=== PATIENT | female | born 1940 | race Caucasian/White ===

== ENCOUNTER 2023-01-01 20:15 | Inpatient (IN) | payer MEDICARE, SELFPAY ==
--- NOTE | ~2023-01-01 | XR_ITS ---
EXAMINATION: XR KNEE, LEFT CLINICAL INFORMATION: Left knee swelling. COMPARISON: None available. TECHNIQUE: Two views of the left knee. FINDINGS: Moderate tricompartmental degenerative joint changes are seen with joint space narrowing, periarticular sclerosis and marginal osteophyte formation. There is no acute fracture. Mild calcification is seen in the suprapatellar region. Small to moderate joint effusion. Mild surrounding soft tissue swelling. XR/XR knee LT 3V IMPRESSION: 1. Moderate tricompartmental degenerative joint changes most consistent with osteoarthritis. 2. Small to moderate joint effusion and mild surrounding soft tissue swelling without acute underlying osseous abnormality.
--- NOTE | ~2023-01-01 | XR_ITS ---
EXAMINATION: XR CHEST CLINICAL INFORMATION: Pneumonia. COMPARISON: None available. TECHNIQUE: 2 views of the chest were obtained. FINDINGS: No significant abnormality is noted involving the heart, lungs, mediastinum, bony thorax or soft tissues. XR/XR chest 2V IMPRESSION: No acute cardiopulmonary process.
--- NOTE | ~2023-01-01 | CT_ITS ---
EXAMINATION: NONCONTRAST HEAD CT NONCONTRAST CERVICAL SPINE CT INDICATION INFORMATION: Unwitnessed fall COMPARISON: None TECHNIQUE: Separate noncontrast CT examinations of the head and cervical spine were performed. Coronal head CT images and coronal and sagittal cervical spine images were created at the technologist workstation. DLP: 846 mGy-cm DOSE LOWERING TECHNIQUES: This CT examination was performed using dose optimization techniques as appropriate, variously including the following: - Automated exposure control - Adjustment of mA and/or kV according to patient size (this includes techniques or standardized protocols for targeted exams were dose is matched to indication/reason for exam; i.e. extremities or head) - Use of iterative reconstruction technique FINDINGS: Head: There is no evidence of acute intracranial hemorrhage or territorial infarction. No abnormal mass-effect or midline shift is seen. Kauffman to white matter differentiation is well preserved. No extra-axial fluid collections are identified. The ventricles are normal in size. There is mild periventricular white matter hypoattenuation consistent with chronic small vessel ischemic disease. Mild volume loss is noted. The osseous structures and soft tissues are normal. The mastoid air cells and visualized portions of the paranasal sinuses are well-aerated. Cervical spine: There is degenerative change at the atlantodens articulation. There is grade 1 anterolisthesis of C2 on C3, C3 on C4, and C7 on T1 which is likely chronic/degenerative in nature. There is disc space narrowing and endplate osteophyte formation most prominently in the lower cervical spine. Vertebral body heights are maintained. There is severe multilevel facet arthropathy. No evidence of acute fracture. No prevertebral soft tissue swelling. Visualized portions of the lung apices demonstrate scarring. The thyroid gland is unremarkable. CT/CT cervical spine wo IV con IMPRESSION: HEAD: No acute intracranial findings. CERVICAL SPINE: No acute findings identified. Moderate to severe degenerative changes.
[2023-01-01 20:25] VITALS: BP 126/69; BP 144/78; PULSE 104; PULSE 82; RESP 15; TEMP 36.8; O2SAT 97; BMI 16.0
--- NOTE | 2023-01-01 21:24 | ED_ITS ---
HPI - General Adult General Chief complaint: Psychiatric Symptoms Stated complaint: DEMENTIA Time Seen by Provider: 01/01/23 21:23 Source: patient, family and RN notes reviewed Mode of arrival: EMS Limitations: altered mental status History of Present Illness HPI narrative: patients have significant dementia with history of wandering out of the house multiple times today had argument with family after the patient left the house went to the neighbor's house patient states the door was open that is why she went inside. Per patient daughter patient has same problem multiple times and dementia is getting worse unable to manage her at this time looking for placement. No fever no nausea no vomiting appetite is normal no cough Related Data Allergies Allergy/AdvReac Type Severity Reaction Status Date / Time No Known Allergies Allergy Verified 01/01/23 21:32 Review of Systems Review of Systems: Yes Unobtainable due to mental status ( dementia) [facility] Social History Social History Smoked in Last 30 Days: No Use of substances other than those prescribed or required for medical reasons: No Advance Directives: No Advance Directives Information Provided: No Physical Exam ED Vital Signs: Vital Signs - 24 hr 01/01/23 20:25 01/02/23 01:43 01/02/23 05:47 Temperature 98.3 F 98.5 F Pulse Rate 104 H 80 83 Respiratory Rate 15 12 17 Blood Pressure 126/69 131/75 125/71 Pulse Oximetry 97 99 95 Oxygen Delivery Method Room Air Room Air Room Air 01/02/23 07:14 Temperature 97.9 F Pulse Rate 81 Respiratory Rate 18 Blood Pressure 128/67 Pulse Oximetry 98 Oxygen Delivery Method Room Air BMI result Body Mass Index 16.0 Appearance: Alert. Oriented X2. No acute distress. Eyes: PERRLA, No Nystagmus ENT: Pharynx normal. Oral Mucosa moist Neck: Normal inspection. Neck supple. CVS: Normal heart rate and rhythm. Pulses normal. Respiratory: No respiratory distress. Equal air entry bilateral, no wheezing/rales/rhonchi Abdomen: Soft and nontender. Bowel sounds are present, no mass palpable, no CVA tenderness Skin: Skin warm and dry. Normal skin color. Normal skin turgor. Extremities: No lower extremity edema. No calf tenderness Neuro: Oriented X 2. No motor deficit. No sensory deficit.No cerebellar signs , cranial nerves II-XII intact Medical Decision Making Medical Decision Making [facility] Narrative: patient with dementia unable to manage at home by patient's family medical stable consulted case management for placement patient ambulatory without any distress seen by case management for placement Lab Data [facility] Lab Attestation statement: I reviewed the patient's lab results. 01/01/23 22:49 01/01/23 22:49 Labs: Lab Results 01/01/23 01/01/23 01/02/23 Range/Units 22:49 22:49 00:47 WBC 7.3 (4.8-10.8) X10*3/uL RBC 4.02 L (4.20-5.50) X10*6/uL Hgb 11.8 L (12.0-16.0) g/dl Hct 36.4 L (37.0-47.0) % MCV 90.5 (80.0-98.0) fL MCH 29.4 (27.0-33.0) pg MCHC 32.4 (31.0-35.0) g/dl RDW 14.4 (11.0-16.0) % Plt Count 298 (160-400) X10*3/uL MPV 9.4 (9.4-12.3) fL Immature Gran % (Auto) 0.3 (0.0-0.4) % Neut % (Auto) 67.6 (45-73) % Lymph % (Auto) 18.2 L (20-40) % [place] % (Auto) 10.9 (2-11) % Eos % (Auto) 2.3 (0-4) % Baso % (Auto) 0.7 (0-2) % Lymph # (Auto) 1.3 (1.2-4.9) X10*3/uL [place] # (Auto) 0.8 (0.1-1.2) X10*3/uL Eos # (Auto) 0.2 (0.0-0.4) X10*3/uL Baso # (Auto) 0.1 (0.0-0.2) X10*3/uL Abs Immat Gran (auto) 0.02 (0.00-0.03) X10*3/uL Absolute Neuts (auto) 4.9 (2.0-8.3) x10*3/uL Absolute Nucleated RBC 0.000 (0.0-0.012) X10*3/uL Nucleated RBC % (auto) 0.0 (0.0-0.2) /100WBC Sodium 143 (135-145) mmol/L Potassium 4.3 (3.3-5.1) mmol/L Chloride 111 H (96-108) mmol/L Carbon Dioxide 24 (22-29) mmol/L Anion Gap 12 (12-20) BUN 29 H (9-16) mg/dL Creatinine 0.90 (0.5-1.4) mg/dL Estim Creat Clear Calc 35.3 Estimated GFR 60 Random Glucose 104 (60-115) mg/dL Calcium 9.2 (8.4-10.2) mg/dL Total Bilirubin 0.2 (0.0-1.0) mg/dL AST 11 (5-31) U/L ALT 10 (0-31) U/L Alkaline Phosphatase 73 (39-117) U/L Total Protein 6.6 (6.5-8.0) g/dL Albumin 3.8 (3.5-5.0) g/dL Urine Color Yellow Urine Appearance Cloudy Urine pH 8.5 (5.0-9.0) Ur Specific [place] 1.020 (1.005-1.025) Urine Protein Trace (Neg-Trace) mg/dL Urine Glucose (UA) Negative (Negative) mg/dL Urine Ketones Negative (Negative) mg/dL Urine Blood Negative (Negative) Urine Nitrite Negative (Negative) Ur Leukocyte Esterase Negative (Negative) Discharge Plan Discharge Clinical Impression: Dementia Patient Disposition: Still a Patient Interventions: [place]-Suicide Risk Severity Scale Last Done: 01/02/23 01:43
[2023-01-01 22:54] LABS: MANUAL DIFF FLAG NO
--- NOTE | 2023-01-01 22:54 | MHC.CM.ED ---
CM met with patient at the request of Dr. Hernandez. Pt BIBA tonjono for increasing confusion and wandering into the neighbors home. Pt has a guardian. Deemed not capable by courts. Guardian/daughter Hannah Jenkins ([phone]). Pt lives with daughter, Nelly Licea ([phone]). Nelly is very concerned because patient has wandered several times, especially at night. Has been more confused. Requesting work up and urine test. Pt does not always know who family is, does not know where she lives, knows her mind is not working correctly. New PCP Dr. Thompson at [facility]. Daughter tells CM that her mother has Medicare and [employer] [place] insurance. Her mother worked for [employer] and the [place] insurance is from her job. sonia Young has an appointment to begin MH application on . Daughters are working on obtaining documents for application. Daughters are concerned about safety and wandering. Pt ambulates with a steady gait. CM spoke to both daughters about time involved in MH application and that their mother would not be admitted to the hospital, but would remain in the ED or Overflow and that this process could take months, before a placement could be obtained. Explained that hiring some help at home, alarming the doors, placing cameras in home could be options for their mother to stay at home, safely, while waiting for MH and placement. Reviewed [facility] and memory care also. Nelly, who cares for her mother states she needs to think about all these options, but is really worried after tonights issue. She again stated she was worried about safety. Dr. Hernandez aware of above. CM following for discharge needs. Medical work up ongoing.
[2023-01-01 22:55] LABS: Basophils Absolute Auto 0.1 X10*3/uL (0.0-0.2); Basophils Percent Auto 0.7 % (0-2); Eosinophils Absolute Auto 0.2 X10*3/uL (0.0-0.4); Eosinophils Percent Auto 2.3 % (0-4); Hematocrit 36.4 % (37.0-47.0); Hemoglobin 11.8 g/dl (12.0-16.0); Imm Gran Abs Auto 0.02 X10*3/uL (0.00-0.03); Imm Gran Pct Auto 0.3 % (0.0-0.4); Lymphocytes Absolute Auto 1.3 X10*3/uL (1.2-4.9); Lymphocytes Percent Auto 18.2 % (20-40); Mean Corpuscular HGB Conc 32.4 g/dl (31.0-35.0); Mean Corpuscular Hemoglobin 29.4 pg (27.0-33.0); Mean Corpuscular Volume 90.5 fL (80.0-98.0); Mean Platelet Volume 9.4 fL (9.4-12.3); Monocytes Absolute Auto 0.8 X10*3/uL (0.1-1.2); Monocytes Percent Auto 10.9 % (2-11); Neutrophils Absolute Auto 4.9 x10*3/uL (2.0-8.3); Neutrophils Percent Auto 67.6 % (45-73); Platelet Count 298 X10*3/uL (160-400); Red Blood Count 4.02 X10*6/uL (4.20-5.50); Red Cell Distribution Width 14.4 % (11.0-16.0); White Blood Count 7.3 X10*3/uL (4.8-10.8)
[2023-01-01 23:09] LABS: Alanine Aminotransferase 10 U/L (0-31); Albumin Level 3.8 g/dL (3.5-5.0); Alkaline Phosphatase 73 U/L (39-117); Anion Gap 12 (12-20); Aspartate Amino Transferase 11 U/L (5-31); Bilirubin Total 0.2 mg/dL (0.0-1.0); Blood Urea Nitrogen 29 mg/dL (9-16); Calcium 9.2 mg/dL (8.4-10.2); Carbon Dioxide 24 mmol/L (22-29); Chloride 111 mmol/L (96-108); Creatinine Clr Calc Pharmacy 35.3; Estimated Glomerular Filt Rate 60; Glucose Random 104 mg/dL (60-115); Potassium 4.3 mmol/L (3.3-5.1); Sodium 143 mmol/L (135-145); Total Protein 6.6 g/dL (6.5-8.0)
[2023-01-02 00:58] LABS: Appearance Urine Cloudy; Color Urine Yellow; Glucose Urine UA Negative (Negative); Leukocyte Esterase Urine Negative (Negative); Nitrite Urine Negative (Negative); PH 8.5 (5.0-9.0); Urine Blood Negative (Negative); Urine Ketones Negative (Negative); Urine Protein Trace mg/dL (Neg-Trace)
[2023-01-02 01:43] VITALS: BP 131/75; PULSE 80; RESP 12; O2SAT 99
--- NOTE | 2023-01-02 01:46 | PC.NURSE ---
Pt alert and oriented to self, resting at the bedside in no apparent distress. VSS. Case management met with pt and family and they are aware of plan of care. Pt able to ambulate with one assist to the bathroom. Reports no assist device use at home. Makes needs known. Food and liquid provided as requested. Pt able to eat and drink with no difficulty.
--- NOTE | 2023-01-02 04:32 | PC.NURSE ---
Pt resting/sleeping at the bedside in no apparent distress. Reports no pain or discomfort at this time. Will continue to monitor.
[2023-01-02 05:47] VITALS: BP 125/71; PULSE 83; RESP 17; TEMP 36.9; O2SAT 95
[2023-01-02 07:14] VITALS: BP 128/67; PULSE 81; RESP 18; TEMP 36.6; O2SAT 98
--- NOTE | 2023-01-02 07:16 | PC.NURSE ---
patient laying in stretcher, calm and cooperative. patient resp equal and unlabored. no signs of distress. patient sitting up eating breakfast
--- NOTE | 2023-01-02 08:24 | PC.NURSE ---
Assumed care of patient at this time.
--- NOTE | 2023-01-02 09:58 | PC.NURSE ---
Per daughter who contacted ED overflow at this time, patient is not on any current medications. Hasn't filled anything since and stopped taking them all at that time because, she hasn't gotten in to see a primary care provider .
--- NOTE | 2023-01-02 09:59 | PHA.MEDREC ---
Pharmacy Consult ? Medication Reconciliation Pharmacy has completed the medication reconciliation. Nurse Majo messaged me to let me know that patient's daughter called her in ED Over to let her know that she stopped taking medications in June and is currently not taking any medication
[2023-01-02 14:00] VITALS: BP 116/64; PULSE 74; RESP 18; TEMP 36.8; O2SAT 98
--- NOTE | 2023-01-02 14:46 | MHC.CM.PN ---
THIS CM SPOKE WITH DAUGHTER/GUARDIAN GAUTAM. SHE STATES SHE AND HER SISTER ARE JUST UNABLE TO SAFELY KEEP THEIR MOTHER AT HOME SAFELY DUE TO HER WANDERING AND . GAUTAM WILL BE STARTING THE MH PROCESS WEDNESDAY WITH [facility]. SUPPORT OFFERED AND THIS CM DID EXPLAIN THE IT WAS OF THE UTMOST IMPORTANCE TO START RIGHT IN ON THE MH APPLICATION SO LTC PLACEMENT CAN BE SOUGHT. PT MAY NEED A SECURED DEMENTIA UNIT DUE TO HER WANDERING. CM WILL CONTINUE TO FOLLOW FOR DC NEEDS/PLAN
--- NOTE | 2023-01-02 20:34 | MHC.EDTECH ---
ambulated patient to the bathroom X 2. Patient in bed resting quietly
--- NOTE | 2023-01-02 20:46 | PC.NURSE ---
Pt alert to her self, confused and wandering at times. Easily redirectable. She amb to the BR w/ assist. Camera in place and safety prec maintained.
--- NOTE | 2023-01-02 20:46 | MHC.EDTECH ---
Pt. attempting to go home to get soething to eat. [place] and imger veronica provided. Pt. back in bed resting quietly
[2023-01-02 21:30] VITALS: BP 125/54; PULSE 84; RESP 16; TEMP 36.8; O2SAT 96
[2023-01-02] MEDS: OLANZapine 5 MG TABLET PO (22:02)
--- NOTE | 2023-01-02 22:30 | PC.NURSE ---
Pt very restless, wandering around unit and very anxious.Pt needing constant redirection. MD Tatiana gordillo notified and ordered 5mg po zyprexa. Med given.
[2023-01-03 14:00] VITALS: BP 86/58; PULSE 88; RESP 16; TEMP 36.6; O2SAT 98
[2023-01-03 16:15] VITALS: BP 86/60
[2023-01-03 18:56] VITALS: BP 106/60
--- NOTE | 2023-01-03 18:57 | PC.NURSE ---
Patient slept most of the day, in the afternoon patient became more active, confused expressing desire to leave, stating she lives next door and will be leaving. Easily redirected.
[2023-01-03] MEDS: OLANZapine 5 MG TABLET PO (20:07)
[2023-01-03] MEDS: diphenhydrAMINE HCL 25 MG CAPSULE PO (21:18)
[2023-01-03 22:00] VITALS: BP 127/70; PULSE 98; RESP 16; TEMP 36.7; O2SAT 98
--- NOTE | 2023-01-04 00:34 | PC.NURSE ---
Assumed care at 19:30. Patient oriented to name only. Up wandering, sundowning, wandering, agitated, yelling at and swearing at people to turn everything off and get everyone out of here. Discussed with provider, PO zyprexa with effect, less agitation administered per emar about 20:00. Patient then wandering, very active, rambling incoherent sentences with intelligible words but flight of ideas. More redirectable. Aide was spending most time nearly as 1:1, discussed with Nursing Lead Housekeeper that patient needs 1:1 sitter, as the telesitter at bedside is not able to be effective enough. Discussed with provider, as patient was very active and wandering, poor adherence to falls risk and use of walker. New order for benedryl PO administered about 21:18 as per emar. Patient resting calmly in bed at shift change.
[2023-01-04] MEDS: OLANZapine 10 MG VIAL IM (04:11)
--- NOTE | 2023-01-04 04:43 | PC.NURSE ---
Assumed care for patient at 2330. During report patient had a possible unwitnessed fall. Patient found looking under bed for an item, redirected /assisted back in bed. Workers Compensation Claims Examiner, and provider notified. Ct scan ordered , results negative for any new findngs. Patient continually restless, and difficult to redirect. 1:1 sitter requested although not able to provide. Zyprexa IM x1 ordered/administered. Will continue to monitor.
[2023-01-04 06:00] VITALS: BP 115/62; PULSE 107; RESP 16; O2SAT 98
--- NOTE | 2023-01-04 12:02 | PC.NURSE ---
Addendum entered by Nara Santos 01/04/23 13:41: patient able to state year and knows identity but disoriented to situation/month/place. 1:1 at bedside still. watching tv, coloring book at bedside ector hanks. no distress noted. Original Note: eating lunch and watching tv. no respiratory distress. 1:1 at bedside. MCDANIEL equally. +CSM. no pain. answers most orientation questions appropriately; alert, conversing well. MCDANIEL equally.
--- NOTE | 2023-01-04 13:18 | MHC.CM.ED ---
Addendum entered by Yen Hodges 01/04/23 13:48: Hannah arrived in ER. Copy of guardianship obtained. Hannah is in the process of trying to obtain all the necessary paperwork to complete LTC loretta. Hannah has been looking at Assisted living facilities. [facility] info provided. Original Note: Patient remains in ER overflow. Received telephone call from patient's daughter, Hannah. Hannah is in the process of obtaining information to complete [employer] application. She will bring a copy of patient's guardianship to Continue to monitor for d/c needs.
[2023-01-04 14:00] VITALS: BP 118/56; PULSE 110; RESP 20; TEMP 36.4; O2SAT 95
--- NOTE | 2023-01-04 15:41 | PC.NURSE ---
denies pain. has snack/po fluids. watching tv. no distress. conversing well- remains pleasantly confused. coloring w arlene. 1:1 at bedside
[2023-01-04 15:50] VITALS: BP 105/50; PULSE 86; RESP 15; TEMP 36.5; O2SAT 94
--- NOTE | 2023-01-04 20:58 | PC.NURSE ---
patient in bed with eyes open patient showing no distress at this time patient is with a 1:1 patient have to be redirected several times due to patient is confused patient will continue to be monitored for safety.
[2023-01-04 23:54] VITALS: BP 118/60; PULSE 86; RESP 14; TEMP 36.5; O2SAT 96
[2023-01-05 06:00] VITALS: BP 91/54; PULSE 96; RESP 16; TEMP 37; O2SAT 96
--- NOTE | 2023-01-05 09:49 | PC.NURSE ---
assumed care of pt at 0700. pt resting quietly in bed in no apparent distress. consumed breakfast, tolerated well. 1:1 sitter at bedside. wctm
[2023-01-05 13:40] LABS: Glucose, Whole Blood 116 mg/dL (60-115)
[2023-01-05 13:48] VITALS: BP 103/54; PULSE 101; RESP 16; TEMP 36.6; O2SAT 96
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
--- NOTE | 2023-01-05 14:03 | PC.NURSE ---
pt woke up and tried to get out of bed. yelled and started to become combative towards sitter. provider aware and ordering medication for pt. gagan
[2023-01-05] MEDS: OLANZapine 10 MG VIAL 5 MG IM (14:16)
--- NOTE | 2023-01-05 14:35 | PC.NURSE ---
pt medicated per aug. medication restraint paperwork filled out. pt currently resting quietly with 1:1 sitter at bedside for pt safety. rr even/unlabored. vitals monitored every 15 min for next hour. tm
[2023-01-05 16:00] VITALS: BP 120/83; PULSE 109; RESP 16; TEMP 37.1; O2SAT 98
--- NOTE | 2023-01-05 16:10 | MHC.EDTECH ---
THIS PCT ASSUMED CARE OF PATIENT AT 1515 ,VITALS SIGN TAKEN ,PATIENT WAS REPOASITION AND BOOSTED UP IN BED ,PT WATCHING TELEVISION IN BED .
--- NOTE | 2023-01-05 17:55 | PC.NURSE ---
pt consumed dinner, 1:1 feed with MELISSA [employer] Tech. pt currently resting quietly in bed, in no apparent distress. 1:1 sitter at bedside. rr even/unlabored. vss. wctm
--- NOTE | 2023-01-05 18:11 | MHC.EDTECH ---
PATIENT WAS FED SUPPER BY THIS PCT ,PATIENT ATE 100 % OF MEAL ,DRANK 120 ML JEROME IGOR .
--- NOTE | 2023-01-05 19:38 | MHC.CM.ED ---
Guardian working on obtaining paper work for MH application. Met with [facility] financial services. Unable to have any meaningful conversation with patient d/t advanced dementia. Will need locked dementia unit d/t wandering. CM following for discharge planning.
[2023-01-05 20:38] LABS: Glucose, Whole Blood 147 mg/dL (60-115)
[2023-01-05 22:52] VITALS: BP 152/68; PULSE 60; RESP 20; TEMP 37; O2SAT 93
[2023-01-06] VITALS (8 sets, daily range): BP systolic 106–134; BP diastolic 55–67; PULSE 97–107; RESP 16–20; TEMP 36.5–38; O2SAT 93–97; BMI 15.9
--- NOTE | 2023-01-06 06:32 | PC.NURSE ---
pt slept during the shift, camera present
--- NOTE | 2023-01-06 07:30 | PC.NURSE ---
Resumed care of patient at this time, provider touched base with this proposal manager writer in regards to pt HR overnight, at this time HR 103, pt is resting quietly in bed, is not agitated or upset, provider updated, will continue to monitor HR throughout the day. All safety measures in place at this time, camera in place, will continue to asses behavior needs throughout the day.
[2023-01-06 09:13] LABS: MANUAL DIFF FLAG NO
[2023-01-06 09:14] LABS: Basophils Absolute Auto 0.1 X10*3/uL (0.0-0.2); Basophils Percent Auto 0.4 % (0-2); Hematocrit 41.8 % (37.0-47.0); Hemoglobin 13.6 g/dl (12.0-16.0); Imm Gran Abs Auto 0.07 X10*3/uL (0.00-0.03); Imm Gran Pct Auto 0.5 % (0.0-0.4); Lymphocytes Absolute Auto 1.1 X10*3/uL (1.2-4.9); Mean Corpuscular HGB Conc 32.5 g/dl (31.0-35.0); Mean Corpuscular Hemoglobin 29.5 pg (27.0-33.0); Mean Corpuscular Volume 90.7 fL (80.0-98.0); Mean Platelet Volume 9.5 fL (9.4-12.3); Monocytes Absolute Auto 1.3 X10*3/uL (0.1-1.2); Monocytes Percent Auto 9.5 % (2-11); Neutrophils Absolute Auto 11.6 x10*3/uL (2.0-8.3); Neutrophils Percent Auto 81.6 % (45-73); Platelet Count 347 X10*3/uL (160-400); Red Blood Count 4.61 X10*6/uL (4.20-5.50); Red Cell Distribution Width 14.3 % (11.0-16.0); White Blood Count 14.2 X10*3/uL (4.8-10.8)
[2023-01-06 09:25] LABS: Anion Gap 16 (12-20); Blood Urea Nitrogen 31 mg/dL (9-16); Calcium 9.4 mg/dL (8.4-10.2); Carbon Dioxide 19 mmol/L (22-29); Chloride 109 mmol/L (96-108); Creatinine Clr Calc Pharmacy 28.3; Estimated Glomerular Filt Rate 47; Glucose Random 173 mg/dL (60-115); Potassium 3.7 mmol/L (3.3-5.1); Sodium 140 mmol/L (135-145)
--- NOTE | 2023-01-06 11:25 | PC.NURSE ---
This writed attempted straight cath with no success d/t anatomy, provider at bedside, who also had no success, rectal temp 100.4, new order for APAP placed, pt brought for Chest xray and L knee Xray at this time
[2023-01-06] MEDS: 0.9 % Sodium Chloride 250 ML 999 ML IV (12:21)
--- NOTE | 2023-01-06 12:25 | PC.NURSE ---
Provided alerted of pt being lethargic, not wanting to wake up to take pills/eat lunch. IV placed for fluid bolus ordered, provider alerted sepsis alert, Lactic and BC ordered, IV antx ordered.
--- NOTE | 2023-01-06 12:53 | PM.IMHP ---
History of Present Illness Date of Service: 01/06/23 Attending physician on admission: Sorin Vinson Chief Complaint: Leukocytosis, sepsis Pt is a 82-year-old female with a PMH significant for?osteoporosis and profound dementia not on home meds who presented to the ED 5 days prior on 01/01/2023 with worsening dementia. Patient was brought in by family after wandering out of her house multiple times and eventually ending up in her neighbor's home. According to guardian, patient's wandering has worsened recently to the point where the family no longer feels like they can manage her at home. Patient apparently had been living with her in [place] up until September of this year when her began having health issues of his own and could no longer take care of the patient. Guardian notes that for the past few weeks patient has been less ambulatory than prior, has been complaining of left knee pain after morning walks around the block. All workup, including CBC, CMP, and UA were negative. Pt has been in the observation unit since then awaiting placement at a long-term care facility. This morning patient was noted be lethargic, tachycardic up to 109, and labs were significant for a leukocytosis of 14.2. Chest x-ray negative for acute cardiopulmonary process. UA still pending since urine has not yet been able to be obtained via straight catheterization despite 3 attempts by 3 different clinicians. Pt was treated with ceftriaxone and IVF. Pt will be admitted to the hospital for sepsis possibly secondary to UTI. Review of Systems Review of Systems: Unable to obtain due to patient's mentation [facility] Social History Smoked in Last 30 Days: No Use of substances other than those prescribed or required for medical reasons: No Advance Directives: No Advance Directives Information Provided: No Meds Allergies Allergy/AdvReac Type Severity Reaction Status Date / Time No Known Allergies Allergy Verified 01/01/23 21:32 Active Medications: Current Medications Pharmacy Consult (Consult Rx Perform Med Rec) 1 each MISCELLANE ONCE PRN PRN Reason: Consult order Home Medications Medication Instructions Recorded Confirmed Last Taken Type No Known Home Meds 01/02/23 01/02/23 Unknown History Physical Exam Vital Signs and Narrative: Vital Signs: Last Vital Signs Temp 98.8 F 07/26/23 12:31 Pulse 107 H 01/06/23 12:31 Resp 16 01/06/23 12:31 BP 134/62 01/06/23 12:31 Pulse Ox 97 01/06/23 12:31 O2 Del Method Room Air 01/06/23 12:31 BMI result Body Mass Index 16.0 Constitutional: Somnolent but arousable to verbal stimuli. Frail looking. Mental Status: Oriented to person only. Eyes: Pupils are equal, round, and reactive to light. Ear, Nose, and Throat: Oropharynx clear, mucous membranes moist. Ears and nose without deformities. Trachea midline. Respiratory: Clear to auscultation bilaterally. No wheezing, rales, or rhonchi. Cardiovascular: S1, S2 regular. No murmurs, rubs, or gallops. Gastrointestinal: Abdomen soft, non-tender, non-distended. Normal bowel sounds. Neurologic: Cranial nerves II-XII are grossly intact bilaterally. Moves all extremities spontaneously. Skin: No rashes or lesions noted. Musculoskeletal: Left knee swelling and tenderness, especially on medial and superior/lateral aspect. No erythema or warmth noted of left knee. Extremities: No lower leg edema. Results Labs 01/06/23 09:07 01/06/23 09:07 Labs: Laboratory Results - last 24 hr 01/05/23 01/05/23 01/06/23 13:37 20:22 09:07 MCV 90.7 MCH 29.5 MCHC 32.5 RDW 14.3 Plt Count 347 MPV 9.5 Immature Gran % (Auto) 0.5 H Neut % (Auto) 81.6 H Lymph % (Auto) 8.0 L Wolfe % (Auto) 9.5 Eos % (Auto) 0.0 Baso % (Auto) 0.4 Lymph # (Auto) 1.1 L Wolfe # (Auto) 1.3 H Eos # (Auto) 0.0 Baso # (Auto) 0.1 Abs Immat Gran (auto) 0.07 H Absolute Neuts (auto) 11.6 H Absolute Nucleated RBC 0.000 Nucleated RBC % (auto) 0.0 Anion Gap Estim Creat Clear Calc Estimated GFR POC Glucose 116 H 147 H Random Glucose Calcium 01/06/23 09:07 MCV MCH MCHC RDW Plt Count MPV Immature Gran % (Auto) Neut % (Auto) Lymph % (Auto) Wolfe % (Auto) Eos % (Auto) Baso % (Auto) Lymph # (Auto) Wolfe # (Auto) Eos # (Auto) Baso # (Auto) Abs Immat Gran (auto) Absolute Neuts (auto) Absolute Nucleated RBC Nucleated RBC % (auto) Anion Gap 16 Estim Creat Clear Calc 28.3 Estimated GFR 47 POC Glucose Random Glucose 173 H Calcium 9.4 Imaging Radiologist's Impressions: Impressions Chest X-Ray 01/06/23 11:14 IMPRESSION: No acute cardiopulmonary process. Knee X-Ray 01/06/23 11:14 IMPRESSION: 1. Moderate tricompartmental degenerative joint changes most consistent with osteoarthritis. 2. Small to moderate joint effusion and mild surrounding soft tissue swelling without acute underlying osseous abnormality. Assessment and Plan (1) Sepsis: Status: Acute Plan Pt is a 82-year-old female with a PMH significant for?osteoporosis and profound dementia not on home meds who presented to the ED 5 days prior on 01/01/2023 with worsening dementia. Pt has been in the observation unit since then awaiting placement at a long-term care facility. This morning patient was noted be lethargic, tachycardic up to 109, and labs were significant for a leukocytosis of 14.2. Pt will be admitted to the hospital for sepsis possibly secondary to UTI. Sepsis Unknown infection source: Likely UTI Urine not yet obtained despite 3 catheterization attempts Pt with WBC, tachycardia, lethargy Lactic acid WNL at 1.5 Patient treated with IVF and ceftriaxone in ED Continue ceftriaxone, started 01/06/2023 Acetaminophen for fever Follow UA, cultures Collow CBC Swollen left knee Pt was ambulatory yesterday, per nursing staff Knee x-ray with moderate tricompartmental degenerative joint changes consistent with osteoarthritis, with small to moderate joint effusion No erythema or warmth of knee Acetaminophen for pain Ortho consult DNR/DNI Attending:?Dr. Vinson DVT Prophylaxis: Lovenox Pt will require a hospitalization of at least two nights for treatment with IV antibiotics of?sepsis likely secondary to UTI. Time Spent With Patient Time: Total time managing care of this patient today ____ minutes. Quality Stroke Does the patient have a stroke diagnosis?: No VTE Prior VTE?: No VTE Risk Level:: Medical - moderate - high VTE Device Contraindication: Treatment Not Indicated VTE Drug Contraindication: N/A - Med Ordered
[2023-01-06] MEDS: Acetaminophen Supp 650 MG SUPP.RECT PR (13:03)
[2023-01-06] MEDS: cefTRIAXone sodium 1 GM in 0.9 % Sodium Chloride 50 ML IV (13:03)
--- NOTE | 2023-01-06 13:04 | PC.NURSE ---
2 sets of blood cultures drawn by [facility] at 1245, jaron hung at 1302. straight cath attempted twice, unable to obtain specimen.
--- NOTE | 2023-01-06 13:15 | MHC.EDTECH ---
Went to overflow to collect blood cultures and lactic on Pt. These orders were not visible in [facility] Link even though orders were in patient's chart. I showed RN this and called down to lab/chemistry, spoke with Samuel and made him aware of the situation. He said he would print labels when specimens were received. Both sets of cultures (labeled as 1st and 2nd) and lactic collected and sent to lab.
--- NOTE | 2023-01-06 14:10 | PC.NURSE ---
Provider ordered Lactic acid, bcx2 collected by tech at 1230, order was not crossing over into system, tech called lab directly explaining that the orders are in, however we could not print the label, we were instructed to print demographics and label correctly with pnumonics, staff followed what was discussed. Order still not pending or resulted at 1405, lab called by this marketing writer, was instructed tube was sitting in lab for over 2 hours and could not be run because they did not know what the order was, staff was not alerted of this prior. Per lab, a new lactic would need to be collected. Provider called and made aware of situation. New order placed at this time. Pt has already received IVF/IV antx d/t sepsis concern at this time.
--- NOTE | 2023-01-06 14:30 | MHC.EDTECH ---
Called down to lab after recollecting lactic on Pt and spoke with Yanet. t/w informed her that the labels for the blood cultures x2 were finally showing up in [facility] for us, and t/w was going to print and scan them and send them down with the lactic. She is aware. YOLI Wilks also aware of this and aware that t/w spoke with the lab again. Lactic collected on ice and sent down to labs with labels.
[2023-01-06 14:47] LABS: Lactic Acid 1.1 mmol/L (0.5-2.0)
[2023-01-06 14:55] LABS: Lactic Acid 1.5 mmol/L (0.5-2.0)
[2023-01-06 17:06] LABS: C Reactive Protein 6.74 mg/dL (< or = 0.50)
[2023-01-06] MEDS: Enoxaparin Sodium 30 MG/0.3 ML SYRINGE SUBCUT (17:34)
--- NOTE | 2023-01-06 17:42 | PC.NURSE ---
Provider notified of lab not being able to do his add on order, requested pt get it added on to morning lab work as pt has already had multiple lab draws today. Provider in agreement to hold off until morning at this time
--- NOTE | 2023-01-06 18:23 | PC.NURSE ---
Report given to RN on M3 at this time, pt to be brought up by transport
--- NOTE | 2023-01-06 18:56 | PC.ADMIT ---
pt admitted to 368 @ 1857. vs taken, skin check performed. Pt bottom is extremely red, due to incontinence and pressure. Pt is mostly lethargic, camera is in use. pt changed, naman cruz. pain present when moved.
[2023-01-06] MEDS: 0.9 % Sodium Chloride Flush 3 ML SYRINGE IVFLUSH (23:35)
[2023-01-07 03:09] VITALS: BP 108/55; PULSE 99; RESP 18; TEMP 36.6; O2SAT 95
[2023-01-07 05:16] LABS: Hematocrit 39.1 % (37.0-47.0); Hemoglobin 12.8 g/dl (12.0-16.0); Mean Corpuscular HGB Conc 32.7 g/dl (31.0-35.0); Mean Corpuscular Hemoglobin 29.5 pg (27.0-33.0); Mean Corpuscular Volume 90.1 fL (80.0-98.0); Platelet Count 300 X10*3/uL (160-400); Red Blood Count 4.34 X10*6/uL (4.20-5.50); Red Cell Distribution Width 14.4 % (11.0-16.0); White Blood Count 9.5 X10*3/uL (4.8-10.8)
[2023-01-07 05:31] LABS: Anion Gap 17 (12-20); Blood Urea Nitrogen 29 mg/dL (9-16); Calcium 9.1 mg/dL (8.4-10.2); Carbon Dioxide 18 mmol/L (22-29); Chloride 112 mmol/L (96-108); Estimated Glomerular Filt Rate > 60; Glucose Random 118 mg/dL (60-115); Potassium 3.9 mmol/L (3.3-5.1); Sodium 143 mmol/L (135-145)
[2023-01-07] MEDS: 0.9 % Sodium Chloride Flush 3 ML SYRINGE IVFLUSH (07:38)
[2023-01-07] MEDS: Acetaminophen 325 MG TABLET 650 MG PO ×2 (07:50→23:18)
[2023-01-07 08:00] VITALS: BP 89/59; PULSE 119; RESP 17; TEMP 36.8; O2SAT 93
[2023-01-07 11:49] VITALS: BMI 15.9
[2023-01-07] MEDS: Lactated Ringers 1,000 ML 100 ML IVCONT ×2 (11:49→23:22)
--- NOTE | 2023-01-07 11:54 | MHC.CLN ---
PT IS MODERATELY MALNOURISHED PT WITH MILDLY DEPLETED SUBCUTANEOUS FAT AND MUSCLE WITH BMI 16 PT IS CONFUSED AND UNABLE TO OBTAIN WT HISTORY DIET RX: REGULAR-APPROPRIATE RECOMMEND ADDING ENSURE BID TO INCREASE KCALS SUPP TO PROVIDE 700KCALS, 40G PROTEIN MONITOR PO INTAKE CLOSELY SEE ALSO FULL CLINICAL NUTRITION ASSESSMENT
--- NOTE | 2023-01-07 12:39 | PM.CNOR ---
History of Present Illness HPI Consult date: 01/08/23 Chief complaint: sepsis likely secondary to UTI Narrative: Pt is a 82-year-old female with a PMH significant for?osteoporosis and profound dementia not on home meds who presented to the ED 5 days prior on 01/01/2023 with worsening dementia.? ?She has been in the observation unit awaiting placement for a residential care facility when she was noted to be lethargic, tachycardic up to 109, and labs were significant for a leukocytosis of 14.2.?Patient was admitted to the hospital for sepsis possibly secondary to UTI. She was also c/o left knee pain and swelling, xr show tricompartmental OA . Orthopedics was consulted for recommendations. Review of Systems Review of Systems: per hpi. [facility] Social History Social History Household Members: Children Housing: House Do you presently have visiting nurse or other home services: No Unable to assess alcohol history related to: Unknown Patient Tobacco Use Status: Never used Tobacco Smoked in Last 30 Days: No Use of substances other than those prescribed or required for medical reasons: No Currently Displaying Signs/Symptoms of Drug Intoxication Withdrawal: No Any prior treatment program specific to substance use: No Advance Directives: No Advance Directives Information Provided: No Recently lost weight without trying: Unsure How much weight loss: Unsure Nutrition Risks: Emaciation/Cachexia Patient : No service: No Meds Allergies Allergy/AdvReac Type Severity Reaction Status Date / Time No Known Allergies Allergy Verified 01/01/23 21:32 Active Medications: Current Medications Acetaminophen (Acetaminophen 325 Mg Tablet) 650 mg PO Q6H PRN PRN Reason: Pain, Mild (Pain Scale 1-3) Last Admin: 01/07/23 07:50 Dose: 650 mg Docusate Sodium (Docusate Sodium 100 Mg Capsule) 100 mg PO DAILY PRN PRN Reason: Constipation Enoxaparin Sodium (Enoxaparin Sodium 30 Mg/0.3 Ml Syringe) 30 mg SUBCUT Q24H JOHN Last Admin: 01/06/23 17:34 Dose: 30 mg Ceftriaxone Sodium 1 gm/ (Sodium Chloride) 50 mls @ 100 mls/hr IV Q24H JOHN Lactated Ringer's (Lr) 1,000 mls @ 100 mls/hr IVCONT .Q10H JOHN Stop: 01/08/23 06:29 Last Admin: 01/07/23 11:49 Dose: 100 mls/hr Ondansetron HCl (Ondansetron Hcl 4 Mg/2 Ml Vial) 4 mg IVPUSH Q8H PRN PRN Reason: Nausea and Vomiting Pharmacy Consult (Consult Rx Perform Med Rec) 1 each MISCELLANE ONCE PRN PRN Reason: Consult order Sodium Chloride (0.9 % Sodium Chloride Flush 3 Ml Syringe) 3 ml IVFLUSH QSHIFT [facility] Last Admin: 01/07/23 07:38 Dose: 3 ml Home Medications Medication Instructions Recorded Confirmed Last Taken Type No Known Home Meds 01/02/23 01/02/23 Unknown History Physical Exam Vital Signs: Vital Signs: Last Vital Signs Temp 98.3 F 01/07/23 08:00 Pulse 119 H 01/07/23 08:00 Resp 17 01/07/23 08:00 BP 89/59 L 01/07/23 08:00 Pulse Ox 93 01/07/23 08:00 O2 Del Method Room Air 01/07/23 08:00 BMI result Body Mass Index 15.9 Const: General: cooperative, healthy appearing and comfortable Extrem: Other: Left knee moderate joint effusion without redness. She does have tenderness to palpation. Full extension, flexion limited to 90. Calf supple non tender. NVI. Results Labs 01/07/23 04:52 01/07/23 04:52 Labs: Abnormal lab results 01/06/23 01/07/23 Range/Units 09:07 04:52 Chloride 112 H (96-108) mmol/L Carbon Dioxide 18 L (22-29) mmol/L BUN 29 H (9-16) mg/dL Random Glucose 118 H (60-115) mg/dL C-Reactive Protein 6.74 H (< or = 0.50) mg/dL H & H 01/01/23 01/06/23 01/07/23 Range/Units 22:49 09:07 04:52 Hgb 11.8 L 13.6 12.8 (12.0-16.0) g/dl Hct 36.4 L 41.8 39.1 (37.0-47.0) % All other labs normal. Assessment and Plan (1) Osteoarthritis of left knee: Status: Acute Plan Left knee oa with effusion -asp 60 cc clear yellow joint fluid with cartiladge fragments noted, knee reinjected with corticosteroid -recommend nsaids / tylenol use for pain -rom to tolarance -follow up out patient prn Time Spent With Patient Time: Total time managing care of this patient today ____ minutes. Procedures Date of Service Date of Service: 01/08/23 Joint Aspiration/Injection Joint Asp./Inject. 1: Time out performed: Yes Side of body: left Joint Aspirated/Injected: knee Ultrasound guidance: No Skin prep: Povidone-Iodine1% Needle size used: 18G Fluid obtained: clear Total fluid obtained (ml): 60 Medication injected, if any: other (80mg depo with 4cc 1% lido) Patient tolerated procedure: well Complications: none
[2023-01-07] MEDS: cefTRIAXone sodium 1 GM in 0.9 % Sodium Chloride 50 ML IV (12:56)
[2023-01-07 14:51] VITALS: BP 113/55; PULSE 100; RESP 17; TEMP 36.8; O2SAT 97
[2023-01-07 15:37] VITALS: BP 106/56; PULSE 96; RESP 20; TEMP 36.5; O2SAT 98
[2023-01-07] MEDS: Lidocaine HCl 1 % 20 ML VIAL SUBCUT (15:56)
[2023-01-07] MEDS: methylPREDNISolone acetate 80 MG VIAL INTRAARTIC (15:57)
--- NOTE | 2023-01-07 16:29 | P.PNIM_ITS ---
Subjective Subjective Date of Service: 01/07/23 Interval History: seen and examined this morning follow up for presumed UTI, left knee pain patient pleasantly confused, reports left knee pain no other complaints Review of Systems Review of Systems: Yes all other systems are reviewed and are negative Constitutional Constitutional: Denies chills and Denies fever(s) ENT Ears, Nose, Mouth, and Throat: Denies dizziness Cardiovascular Cardiovascular: Denies chest pain Neurologic Neurologic: Denies dizziness Physical Exam Vital Signs: Vital Signs: Last Vital Signs Temp 97.7 F 01/07/23 15:37 Pulse 96 01/07/23 15:37 Resp 20 01/07/23 15:37 BP 106/56 L 01/07/23 15:37 Pulse Ox 98 01/07/23 15:37 O2 Del Method Room Air 01/07/23 15:37 BMI result Body Mass Index 15.9 Const: Other: plesantly confused General: cooperative, comfortable, no acute distress, alert and awake Resp: Effort & Inspection: normal respiratory effort, able to speak in complete sentences, no respiratory distress and no use of accessory muscles Cardio: Rate: regular rate Heart sounds: S1 normal heart sound present and S2 normal heart sound present GI: Inspection: No distended Palpation (GI): Soft to palpation and nontender Neuro: General: moves all extremities and CN's II-XI intact bilaterally Extrem: Other: left knee swelling, no erythema Objective Data Active Medications Acetaminophen (Acetaminophen 325 Mg Tablet) 650 mg PO Q6H PRN PRN Reason: Pain, Mild (Pain Scale 1-3) Last Admin: 01/07/23 07:50 Dose: 650 mg Documented By: MARIAN Docusate Sodium (Docusate Sodium 100 Mg Capsule) 100 mg PO DAILY PRN PRN Reason: Constipation Enoxaparin Sodium (Enoxaparin Sodium 30 Mg/0.3 Ml Syringe) 30 mg SUBCUT Q24H [facility] Last Admin: 01/06/23 17:34 Dose: 30 mg Documented By: ESTRELLA Ceftriaxone Sodium 1 gm/ (Sodium Chloride) 50 mls @ 100 mls/hr IV Q24H [facility] Last Infusion: 01/07/23 15:58 Dose: 100 mls/hr Documented By: MARIAN Lactated Ringer's (Lr) 1,000 mls @ 100 mls/hr IVCONT .Q10H [facility] Stop: 01/08/23 06:29 Last Admin: 01/07/23 11:49 Dose: 100 mls/hr Documented By: MARIAN Ondansetron HCl (Ondansetron Hcl 4 Mg/2 Ml Vial) 4 mg IVPUSH Q8H PRN PRN Reason: Nausea and Vomiting Pharmacy Consult (Consult Rx Perform Med Rec) 1 each MISCELLANE ONCE PRN PRN Reason: Consult order Sodium Chloride (0.9 % Sodium Chloride Flush 3 Ml Syringe) 3 ml IVFLUSH QSHIFT [facility] Last Admin: 01/07/23 07:38 Dose: 3 ml Documented By: MARIAN Labs 01/07/23 04:52 01/07/23 04:52 Labs: Laboratory Results - last 24 hr 01/06/23 01/07/23 01/07/23 09:07 04:52 04:52 MCV 90.1 MCH 29.5 MCHC 32.7 RDW 14.4 Plt Count 300 MPV 10.0 Absolute Nucleated RBC 0.000 Nucleated RBC % (auto) 0.0 Anion Gap 17 Estim Creat Clear Calc 37.0 Estimated GFR > 60 Random Glucose 118 H Calcium 9.1 C-Reactive Protein 6.74 H Assessment and Plan (1) Osteoarthritis of left knee: Status: Acute (2) Dementia: Status: Acute Plan Pt is a 82-year-old female with a PMH significant for?osteoporosis and profound dementia not on home meds who presented to the ED 5 days prior on 01/01/2023 with worsening dementia. Pt has been in the observation unit since then awaiting placement at a long-term care facility. This morning patient was noted be lethargic, tachycardic up to 109, and labs were significant for a leukocytosis of 14.2. Pt will be admitted to the hospital for sepsis possibly secondary to UTI. Sepsis likely secondary to UTI Urine not yet obtained despite 3 catheterization attempts Pt with WBC, tachycardia, lethargy - resolved. LA wnl Continue ceftriaxone, started 01/06/2023 Blood cultures pending left knee effusion Knee x-ray with moderate tricompartmental degenerative joint changes consistent with osteoarthritis, with small to moderate joint effusion seen by ortho and effusion aspiration and given steroid infection dementia without behavior disturbance not on meds at baseline moderate protein-calorie malnourishment BMI 15.9 supplements added DNR/DNI Attending:?Dr. Vinson DVT Prophylaxis: Lovenox Guardian - daughter Hannah [phone] dispo: likely needs LTC placement Requires ongoing inpatient stay for IV abx and safe disposition Time Spent With Patient Time: Total time managing care of this patient today ____ minutes. Quality Stroke Does the patient have a stroke diagnosis?: No VTE Prior VTE?: No VTE Risk Level:: Medical - moderate - high VTE Device Contraindication: Treatment Not Indicated VTE Drug Contraindication: N/A - Med Ordered
[2023-01-07] MEDS: Enoxaparin Sodium 30 MG/0.3 ML SYRINGE SUBCUT (17:38)
[2023-01-07 19:50] VITALS: BP 111/53; PULSE 99; RESP 20; TEMP 36.8; O2SAT 95
[2023-01-07 23:11] VITALS: BP 113/59; PULSE 100; RESP 17; TEMP 36.4; O2SAT 93
[2023-01-08 07:08] VITALS: BP 115/59; PULSE 79; RESP 16; TEMP 36.4; O2SAT 95
--- NOTE | 2023-01-08 08:12 | MHC.CM.PN ---
IMM 01/07/23 DX SEPSIS with HX DEMENTIA Patient lives with her dtr since returning from [place](20yrs). Her dtr Kelly stays with her during the day. The patient has been very difficult at night. She wandered into her neighbors home during the night. The family is not able to keep her safe. They are working with a [employer] to complete the [employer] application. They are trying to secure a payor source for LTC. Patient's baseline is ambulatory with cues for ADLs. Patient is more confused and has weakness + deconditioning r/t UTI. Pts dtr does not feel that patient will improve enough to return home. PT will eval when medically cleared. DP STR via BLS transitioning to LTC.
[2023-01-08 09:17] LABS: Anion Gap 17 (12-20); Blood Urea Nitrogen 31 mg/dL (9-16); Calcium 9.2 mg/dL (8.4-10.2); Carbon Dioxide 19 mmol/L (22-29); Chloride 110 mmol/L (96-108); Creatinine Clr Calc Pharmacy 40.9; Estimated Glomerular Filt Rate > 60; Glucose Random 177 mg/dL (60-115); Potassium 3.7 mmol/L (3.3-5.1); Sodium 142 mmol/L (135-145)
--- NOTE | 2023-01-08 09:28 | MHC.CLN ---
F/U DIET=REGULAR. SUPPLEMENT ENSURE BID. PROVIDES 700 KCALS, 40 G PROTEIN. INTAKE VARIABLE, WITH MOST MEALS 50-75%. DIET AND SUPPLEMENT APPROPRIATE. MONITOR PO INTAKE CLOSELY.
[2023-01-08 11:04] VITALS: O2SAT 95
[2023-01-08] MEDS: cefTRIAXone sodium 1 GM in 0.9 % Sodium Chloride 50 ML IV (13:08)
[2023-01-08 15:08] VITALS: BP 104/52; PULSE 107; RESP 18; TEMP 36.9; O2SAT 97
--- NOTE | 2023-01-08 16:27 | HO.PM.IMPN ---
Subjective Subjective Date of Service: 01/08/23 Interval History: Seen and examined this morning Follow-up for UTI, knee effusion No overnight events Reports improvement in knee pain Review of Systems Review of Systems: Yes all other systems are reviewed and are negative Constitutional Constitutional: Denies chills and Denies fever(s) Cardiovascular Cardiovascular: Denies chest pain Physical Exam Vital Signs: Vital Signs: Last Vital Signs Temp 98.4 F 01/08/23 15:08 Pulse 107 H 01/08/23 15:08 Resp 18 01/08/23 15:08 BP 104/52 L 01/08/23 15:08 Pulse Ox 97 01/08/23 15:08 O2 Del Method Room Air 01/08/23 15:08 BMI result Body Mass Index 15.9 Const: Other: plesantly confused General: cooperative, comfortable, no acute distress, alert and awake Resp: Effort & Inspection: normal respiratory effort, able to speak in complete sentences, no respiratory distress and no use of accessory muscles Cardio: Rate: regular rate Heart sounds: S1 normal heart sound present and S2 normal heart sound present GI: Inspection: No distended Palpation (GI): Soft to palpation and nontender Neuro: General: moves all extremities and CN's II-XI intact bilaterally Extrem: Other: left knee swelling, no erythema Objective Data Active Medications Acetaminophen (Acetaminophen 325 Mg Tablet) 650 mg PO Q6H PRN PRN Reason: Pain, Mild (Pain Scale 1-3) Last Admin: 01/07/23 23:18 Dose: 650 mg Documented By: ASAD Docusate Sodium (Docusate Sodium 100 Mg Capsule) 100 mg PO DAILY PRN PRN Reason: Constipation Enoxaparin Sodium (Enoxaparin Sodium 30 Mg/0.3 Ml Syringe) 30 mg SUBCUT Q24H [facility] Last Admin: 01/07/23 17:38 Dose: 30 mg Documented By: MARIAN Ceftriaxone Sodium 1 gm/ (Sodium Chloride) 50 mls @ 100 mls/hr IV Q24H [facility] Last Infusion: 01/08/23 13:45 Dose: 100 mls/hr Documented By: BALDEV Ondansetron HCl (Ondansetron Hcl 4 Mg/2 Ml Vial) 4 mg IVPUSH Q8H PRN PRN Reason: Nausea and Vomiting Pharmacy Consult (Consult Rx Perform Med Rec) 1 each MISCELLANE ONCE PRN PRN Reason: Consult order Sodium Chloride (0.9 % Sodium Chloride Flush 3 Ml Syringe) 3 ml IVFLUSH QSHIFT [facility] Last Admin: 01/08/23 07:56 Dose: Not Given Documented By: BALDEV Non-Admin Reason: IV Running Labs 01/07/23 04:52 01/08/23 08:42 Labs: Laboratory Results - last 24 hr 01/08/23 08:42 Anion Gap 17 Estim Creat Clear Calc 40.9 Estimated GFR > 60 Random Glucose 177 H Calcium 9.2 Microbiology Microbiology Results: Microbiology 01/06/23 14:26 Blood Culture - Preliminary Blood - Venous No growth after 24 hours. 01/06/23 14:26 Blood Culture - Preliminary Blood - Venous No growth after 24 hours. Assessment and Plan (1) Osteoarthritis of left knee: Status: Acute (2) Dementia: Status: Acute Plan Pt is a 82-year-old female with a PMH significant for?osteoporosis and profound dementia not on home meds who presented to the ED 5 days prior on 01/01/2023 with worsening dementia. Pt has been in the observation unit since then awaiting placement at a long-term care facility. This morning patient was noted be lethargic, tachycardic up to 109, and labs were significant for a leukocytosis of 14.2. Pt will be admitted to the hospital for sepsis possibly secondary to UTI. Sepsis likely secondary to presumed UTI Met criteria with tachycardia, leukocytosis. No severe features Urine not yet obtained despite 3 catheterization attempts Pt with WBC, tachycardia, lethargy - resolved. LA wnl Continue ceftriaxone, started 01/06/2023 Blood cultures negative to date left knee effusion Knee x-ray with moderate tricompartmental degenerative joint changes consistent with osteoarthritis, with small to moderate joint effusion seen by ortho and effusion aspiration and given steroid injection dementia without behavior disturbance not on meds at baseline moderate protein-calorie malnourishment BMI 15.9 supplements added DNR/DNI Attending:?Dr. Vinson DVT Prophylaxis: Lovenox Guardian - daughter Hannah [phone] dispo: likely needs LTC placement. unsafe to return home due to wandering. PT evaluation pending Requires ongoing inpatient stay for IV abx and safe disposition Time Spent With Patient Time: Total time managing care of this patient today ____ minutes. Quality Stroke Does the patient have a stroke diagnosis?: No VTE Prior VTE?: No VTE Risk Level:: Medical - moderate - high VTE Device Contraindication: Treatment Not Indicated VTE Drug Contraindication: N/A - Med Ordered
[2023-01-08] MEDS: Enoxaparin Sodium 30 MG/0.3 ML SYRINGE SUBCUT (17:20)
[2023-01-08] MEDS: 0.9 % Sodium Chloride Flush 3 ML SYRINGE IVFLUSH (17:21)
[2023-01-08 20:00] VITALS: BP 112/56; PULSE 109; RESP 16; TEMP 36.7; O2SAT 94
[2023-01-09 04:00] VITALS: BP 123/72; PULSE 88; RESP 18; TEMP 36.2; O2SAT 96
[2023-01-09 07:03] VITALS: BP 108/55; PULSE 77; RESP 16; TEMP 36.5; O2SAT 95
[2023-01-09] MEDS: 0.9 % Sodium Chloride Flush 3 ML SYRINGE IVFLUSH ×2 (07:27→23:20)
[2023-01-09 09:34] VITALS: BP 108/55; PULSE 77; O2SAT 95
[2023-01-09] MEDS: cefTRIAXone sodium 1 GM in 0.9 % Sodium Chloride 50 ML IV (12:25)
--- NOTE | 2023-01-09 12:49 | P.PNIM_ITS ---
Subjective Subjective Date of Service: 01/09/23 Interval History: seen and examined this morning Follow-up for left knee pain, UTI, dementia No overnight events Patient knee feeling better this morning, more ambulatory, wanting to walk around the unit. Remains pleasantly confused Constitutional Constitutional: Denies chills and Denies fever(s) ENT Ears, Nose, Mouth, and Throat: Denies dizziness Cardiovascular Cardiovascular: Denies chest pain Gastrointestinal Gastrointestinal: Denies abdominal pain Neurologic Neurologic: Denies dizziness Physical Exam Vital Signs: Vital Signs: Last Vital Signs Temp 97.7 F 01/09/23 07:03 Pulse 77 01/09/23 09:34 Resp 16 01/09/23 07:03 BP 108/55 L 01/09/23 09:34 Pulse Ox 95 01/09/23 09:34 O2 Del Method Room Air 01/09/23 07:03 BMI result Body Mass Index 15.9 Const: Other: plesantly confused General: cooperative, comfortable, no acute distress, alert and awake Resp: Effort & Inspection: normal respiratory effort, able to speak in complete sentences, no respiratory distress and no use of accessory muscles Cardio: Rate: regular rate Heart sounds: S1 normal heart sound present and S2 normal heart sound present GI: Inspection: No distended Palpation (GI): Soft to palpation and nontender Neuro: General: moves all extremities and CN's II-XI intact bilaterally Extrem: Other: left knee swelling improved, no erythema, non-tender Objective Data Active Medications Acetaminophen (Acetaminophen 325 Mg Tablet) 650 mg PO Q6H PRN PRN Reason: Pain, Mild (Pain Scale 1-3) Last Admin: 01/07/23 23:18 Dose: 650 mg Documented By: ASAD Docusate Sodium (Docusate Sodium 100 Mg Capsule) 100 mg PO DAILY PRN PRN Reason: Constipation Enoxaparin Sodium (Enoxaparin Sodium 30 Mg/0.3 Ml Syringe) 30 mg SUBCUT Q24H [facility] Last Admin: 01/08/23 17:20 Dose: 30 mg Documented By: ENOC Ceftriaxone Sodium 1 gm/ (Sodium Chloride) 50 mls @ 100 mls/hr IV Q24H [facility] Stop: 01/12/23 12:59 Last Admin: 01/09/23 12:25 Dose: 100 mls/hr Documented By: BALDEV Ondansetron HCl (Ondansetron Hcl 4 Mg/2 Ml Vial) 4 mg IVPUSH Q8H PRN PRN Reason: Nausea and Vomiting Pharmacy Consult (Consult Rx Perform Med Rec) 1 each MISCELLANE ONCE PRN PRN Reason: Consult order Sodium Chloride (0.9 % Sodium Chloride Flush 3 Ml Syringe) 3 ml IVFLUSH QSHIFT [facility] Last Admin: 01/09/23 07:27 Dose: 3 ml Documented By: BALDEV Labs 01/07/23 04:52 01/08/23 08:42 Microbiology Microbiology Results: Microbiology 01/06/23 14:26 Blood Culture - Preliminary Blood - Venous No growth after 48 hours. 01/06/23 14:26 Blood Culture - Preliminary Blood - Venous No growth after 48 hours. Assessment and Plan (1) Dementia: Status: Acute (2) Osteoarthritis of left knee: Status: Acute Plan Pt is a 82-year-old female with a PMH significant for?osteoporosis and profound dementia not on home meds who presented to the ED 5 days prior on 01/01/2023 with worsening dementia. Pt has been in the observation unit since then awaiting placement at a long-term care facility. This morning patient was noted be lethargic, tachycardic up to 109, and labs were significant for a leukocytosis of 14.2. Pt will be admitted to the hospital for sepsis possibly secondary to UTI. Sepsis likely secondary to presumed UTI Met criteria with tachycardia, leukocytosis. No severe features Urine not yet obtained despite 3 catheterization attempts Pt with WBC, tachycardia, lethargy - resolved. LA wnl Continue ceftriaxone, started 01/06/2023 Blood cultures negative to date left knee effusion Knee x-ray with moderate tricompartmental degenerative joint changes consistent with osteoarthritis, with small to moderate joint effusion seen by ortho and effusion aspiration and given steroid injection dementia without behavior disturbance not on meds at baseline moderate protein-calorie malnourishment BMI 15.9 supplements added DNR/DNI Attending:?Dr. Campuzano DVT Prophylaxis: Lovenox Guardian - daughter Hannah [phone] dispo: seen by PT - rec STR to optimize function with possible transition to LTC Requires ongoing inpatient stay for IV abx and safe disposition Time Spent With Patient Time: Total time managing care of this patient today ____ minutes. Quality Stroke Does the patient have a stroke diagnosis?: No VTE Prior VTE?: No VTE Risk Level:: Medical - moderate - high VTE Device Contraindication: Treatment Not Indicated VTE Drug Contraindication: N/A - Med Ordered
[2023-01-09] MEDS: QUEtiapine Fumarate 25 MG TABLET PO (14:18)
[2023-01-09 14:54] VITALS: BP 130/65; PULSE 108; RESP 18; TEMP 36.5; O2SAT 97
[2023-01-09 20:38] VITALS: BP 113/57; PULSE 88; RESP 17; TEMP 36.8; O2SAT 97
[2023-01-10 03:44] VITALS: BP 109/54; PULSE 80; RESP 16; TEMP 36.7; O2SAT 95
[2023-01-10 06:53] VITALS: BP 108/58; PULSE 78; RESP 16; TEMP 36.7; O2SAT 95
[2023-01-10] MEDS: 0.9 % Sodium Chloride Flush 3 ML SYRINGE IVFLUSH (07:13)
--- NOTE | 2023-01-10 08:25 | HO.PM.IMPN ---
Subjective Subjective Date of Service: 01/10/23 Interval History: seen and examined this morning Follow-up for UTI, dementia No significant nursing events overnight Remains pleasantly confused Review of Systems per hpi. Constitutional Constitutional: Denies chills and Denies fever(s) ENT Ears, Nose, Mouth, and Throat: Denies dizziness Cardiovascular Cardiovascular: Denies chest pain Gastrointestinal Gastrointestinal: Denies abdominal pain Neurologic Neurologic: Denies dizziness Physical Exam Vital Signs: Vital Signs: Last Vital Signs Temp 98.1 F 01/10/23 06:53 Pulse 78 01/10/23 06:53 Resp 16 01/10/23 06:53 BP 108/58 L 01/10/23 06:53 Pulse Ox 95 01/10/23 06:53 O2 Del Method Room Air 01/10/23 06:53 BMI result Body Mass Index 15.9 Const: Other: plesantly confused General: cooperative, healthy appearing, comfortable, no acute distress, alert and awake Resp: Effort & Inspection: normal respiratory effort, able to speak in complete sentences, no respiratory distress and no use of accessory muscles Cardio: Rate: regular rate Heart sounds: S1 normal heart sound present and S2 normal heart sound present GI: Inspection: No distended Palpation (GI): Soft to palpation and nontender Neuro: General: moves all extremities and CN's II-XI intact bilaterally Extrem: Other: left knee swelling improved, no erythema, non-tender Objective Data Active Medications Acetaminophen (Acetaminophen 325 Mg Tablet) 650 mg PO Q6H PRN PRN Reason: Pain, Mild (Pain Scale 1-3) Last Admin: 01/07/23 23:18 Dose: 650 mg Documented By: ASAD Docusate Sodium (Docusate Sodium 100 Mg Capsule) 100 mg PO DAILY PRN PRN Reason: Constipation Enoxaparin Sodium (Enoxaparin Sodium 30 Mg/0.3 Ml Syringe) 30 mg SUBCUT Q24H [facility] Last Admin: 01/09/23 16:57 Dose: Not Given Documented By: DIANNE Non-Admin Reason: Patient Refused Ceftriaxone Sodium 1 gm/ (Sodium Chloride) 50 mls @ 100 mls/hr IV Q24H [facility] Stop: 01/12/23 12:59 Last Infusion: 01/09/23 12:59 Dose: 100 mls/hr Documented By: BALDEV Ondansetron HCl (Ondansetron Hcl 4 Mg/2 Ml Vial) 4 mg IVPUSH Q8H PRN PRN Reason: Nausea and Vomiting Pharmacy Consult (Consult Rx Perform Med Rec) 1 each MISCELLANE ONCE PRN PRN Reason: Consult order Sodium Chloride (0.9 % Sodium Chloride Flush 3 Ml Syringe) 3 ml IVFLUSH QSHIFT [facility] Last Admin: 01/10/23 07:13 Dose: 3 ml Documented By: BALDEV Labs 01/07/23 04:52 01/08/23 08:42 Assessment and Plan (1) Dementia: Status: Acute Plan Pt is a 82-year-old female with a PMH significant for?osteoporosis and profound dementia not on home meds who presented to the ED 5 days prior on 01/01/2023 with worsening dementia. Pt has been in the observation unit since then awaiting placement at a long-term care facility. This morning patient was noted be lethargic, tachycardic up to 109, and labs were significant for a leukocytosis of 14.2. Pt will be admitted to the hospital for sepsis possibly secondary to UTI. Sepsis likely secondary to presumed UTI Met criteria with tachycardia, leukocytosis. No severe features Urine not yet obtained despite 3 catheterization attempts Pt with WBC, tachycardia, lethargy - resolved. LA wnl Completed ceftriaxone abx course Left knee effusion Knee x-ray with moderate tricompartmental degenerative joint changes consistent with osteoarthritis, with small to moderate joint effusion seen by ortho and effusion aspiration and given steroid injection Dementia with behavior disturbance not on meds at baseline Added seroquel Moderate protein-calorie malnourishment BMI 15.9 supplements added DNR/DNI DVT Prophylaxis: Lovenox Guardian - daughter Hannah [phone] dispo: seen by PT - rec STR to optimize function with possible transition to LTC Requires ongoing inpatient stay for safe disposition Time Spent With Patient Time: Total time managing care of this patient today ____ minutes. Quality Stroke Does the patient have a stroke diagnosis?: No VTE Prior VTE?: No VTE Risk Level:: Medical - moderate - high VTE Device Contraindication: Treatment Not Indicated VTE Drug Contraindication: N/A - Med Ordered
[2023-01-10 15:12] VITALS: BP 108/57; PULSE 93; RESP 18; TEMP 36.7; O2SAT 97
[2023-01-10 19:25] VITALS: BP 108/59; PULSE 79; RESP 16; TEMP 36.7; O2SAT 98
[2023-01-11 03:17] VITALS: BP 124/60; PULSE 75; RESP 16; TEMP 36.4; O2SAT 98
[2023-01-11 07:18] VITALS: BP 112/58; PULSE 88; RESP 18; TEMP 36.6; O2SAT 97
--- NOTE | 2023-01-11 14:43 | HO.PM.IMPN ---
Subjective Subjective Date of Service: 01/11/23 Interval History: Follow-up for AMS in the setting of UTI, dementia. Patient seen and evaluated this morning, sitting comfortably eating her breakfast. No acute events overnight. Patient confused, occasionally getting agitated about people trying to ?terri me blind? Has no acute medical complaints at this time Review of Systems No acute medical complaints at this time Physical Exam Vital Signs: Vital Signs: Last Vital Signs Temp 97.8 F 01/11/23 07:18 Pulse 88 01/11/23 07:18 Resp 18 01/11/23 07:18 BP 112/58 L 01/11/23 07:18 Pulse Ox 97 01/11/23 07:18 O2 Del Method Room Air 01/11/23 07:18 BMI result Body Mass Index 15.9 General: Confused, slightly agitated at times, redirectable, no acute distress Resp: CTA bilaterally CVS: S1, S2, RRR GI: +BS, NT, no distention Skin: No rash Neuro: Cranial nerves II-XII grossly intact bilaterally. Motor grossly intact bilaterally Extremities: No edema Objective Data Active Medications Acetaminophen (Acetaminophen 325 Mg Tablet) 650 mg PO Q6H PRN PRN Reason: Pain, Mild (Pain Scale 1-3) Last Admin: 01/07/23 23:18 Dose: 650 mg Documented By: ASAD Docusate Sodium (Docusate Sodium 100 Mg Capsule) 100 mg PO DAILY PRN PRN Reason: Constipation Enoxaparin Sodium (Enoxaparin Sodium 40 Mg/0.4 Ml Syringe) 40 mg SUBCUT Q24H [facility] Ondansetron HCl (Ondansetron Hcl 4 Mg/2 Ml Vial) 4 mg IVPUSH Q8H PRN PRN Reason: Nausea and Vomiting Pharmacy Consult (Consult Rx Perform Med Rec) 1 each MISCELLANE ONCE PRN PRN Reason: Consult order Quetiapine Fumarate (Quetiapine Fumarate 25 Mg Tablet) 25 mg PO ONCE ONE Stop: 01/11/23 14:42 Sodium Chloride (0.9 % Sodium Chloride Flush 3 Ml Syringe) 3 ml IVFLUSH QSHIFT [facility] Last Admin: 01/11/23 08:24 Dose: Not Given Documented By: MOHINDER Non-Admin Reason: No Access Labs 01/07/23 04:52 01/08/23 08:42 Assessment and Plan (1) Dementia: Status: Acute Plan Pt is an 82-year-old female with a PMH significant for?osteoporosis and profound dementia not on home meds who presented to the ED 5 days prior on 01/01/2023 with worsening dementia.? Pt has been in the observation unit since then awaiting placement at a long-term care facility.? This morning patient was noted be lethargic, tachycardic up to 109, and labs were significant for a leukocytosis of 14.2. Pt will be admitted to the hospital for sepsis possibly secondary to UTI. Sepsis likely secondary to presumed UTI Met criteria with tachycardia, leukocytosis.? No severe features Urine not yet obtained despite 3 catheterization attempts Pt with WBC, tachycardia, lethargy - resolved. LA wnl Completed ceftriaxone abx course Left knee effusion Knee x-ray with moderate tricompartmental degenerative joint changes consistent with osteoarthritis, with small to moderate joint effusion seen by ortho and effusion aspiration and given steroid injection No longer complaining of left knee pain Dementia with behavior disturbance Not on meds at baseline Added seroquel 25mg bedtime Moderate protein-calorie malnourishment BMI 15.9 Supplements added DNR/DNI DVT Prophylaxis: Lovenox Guardian - daughter Hannah [phone] Dispo: seen by PT - rec STR to optimize function with possible transition to LTC Time Spent With Patient Time: Total time managing care of this patient today ____ minutes. Quality Stroke Does the patient have a stroke diagnosis?: No VTE Prior VTE?: No VTE Risk Level:: Medical - moderate - high VTE Device Contraindication: Treatment Not Indicated VTE Drug Contraindication: N/A - Med Ordered
[2023-01-11] MEDS: QUEtiapine Fumarate 25 MG TABLET PO (14:47)
[2023-01-11 15:00] VITALS: BP 90/55; PULSE 109; RESP 18; TEMP 37.1; O2SAT 98
--- NOTE | 2023-01-11 15:22 | MHC.CM.PN ---
PT pa recommends STR. Referrals have been sent to facilities with locked units. [facility] will have a bed available 01/15/23. The bed offer was communicated to the pts HCP. She has accepted the bed for Wednesday.
--- NOTE | 2023-01-11 16:02 | MHC.CLN ---
F/U DIET=REGULAR. SUPPLEMENT ENSURE BID. PROVIDES 700 KCALS, 40 G PROTEIN. INTAKE X 2 DAYS 75-100%. DIET AND SUPPLEMENT APPROPRIATE. MONITOR PO INTAKE CLOSELY.
[2023-01-11 19:37] VITALS: BP 103/58; PULSE 106; RESP 18; TEMP 36.7; O2SAT 98
[2023-01-12 00:37] VITALS: BP 104/55; PULSE 94; RESP 16; TEMP 37.1; O2SAT 97
[2023-01-12 07:28] VITALS: BP 106/56; PULSE 84; RESP 16; TEMP 36.4; O2SAT 96
[2023-01-12 09:33] LABS: Anion Gap 17 (12-20); Blood Urea Nitrogen 37 mg/dL (9-16); Calcium 9.6 mg/dL (8.4-10.2); Carbon Dioxide 19 mmol/L (22-29); Chloride 111 mmol/L (96-108); Creatinine Clr Calc Pharmacy 37.9; Estimated Glomerular Filt Rate > 60; Glucose Random 113 mg/dL (60-115); Potassium 4.2 mmol/L (3.3-5.1); Sodium 143 mmol/L (135-145)
--- NOTE | 2023-01-12 14:33 | P.PNIM_ITS ---
Subjective Subjective Date of Service: 01/12/23 Interval History: no complaints unreliable historian due to dementia Review of Systems Review of Systems: Yes Unobtainable due to mental status Physical Exam Vital Signs: Vital Signs: Last Vital Signs Temp 97.6 F 01/12/23 07:28 Pulse 84 01/12/23 07:28 Resp 16 01/12/23 07:28 BP 106/56 L 01/12/23 07:28 Pulse Ox 96 01/12/23 07:28 O2 Del Method Room Air 01/12/23 07:28 BMI result Body Mass Index 15.9 Gen: in no acute distress HEENT: sclera anicteric, moist mucus membranes Neck: supple Lungs: clear to auscultation bilaterally Heart: regular rate and rhythm, no murmurs Abd: soft, non-tender, non-distended Ext: no edema Skin: warm/well-perfused Neuro: alert and oriented to self, no motor deficit Psych: impaired insight Objective Data Active Medications Acetaminophen (Acetaminophen 325 Mg Tablet) 650 mg PO Q6H PRN PRN Reason: Pain, Mild (Pain Scale 1-3) Last Admin: 01/07/23 23:18 Dose: 650 mg Documented By: ASAD Docusate Sodium (Docusate Sodium 100 Mg Capsule) 100 mg PO DAILY PRN PRN Reason: Constipation Enoxaparin Sodium (Enoxaparin Sodium 40 Mg/0.4 Ml Syringe) 40 mg SUBCUT Q24H [facility] Last Admin: 01/11/23 15:13 Dose: Not Given Documented By: DAHLIA Non-Admin Reason: Patient Refused Ondansetron HCl (Ondansetron Hcl 4 Mg/2 Ml Vial) 4 mg IVPUSH Q8H PRN PRN Reason: Nausea and Vomiting Pharmacy Consult (Consult Rx Perform Med Rec) 1 each MISCELLANE ONCE PRN PRN Reason: Consult order Quetiapine Fumarate (Quetiapine Fumarate 25 Mg Tablet) 25 mg PO BEDTIME [facility] Sodium Chloride (0.9 % Sodium Chloride Flush 3 Ml Syringe) 3 ml IVFLUSH QSHIFT [facility] Last Admin: 01/12/23 13:23 Dose: Not Given Documented By: RHONDA Non-Admin Reason: No Access Labs 01/07/23 04:52 01/12/23 08:53 Labs: Laboratory Results - last 24 hr 01/12/23 08:53 Anion Gap 17 Estim Creat Clear Calc 37.9 Estimated GFR > 60 Random Glucose 113 Calcium 9.6 Microbiology Microbiology Results: Microbiology 01/06/23 14:26 Blood Culture - Final Blood - Venous No growth after 5 days. 01/06/23 14:26 Blood Culture - Final Blood - Venous No growth after 5 days. Assessment and Plan (1) Dementia: Status: Acute Plan d7 82yo F with osteoporosis + dementia in observation unit 01/01-01/06/23 awaiting LTC placement but then developed sepsis due to presumed UTI sepsis due to presumed UTI, resolved - tachycardic with leukocytosis; urine not obtained; signs resolved with completed ceftriaxone course L knee effusion - DJD/OA, aspirated by Ortho and given steroid injection with resolution of pain dementia + behav disturba - quetiapine at hs mod pr-saba malnut - PO supplements VTE ppx - LMWH dispo - accepted by [facility] for [facility] 01/15/23, eventual possible transition to LTC - DNR/DNI Time Spent With Patient Time: Total time managing care of this patient today _35___ minutes. Quality Stroke Does the patient have a stroke diagnosis?: No VTE Prior VTE?: No VTE Risk Level:: Medical - moderate - high VTE Device Contraindication: Treatment Not Indicated VTE Drug Contraindication: N/A - Med Ordered
[2023-01-12 15:09] VITALS: BP 105/60; PULSE 95; RESP 18; TEMP 36.7; O2SAT 97
[2023-01-12 18:59] VITALS: BP 119/58; PULSE 88; RESP 18; TEMP 36.2; O2SAT 97
[2023-01-12] MEDS: QUEtiapine Fumarate 25 MG TABLET PO (20:14)
[2023-01-12] MEDS: OLANZapine 10 MG VIAL 5 MG IM (23:03)
--- NOTE | 2023-01-12 23:07 | PC.NURSE ---
pt agitated and not staying in the bed.security had to be called. notified zyprexa 5mg IM ordered.user support analyst supervisor notified and sitter placed in room.
[2023-01-13 02:58] VITALS: BP 95/52; PULSE 99; RESP 16; TEMP 36.6; O2SAT 96
[2023-01-13 07:28] VITALS: BP 111/60; PULSE 94; RESP 16; TEMP 36.2; O2SAT 93
--- NOTE | 2023-01-13 09:53 | MHC.CLN ---
F/U DIET=REGULAR. SUPPLEMENT ENSURE BID. PROVIDES 700 KCALS, 40 G PROTEIN. INTAKE VARIABLE, BUT USUALLY GOOD. MOST MEALS 50-100%. DIET AND SUPPLEMENT APPROPRIATE. MONITOR PO INTAKE CLOSELY.
[2023-01-13 09:55] VITALS: BP 111/60; PULSE 94; O2SAT 93
[2023-01-13] MEDS: Lidocaine 4 % Patch ADH..PATCH 1 PATCH TRANSDERMA (10:26)
--- NOTE | 2023-01-13 11:33 | P.PNIM_ITS ---
Subjective Subjective Date of Service: 01/13/23 Interval History: agitated overnight, got 5mg IM olanzapine once now calm denies any complaints Review of Systems Review of Systems: Yes all other systems are reviewed and are negative Physical Exam Vital Signs: Vital Signs: Last Vital Signs Temp 97.1 F 01/13/23 07:28 Pulse 94 01/13/23 09:55 Resp 16 01/13/23 07:28 BP 111/60 01/13/23 09:55 Pulse Ox 93 01/13/23 09:55 O2 Del Method Room Air 01/13/23 07:28 BMI result Body Mass Index 15.9 Gen: in no acute distress HEENT: sclera anicteric, moist mucus membranes Neck: supple Lungs: clear to auscultation bilaterally Heart: regular rate and rhythm, no murmurs Abd: soft, non-tender, non-distended Ext: no edema Skin: warm/well-perfused Neuro: alert and oriented to self, no motor deficit Psych: impaired insight Objective Data Active Medications Acetaminophen (Acetaminophen 325 Mg Tablet) 650 mg PO Q6H PRN PRN Reason: Pain, Mild (Pain Scale 1-3) Last Admin: 01/07/23 23:18 Dose: 650 mg Documented By: ASAD Docusate Sodium (Docusate Sodium 100 Mg Capsule) 100 mg PO DAILY PRN PRN Reason: Constipation Enoxaparin Sodium (Enoxaparin Sodium 40 Mg/0.4 Ml Syringe) 40 mg SUBCUT Q24H [facility] Last Admin: 01/12/23 16:30 Dose: Not Given Documented By: RHONDA Non-Admin Reason: Patient Refused Lidocaine (Lidocaine 4 % Patch Adh..Patch) 1 patch TRANSDERMA DAILY [facility]; Protocol Last Admin: 01/13/23 10:26 Dose: 1 patch Documented By: RHONDA Ondansetron HCl (Ondansetron Hcl 4 Mg/2 Ml Vial) 4 mg IVPUSH Q8H PRN PRN Reason: Nausea and Vomiting Pharmacy Consult (Consult Rx Perform Med Rec) 1 each MISCELLANE ONCE PRN PRN Reason: Consult order Quetiapine Fumarate (Quetiapine Fumarate 25 Mg Tablet) 25 mg PO BEDTIME [facility] Last Admin: 01/12/23 20:14 Dose: 25 mg Documented By: ODRISDixie Sodium Chloride (0.9 % Sodium Chloride Flush 3 Ml Syringe) 3 ml IVFLUSH QSHIFT [facility] Last Admin: 01/13/23 06:49 Dose: Not Given Documented By: RHONDA Non-Admin Reason: No Access Labs 01/07/23 04:52 01/12/23 08:53 Assessment and Plan (1) Dementia: Status: Acute Plan d8 82yo F with osteoporosis + dementia in observation unit 01/01-01/06/23 awaiting LTC placement but then developed sepsis due to presumed UTI sepsis due to presumed UTI, resolved - tachycardic with leukocytosis; urine not obtained; signs resolved with completed ceftriaxone course L knee effusion - DJD/OA, aspirated by Ortho and given steroid injection with resolution of pain dementia + behav disturba - quetiapine at hs mod pr-saba malnut - PO supplements VTE ppx - LMWH dispo - accepted by [facility] for [facility] 01/15/23, eventual possible transition to LTC - DNR/DNI In my clinical judgment, the patient requires continued inpatient hospitalization for the following reasons: safe placement Time Spent With Patient Time: Total time managing care of this patient today _25___ minutes. Quality Stroke Does the patient have a stroke diagnosis?: No VTE Prior VTE?: No VTE Risk Level:: Medical - moderate - high VTE Device Contraindication: Treatment Not Indicated VTE Drug Contraindication: N/A - Med Ordered
--- NOTE | 2023-01-13 15:14 | MHC.CM.PN ---
[facility] to [place] Sunday, January 15, 2023. A clinical update has been sent to the facility. Patient will transport via BLS.
[2023-01-13 15:29] VITALS: BP 101/50; PULSE 97; RESP 17; TEMP 36.9; O2SAT 96
[2023-01-13] MEDS: QUEtiapine Fumarate 25 MG TABLET PO (19:45)
[2023-01-13 19:46] VITALS: BP 103/50; PULSE 120; RESP 17; TEMP 36.9; O2SAT 96
[2023-01-14 03:13] VITALS: BP 99/55; PULSE 95; RESP 16; TEMP 36.2; O2SAT 97
[2023-01-14 07:21] VITALS: BP 107/54; PULSE 88; RESP 18; TEMP 36.7; O2SAT 95
[2023-01-14] MEDS: Lidocaine 4 % Patch ADH..PATCH 1 PATCH TRANSDERMA (09:03)
--- NOTE | 2023-01-14 10:27 | HO.PM.IMPN ---
Subjective Subjective Date of Service: 01/14/23 Interval History: no c/o pain Review of Systems Review of Systems: Yes all other systems are reviewed and are negative Physical Exam Vital Signs: Vital Signs: Last Vital Signs Temp 98.1 F 01/14/23 07:21 Pulse 88 01/14/23 07:21 Resp 18 01/14/23 07:21 BP 107/54 L 01/14/23 07:21 Pulse Ox 95 01/14/23 07:21 O2 Del Method Room Air 01/14/23 07:21 BMI result Body Mass Index 15.9 Gen: in no acute distress HEENT: sclera anicteric, moist mucus membranes Neck: supple Lungs: clear to auscultation bilaterally Heart: regular rate and rhythm, no murmurs Abd: soft, non-tender, non-distended Ext: no edema Skin: warm/well-perfused Neuro: alert and oriented to self, no motor deficit Psych: impaired insight Objective Data Active Medications Acetaminophen (Acetaminophen 325 Mg Tablet) 650 mg PO Q6H PRN PRN Reason: Pain, Mild (Pain Scale 1-3) Last Admin: 01/07/23 23:18 Dose: 650 mg Documented By: ASAD Docusate Sodium (Docusate Sodium 100 Mg Capsule) 100 mg PO DAILY PRN PRN Reason: Constipation Enoxaparin Sodium (Enoxaparin Sodium 40 Mg/0.4 Ml Syringe) 40 mg SUBCUT Q24H [facility] Last Admin: 01/13/23 16:57 Dose: Not Given Documented By: RHONDA Non-Admin Reason: Patient Refused Lidocaine (Lidocaine 4 % Patch Adh..Patch) 1 patch TRANSDERMA DAILY [facility]; Protocol Last Admin: 01/14/23 09:03 Dose: 1 patch Documented By: RHONDA Ondansetron HCl (Ondansetron Hcl 4 Mg/2 Ml Vial) 4 mg IVPUSH Q8H PRN PRN Reason: Nausea and Vomiting Pharmacy Consult (Consult Rx Perform Med Rec) 1 each MISCELLANE ONCE PRN PRN Reason: Consult order Quetiapine Fumarate (Quetiapine Fumarate 25 Mg Tablet) 25 mg PO BEDTIME [facility] Last Admin: 01/13/23 19:45 Dose: 25 mg Documented By: LYSZ Sodium Chloride (0.9 % Sodium Chloride Flush 3 Ml Syringe) 3 ml IVFLUSH QSHIFT [facility] Last Admin: 01/14/23 07:24 Dose: Not Given Documented By: RHONDA Non-Admin Reason: No Access Labs 01/07/23 04:52 01/12/23 08:53 Assessment and Plan (1) Dementia: Status: Acute Plan d9 82yo F with osteoporosis + dementia in observation unit 01/01-01/06/23 awaiting LTC placement but then developed sepsis due to presumed UTI sepsis due to presumed UTI, resolved - tachycardic with leukocytosis; urine not obtained; signs resolved and completed ceftriaxone course L knee effusion - DJD/OA, aspirated by Ortho and given steroid injection with resolution of pain dementia + behav disturba - quetiapine at hs mod pr-saba malnut - PO supplements VTE ppx - LMWH dispo - [facility] by [facility] for [facility] 01/15/23, eventual possible transition to LTC - DNR/DNI In my clinical judgment, the patient requires continued inpatient hospitalization for the following reasons: safe placement Time Spent With Patient Time: Total time managing care of this patient today _25___ minutes. Quality Stroke Does the patient have a stroke diagnosis?: No VTE Prior VTE?: No VTE Risk Level:: Medical - moderate - high VTE Device Contraindication: Treatment Not Indicated VTE Drug Contraindication: N/A - Med Ordered
[2023-01-14 15:22] VITALS: BP 107/55; PULSE 99; RESP 20; TEMP 36.3; O2SAT 95
[2023-01-14] MEDS: Enoxaparin Sodium 40 MG/0.4 ML SYRINGE SUBCUT (15:22)
[2023-01-14] MEDS: QUEtiapine Fumarate 25 MG TABLET PO (19:21)
[2023-01-14 19:30] VITALS: BP 107/54; PULSE 99; RESP 18; TEMP 36.4; O2SAT 96
[2023-01-15 03:28] VITALS: RESP 16
[2023-01-15 07:13] VITALS: BP 113/60; PULSE 87; RESP 16; TEMP 36; O2SAT 97
--- NOTE | 2023-01-15 10:26 | MHC.CLN ---
F/U DIET=REGULAR. SUPPLEMENT ENSURE BID. PROVIDES 700 KCALS, 40 G PROTEIN. INTAKE USUALLY 50-100%. DIET AND SUPPLEMENT APPROPRIATE. SKIN WITH REDNESS TO BUTTOCKS. NO OPEN AREAS NOTED. MONITOR PO INTAKE CLOSELY.
--- NOTE | 2023-01-15 10:53 | P.DS_ITS ---
DS: Providers Provider Date of Service: 01/15/23 Date of admission: 01/06/23 17:07 Date of discharge: 01/15/23 Primary care physician: Dori Schmitt MD Consults: 01/06/23 16:03 Consult to Orthopedics Routine Consulting Provider: [facility] Reason for consultation: Swollen left knee w/joint effusion DS: Diagnosis Discharge Diagnosis (1) Dementia with behavioral disturbance: Status: Acute (2) Osteoarthritis of left knee: Status: Acute (3) Sepsis: Status: Acute (4) UTI (urinary tract infection): Status: Acute DS: Summary Hospital Course Hospital Course: from admission H+P by hospitalist VERONICA Alonso, 01/06/23: Pt is a 82-year-old female with a PMH significant for?osteoporosis and profound dementia not on home meds who presented to the ED 5 days prior on 01/01/2023 with worsening dementia.? Patient was brought in by family after wandering out of her house multiple times and eventually ending up in her neighbor's home.? According to guardian, patient's wandering has worsened recently to the point where the family no longer feels like they can manage her at home.? Patient apparently had been living with her in [place] up until September of this year when her began having health issues of his own and could no longer take care of the patient.? Guardian notes that for the past few weeks patient has been less ambulatory than prior, has been complaining of left knee pain after morning walks around the block.? All workup, including CBC, CMP, and UA were negative. Pt has been in the observation unit since then awaiting placement at a long-term care facility.? This morning patient was noted be lethargic, tachycardic up to 109, and labs were significant for a leukocytosis of 14.2.? Chest x-ray negative for acute cardiopulmonary process.? UA still pending since urine has not yet been able to be obtained via straight catheterization despite 3 attempts by 3 different clinicians. Pt was treated with ceftriaxone and IVF. Pt will be admitted to the hospital for sepsis possibly secondary to UTI. 82yo F with osteoporosis + dementia who was in observation unit 01/01-01/06/23 awaiting LTC placement, but then developed sepsis due to presumed UTI and thus was admitted to the medical-surgical floor. Hospital course by problem: sepsis due to presumed UTI, resolved - tachycardic with leukocytosis; urine not obtained; completed ceftriaxone course and sepsis resolved L knee effusion - due DJD/OA; aspirated by Ortho and given steroid injection with resolution of pain; may use APAP prn pain dementia + behavioral disturbance - started on low-dose quetiapine at hs moderate protein-calorie malnutrition - started on supplements She was discharged to [facility] for STR with possible transition to LTC. Time Spent with Patient Time attestation: Total time managing care of this patient today ____ minutes. 35 Discharge coordination time: Greater than 30 minutes Quality: Safe Use of Opioids Does Pt have an Active Cancer Diagnosis on the Problem List?: No Quality: Stroke Does the patient have a stroke diagnosis?: No Physical Exam Vital Signs: Vital Signs: Last Vital Signs Temp 96.8 F 01/15/23 07:13 Pulse 87 01/15/23 07:13 Resp 16 01/15/23 07:13 BP 113/60 01/15/23 07:13 Pulse Ox 97 01/15/23 07:13 O2 Del Method Room Air 01/15/23 07:13 BMI result Body Mass Index 15.9 Gen: in no acute distress HEENT: sclera anicteric, moist mucus membranes Neck: supple Lungs: clear to auscultation bilaterally Heart: regular rate and rhythm, no murmurs Abd: soft, non-tender, non-distended Ext: no edema Skin: warm/well-perfused Neuro: alert and oriented to self, no motor deficit Psych: impaired insight DS: Data Data Completed and Pending Completed studies during hospitalization [Text1]: Laboratory Results WBC 9.5 X10*3/uL (4.8-10.8) 01/07/23 04:52 RBC 4.34 X10*6/uL (4.20-5.50) 01/07/23 04:52 Hgb 12.8 g/dl (12.0-16.0) 01/07/23 04:52 Hct 39.1 % (37.0-47.0) 01/07/23 04:52 MCV 90.1 fL (80.0-98.0) 01/07/23 04:52 MCH 29.5 pg (27.0-33.0) 01/07/23 04:52 MCHC 32.7 g/dl (31.0-35.0) 01/07/23 04:52 RDW 14.4 % (11.0-16.0) 01/07/23 04:52 Plt Count 300 X10*3/uL (160-400) 01/07/23 04:52 MPV 10.0 fL (9.4-12.3) 01/07/23 04:52 Immature Gran % (Auto) 0.5 % (0.0-0.4) H 01/06/23 09:07 Neut % (Auto) 81.6 % (45-73) H 01/06/23 09:07 Lymph % (Auto) 8.0 % (20-40) L 01/06/23 09:07 [place] % (Auto) 9.5 % (2-11) 01/06/23 09:07 Eos % (Auto) 0.0 % (0-4) 01/06/23 09:07 Baso % (Auto) 0.4 % (0-2) 01/06/23 09:07 Lymph # (Auto) 1.1 X10*3/uL (1.2-4.9) L 01/06/23 09:07 [place] # (Auto) 1.3 X10*3/uL (0.1-1.2) H 01/06/23 09:07 Eos # (Auto) 0.0 X10*3/uL (0.0-0.4) 01/06/23 09:07 Baso # (Auto) 0.1 X10*3/uL (0.0-0.2) 01/06/23 09:07 Abs Immat Gran (auto) 0.07 X10*3/uL (0.00-0.03) H 01/06/23 09:07 Absolute Neuts (auto) 11.6 x10*3/uL (2.0-8.3) H 01/06/23 09:07 Absolute Nucleated RBC 0.000 X10*3/uL (0.0-0.012) 01/07/23 04:52 Nucleated RBC % (auto) 0.0 /100WBC (0.0-0.2) 01/07/23 04:52 Sodium 143 mmol/L (135-145) 01/12/23 08:53 Potassium 4.2 mmol/L (3.3-5.1) 01/12/23 08:53 Chloride 111 mmol/L (96-108) H 01/12/23 08:53 Carbon Dioxide 19 mmol/L (22-29) L 01/12/23 08:53 Anion Gap 17 (12-20) 01/12/23 08:53 BUN 37 mg/dL (9-16) H 01/12/23 08:53 Creatinine 0.83 mg/dL (0.5-1.4) 01/12/23 08:53 Estim Creat Clear Calc 37.9 01/12/23 08:53 Estimated GFR > 60 01/12/23 08:53 POC Glucose 147 mg/dL (60-115) H 01/05/23 20:22 Random Glucose 113 mg/dL (60-115) 01/12/23 08:53 Lactic Acid 1.1 mmol/L (0.5-2.0) 01/06/23 14:26 Calcium 9.6 mg/dL (8.4-10.2) 01/12/23 08:53 Total Bilirubin 0.2 mg/dL (0.0-1.0) 01/01/23 22:49 AST 11 U/L (5-31) 01/01/23 22:49 ALT 10 U/L (0-31) 01/01/23 22:49 Alkaline Phosphatase 73 U/L (39-117) 01/01/23 22:49 C-Reactive Protein 6.74 mg/dL (< or = 0.50) H 01/06/23 09:07 Total Protein 6.6 g/dL (6.5-8.0) 01/01/23 22:49 Albumin 3.8 g/dL (3.5-5.0) 01/01/23 22:49 Urine Color Yellow 01/02/23 00:47 Urine Appearance Cloudy 01/02/23 00:47 Urine pH 8.5 (5.0-9.0) 01/02/23 00:47 Ur Specific [place] 1.020 (1.005-1.025) 01/02/23 00:47 Urine Protein Trace mg/dL (Neg-Trace) 01/02/23 00:47 Urine Glucose (UA) Negative mg/dL (Negative) 01/02/23 00:47 Urine Ketones Negative mg/dL (Negative) 01/02/23 00:47 Urine Blood Negative (Negative) 01/02/23 00:47 Urine Nitrite Negative (Negative) 01/02/23 00:47 Ur Leukocyte Esterase Negative (Negative) 01/02/23 00:[address] 01/04/23 00:30 IMPRESSION: HEAD: No acute intracranial findings. CERVICAL SPINE: No acute findings identified. Moderate to severe degenerative changes. Head CT 01/04/23 00:30 IMPRESSION: HEAD: No acute intracranial findings. CERVICAL SPINE: No acute findings identified. Moderate to severe degenerative changes. Chest X-Ray 01/06/23 11:14 IMPRESSION: No acute cardiopulmonary process. Knee X-Ray 01/06/23 11:14 IMPRESSION: 1. Moderate tricompartmental degenerative joint changes most consistent with osteoarthritis. 2. Small to moderate joint effusion and mild surrounding soft tissue swelling without acute underlying osseous abnormality. Discharge Plan Discharge Anticipated Discharge Date/Time: 01/15/23 10:48 Patient Disposition: Xfer SNF Discharge Diagnosis: sepsis due to presumed UTI, resolved L knee effusion due to osteoarthritis dementia + behavioral disturbance moderate protein/calorie malnutrition Referrals: Dori Schmitt MD [Primary Care Provider] - 1 Week Physician,Unknown J [Physician] - 1 Week Discharge Medications: New quetiapine 25 mg Tablet 25 mg PO BEDTIME Qty: 1 0RF lidocaine [Lidocaine Pain Relief] 4 % Adhesive Patch,Medicated 1 patch transdermal DAILY Qty: 1 0RF Protocol: Apply to: Apply to: lower back acetaminophen 325 mg Tablet 650 mg PO Q6H PRN (Reason: Pain, Mild (Pain Scale 1-3)) Qty: 1 0RF docusate sodium 100 mg Capsule 100 mg PO DAILY PRN (Reason: Constipation) Qty: 1 0RF Diet: Advance to usual diet Activity on Discharge: As tolerated Stand Alone Forms: Patient Portal Discharge page Care Plan Goals: management of cognitive impairment Health Concerns: sepsis due to presumed UTI - resolved L knee effusion due to osteoarthritis - resolved; use acetaminophen as needed dementia + behavioral disturbance - quetiapine; frequent reorientation; maintenance of normal sleep-wake cycles moderate protein/calorie malnutrition - Ensure 1 can bid discharge to [facility] for STR -> LTC? Please follow up with your primary care doctor within 1 week. Return to the hospital if you experience recurrent or worsening symptoms. Plan of Treatment: as above Assessment: See Discharge Summary.
--- NOTE | 2023-01-15 11:05 | MHC.CM.PN ---
Addendum entered by Romana Catalan RN 01/15/23 13:57: DC CANCELLED. PATIENT HAS SEROQUEL ORDERED AND THIS IS A NEW MED WILL NEED [facility] ORDER. DAUGHTER IS ON HER WAY TO THE COURT NOW CM DIRECTOR AND HOSPITALIST MADE AWARE. [facility] CANCELLED [facility] IS WILLING TO FOLLOW UNTIL ARRANGED Original Note: PATIENT TO TRANSFER TO [facility] FOR 1630 [facility]IA [facility]. DAUGHTER/GUARDIAN, GAUTAM [phone] AWARE OF PLANS. PATIENT, UNIT, AND RN ALSO AWARE DAUGHTER HAS BEEN MADE AWARE THAT SHE MAY NEED TO SIGN PATIENT INTO FACILITY AND TO CALL TO MAKE ARRANGEMENTS IMM 01/14 IN CHART
--- NOTE | 2023-01-15 13:45 | P.PNIM_ITS ---
Subjective Subjective Date of Service: 01/15/23 Interval History: Guardian applying for [place] order for quetiapine Otherwise no new events Pt denies pain Review of Systems Review of Systems: Yes all other systems are reviewed and are negative Physical Exam Vital Signs: Vital Signs: Last Vital Signs Temp 96.8 F 01/15/23 07:13 Pulse 87 01/15/23 07:13 Resp 16 01/15/23 07:13 BP 113/60 01/15/23 07:13 Pulse Ox 97 01/15/23 07:13 O2 Del Method Room Air 01/15/23 07:13 BMI result Body Mass Index 15.9 Gen: in no acute distress HEENT: sclera anicteric, moist mucus membranes Neck: supple Lungs: clear to auscultation bilaterally Heart: regular rate and rhythm, no murmurs Abd: soft, non-tender, non-distended Ext: no edema Skin: warm/well-perfused Neuro: alert and oriented to self, no motor deficit Psych: impaired insight Objective Data Active Medications Acetaminophen (Acetaminophen 325 Mg Tablet) 650 mg PO Q6H PRN PRN Reason: Pain, Mild (Pain Scale 1-3) Last Admin: 01/07/23 23:18 Dose: 650 mg Documented By: ASAD Docusate Sodium (Docusate Sodium 100 Mg Capsule) 100 mg PO DAILY PRN PRN Reason: Constipation Enoxaparin Sodium (Enoxaparin Sodium 40 Mg/0.4 Ml Syringe) 40 mg SUBCUT Q24H [facility] Last Admin: 01/14/23 15:22 Dose: 40 mg Documented By: RHONDA Lidocaine (Lidocaine 4 % Patch Adh..Patch) 1 patch TRANSDERMA DAILY [facility]; Protocol Last Admin: 01/15/23 09:11 Dose: Not Given Documented By: NINFA Non-Admin Reason: Patient Refused Ondansetron HCl (Ondansetron Hcl 4 Mg/2 Ml Vial) 4 mg IVPUSH Q8H PRN PRN Reason: Nausea and Vomiting Pharmacy Consult (Consult Rx Perform Med Rec) 1 each MISCELLANE ONCE PRN PRN Reason: Consult order Quetiapine Fumarate (Quetiapine Fumarate 25 Mg Tablet) 25 mg PO BEDTIME [facility] Last Admin: 01/14/23 19:21 Dose: 25 mg Documented By: CHIKIS Sodium Chloride (0.9 % Sodium Chloride Flush 3 Ml Syringe) 3 ml IVFLUSH QSHIFT JOHN Last Admin: 01/15/23 07:21 Dose: Not Given Documented By: NINFA Non-Admin Reason: No Access Labs 01/07/23 04:52 01/12/23 08:53 Assessment and Plan (1) Dementia: Status: Acute Plan d10 82yo F with osteoporosis + dementia in observation unit 01/01-01/06/23 awaiting LTC placement but then developed sepsis due to presumed UTI sepsis due to presumed UTI, resolved - tachycardic with leukocytosis; urine not obtained; signs resolved and completed ceftriaxone course L knee effusion - DJD/OA, aspirated by Ortho and given steroid injection with resolution of pain dementia + behav disturba - quetiapine at hs mod pr-sbaa malnut - PO supplements VTE ppx - LMWH dispo - accepted by [facility] for STR eventual possible transition to LTC; needs [facility] order for quetiapine - DNR/DNI In my clinical judgment, the patient requires continued inpatient hospitalization for the following reasons: safe placement Time Spent With Patient Time: Total time managing care of this patient today ____ minutes. Quality Stroke Does the patient have a stroke diagnosis?: No VTE Prior VTE?: No VTE Risk Level:: Medical - moderate - high VTE Device Contraindication: Treatment Not Indicated VTE Drug Contraindication: N/A - Med Ordered
--- NOTE | 2023-01-15 15:53 | MHC.CM.PN ---
T/W SERVED PATIENT THE AMENDED PETITION FOR APPOINTMENT OF GUARDIANSHIP FAMILY HAS A COURT DATE OF 01/22/23. IF CLINICIAN'S AFFIDAVIT CAN BE COMPLETED PRIOR TO THIS DATE, FAMILY WILL TAKE IT TO THE COURT AND CASE CAN BE HEARD THEN (ACCORDING TO DAUGHTER, GAUTAM) COPIES ON CHART CM DIRECTOR MADE AWARE
[2023-01-15 16:00] VITALS: BP 107/54; PULSE 92; RESP 20; TEMP 37; O2SAT 98
[2023-01-15 19:29] VITALS: BP 114/56; PULSE 96; RESP 17; TEMP 36.1; O2SAT 97
[2023-01-15] MEDS: QUEtiapine Fumarate 25 MG TABLET PO (20:17)
[2023-01-16 03:57] VITALS: BP 115/65; PULSE 70; RESP 17; TEMP 36.5; O2SAT 98
--- NOTE | 2023-01-16 07:54 | PC.NURSE ---
d/c flushes no IV Access.
--- NOTE | 2023-01-16 09:57 | P.PNIM_ITS ---
Subjective Subjective Date of Service: 01/16/23 Interval History: no complaints Review of Systems Review of Systems: Yes all other systems are reviewed and are negative Physical Exam Vital Signs: Vital Signs: Last Vital Signs Temp 97.7 F 01/16/23 03:57 Pulse 70 01/16/23 03:57 Resp 17 01/16/23 03:57 BP 115/65 01/16/23 03:57 Pulse Ox 98 01/16/23 03:57 O2 Del Method Room Air 01/16/23 03:57 BMI result Body Mass Index 15.9 Gen: in no acute distress HEENT: sclera anicteric, moist mucus membranes Neck: supple Lungs: clear to auscultation bilaterally Heart: regular rate and rhythm, no murmurs Abd: soft, non-tender, non-distended Ext: no edema Skin: warm/well-perfused Neuro: alert and oriented to self, no motor deficit Psych: impaired insight Objective Data Active Medications Acetaminophen (Acetaminophen 325 Mg Tablet) 650 mg PO Q6H PRN PRN Reason: Pain, Mild (Pain Scale 1-3) Last Admin: 01/07/23 23:18 Dose: 650 mg Documented By: ASAD Docusate Sodium (Docusate Sodium 100 Mg Capsule) 100 mg PO DAILY PRN PRN Reason: Constipation Enoxaparin Sodium (Enoxaparin Sodium 40 Mg/0.4 Ml Syringe) 40 mg SUBCUT Q24H [facility] Last Admin: 01/15/23 18:16 Dose: Not Given Documented By: NINFA Non-Admin Reason: Patient Refused Lidocaine (Lidocaine 4 % Patch Adh..Patch) 1 patch TRANSDERMA DAILY [facility]; Protocol Last Admin: 01/16/23 08:12 Dose: Not Given Documented By: DENNYS Non-Admin Reason: Patient Refused Ondansetron HCl (Ondansetron Hcl 4 Mg/2 Ml Vial) 4 mg IVPUSH Q8H PRN PRN Reason: Nausea and Vomiting Pharmacy Consult (Consult Rx Perform Med Rec) 1 each MISCELLANE ONCE PRN PRN Reason: Consult order Quetiapine Fumarate (Quetiapine Fumarate 25 Mg Tablet) 25 mg PO BEDTIME [facility] Last Admin: 01/15/23 20:17 Dose: 25 mg Documented By: ROSELYN Labs 01/07/23 04:52 01/12/23 08:53 Assessment and Plan (1) Dementia: Status: Acute Plan d11 82yo F with osteoporosis + dementia in observation unit 01/01-01/06/23 awaiting LTC placement but then developed sepsis due to presumed UTI sepsis due to presumed UTI, resolved - tachycardic with leukocytosis; urine not obtained; signs resolved and completed ceftriaxone course L knee effusion - DJD/OA, aspirated by Ortho and given steroid injection with resolution of pain dementia + behavioural disturbance - quetiapine at hs mod pr-saba malnut - PO supplements VTE ppx - LMWH dispo - accepted by [facility] for STR eventual possible transition to LTC; needs [facility] order for quetiapine and psychiatry consult ordered 01/15/23 - DNR/DNI In my clinical judgment, the patient requires continued inpatient hospitalization for the following reasons: safe placement Time Spent With Patient Time: Total time managing care of this patient today ____ minutes. Quality Stroke Does the patient have a stroke diagnosis?: No VTE Prior VTE?: No VTE Risk Level:: Medical - moderate - high VTE Device Contraindication: Treatment Not Indicated VTE Drug Contraindication: N/A - Med Ordered
--- NOTE | 2023-01-16 15:10 | PC.NURSE ---
Pt agitated and wanted to go outside, difficult to redirect with two staff, patient trying to throw herself on the ground. Staff intervene with chair. Patient brought to room with chair, two assit to bed, patient crying stating I just want to go home. Bed alarm on for safety.
[2023-01-16 15:30] VITALS: BP 97/53; PULSE 105; RESP 16; TEMP 36.4
--- NOTE | 2023-01-16 17:35 | PM.PSYCN ---
History of Present Illness Date of Service: 01/16/2023 Chief Complaint: Eugene's Guardianship Requesting physician: Licha Hill / [facility] Sources of Information: patient interviewed and chart reviewed Additional Sources of Information: Care Managment Team HPI Narrative: Consult received today with request to prepare Eugene's Guardianship paperwork for this 82 yo female with a history of behavioral disturbance within dementia. Pt admitted with increasing symptoms after she was found wandering out of the home on several occasions, leading to her going to the neighbors home. Pt's guardian reported the symptoms have become severe and the family no longer believes they can provide a safe environment for pt without constant supervision. Pt's is unable to care for her due to having health issues of his own. In hospital, pt has been treated for UTI with sepsis which is resolved. She was also treated for L knee effusion as there is OA/Degenerative Disease. She was given a steroid injection. Quetiapine was initiated to assist with behavioral disturbance within dementia. Placement has been secured. Pt needs to remain in hospital until Eugene's guardianship is secured, so the receiving facility may continue Quetiapine dosage. Met with pt, care discussed with care mgt team. Medical Evaluation Reviewed: Yes PMFSH Narrative: Dementia, Behavioral Disturbance OA L knee UTI, Sepsis, currently resolved Diagnostics Vital Signs (24Hr): Vital Signs - 24 hr 01/15/23 19:29 01/16/23 03:57 01/16/23 15:30 Temperature 97 F 97.7 F 97.5 F Pulse Rate 96 70 105 H Respiratory Rate 17 17 16 Blood Pressure 114/56 L 115/65 97/53 L Pulse Oximetry 97 98 Oxygen Delivery Method Room Air Room Air Room Air BMI result Body Mass Index 15.9 Labs 01/07/23 04:52 01/12/23 08:53 Imaging Radiology Impressions: ITS Impressions Cervical Spine CT 01/04/23 00:30 IMPRESSION: HEAD: No acute intracranial findings. CERVICAL SPINE: No acute findings identified. Moderate to severe degenerative changes. Head CT 01/04/23 00:30 IMPRESSION: HEAD: No acute intracranial findings. CERVICAL SPINE: No acute findings identified. Moderate to severe degenerative changes. Chest X-Ray 01/06/23 11:14 IMPRESSION: No acute cardiopulmonary process. Knee X-Ray 01/06/23 11:14 IMPRESSION: 1. Moderate tricompartmental degenerative joint changes most consistent with osteoarthritis. 2. Small to moderate joint effusion and mild surrounding soft tissue swelling without acute underlying osseous abnormality. Mental Status Exam Mental Status Exam Narrative: Pt is in her room folding towels. She is alert, oriented to person, engaging, calm and talkative. She presents with no acute distress and is focused on her current task. She is a poor historian with confusion present. Patient Appearance: Appropriate Patient Orientation: Person Level of Consciousness: Awake, Disoriented and Alert (folding towels) Patient Behavior: Appropriate, Dependent, Talkative, Cooperative, Distractible, Confused and Good Eye Contact Mood Description: Calm, Happy and Relaxed Affect Description: Calm Patient Cognition Impaired: Yes Ability to Follow Directions: Fair Speech Pattern: Spontaneous Speech, Rambling, Soft-Spoken and Cofabulation Memory Description: Remote Impaired, Immediate Impaired, Episodic Impaired, Recent Impaired, Working Impaired and Semantic Impaired Thought Process: Illogical, Distracted, Slowed Thinking and Confusion Thought Content: positive for Flight of Ideas, positive for Circumstantial, positive for Loose Associations, positive for Tangential and positive for Disorganized Depressive Symptoms: Increased Irritability and Difficulty Concentrating Abnormal Motor Activity Signs and Symptoms: Restlessness Judgement: Poor Medications Medications Current Medications Acetaminophen (Acetaminophen 325 Mg Tablet) 650 mg PO Q6H PRN PRN Reason: Pain, Mild (Pain Scale 1-3) Last Admin: 01/07/23 23:18 Dose: 650 mg Docusate Sodium (Docusate Sodium 100 Mg Capsule) 100 mg PO DAILY PRN PRN Reason: Constipation Enoxaparin Sodium (Enoxaparin Sodium 40 Mg/0.4 Ml Syringe) 40 mg SUBCUT Q24H [facility] Last Admin: 01/16/23 15:57 Dose: Not Given Lidocaine (Lidocaine 4 % Patch Adh..Patch) 1 patch TRANSDERMA DAILY [facility]; Protocol Last Admin: 01/16/23 08:12 Dose: Not Given Ondansetron HCl (Ondansetron Hcl 4 Mg/2 Ml Vial) 4 mg IVPUSH Q8H PRN PRN Reason: Nausea and Vomiting Pharmacy Consult (Consult Rx Perform Med Rec) 1 each MISCELLANE ONCE PRN PRN Reason: Consult order Quetiapine Fumarate (Quetiapine Fumarate 25 Mg Tablet) 25 mg PO BEDTIME [facility] Last Admin: 01/15/23 20:17 Dose: 25 mg Allergies Allergies Allergy/AdvReac Type Severity Reaction Status Date / Time No Known Allergies Allergy Verified 01/01/23 21:32 Assessment & Plan Assessment & Plan (1) Dementia with behavioral disturbance: Status: Acute Code(s): F03.918 - Unspecified dementia, unspecified severity, with other behavioral disturbance Plan 82 yo female, history of dementia with behavioral disturbance, currently pending placement with a [facility] weapons [facility] officer care facility. During current hospitalization, pt was started on low dose Quetiapine to assist in management of symptoms precipitating safety issues at home and in hospital. Pt has a current guardian and will need a Eugene's order to continue Quetiapine when she transfers to a new facility. Discussed with care mgt. Plan: Will begin process of paperwork for [facility] Guardianship. Will consult with Abbie Zhao [facility] who is our main contact with [facility] civil attorney group, [employer], on 01/18 to obtain their input on how to move forward and expedite this need for patient and family. Total time managing care of this patient today ____ minutes. Informed Consent: does not understand
[2023-01-16 19:30] VITALS: BP 96/54; PULSE 98; RESP 17; TEMP 36.4; O2SAT 97
[2023-01-16] MEDS: QUEtiapine Fumarate 25 MG TABLET PO (19:44)
[2023-01-17 08:28] VITALS: BP 121/58; PULSE 95; RESP 18; TEMP 36.9; O2SAT 96
--- NOTE | 2023-01-17 11:36 | HO.PM.IMPN ---
Subjective Subjective Date of Service: 01/17/23 Interval History: no complaints of pain, N/V, or dyspnea Review of Systems Review of Systems: Yes all other systems are reviewed and are negative Physical Exam Vital Signs: Vital Signs: Last Vital Signs Temp 98.5 F 01/17/23 08:28 Pulse 95 01/17/23 08:28 Resp 18 01/17/23 08:28 BP 121/58 L 01/17/23 08:28 Pulse Ox 96 01/17/23 08:28 O2 Del Method Room Air 01/17/23 08:28 BMI result Body Mass Index 15.9 Gen: in no acute distress HEENT: sclera anicteric, moist mucus membranes Neck: supple Lungs: clear to auscultation bilaterally Heart: regular rate and rhythm, no murmurs Abd: soft, non-tender, non-distended Ext: no edema Skin: warm/well-perfused Neuro: alert and oriented to self, no motor deficit Psych: impaired insight Objective Data Active Medications Acetaminophen (Acetaminophen 325 Mg Tablet) 650 mg PO Q6H PRN PRN Reason: Pain, Mild (Pain Scale 1-3) Last Admin: 01/07/23 23:18 Dose: 650 mg Documented By: ASAD Docusate Sodium (Docusate Sodium 100 Mg Capsule) 100 mg PO DAILY PRN PRN Reason: Constipation Enoxaparin Sodium (Enoxaparin Sodium 40 Mg/0.4 Ml Syringe) 40 mg SUBCUT Q24H [facility] Last Admin: 01/16/23 15:57 Dose: Not Given Documented By: DENNYS Non-Admin Reason: Patient Refused Lidocaine (Lidocaine 4 % Patch Adh..Patch) 1 patch TRANSDERMA DAILY [facility]; Protocol Last Admin: 01/17/23 07:51 Dose: Not Given Documented By: DENNYS Non-Admin Reason: Patient Refused Ondansetron HCl (Ondansetron Hcl 4 Mg/2 Ml Vial) 4 mg IVPUSH Q8H PRN PRN Reason: Nausea and Vomiting Pharmacy Consult (Consult Rx Perform Med Rec) 1 each MISCELLANE ONCE PRN PRN Reason: Consult order Quetiapine Fumarate (Quetiapine Fumarate 25 Mg Tablet) 25 mg PO BEDTIME [facility] Last Admin: 01/16/23 19:44 Dose: 25 mg Documented By: LYNETTE Monroe 01/07/23 04:52 01/12/23 08:53 Assessment and Plan (1) Dementia: Status: Acute Plan d12 82yo F with osteoporosis + dementia in observation unit 01/01-01/06/23 awaiting LTC placement but then developed sepsis due to presumed UTI dementia + behavioral disturbance - quetiapine at hs sepsis due to presumed UTI, resolved - was tachycardic with leukocytosis; urine not obtained; signs resolved and completed ceftriaxone course L knee effusion - DJD/OA, aspirated by Ortho and given steroid injection with resolution of pain mod pr-saba malnut - PO supplements VTE ppx - LMWH dispo - accepted by [facility]tn for STR eventual possible transition to LTC; needs Justino order for quetiapine; Psychiatry following and guardian filing - DNR/DNI In my clinical judgment, the patient requires continued inpatient hospitalization for the following reasons: safe placement Time Spent With Patient Time: Total time managing care of this patient today __25__ minutes. Quality Stroke Does the patient have a stroke diagnosis?: No VTE Prior VTE?: No VTE Risk Level:: Medical - moderate - high VTE Device Contraindication: Treatment Not Indicated VTE Drug Contraindication: N/A - Med Ordered
[2023-01-17 15:34] VITALS: BP 109/71; PULSE 60; RESP 18; TEMP 36.3; O2SAT 99
[2023-01-17] MEDS: QUEtiapine Fumarate 25 MG TABLET PO (19:22)
[2023-01-17 20:00] VITALS: BP 101/55; PULSE 100; RESP 15; TEMP 36.6; O2SAT 98
[2023-01-18 04:00] VITALS: RESP 16
[2023-01-18 07:34] VITALS: BP 108/54; PULSE 81; RESP 16; TEMP 36.3; O2SAT 95
--- NOTE | 2023-01-18 12:41 | HO.PM.IMPN ---
Subjective Subjective Date of Service: 01/18/23 Interval History: offers no acute complaints, tolerating diet no nausea, no vomiting, no abdominal pain, no issues overnight. Review of Systems all other system reviewed and negative Physical Exam Vital Signs: Vital Signs: Last Vital Signs Temp 97.3 F 01/18/23 07:34 Pulse 81 01/18/23 07:34 Resp 16 01/18/23 07:34 BP 108/54 L 01/18/23 07:34 Pulse Ox 95 01/18/23 07:34 O2 Del Method Room Air 01/18/23 07:34 BMI result Body Mass Index 15.9 Const: Other: Gen: in no acute distress HEENT: sclera anicteric, moist mucus membranes Neck: supple Lungs: clear to auscultation bilaterally Heart: regular rate and rhythm, no murmurs Abd: soft, non-tender, bowel sounds audible, non-distended Ext: no edema Skin: warm/well-perfused Neuro: alert and oriented to self, no motor deficit Psych: impaired insight Objective Data Active Medications Acetaminophen (Acetaminophen 325 Mg Tablet) 650 mg PO Q6H PRN PRN Reason: Pain, Mild (Pain Scale 1-3) Last Admin: 01/07/23 23:18 Dose: 650 mg Documented By: ASAD Docusate Sodium (Docusate Sodium 100 Mg Capsule) 100 mg PO DAILY PRN PRN Reason: Constipation Enoxaparin Sodium (Enoxaparin Sodium 40 Mg/0.4 Ml Syringe) 40 mg SUBCUT Q24H [facility] Last Admin: 01/17/23 15:42 Dose: Not Given Documented By: DENNYS Non-Admin Reason: Patient Refused Lidocaine (Lidocaine 4 % Patch Adh..Patch) 1 patch TRANSDERMA DAILY [facility]; Protocol Last Admin: 01/18/23 08:22 Dose: Not Given Documented By: NINFA Non-Admin Reason: Patient Refused Ondansetron HCl (Ondansetron Hcl 4 Mg/2 Ml Vial) 4 mg IVPUSH Q8H PRN PRN Reason: Nausea and Vomiting Pharmacy Consult (Consult Rx Perform Med Rec) 1 each MISCELLANE ONCE PRN PRN Reason: Consult order Quetiapine Fumarate (Quetiapine Fumarate 25 Mg Tablet) 25 mg PO BEDTIME [facility] Last Admin: 01/17/23 19:22 Dose: 25 mg Documented By: ROSELYN Labs 01/07/23 04:52 01/12/23 08:53 Assessment and Plan (1) Dementia: Status: Acute Plan 82yo F with osteoporosis + dementia in observation unit 01/01-01/06/23 awaiting LTC placement but then developed sepsis due to presumed UTI dementia + behavioral disturbance -cont. quetiapine at hs sepsis due to presumed UTI, resolved - was tachycardic with leukocytosis; urine not obtained; signs resolved and completed ceftriaxone course L knee effusion - DJD/OA, aspirated by Ortho and given steroid injection with resolution of pain mod pr-saba malnut - PO supplements VTE ppx - LMWH dispo - accepted by [facility] for STR eventual possible transition to LTC; needs Justino order for quetiapine; Psychiatry following and guardian filing - DNR/DNI In my clinical judgment, the patient requires continued inpatient hospitalization for the following reasons: safe placement Time Spent With Patient Time: Total time managing care of this patient today ____ minutes. Quality Stroke Does the patient have a stroke diagnosis?: No VTE Prior VTE?: No VTE Risk Level:: Medical - moderate - high VTE Device Contraindication: Treatment Not Indicated VTE Drug Contraindication: N/A - Med Ordered
--- NOTE | 2023-01-18 15:41 | MHC.CM.PN ---
PT AWAITING [facility] ORDER FOR LTC PLACEMENT [facility] HAS ACCEPTED PT ONCE NECESSARY ORDERS ARE OBTAINED
[2023-01-18] MEDS: QUEtiapine Fumarate 25 MG TABLET PO ×2 (15:43→19:47)
[2023-01-18 15:56] VITALS: BP 114/56; PULSE 106; RESP 18; TEMP 37; O2SAT 98
--- NOTE | 2023-01-18 16:21 | PC.NURSE ---
1515 Pt tearing clothing off, wandering into hallway stating let me at that tai who is demanding I stay here Attempted to ambulate pt with walker but pt pushed through this nurse and ambulated in hallway without walker. This RN and WIRE SAW OPERATOR assisted pt back to room but pt throwing tissue box and towels at staff. Increasing agitation. Dr Dean notified, seroquel po ordered and given. Will continue to monitor. Pt sitting in recliner at this time
[2023-01-18 19:39] VITALS: BP 115/66; PULSE 88; RESP 18; TEMP 36.7; O2SAT 98
[2023-01-19 03:31] VITALS: BP 126/61; PULSE 93; RESP 16; TEMP 36.6; O2SAT 97
[2023-01-19 07:19] VITALS: BP 109/62; PULSE 94; RESP 16; TEMP 36; O2SAT 97
[2023-01-19] MEDS: Lidocaine 4 % Patch ADH..PATCH 1 PATCH TRANSDERMA (08:59)
[2023-01-19 09:02] VITALS: BP 109/62; PULSE 94; O2SAT 97
--- NOTE | 2023-01-19 12:12 | MHC.CM.PN ---
Patients dtr Hannah called to check on status Of Assessment ; which was given to CM yesterday. The assessment is needed for the [address] T/W found the form on the chart. Notified Director of CM.
--- NOTE | 2023-01-19 12:14 | MHC.CLN ---
F/U PO INTAKE 75-100% DIET RX: REGULAR-APPROPRIATE PT RECEIVES ENSURE BID PROVIDES 700KCLAS, 40G PROTEIN CONTINUE TO MONITOR PO INTAKE AND WEIGHTS
--- NOTE | 2023-01-19 13:43 | HO.PM.IMPN ---
Subjective Subjective Date of Service: 01/19/23 Interval History: patient sitting comfortably eating breakfast appears calm, yesterday evening noted to be agitated therefore required an extra dose of Seroquel last evening, slept well last night, is ambulating in hallway with licensed nursing assistant, offers no acute complaints of nausea vomiting no abdominal pain, no fevers, no chills. Review of Systems All other system reviewed and negative. Physical Exam Vital Signs: Vital Signs: Last Vital Signs Temp 96.8 F 01/19/23 07:19 Pulse 94 01/19/23 09:02 Resp 16 01/19/23 07:19 BP 109/62 01/19/23 09:02 Pulse Ox 97 01/19/23 09:02 O2 Del Method Room Air 01/19/23 07:19 BMI result Body Mass Index 15.9 Const: Other: Gen: in no acute distress HEENT: sclera anicteric, moist mucus membranes Neck: supple Lungs: clear to auscultation bilaterally Heart: regular rate and rhythm, no murmurs Abd: soft, non-tender,? bowel sounds audible, non-distended Ext: no edema Skin: warm/well-perfused Neuro: alert and oriented to self, no motor deficit Psych: impaired insight Objective Data Active Medications Acetaminophen (Acetaminophen 325 Mg Tablet) 650 mg PO Q6H PRN PRN Reason: Pain, Mild (Pain Scale 1-3) Last Admin: 01/07/23 23:18 Dose: 650 mg Documented By: ASAD Docusate Sodium (Docusate Sodium 100 Mg Capsule) 100 mg PO DAILY PRN PRN Reason: Constipation Enoxaparin Sodium (Enoxaparin Sodium 40 Mg/0.4 Ml Syringe) 40 mg SUBCUT Q24H [facility] Last Admin: 01/18/23 15:46 Dose: Not Given Documented By: NINFA Non-Admin Reason: Patient Refused Lidocaine (Lidocaine 4 % Patch Adh..Patch) 1 patch TRANSDERMA DAILY [facility]; Protocol Last Admin: 01/19/23 08:59 Dose: 1 patch Documented By: MOHINDER Ondansetron HCl (Ondansetron Hcl 4 Mg/2 Ml Vial) 4 mg IVPUSH Q8H PRN PRN Reason: Nausea and Vomiting Pharmacy Consult (Consult Rx Perform Med Rec) 1 each MISCELLANE ONCE PRN PRN Reason: Consult order Quetiapine Fumarate (Quetiapine Fumarate 25 Mg Tablet) 25 mg PO BEDTIME [facility] Last Admin: 01/18/23 19:47 Dose: 25 mg Documented By: CHIKIS Monroe 01/07/23 04:52 01/12/23 08:53 Assessment and Plan (1) Dementia: Status: Acute Plan 82yo F with osteoporosis + dementia in observation unit 01/01-01/06/23 awaiting LTC placement but then developed sepsis due to presumed UTI dementia + behavioral disturbance -cont. quetiapine 25mg at hs, required extra dose of Seroquel for agitation last evening will consult Psychiatry for additional antipsychotic. sepsis due to presumed UTI, resolved - Finished course of ceftriaxone. L knee effusion - DJD/OA, aspirated by Ortho and given steroid injection with resolution of pain mod pr-saba malnut - PO supplements VTE ppx - LMWH dispo - accepted by [facility] for STR eventual possible transition to LTC; needs Justino order for quetiapine; Psychiatry following and guardian filing - DNR/DNI In my clinical judgment, the patient requires continued inpatient hospitalization for the following reasons: safe placement Time Spent With Patient Time: Total time managing care of this patient today ____ minutes. Quality Stroke Does the patient have a stroke diagnosis?: No VTE Prior VTE?: No VTE Risk Level:: Medical - moderate - high VTE Device Contraindication: Treatment Not Indicated VTE Drug Contraindication: N/A - Med Ordered
[2023-01-19] MEDS: QUEtiapine Fumarate 25 MG TABLET PO ×2 (14:00→20:07)
--- NOTE | 2023-01-19 14:37 | PC.NURSE ---
1350 Pt becoming increasingly agitated. Throwing her walker out of the way and pushing through staff. difficult to redirect pt back to room. Refusing back to room. Dr Dean notified, seroeleni murillo ordered and given. Message sent to Anika Baez regarding pt status
[2023-01-19 15:30] VITALS: BP 118/70; PULSE 81; RESP 20; TEMP 36; O2SAT 95
--- NOTE | 2023-01-19 17:36 | P.CNPS_ITS ---
History of Present Illness Date of Service: 01/19/2023 Chief Complaint: Eugene's Guardianship Reason for Consult: agitation Requesting physician: Chikis Dean Discussed with referring provider: Yes Sources of Information: patient interviewed, chart reviewed and crisis/core team assessment reviewed HPI Narrative: Mrs. Lopez is a 82 year-old woman with hx of advanced dementia. She is awaiting placement. Pt started on seroquel at bedtime, unclear if initially was started for sleep. Pt had brief episode of combative behavior, although redirectable and was given one time dose of seroquel 25mg po at around 1500 with good effect. Pt was seen today. Pt was sitting having dinner, she has one to one due to wondering and for safety on the medical floor. Pt is pleasant. She believes she knows this manual writer for a long time. Pt not oriented to place or situation. She is not able to identify that she is in a hospital. Per nursing, pt may be more agitated or mostly trying to leave her room and tries to leave the hospital afternoon.No significant combative or aggressive behaviors noted. Diagnostics Vital Signs (24Hr): Vital Signs - 24 hr 01/18/23 19:39 01/19/23 03:31 01/19/23 07:19 Temperature 98.0 F 97.9 F 96.8 F Pulse Rate 88 93 94 Respiratory Rate 18 16 16 Blood Pressure 115/66 126/61 109/62 Pulse Oximetry 98 97 97 Oxygen Delivery Method Room Air Room Air Room Air 01/19/23 09:02 01/19/23 15:30 Temperature 96.8 F Pulse Rate 94 81 Respiratory Rate 20 Blood Pressure 109/62 118/70 Pulse Oximetry 97 95 Oxygen Delivery Method Room Air BMI result Body Mass Index 15.9 Labs 01/07/23 04:52 01/12/23 08:53 Imaging Radiology Impressions: ITS Impressions Cervical Spine CT 01/04/23 00:30 IMPRESSION: HEAD: No acute intracranial findings. CERVICAL SPINE: No acute findings identified. Moderate to severe degenerative changes. Head CT 01/04/23 00:30 IMPRESSION: HEAD: No acute intracranial findings. CERVICAL SPINE: No acute findings identified. Moderate to severe degenerative changes. Chest X-Ray 01/06/23 11:14 IMPRESSION: No acute cardiopulmonary process. Knee X-Ray 01/06/23 11:14 IMPRESSION: 1. Moderate tricompartmental degenerative joint changes most consistent with osteoarthritis. 2. Small to moderate joint effusion and mild surrounding soft tissue swelling without acute underlying osseous abnormality. Mental Status Exam Mental Status Exam Narrative: Appearance: wearing hospital gown, fair hygiene, in NAD Behavior: pleasant and friendly Psychomotor: no agitation or retardation noted at time of this interview Speech: clear, regular rate/rhythm/volume, spontaneous TP: mostly linear TC: enjoying her dinner, I'm staying here mood: good Affect: congruent SI: denies HI: denies VH/AH: none Delusions: none noted or reported. some confabulation Insight/judgment: impaired x 2. Memory/cog: alert, not oriented to place, situation, year or month. Medications Medications Current Medications Acetaminophen (Acetaminophen 325 Mg Tablet) 650 mg PO Q6H PRN PRN Reason: Pain, Mild (Pain Scale 1-3) Last Admin: 01/07/23 23:18 Dose: 650 mg Docusate Sodium (Docusate Sodium 100 Mg Capsule) 100 mg PO DAILY PRN PRN Reason: Constipation Enoxaparin Sodium (Enoxaparin Sodium 40 Mg/0.4 Ml Syringe) 40 mg SUBCUT Q24H [facility] Last Admin: 01/19/23 16:19 Dose: Not Given Lidocaine (Lidocaine 4 % Patch Adh..Patch) 1 patch TRANSDERMA DAILY [facility]; Protocol Last Admin: 01/19/23 08:59 Dose: 1 patch Ondansetron HCl (Ondansetron Hcl 4 Mg/2 Ml Vial) 4 mg IVPUSH Q8H PRN PRN Reason: Nausea and Vomiting Pharmacy Consult (Consult Rx Perform Med Rec) 1 each MISCELLANE ONCE PRN PRN Reason: Consult order Quetiapine Fumarate (Quetiapine Fumarate 25 Mg Tablet) 25 mg PO BEDTIME [facility] Last Admin: 01/18/23 19:47 Dose: 25 mg Allergies Allergies Allergy/AdvReac Type Severity Reaction Status Date / Time No Known Allergies Allergy Verified 01/01/23 21:32 Assessment & Plan Assessment & Plan (1) Major neurocognitive disorder due to Alzheimer's disease, with behavioral disturbance: Status: Acute Code(s): G30.9 - Alzheimer's disease, unspecified; F02.818 - Dementia in other diseases classified elsewhere, unspecified severity, with other behavioral disturbance Plan Ms. Lopez is a 82 year-old woman with hx of advanced dementia. She is awaiting placement. She was started seroquel initially at bedtime. She has received additional dose at around 3pm when she tries to wonder on the unit and more resistant to redirection. No overt combative behaviors have been noted. Nor her safety nor others around her have been compromised due to combative behaviors. PLAN 1. Can try low dose trazodone 25mg po BID instead of seroquel. monitor sedation, anticholinergic side effects, affecting her gait. 2. Can start namenda 5mg po daily. 3. will discuss with guardian if he agrees with these medication changes. Total time managing care of this patient today ____ minutes.
[2023-01-19 19:15] VITALS: BP 108/72; PULSE 106; RESP 16; TEMP 36.1; O2SAT 97
[2023-01-20 03:22] VITALS: BP 97/56; PULSE 86; RESP 16; TEMP 36.8; O2SAT 94
[2023-01-20 06:58] VITALS: BP 119/70; PULSE 86; RESP 16; TEMP 36.7; O2SAT 97
--- NOTE | 2023-01-20 13:57 | MHC.CLN ---
F/U PO INTAKE 75-100% DIET RX: REGULAR-APPROPRIATE PT RECEIVES ENSURE BID PROVIDES 700 KCALS, 40 G PROTEIN. NO SKIN ISSUES NOTED. CONTINUE TO MONITOR PO INTAKE AND WEIGHTS. RD TO FOLLOW WEEKLY.
--- NOTE | 2023-01-20 14:11 | P.PNIM_ITS ---
Subjective Subjective Date of Service: 01/20/23 Interval History: Sitting comfortably on chair, common greeted with good morning tolerated breakfast, slept well no other acute issues overnight. No nausea no vomiting no abdominal pain, no fevers, no chills. Has been ambulating in hallway with COUNSELOR MANAGER. Review of Systems All other system reviewed and negative Physical Exam Vital Signs: Vital Signs: Last Vital Signs Temp 98.1 F 01/20/23 06:58 Pulse 86 01/20/23 06:58 Resp 16 01/20/23 06:58 BP 119/70 01/20/23 06:58 Pulse Ox 97 01/20/23 06:58 O2 Del Method Room Air 01/20/23 06:58 BMI result Body Mass Index 15.9 Const: Other: Gen: in no acute distress HEENT: sclera anicteric, moist mucus membranes Neck: supple Lungs: clear to auscultation bilaterally Heart: regular rate and rhythm, no murmurs Abd: soft, non-tender,? bowel sounds audible, non-distended Ext: no edema Skin: warm/well-perfused Neuro: alert and oriented to self, no motor deficit Psych: impaired insight Objective Data Active Medications Acetaminophen (Acetaminophen 325 Mg Tablet) 650 mg PO Q6H PRN PRN Reason: Pain, Mild (Pain Scale 1-3) Last Admin: 01/07/23 23:18 Dose: 650 mg Documented By: ASAD Docusate Sodium (Docusate Sodium 100 Mg Capsule) 100 mg PO DAILY PRN PRN Reason: Constipation Enoxaparin Sodium (Enoxaparin Sodium 40 Mg/0.4 Ml Syringe) 40 mg SUBCUT Q24H [facility] Last Admin: 01/19/23 16:19 Dose: Not Given Documented By: SAKSHI Non-Admin Reason: Patient Refused Lidocaine (Lidocaine 4 % Patch Adh..Patch) 1 patch TRANSDERMA DAILY [facility]; Protocol Last Admin: 01/20/23 09:17 Dose: Not Given Documented By: TYLER Non-Admin Reason: Patient Refused Ondansetron HCl (Ondansetron Hcl 4 Mg/2 Ml Vial) 4 mg IVPUSH Q8H PRN PRN Reason: Nausea and Vomiting Pharmacy Consult (Consult Rx Perform Med Rec) 1 each MISCELLANE ONCE PRN PRN Reason: Consult order Quetiapine Fumarate (Quetiapine Fumarate 25 Mg Tablet) 25 mg PO BEDTIME [facility] Last Admin: 01/19/23 20:07 Dose: 25 mg Documented By: SAKSHI Labs 01/07/23 04:52 01/12/23 08:53 Assessment and Plan (1) Dementia: Status: Acute Plan 82yo F with osteoporosis + dementia in observation unit 01/01-01/06/23 awaiting LTC placement but then developed sepsis due to presumed UTI dementia + behavioral disturbance -patient evaluated by psychiatry and they recommend trazodone 25 mg b.i.d. and Namenda 5 mg at bedtime They recommend to discontinue quetiapine 25mg at hs, Monitor patient closely for any behavioral issues and for anticholinergic side effects. sepsis due to presumed UTI, resolved - Finished course of ceftriaxone. L knee effusion - DJD/OA, aspirated by Ortho and given steroid injection with resolution of pain mod pr-saba malnut -continue PO supplements VTE ppx - LMWH dispo - accepted by [facility]tn for STR eventual possible transition to LTC; if patient taken off of Seroquel she might not need [place] will continue to follow - DNR/DNI In my clinical judgment, the patient requires continued inpatient hospitalization for the following reasons: safe placement Time Spent With Patient Time: Total time managing care of this patient today ____ minutes. Quality Stroke Does the patient have a stroke diagnosis?: No VTE Prior VTE?: No VTE Risk Level:: Medical - moderate - high VTE Device Contraindication: Treatment Not Indicated VTE Drug Contraindication: N/A - Med Ordered
--- NOTE | 2023-01-20 14:38 | MHC.CM.PN ---
Addendum entered by Romana Catalan RN 01/20/23 14:40: CORRECTION: [facility] UPDATED Original Note: PER REVIEW OF CHART, PLAN IS NOW TO START TRAZADONE SEROQUEL HAS BEEN DC. CM FOLLOWING [facility] UPDATED
[2023-01-20] MEDS: QUEtiapine Fumarate 25 MG TABLET PO ×2 (15:17→20:08)
[2023-01-20 15:23] VITALS: BP 109/64; PULSE 87; RESP 20; TEMP 37; O2SAT 96
--- NOTE | 2023-01-20 15:48 | MHC.CM.PN ---
Medications changes have been made. Psych recommendation start Trazadone and Namenda stop Seroquil. DP [place] via BLS once medication adjustment complete.
[2023-01-20 19:46] VITALS: BP 119/79; PULSE 99; RESP 20; TEMP 36.6; O2SAT 94
[2023-01-21 03:27] VITALS: BP 110/59; PULSE 89; RESP 16; TEMP 36; O2SAT 95
[2023-01-21 08:00] VITALS: BP 103/59; PULSE 82; RESP 18; TEMP 36.2; O2SAT 97
[2023-01-21] MEDS: Memantine HCl 5 MG TABLET PO (09:51)
--- NOTE | 2023-01-21 12:21 | HO.PM.IMPN ---
Subjective Subjective Date of Service: 01/21/23 Interval History: Patient waiting for [facility] date for orders is tomorrow, psych will complete the affidavit, no issues overnight tolerating diet no nausea, no vomiting, no abdominal pain. Review of Systems All other system reviewed and negative. Physical Exam Vital Signs: Vital Signs: Last Vital Signs Temp 97.1 F 01/21/23 08:00 Pulse 82 01/21/23 08:00 Resp 18 01/21/23 08:00 BP 103/59 L 01/21/23 08:00 Pulse Ox 97 01/21/23 08:00 O2 Del Method Room Air 01/21/23 08:00 BMI result Body Mass Index 15.9 Const: Other: Gen: in no acute distress HEENT: sclera anicteric, moist mucus membranes Neck: supple Lungs: clear to auscultation bilaterally Heart: regular rate and rhythm, no murmurs Abd: soft, non-tender,? bowel sounds audible, non-distended Ext: no edema Skin: warm/well-perfused Neuro: alert and oriented to self, no motor deficit Psych: impaired insight Objective Data Active Medications Acetaminophen (Acetaminophen 325 Mg Tablet) 650 mg PO Q6H PRN PRN Reason: Pain, Mild (Pain Scale 1-3) Last Admin: 01/07/23 23:18 Dose: 650 mg Documented By: ASAD Docusate Sodium (Docusate Sodium 100 Mg Capsule) 100 mg PO DAILY PRN PRN Reason: Constipation Enoxaparin Sodium (Enoxaparin Sodium 40 Mg/0.4 Ml Syringe) 40 mg SUBCUT Q24H [facility] Last Admin: 01/20/23 15:10 Dose: Not Given Documented By: TYLER Non-Admin Reason: Patient Refused Lidocaine (Lidocaine 4 % Patch Adh..Patch) 1 patch TRANSDERMA DAILY [facility]; Protocol Last Admin: 01/21/23 09:52 Dose: Not Given Documented By: ROGER Non-Admin Reason: Patient Refused Memantine (Memantine Hcl 5 Mg Tablet) 5 mg PO DAILY [facility] Last Admin: 01/21/23 09:51 Dose: 5 mg Documented By: ROGER Ondansetron HCl (Ondansetron Hcl 4 Mg/2 Ml Vial) 4 mg IVPUSH Q8H PRN PRN Reason: Nausea and Vomiting Pharmacy Consult (Consult Rx Perform Med Rec) 1 each MISCELLANE ONCE PRN PRN Reason: Consult order Quetiapine Fumarate (Quetiapine Fumarate 25 Mg Tablet) 25 mg PO BID@1500,2100 [facility] Last Admin: 01/20/23 20:08 Dose: 25 mg Documented By: SAKSHI Labs 01/07/23 04:52 01/12/23 08:53 Assessment and Plan (1) Dementia: Status: Acute Plan 82yo F with osteoporosis + dementia in observation unit 01/01-01/06/23 awaiting LTC placement but then developed sepsis due to presumed UTI dementia + behavioral disturbance -patient continue to have behavioral issues and aggressiveness at late afternoon therefore case discussed with psych patient placed back on Seroquel 25 mg at HS and at 15:00 ,and Namenda 5 mg at bedtime added. Monitor clinical course.. sepsis due to presumed UTI, resolved - Finished course of ceftriaxone. L knee effusion - DJD/OA, aspirated by Ortho and given steroid injection with resolution of pain. mod pr-saba malnut -continue PO supplements VTE ppx - LMWH dispo - accepted by Claude Olson for STR eventual possible transition to LTC; waiting for [place], court date at am. - DNR/DNI In my clinical judgment, the patient requires continued inpatient hospitalization for the following reasons: safe placement Time Spent With Patient Time: Total time managing care of this patient today ____ minutes. Quality Stroke Does the patient have a stroke diagnosis?: No VTE Prior VTE?: No VTE Risk Level:: Medical - moderate - high VTE Device Contraindication: Treatment Not Indicated VTE Drug Contraindication: N/A - Med Ordered
[2023-01-21] MEDS: QUEtiapine Fumarate 25 MG TABLET PO ×2 (13:58→20:12)
[2023-01-21 15:22] VITALS: BP 113/54; PULSE 106; RESP 20; TEMP 36.4; O2SAT 95
[2023-01-21 19:49] VITALS: BP 105/55; PULSE 109; RESP 20; TEMP 36; O2SAT 98
[2023-01-22 02:47] VITALS: BP 101/55; PULSE 95; RESP 18; TEMP 36.4; O2SAT 94
[2023-01-22 07:05] VITALS: BP 123/58; PULSE 85; RESP 16; TEMP 36; O2SAT 98
[2023-01-22] MEDS: Memantine HCl 5 MG TABLET PO (09:45)
--- NOTE | 2023-01-22 12:58 | MHC.CM.PN ---
Patients dtr/HCP Kelly, received the Physicans Affidavit this morning. Court date is today for Justino.
[2023-01-22] MEDS: QUEtiapine Fumarate 25 MG TABLET PO ×2 (14:00→21:08)
--- NOTE | 2023-01-22 14:08 | P.PNIM_ITS ---
Subjective Subjective Date of Service: 01/22/23 Interval History: No acute issues overnight. Continues with late p.m. sundowning type behavior that is well controlled with Seroquel Review of Systems Unable to obtain Physical Exam Vital Signs: Vital Signs: Last Vital Signs Temp 96.8 F 01/22/23 07:05 Pulse 85 01/22/23 07:05 Resp 16 01/22/23 07:05 BP 123/58 L 01/22/23 07:05 Pulse Ox 98 01/22/23 07:05 O2 Del Method Room Air 01/22/23 07:05 BMI result Body Mass Index 15.9 Const: Other: Awake no acute distress Resp: Other: Clear to auscultation bilaterally no rales rhonchi or wheezes Cardio: Other: No S4; positive S1-S2; no S3 murmurs rubs or gallops GI: Other: Soft nontender nondistended normoactive bowel sounds Extrem: Other: No edema bilaterally Objective Data Active Medications Acetaminophen (Acetaminophen 325 Mg Tablet) 650 mg PO Q6H PRN PRN Reason: Pain, Mild (Pain Scale 1-3) Last Admin: 01/07/23 23:18 Dose: 650 mg Documented By: ASAD Docusate Sodium (Docusate Sodium 100 Mg Capsule) 100 mg PO DAILY PRN PRN Reason: Constipation Enoxaparin Sodium (Enoxaparin Sodium 40 Mg/0.4 Ml Syringe) 40 mg SUBCUT Q24H [facility] Last Admin: 01/21/23 16:09 Dose: Not Given Documented By: ROGER Non-Admin Reason: Patient Refused Lidocaine (Lidocaine 4 % Patch Adh..Patch) 1 patch TRANSDERMA DAILY [facility]; Protocol Last Admin: 01/22/23 09:46 Dose: Not Given Documented By: ROGER Non-Admin Reason: Patient Refused Memantine (Memantine Hcl 5 Mg Tablet) 5 mg PO DAILY [facility] Last Admin: 01/22/23 09:45 Dose: 5 mg Documented By: ROGER Ondansetron HCl (Ondansetron Hcl 4 Mg/2 Ml Vial) 4 mg IVPUSH Q8H PRN PRN Reason: Nausea and Vomiting Pharmacy Consult (Consult Rx Perform Med Rec) 1 each MISCELLANE ONCE PRN PRN Reason: Consult order Quetiapine Fumarate (Quetiapine Fumarate 25 Mg Tablet) 25 mg PO BID@1500,2100 [facility] Last Admin: 01/22/23 14:00 Dose: 25 mg Documented By: ROGER Labs 01/07/23 04:52 01/12/23 08:53 Assessment and Plan (1) Dementia with behavioral disturbance: Status: Acute (2) Sepsis: Status: Acute Plan 82yo F with osteoporosis + dementia in observation unit 01/01-01/06/23 awaiting LTC placement but then developed sepsis due to presumed UTI(resolved). Awaiting guardianship for placement 1.Dementia/behavioral disturbance -fairly well controlled with Seroquel as ordered -adjust as indicated 2.Sepsis due to presumed UTI,(resolved) - no acute issues 3.Mod pr-saba malnut -continue PO supplements - LMWH DNR/DNI dispo - accepted by Claude Olson for STR eventual possible transition to LTC; waiting for [place], court date at am. - DNR/DNI Patient requires continued inpatient hospitalization for the following reasons: safe placement Time Spent With Patient Time: Total time managing care of this patient today ____ minutes. Quality Stroke Does the patient have a stroke diagnosis?: No VTE Prior VTE?: No VTE Risk Level:: Medical - moderate - high VTE Device Contraindication: Treatment Not Indicated VTE Drug Contraindication: N/A - Med Ordered
[2023-01-22 15:38] VITALS: BP 100/55; PULSE 103; RESP 20; TEMP 36.3; O2SAT 97
[2023-01-22 19:36] VITALS: BP 102/54; PULSE 92; RESP 20; TEMP 36.1; O2SAT 96
[2023-01-23 04:00] VITALS: BP 95/53; PULSE 93; RESP 16; TEMP 36.8; O2SAT 95
[2023-01-23 07:24] VITALS: BP 107/53; PULSE 80; RESP 16; TEMP 36.5; O2SAT 97
[2023-01-23] MEDS: Memantine HCl 5 MG TABLET PO (09:30)
[2023-01-23] MEDS: QUEtiapine Fumarate 25 MG TABLET PO ×2 (13:54→19:20)
--- NOTE | 2023-01-23 14:32 | HO.PM.IMPN ---
Subjective Subjective Date of Service: 01/23/23 Interval History: No acute issues overnight Review of Systems Unable to obtain Physical Exam Vital Signs: Vital Signs: Last Vital Signs Temp 97.7 F 01/23/23 07:24 Pulse 80 01/23/23 07:24 Resp 16 01/23/23 07:24 BP 107/53 L 01/23/23 07:24 Pulse Ox 97 01/23/23 07:24 O2 Del Method Room Air 01/23/23 07:24 BMI result Body Mass Index 15.9 Const: Other: Awake no acute distress Resp: Other: Clear to auscultation bilaterally no rales rhonchi or wheezes Cardio: Other: No S4; positive S1-S2; no S3 murmurs rubs or gallops GI: Other: Soft nontender nondistended normoactive bowel sounds Extrem: Other: No edema bilaterally Objective Data Active Medications Acetaminophen (Acetaminophen 325 Mg Tablet) 650 mg PO Q6H PRN PRN Reason: Pain, Mild (Pain Scale 1-3) Last Admin: 01/07/23 23:18 Dose: 650 mg Documented By: ASAD Docusate Sodium (Docusate Sodium 100 Mg Capsule) 100 mg PO DAILY PRN PRN Reason: Constipation Enoxaparin Sodium (Enoxaparin Sodium 40 Mg/0.4 Ml Syringe) 40 mg SUBCUT Q24H [facility] Last Admin: 01/22/23 17:01 Dose: Not Given Documented By: ROGER Non-Admin Reason: Patient Refused Lidocaine (Lidocaine 4 % Patch Adh..Patch) 1 patch TRANSDERMA DAILY [facility]; Protocol Last Admin: 01/23/23 09:21 Dose: Not Given Documented By: COTEMA Non-Admin Reason: Patient Refused Memantine (Memantine Hcl 5 Mg Tablet) 5 mg PO DAILY [facility] Last Admin: 01/23/23 09:30 Dose: 5 mg Documented By: MISSY Ondansetron HCl (Ondansetron Hcl 4 Mg/2 Ml Vial) 4 mg IVPUSH Q8H PRN PRN Reason: Nausea and Vomiting Pharmacy Consult (Consult Rx Perform Med Rec) 1 each MISCELLANE ONCE PRN PRN Reason: Consult order Quetiapine Fumarate (Quetiapine Fumarate 25 Mg Tablet) 25 mg PO BID@1500,2100 [facility] Last Admin: 01/23/23 13:54 Dose: 25 mg Documented By: MARYAN Labs 01/07/23 04:52 01/12/23 08:53 Assessment and Plan (1) Dementia with behavioral disturbance: Status: Acute (2) Sepsis: Status: Acute Plan 82yo F with osteoporosis + dementia in observation unit 01/01-01/06/23 awaiting LTC placement but then developed sepsis due to presumed UTI(resolved). Awaiting guardianship for placement 1.Dementia/behavioral disturbance -fairly well controlled with Seroquel as ordered -adjust as indicated 2.Sepsis due to presumed UTI,(resolved) - no acute issues 3.Mod pr-saba malnut -continue PO supplements - LMWH DNR/DNI dispo - accepted by Claude Olson for STR eventual possible transition to LTC; waiting for [place] court date at am. - DNR/DNI Patient requires continued inpatient hospitalization for the following reasons: safe placement Time Spent With Patient Time: Total time managing care of this patient today ____ minutes. Quality Stroke Does the patient have a stroke diagnosis?: No VTE Prior VTE?: No VTE Risk Level:: Medical - moderate - high VTE Device Contraindication: Treatment Not Indicated VTE Drug Contraindication: N/A - Med Ordered
[2023-01-23 16:00] VITALS: BP 100/57; PULSE 100; RESP 18; TEMP 36; O2SAT 97
[2023-01-23 20:00] VITALS: BP 108/51; PULSE 102; RESP 17; TEMP 36.2; O2SAT 96
[2023-01-24 04:00] VITALS: BP 123/59; PULSE 97; RESP 18; TEMP 36.8; O2SAT 96
[2023-01-24] MEDS: Memantine HCl 5 MG TABLET PO (07:51)
[2023-01-24 08:00] VITALS: BP 110/62; PULSE 76; RESP 16; TEMP 36.6; O2SAT 96
--- NOTE | 2023-01-24 14:46 | HO.PM.IMPN ---
Subjective Subjective Date of Service: 01/24/23 Interval History: Mild confusion/?frustration? however easily redirected Review of Systems Unable to obtain Physical Exam Vital Signs: Vital Signs: Last Vital Signs Temp 97.8 F 01/24/23 08:00 Pulse 76 01/24/23 08:00 Resp 16 01/24/23 08:00 BP 110/62 01/24/23 08:00 Pulse Ox 96 01/24/23 08:00 O2 Del Method Room Air 01/24/23 08:00 BMI result Body Mass Index 15.9 Const: Other: Awake no acute distress Resp: Other: Clear to auscultation bilaterally no rales rhonchi or wheezes Cardio: Other: No S4; positive S1-S2; no S3 murmurs rubs or gallops GI: Other: Soft nontender nondistended normoactive bowel sounds Extrem: Other: No edema bilaterally Objective Data Active Medications Acetaminophen (Acetaminophen 325 Mg Tablet) 650 mg PO Q6H PRN PRN Reason: Pain, Mild (Pain Scale 1-3) Last Admin: 01/07/23 23:18 Dose: 650 mg Documented By: ASAD Docusate Sodium (Docusate Sodium 100 Mg Capsule) 100 mg PO DAILY PRN PRN Reason: Constipation Enoxaparin Sodium (Enoxaparin Sodium 40 Mg/0.4 Ml Syringe) 40 mg SUBCUT Q24H [facility] Last Admin: 01/23/23 15:22 Dose: Not Given Documented By: COTEMA Non-Admin Reason: Patient Refused Lidocaine (Lidocaine 4 % Patch Adh..Patch) 1 patch TRANSDERMA DAILY [facility]; Protocol Last Admin: 01/24/23 07:15 Dose: Not Given Documented By: DAVID Non-Admin Reason: Patient Refused Memantine (Memantine Hcl 5 Mg Tablet) 5 mg PO DAILY [facility] Last Admin: 01/24/23 07:51 Dose: 5 mg Documented By: DAVID Ondansetron HCl (Ondansetron Hcl 4 Mg/2 Ml Vial) 4 mg IVPUSH Q8H PRN PRN Reason: Nausea and Vomiting Pharmacy Consult (Consult Rx Perform Med Rec) 1 each MISCELLANE ONCE PRN PRN Reason: Consult order Quetiapine Fumarate (Quetiapine Fumarate 25 Mg Tablet) 25 mg PO BID@1500,2100 [facility] Last Admin: 01/23/23 19:20 Dose: 25 mg Documented By: ROSELYN Labs 01/07/23 04:52 01/12/23 08:53 Assessment and Plan (1) Major neurocognitive disorder due to Alzheimer's disease, with behavioral disturbance: Status: Acute Plan 82yo F with osteoporosis + dementia in observation unit 01/01-01/06/23 awaiting LTC placement but then developed sepsis due to presumed UTI(resolved). Awaiting guardianship for placement 1.Dementia/behavioral disturbance -fairly well controlled with Seroquel as ordered -adjust as indicated 2.Sepsis due to presumed UTI,(resolved) - no acute issues 3.Mod pr-saba malnut -continue PO supplements - LMWH DNR/DNI dispo - accepted by Claude Olson for STR eventual possible transition to LTC; waiting for [place], court date at am. - DNR/DNI Patient requires continued inpatient hospitalization for the following reasons: safe placement Time Spent With Patient Time: Total time managing care of this patient today ____ minutes. Quality Stroke Does the patient have a stroke diagnosis?: No VTE Prior VTE?: No VTE Risk Level:: Medical - moderate - high VTE Device Contraindication: Treatment Not Indicated VTE Drug Contraindication: N/A - Med Ordered
[2023-01-24] MEDS: QUEtiapine Fumarate 25 MG TABLET PO ×2 (14:48→21:50)
[2023-01-24 15:17] VITALS: BP 100/51; PULSE 93; RESP 18; TEMP 36.6; O2SAT 97
[2023-01-24 19:12] VITALS: BP 111/58; PULSE 100; RESP 17; TEMP 36.6; O2SAT 97
[2023-01-25 03:26] VITALS: BP 128/59; PULSE 88; RESP 17; TEMP 36.5; O2SAT 97
[2023-01-25 08:00] VITALS: BP 107/60; PULSE 74; RESP 16; TEMP 36.1; O2SAT 97
[2023-01-25] MEDS: Memantine HCl 5 MG TABLET PO (08:23)
--- NOTE | 2023-01-25 10:58 | MHC.CM.PN ---
Patients dtr/hcp Hannah brought the Physician Affidavit to the court 01/22/23. The next court date is pending. The Physitrack loretta is not complete per Hannah. Car loan info from [place] is outstanding. DP LTC via S.
--- NOTE | 2023-01-25 12:48 | P.PNIM_ITS ---
Subjective Subjective Date of Service: 01/25/23 Interval History: No acute issues overnight. Easily redirectable Review of Systems Unable to obtain Physical Exam Vital Signs: Vital Signs: Last Vital Signs Temp 97 F 01/25/23 08:00 Pulse 74 01/25/23 08:00 Resp 16 01/25/23 08:00 BP 107/60 01/25/23 08:00 Pulse Ox 97 01/25/23 08:00 O2 Del Method Room Air 01/25/23 08:00 BMI result Body Mass Index 15.9 Const: Other: Awake no acute distress Resp: Other: Clear to auscultation bilaterally no rales rhonchi or wheezes Cardio: Other: No S4; positive S1-S2; no S3 murmurs rubs or gallops GI: Other: Soft nontender nondistended normoactive bowel sounds Extrem: Other: No edema bilaterally Objective Data Active Medications Acetaminophen (Acetaminophen 325 Mg Tablet) 650 mg PO Q6H PRN PRN Reason: Pain, Mild (Pain Scale 1-3) Last Admin: 01/07/23 23:18 Dose: 650 mg Documented By: ASAD Docusate Sodium (Docusate Sodium 100 Mg Capsule) 100 mg PO DAILY PRN PRN Reason: Constipation Enoxaparin Sodium (Enoxaparin Sodium 40 Mg/0.4 Ml Syringe) 40 mg SUBCUT Q24H [facility] Last Admin: 01/24/23 16:05 Dose: Not Given Documented By: DAVID Non-Admin Reason: Patient Refused Lidocaine (Lidocaine 4 % Patch Adh..Patch) 1 patch TRANSDERMA DAILY [facility]; Protocol Last Admin: 01/25/23 08:24 Dose: Not Given Documented By: NIRU Non-Admin Reason: Patient Refused Memantine (Memantine Hcl 5 Mg Tablet) 5 mg PO DAILY [facility] Last Admin: 01/25/23 08:23 Dose: 5 mg Documented By: NIRU Ondansetron HCl (Ondansetron Hcl 4 Mg/2 Ml Vial) 4 mg IVPUSH Q8H PRN PRN Reason: Nausea and Vomiting Pharmacy Consult (Consult Rx Perform Med Rec) 1 each MISCELLANE ONCE PRN PRN Reason: Consult order Quetiapine Fumarate (Quetiapine Fumarate 25 Mg Tablet) 25 mg PO BID@1500,2100 [facility] Last Admin: 01/24/23 21:50 Dose: 25 mg Documented By: JAME Labs 01/07/23 04:52 01/12/23 08:53 Assessment and Plan (1) Dementia: Status: Acute Plan 82yo F with osteoporosis + dementia in observation unit 01/01-01/06/23 awaiting LTC placement but then developed sepsis due to presumed UTI(resolved). Awaiting guardianship for placement 1.Dementia/behavioral disturbance -fairly well controlled with Seroquel as ordered -adjust as indicated 2.Sepsis due to presumed UTI,(resolved) - no acute issues 3.Mod pr-saba malnut -continue PO supplements - LMWH DNR/DNI dispo - accepted by Claude Olson for STR eventual possible transition to LTC; waiting for [place], court date at am. - DNR/DNI Patient requires continued inpatient hospitalization for the following reasons: safe placement Time Spent With Patient Time: Total time managing care of this patient today ____ minutes. Quality Stroke Does the patient have a stroke diagnosis?: No VTE Prior VTE?: No VTE Risk Level:: Medical - moderate - high VTE Device Contraindication: Treatment Not Indicated VTE Drug Contraindication: N/A - Med Ordered
[2023-01-25] MEDS: QUEtiapine Fumarate 25 MG TABLET PO ×2 (14:50→23:03)
[2023-01-25 15:38] VITALS: BP 98/58; PULSE 62; RESP 18; TEMP 36.6; O2SAT 97
[2023-01-25 15:44] VITALS: BP 124/59; PULSE 92; RESP 20; TEMP 36.6; O2SAT 93
[2023-01-25 19:39] VITALS: BP 100/51; PULSE 97; RESP 20; TEMP 36.3; O2SAT 97
[2023-01-25] MEDS: Melatonin 3 MG TABLET 6 MG PO (23:02)
[2023-01-26 03:19] VITALS: BP 102/59; PULSE 85; RESP 18; TEMP 36.3; O2SAT 93
[2023-01-26 07:12] VITALS: BP 108/62; PULSE 84; RESP 16; TEMP 36.2; O2SAT 95
[2023-01-26] MEDS: Memantine HCl 5 MG TABLET PO (08:57)
--- NOTE | 2023-01-26 09:20 | HO.PM.IMPN ---
Subjective Subjective Date of Service: 01/26/23 Interval History: Seems calm, cooperative at present with no new issues Physical Exam Vital Signs: Vital Signs: Last Vital Signs Temp 97.1 F 01/26/23 07:12 Pulse 84 01/26/23 07:12 Resp 16 01/26/23 07:12 BP 108/62 01/26/23 07:12 Pulse Ox 95 01/26/23 07:12 O2 Del Method Room Air 01/26/23 07:12 BMI result Body Mass Index 15.9 Const: Other: General: oriented to self Resp: CTA bilateral CVS: S1,S2,RRR GI: +BS, NT, no distention Skin: No rash Neuro: motor grossly intact Psych: appropriate affect Objective Data Active Medications Acetaminophen (Acetaminophen 325 Mg Tablet) 650 mg PO Q6H PRN PRN Reason: Pain, Mild (Pain Scale 1-3) Last Admin: 01/07/23 23:18 Dose: 650 mg Documented By: ASAD Docusate Sodium (Docusate Sodium 100 Mg Capsule) 100 mg PO DAILY PRN PRN Reason: Constipation Enoxaparin Sodium (Enoxaparin Sodium 40 Mg/0.4 Ml Syringe) 40 mg SUBCUT Q24H [facility] Last Admin: 01/25/23 16:28 Dose: Not Given Documented By: NIRU Non-Admin Reason: Patient Refused Lidocaine (Lidocaine 4 % Patch Adh..Patch) 1 patch TRANSDERMA DAILY [facility]; Protocol Last Admin: 01/26/23 09:00 Dose: Not Given Documented By: DENNYS Non-Admin Reason: Patient Refused Melatonin (Melatonin 3 Mg Tablet) 6 mg PO BEDTIME PRN PRN Reason: Insomnia Last Admin: 01/25/23 23:02 Dose: 6 mg Documented By: JOCELYN Memantine (Memantine Hcl 5 Mg Tablet) 5 mg PO DAILY [facility] Last Admin: 01/26/23 08:57 Dose: 5 mg Documented By: DENNYS Ondansetron HCl (Ondansetron Hcl 4 Mg/2 Ml Vial) 4 mg IVPUSH Q8H PRN PRN Reason: Nausea and Vomiting Pharmacy Consult (Consult Rx Perform Med Rec) 1 each MISCELLANE ONCE PRN PRN Reason: Consult order Quetiapine Fumarate (Quetiapine Fumarate 25 Mg Tablet) 25 mg PO BID@1500,2100 [facility] Last Admin: 01/25/23 23:03 Dose: 25 mg Documented By: JOCELYN Labs 01/07/23 04:52 01/12/23 08:53 Assessment and Plan (1) Dementia: Status: Acute Plan 82yo F with osteoporosis + dementia in observation unit 01/01-01/06/23 awaiting LTC placement but then developed sepsis due to presumed UTI(resolved). Awaiting guardianship for placement 1.Dementia/behavioral disturbance -fairly well controlled with Seroquel as ordered, adjusted as need for maximum benefit 2.Sepsis due to presumed UTI,(resolved) - no acute issues 3.Mod pr-saba malnut -continue PO supplements - LMWH DNR/DNI dispo - accepted by Claude Olson for STR eventual possible transition to LTC; waiting for [place], court date at am. - DNR/DNI Patient requires continued inpatient hospitalization for the following reasons: safe placement Time Spent With Patient Time: Total time managing care of this patient today ____ minutes. Quality Stroke Does the patient have a stroke diagnosis?: No VTE Prior VTE?: No VTE Risk Level:: Medical - moderate - high VTE Device Contraindication: Treatment Not Indicated VTE Drug Contraindication: N/A - Med Ordered
[2023-01-26] MEDS: QUEtiapine Fumarate 25 MG TABLET PO ×2 (14:03→19:10)
[2023-01-26 15:38] VITALS: BP 106/56; PULSE 112; RESP 18; TEMP 36.6; O2SAT 95
[2023-01-26] MEDS: Melatonin 3 MG TABLET 6 MG PO (19:10)
[2023-01-26 20:00] VITALS: BP 116/56; PULSE 99; RESP 20; TEMP 36; O2SAT 97
[2023-01-27 03:46] VITALS: BP 107/58; PULSE 86; RESP 18; TEMP 36.1; O2SAT 96
[2023-01-27 07:23] VITALS: BP 115/57; PULSE 85; RESP 18; TEMP 36.6; O2SAT 97
[2023-01-27] MEDS: Memantine HCl 5 MG TABLET PO (07:56)
--- NOTE | 2023-01-27 08:57 | P.PNIM_ITS ---
Subjective Subjective Date of Service: 01/27/23 Interval History: Calm & cooperative, Physical Exam Vital Signs: Vital Signs: Last Vital Signs Temp 97.8 F 01/27/23 07:23 Pulse 85 01/27/23 07:23 Resp 18 01/27/23 07:23 BP 115/57 L 01/27/23 07:23 Pulse Ox 97 01/27/23 07:23 O2 Del Method Room Air 01/27/23 07:23 BMI result Body Mass Index 15.9 Const: Other: General: oriented to self Resp: CTA bilateral CVS: S1,S2,RRR GI: +BS, NT, no distention Skin: No rash Neuro: motor grossly intact Psych: appropriate affect Objective Data Active Medications Acetaminophen (Acetaminophen 325 Mg Tablet) 650 mg PO Q6H PRN PRN Reason: Pain, Mild (Pain Scale 1-3) Last Admin: 01/07/23 23:18 Dose: 650 mg Documented By: ASAD Docusate Sodium (Docusate Sodium 100 Mg Capsule) 100 mg PO DAILY PRN PRN Reason: Constipation Enoxaparin Sodium (Enoxaparin Sodium 40 Mg/0.4 Ml Syringe) 40 mg SUBCUT Q24H [facility] Last Admin: 01/26/23 16:19 Dose: Not Given Documented By: DENNYS Non-Admin Reason: Patient Refused Lidocaine (Lidocaine 4 % Patch Adh..Patch) 1 patch TRANSDERMA DAILY [facility]; Protocol Last Admin: 01/27/23 07:56 Dose: Not Given Documented By: DENNYS Non-Admin Reason: Patient Refused Melatonin (Melatonin 3 Mg Tablet) 6 mg PO BEDTIME PRN PRN Reason: Insomnia Last Admin: 01/26/23 19:10 Dose: 6 mg Documented By: CHIKIS Memantine (Memantine Hcl 5 Mg Tablet) 5 mg PO DAILY [facility] Last Admin: 01/27/23 07:56 Dose: 5 mg Documented By: DENNYS Ondansetron HCl (Ondansetron Hcl 4 Mg/2 Ml Vial) 4 mg IVPUSH Q8H PRN PRN Reason: Nausea and Vomiting Pharmacy Consult (Consult Rx Perform Med Rec) 1 each MISCELLANE ONCE PRN PRN Reason: Consult order Quetiapine Fumarate (Quetiapine Fumarate 25 Mg Tablet) 25 mg PO BID@1500,2100 [facility] Last Admin: 01/26/23 19:10 Dose: 25 mg Documented By: CHIKIS Labs 01/07/23 04:52 01/12/23 08:53 Assessment and Plan (1) Dementia: Status: Acute Plan 82yo F with osteoporosis + dementia in observation unit 01/01-01/06/23 awaiting LTC placement but then developed sepsis due to presumed UTI(resolved). Awaiting guardianship for placement 1.Dementia/behavioral disturbance -fairly well controlled with Seroquel as ordered, adjusted as need for maximum benefit 2.Sepsis due to presumed UTI,(resolved), completed abx 3.Mod pr-saba malnut -continue PO supplements - LMWH DNR/DNI dispo - accepted by Claude Olson for STR eventual possible transition to LTC; waiting for [place], court date at am. - DNR/DNI Patient requires continued inpatient hospitalization for the following reasons: safe placement Time Spent With Patient Time: Total time managing care of this patient today ____ minutes. Quality Stroke Does the patient have a stroke diagnosis?: No VTE Prior VTE?: No VTE Risk Level:: Medical - moderate - high VTE Device Contraindication: Treatment Not Indicated VTE Drug Contraindication: N/A - Med Ordered
--- NOTE | 2023-01-27 12:02 | MHC.CM.PN ---
Patient continues on medical floor, pending court date for Eugene's order.
--- NOTE | 2023-01-27 12:14 | MHC.CLN ---
F/U PO INTAKE 50-100%, WITH MOST MEALS 100%. DIET RX: REGULAR-APPROPRIATE PT RECEIVES ENSURE BID PROVIDES 700 KCALS, 40 G PROTEIN. SKIN WITH REDNESS TO BUTTOCKS. NO OPEN AREAS. CONTINUE TO MONITOR PO INTAKE AND WEIGHTS. RD TO FOLLOW WEEKLY.
[2023-01-27] MEDS: QUEtiapine Fumarate 25 MG TABLET PO ×2 (14:21→20:29)
[2023-01-27 15:28] VITALS: BP 123/60; PULSE 102; RESP 18; TEMP 36.7; O2SAT 98
[2023-01-27 19:21] VITALS: BP 102/59; PULSE 120; RESP 16; TEMP 36.6; O2SAT 96
[2023-01-28 02:55] VITALS: BP 104/59; PULSE 92; RESP 16; TEMP 36.1; O2SAT 93
[2023-01-28 08:00] VITALS: BP 104/50; PULSE 81; RESP 18; TEMP 36.3; O2SAT 96
[2023-01-28] MEDS: Memantine HCl 5 MG TABLET PO (08:14)
--- NOTE | 2023-01-28 09:21 | P.PNIM_ITS ---
Subjective Subjective Date of Service: 01/28/23 Interval History: f/u on placement, no new issues Physical Exam Vital Signs: Vital Signs: Last Vital Signs Temp 97.3 F 01/28/23 08:00 Pulse 81 01/28/23 08:00 Resp 18 01/28/23 08:00 BP 104/50 L 01/28/23 08:00 Pulse Ox 96 01/28/23 08:00 O2 Del Method Room Air 01/28/23 08:00 BMI result Body Mass Index 15.9 Const: Other: General: oriented to self Resp: CTA bilateral CVS: S1,S2,RRR GI: +BS, NT, no distention Skin: No rash Neuro: motor grossly intact Psych: appropriate affect Objective Data Active Medications Acetaminophen (Acetaminophen 325 Mg Tablet) 650 mg PO Q6H PRN PRN Reason: Pain, Mild (Pain Scale 1-3) Last Admin: 01/07/23 23:18 Dose: 650 mg Documented By: ASAD Docusate Sodium (Docusate Sodium 100 Mg Capsule) 100 mg PO DAILY PRN PRN Reason: Constipation Enoxaparin Sodium (Enoxaparin Sodium 40 Mg/0.4 Ml Syringe) 40 mg SUBCUT Q24H [facility] Last Admin: 01/27/23 16:10 Dose: Not Given Documented By: OWEN Non-Admin Reason: Patient Refused Lidocaine (Lidocaine 4 % Patch Adh..Patch) 1 patch TRANSDERMA DAILY [facility]; Protocol Last Admin: 01/28/23 07:12 Dose: Not Given Documented By: DAVID Non-Admin Reason: Patient Refused Melatonin (Melatonin 3 Mg Tablet) 6 mg PO BEDTIME PRN PRN Reason: Insomnia Last Admin: 01/26/23 19:10 Dose: 6 mg Documented By: CHIKIS Memantine (Memantine Hcl 5 Mg Tablet) 5 mg PO DAILY [facility] Last Admin: 01/28/23 08:14 Dose: 5 mg Documented By: DAVID Ondansetron HCl (Ondansetron Hcl 4 Mg/2 Ml Vial) 4 mg IVPUSH Q8H PRN PRN Reason: Nausea and Vomiting Pharmacy Consult (Consult Rx Perform Med Rec) 1 each MISCELLANE ONCE PRN PRN Reason: Consult order Quetiapine Fumarate (Quetiapine Fumarate 25 Mg Tablet) 25 mg PO BID@1500,2100 [facility] Last Admin: 01/27/23 20:29 Dose: 25 mg Documented By: OWEN Labs 01/07/23 04:52 01/12/23 08:53 Assessment and Plan (1) Dementia: Status: Acute Plan 82yo F with osteoporosis + dementia in observation unit 01/01-01/06/23 awaiting LTC placement but then developed sepsis due to presumed UTI(resolved). Awaiting guardianship for placement essentially no change 1.Dementia/behavioral disturbance -fairly well controlled with Seroquel as ordered, adjusted as need for maximum benefit 2.Sepsis due to presumed UTI,(resolved), completed abx 3.Mod pr-saba malnut -continue PO supplements - LMWH DNR/DNI dispo - accepted by Claude Olson for STR eventual possible transition to LTC; waiting for [place], court date at am. - DNR/DNI Patient requires continued inpatient hospitalization for the following reasons: safe placement Time Spent With Patient Time: Total time managing care of this patient today ____ minutes. Quality Stroke Does the patient have a stroke diagnosis?: No VTE Prior VTE?: No VTE Risk Level:: Medical - moderate - high VTE Device Contraindication: Treatment Not Indicated VTE Drug Contraindication: N/A - Med Ordered
[2023-01-28] MEDS: QUEtiapine Fumarate 25 MG TABLET PO ×2 (14:11→21:31)
[2023-01-28 15:07] VITALS: BP 106/56; PULSE 100; RESP 18; TEMP 36.6; O2SAT 93
[2023-01-28 20:00] VITALS: BP 109/56; PULSE 111; RESP 18; TEMP 36.4; O2SAT 95
[2023-01-29 03:33] VITALS: BP 109/57; PULSE 103; RESP 16; TEMP 36.4; O2SAT 96
[2023-01-29 07:29] VITALS: BP 112/52; PULSE 88; RESP 18; TEMP 36.6; O2SAT 93
[2023-01-29] MEDS: Memantine HCl 5 MG TABLET PO (07:56)
--- NOTE | 2023-01-29 08:15 | HO.PM.IMPN ---
Subjective Subjective Date of Service: 01/29/23 Interval History: f/u on placement, pleasantly confused, cooperative Physical Exam Vital Signs: Vital Signs: Last Vital Signs Temp 97.9 F 01/29/23 07:29 Pulse 88 01/29/23 07:29 Resp 18 01/29/23 07:29 BP 112/52 L 01/29/23 07:29 Pulse Ox 93 01/29/23 07:29 O2 Del Method Room Air 01/29/23 07:29 BMI result Body Mass Index 15.9 Objective Data Active Medications Acetaminophen (Acetaminophen 325 Mg Tablet) 650 mg PO Q6H PRN PRN Reason: Pain, Mild (Pain Scale 1-3) Last Admin: 01/07/23 23:18 Dose: 650 mg Documented By: ASAD Docusate Sodium (Docusate Sodium 100 Mg Capsule) 100 mg PO DAILY PRN PRN Reason: Constipation Enoxaparin Sodium (Enoxaparin Sodium 40 Mg/0.4 Ml Syringe) 40 mg SUBCUT Q24H [facility] Last Admin: 01/28/23 16:01 Dose: Not Given Documented By: DAVID Non-Admin Reason: Patient Refused Lidocaine (Lidocaine 4 % Patch Adh..Patch) 1 patch TRANSDERMA DAILY [facility]; Protocol Last Admin: 01/29/23 07:06 Dose: Not Given Documented By: DAVID Non-Admin Reason: Patient Refused Melatonin (Melatonin 3 Mg Tablet) 6 mg PO BEDTIME PRN PRN Reason: Insomnia Last Admin: 01/26/23 19:10 Dose: 6 mg Documented By: CHIKIS Memantine (Memantine Hcl 5 Mg Tablet) 5 mg PO DAILY [facility] Last Admin: 01/29/23 07:56 Dose: 5 mg Documented By: DAVID Ondansetron HCl (Ondansetron Hcl 4 Mg/2 Ml Vial) 4 mg IVPUSH Q8H PRN PRN Reason: Nausea and Vomiting Pharmacy Consult (Consult Rx Perform Med Rec) 1 each MISCELLANE ONCE PRN PRN Reason: Consult order Quetiapine Fumarate (Quetiapine Fumarate 25 Mg Tablet) 25 mg PO BID@1500,2100 [facility] Last Admin: 01/28/23 21:31 Dose: 25 mg Documented By: ALTHEAASY Labs 01/07/23 04:52 01/12/23 08:53 Assessment and Plan (1) Dementia: Status: Acute Plan 82yo F with osteoporosis + dementia in observation unit 01/01-01/06/23 awaiting LTC placement but then developed sepsis due to presumed UTI(resolved). Awaiting guardianship for placement essentially no change, continue monitoring 1.Dementia/behavioral disturbance -fairly well controlled with Seroquel as ordered, adjusted as need for maximum benefit 2.Sepsis due to presumed UTI,(resolved), completed abx 3.Mod pr-saba malnut -continue PO supplements - LMWH DNR/DNI dispo - accepted by Claude Olson for STR eventual possible transition to LTC; waiting for [place], court date at am. - DNR/DNI Patient requires continued inpatient hospitalization for the following reasons: safe placement Time Spent With Patient Time: Total time managing care of this patient today ____ minutes. Quality Stroke Does the patient have a stroke diagnosis?: No VTE Prior VTE?: No VTE Risk Level:: Medical - moderate - high VTE Device Contraindication: Treatment Not Indicated VTE Drug Contraindication: N/A - Med Ordered
--- NOTE | 2023-01-29 11:03 | MHC.CM.PN ---
DP LTC via BLS Barrier is [facility] order. Court date TBD.
[2023-01-29] MEDS: QUEtiapine Fumarate 25 MG TABLET PO ×2 (14:09→20:03)
[2023-01-29 15:20] VITALS: BP 110/56; PULSE 100; RESP 18; TEMP 36.6; O2SAT 96
[2023-01-29 20:00] VITALS: BP 121/56; PULSE 97; RESP 16; TEMP 36.2; O2SAT 96
[2023-01-29 23:54] VITALS: BP 112/61; PULSE 90; RESP 18; TEMP 36.1; O2SAT 95
[2023-01-30 07:42] VITALS: BP 120/65; PULSE 88; RESP 17; TEMP 36.2; O2SAT 95
--- NOTE | 2023-01-30 08:14 | HO.PM.IMPN ---
Subjective Subjective Date of Service: 01/30/23 Interval History: remains pleasantly confused, cooperative Physical Exam Vital Signs: Vital Signs: Last Vital Signs Temp 97.2 F 01/30/23 07:42 Pulse 88 01/30/23 07:42 Resp 17 01/30/23 07:42 BP 120/65 01/30/23 07:42 Pulse Ox 95 01/30/23 07:42 O2 Del Method Room Air 01/30/23 07:42 BMI result Body Mass Index 15.9 Const: Other: General: oriented to self Resp: CTA bilateral CVS: S1,S2,RRR GI: +BS, NT, no distention Skin: No rash Neuro: motor grossly intact Psych: appropriate affect Objective Data Active Medications Acetaminophen (Acetaminophen 325 Mg Tablet) 650 mg PO Q6H PRN PRN Reason: Pain, Mild (Pain Scale 1-3) Last Admin: 01/07/23 23:18 Dose: 650 mg Documented By: ASAD Docusate Sodium (Docusate Sodium 100 Mg Capsule) 100 mg PO DAILY PRN PRN Reason: Constipation Enoxaparin Sodium (Enoxaparin Sodium 40 Mg/0.4 Ml Syringe) 40 mg SUBCUT Q24H [facility] Last Admin: 01/29/23 16:34 Dose: Not Given Documented By: DAVID Non-Admin Reason: Patient Refused Lidocaine (Lidocaine 4 % Patch Adh..Patch) 1 patch TRANSDERMA DAILY [facility]; Protocol Last Admin: 01/29/23 07:06 Dose: Not Given Documented By: DAVID Non-Admin Reason: Patient Refused Melatonin (Melatonin 3 Mg Tablet) 6 mg PO BEDTIME PRN PRN Reason: Insomnia Last Admin: 01/26/23 19:10 Dose: 6 mg Documented By: CHIKIS Memantine (Memantine Hcl 5 Mg Tablet) 5 mg PO DAILY [facility] Last Admin: 01/29/23 07:56 Dose: 5 mg Documented By: DAVID Ondansetron HCl (Ondansetron Hcl 4 Mg/2 Ml Vial) 4 mg IVPUSH Q8H PRN PRN Reason: Nausea and Vomiting Pharmacy Consult (Consult Rx Perform Med Rec) 1 each MISCELLANE ONCE PRN PRN Reason: Consult order Quetiapine Fumarate (Quetiapine Fumarate 25 Mg Tablet) 25 mg PO BID@1500,2100 [facility] Last Admin: 01/29/23 20:03 Dose: 25 mg Documented By: JOCELYN Labs 01/07/23 04:52 01/12/23 08:53 Assessment and Plan (1) Dementia: Status: Acute Plan 82yo F with osteoporosis + dementia in observation unit 01/01-01/06/23 awaiting LTC placement but then developed sepsis due to presumed UTI(resolved). Awaiting guardianship for placement essentially no change, continue monitoring 1.Dementia/behavioral disturbance -fairly well controlled with Seroquel as ordered, adjusted as need for maximum benefit 2.Sepsis due to presumed UTI,(resolved), completed abx 3.Mod pr-saba malnut -continue PO supplements - LMWH DNR/DNI dispo - accepted by Claude Olson for STR eventual possible transition to LTC; waiting for Just[place], court date at am. - DNR/DNI Patient requires continued inpatient hospitalization for the following reasons: safe placement Time Spent With Patient Time: Total time managing care of this patient today ____ minutes. Quality Stroke Does the patient have a stroke diagnosis?: No VTE Prior VTE?: No VTE Risk Level:: Medical - moderate - high VTE Device Contraindication: Treatment Not Indicated VTE Drug Contraindication: N/A - Med Ordered
[2023-01-30] MEDS: Memantine HCl 5 MG TABLET PO (09:26)
[2023-01-30 16:00] VITALS: RESP 18
[2023-01-30 20:00] VITALS: BP 120/62; PULSE 100; RESP 16; TEMP 36; O2SAT 95
[2023-01-30] MEDS: QUEtiapine Fumarate 25 MG TABLET PO (20:03)
[2023-01-31 04:00] VITALS: BP 101/50; PULSE 88; RESP 16; TEMP 35.8; O2SAT 95
[2023-01-31 07:33] LABS: Hematocrit 36.8 % (37.0-47.0); Hemoglobin 11.8 g/dl (12.0-16.0); Mean Corpuscular HGB Conc 32.1 g/dl (31.0-35.0); Mean Corpuscular Hemoglobin 29.5 pg (27.0-33.0); Mean Platelet Volume 9.6 fL (9.4-12.3); Platelet Count 282 X10*3/uL (160-400); Red Cell Distribution Width 14.7 % (11.0-16.0); White Blood Count 5.9 X10*3/uL (4.8-10.8)
[2023-01-31 07:41] VITALS: BP 110/57; PULSE 91; RESP 16; TEMP 36.2; O2SAT 93
[2023-01-31 07:46] LABS: Anion Gap 12 (12-20); Blood Urea Nitrogen 34 mg/dL (9-16); Calcium 9.3 mg/dL (8.4-10.2); Carbon Dioxide 24 mmol/L (22-29); Chloride 108 mmol/L (96-108); Creatinine Clr Calc Pharmacy 37.9; Estimated Glomerular Filt Rate > 60; Glucose Random 104 mg/dL (60-115); Sodium 140 mmol/L (135-145)
[2023-01-31] MEDS: Memantine HCl 5 MG TABLET PO (08:38)
--- NOTE | 2023-01-31 09:11 | P.PNIM_ITS ---
Subjective Subjective Date of Service: 01/31/23 Interval History: No new issues, calm Physical Exam Vital Signs: Vital Signs: Last Vital Signs Temp 97.1 F 01/31/23 07:41 Pulse 91 01/31/23 07:41 Resp 16 01/31/23 07:41 BP 110/57 L 01/31/23 07:41 Pulse Ox 93 01/31/23 07:41 O2 Del Method Room Air 01/31/23 07:41 BMI result Body Mass Index 15.9 Const: Other: General: oriented to self Resp: CTA bilateral CVS: S1,S2,RRR GI: +BS, NT, no distention Skin: No rash Neuro: motor grossly intact Psych: appropriate affect Objective Data Active Medications Acetaminophen (Acetaminophen 325 Mg Tablet) 650 mg PO Q6H PRN PRN Reason: Pain, Mild (Pain Scale 1-3) Last Admin: 01/07/23 23:18 Dose: 650 mg Documented By: ASAD Docusate Sodium (Docusate Sodium 100 Mg Capsule) 100 mg PO DAILY PRN PRN Reason: Constipation Enoxaparin Sodium (Enoxaparin Sodium 40 Mg/0.4 Ml Syringe) 40 mg SUBCUT Q24H [facility] Last Admin: 01/30/23 15:48 Dose: Not Given Documented By: MARIAN Non-Admin Reason: Patient Refused Lidocaine (Lidocaine 4 % Patch Adh..Patch) 1 patch TRANSDERMA DAILY [facility]; Protocol Last Admin: 01/31/23 08:39 Dose: Not Given Documented By: MARIAN Non-Admin Reason: Patient Refused Melatonin (Melatonin 3 Mg Tablet) 6 mg PO BEDTIME PRN PRN Reason: Insomnia Last Admin: 01/26/23 19:10 Dose: 6 mg Documented By: CHIKIS Memantine (Memantine Hcl 5 Mg Tablet) 5 mg PO DAILY [facility] Last Admin: 01/31/23 08:38 Dose: 5 mg Documented By: MARIAN Ondansetron HCl (Ondansetron Hcl 4 Mg/2 Ml Vial) 4 mg IVPUSH Q8H PRN PRN Reason: Nausea and Vomiting Pharmacy Consult (Consult Rx Perform Med Rec) 1 each MISCELLANE ONCE PRN PRN Reason: Consult order Quetiapine Fumarate (Quetiapine Fumarate 25 Mg Tablet) 25 mg PO BID@1500,2100 [facility] Last Admin: 01/30/23 20:03 Dose: 25 mg Documented By: MARIAN Labs 01/31/23 07:23 01/31/23 07:23 Labs: Laboratory Results - last 24 hr 01/31/23 01/31/23 07:23 07:23 MCV 92.0 MCH 29.5 MCHC 32.1 RDW 14.7 Plt Count 282 MPV 9.6 Absolute Nucleated RBC 0.000 Nucleated RBC % (auto) 0.0 Anion Gap 12 Estim Creat Clear Calc 37.9 Estimated GFR > 60 Random Glucose 104 Calcium 9.3 Assessment and Plan (1) Dementia: Status: Acute Plan 82yo F with osteoporosis + dementia in observation unit 01/01-01/06/23 awaiting LTC placement but then developed sepsis due to presumed UTI(resolved). Awaiting guardianship for placement essentially no change, continue monitoring 1.Dementia/behavioral disturbance -fairly well controlled with Seroquel as ordered, adjusted as need for maximum benefit 2.Sepsis due to presumed UTI,(resolved), completed abx 3.Mod pr-saba malnut -continue PO supplements Routine cbc and bmp 01/31--unremarkable - LMWH DNR/DNI dispo - accepted by Claude Olson for STR eventual possible transition to LTC; waiting for [place], court date at am. - DNR/DNI Patient requires continued inpatient hospitalization for the following reasons: safe placement Time Spent With Patient Time: Total time managing care of this patient today ____ minutes. Quality Stroke Does the patient have a stroke diagnosis?: No VTE Prior VTE?: No VTE Risk Level:: Medical - moderate - high VTE Device Contraindication: Treatment Not Indicated VTE Drug Contraindication: N/A - Med Ordered
[2023-01-31 15:32] VITALS: BP 99/65; PULSE 101; RESP 17; TEMP 36.6
[2023-01-31 19:29] VITALS: BP 104/55; PULSE 98; RESP 16; TEMP 36.4; O2SAT 98
[2023-01-31] MEDS: QUEtiapine Fumarate 25 MG TABLET PO (20:15)
[2023-02-01 03:20] VITALS: BP 137/60; PULSE 91; RESP 17; TEMP 36.3; O2SAT 96
[2023-02-01 07:33] VITALS: BP 114/56; PULSE 87; RESP 20; TEMP 36.4; O2SAT 97
--- NOTE | 2023-02-01 09:01 | HO.PM.IMPN ---
Subjective Subjective Date of Service: 02/01/23 Interval History: No new issues, calm Physical Exam Vital Signs: Vital Signs: Last Vital Signs Temp 97.6 F 02/01/23 07:33 Pulse 87 02/01/23 07:33 Resp 20 02/01/23 07:33 BP 114/56 L 02/01/23 07:33 Pulse Ox 97 02/01/23 07:33 O2 Del Method Room Air 02/01/23 07:33 BMI result Body Mass Index 15.9 Const: Other: General: oriented to self Resp: CTA bilateral CVS: S1,S2,RRR GI: +BS, NT, no distention Skin: No rash Neuro: motor grossly intact Psych: appropriate affect Objective Data Active Medications Acetaminophen (Acetaminophen 325 Mg Tablet) 650 mg PO Q6H PRN PRN Reason: Pain, Mild (Pain Scale 1-3) Last Admin: 01/07/23 23:18 Dose: 650 mg Documented By: ASAD Docusate Sodium (Docusate Sodium 100 Mg Capsule) 100 mg PO DAILY PRN PRN Reason: Constipation Enoxaparin Sodium (Enoxaparin Sodium 40 Mg/0.4 Ml Syringe) 40 mg SUBCUT Q24H [facility] Last Admin: 01/31/23 17:05 Dose: Not Given Documented By: MARIAN Non-Admin Reason: Patient Refused Lidocaine (Lidocaine 4 % Patch Adh..Patch) 1 patch TRANSDERMA DAILY [facility]; Protocol Last Admin: 01/31/23 08:39 Dose: Not Given Documented By: MARIAN Non-Admin Reason: Patient Refused Melatonin (Melatonin 3 Mg Tablet) 6 mg PO BEDTIME PRN PRN Reason: Insomnia Last Admin: 01/26/23 19:10 Dose: 6 mg Documented By: CHIKIS Memantine (Memantine Hcl 5 Mg Tablet) 5 mg PO DAILY [facility] Last Admin: 01/31/23 08:38 Dose: 5 mg Documented By: MARIAN Ondansetron HCl (Ondansetron Hcl 4 Mg/2 Ml Vial) 4 mg IVPUSH Q8H PRN PRN Reason: Nausea and Vomiting Pharmacy Consult (Consult Rx Perform Med Rec) 1 each MISCELLANE ONCE PRN PRN Reason: Consult order Quetiapine Fumarate (Quetiapine Fumarate 25 Mg Tablet) 25 mg PO BID@1500,2100 [facility] Last Admin: 01/31/23 20:15 Dose: 25 mg Documented By: NATALIA Labs 01/31/23 07:23 01/31/23 07:23 Assessment and Plan (1) Dementia: Status: Acute Plan 82yo F with osteoporosis + dementia in observation unit 01/01-01/06/23 awaiting LTC placement but then developed sepsis due to presumed UTI(resolved). Awaiting guardianship for placement essentially no change, continue monitoring 1.Dementia/behavioral disturbance -fairly well controlled with Seroquel as ordered, adjusted as need for maximum benefit 2.Sepsis due to presumed UTI,(resolved), completed abx 3.Mod pr-saba malnut -continue PO supplements Routine cbc and bmp 01/31--unremarkable - LMWH DNR/DNI dispo - accepted by Claude Olson for STR eventual possible transition to LTC; waiting for [place], court date at am. - DNR/DNI Patient requires continued inpatient hospitalization for the following reasons: safe placement Time Spent With Patient Time: Total time managing care of this patient today ____ minutes. Quality Stroke Does the patient have a stroke diagnosis?: No VTE Prior VTE?: No VTE Risk Level:: Medical - moderate - high VTE Device Contraindication: Treatment Not Indicated VTE Drug Contraindication: N/A - Med Ordered
[2023-02-01] MEDS: Lidocaine 4 % Patch ADH..PATCH 1 PATCH TRANSDERMA (09:07)
[2023-02-01] MEDS: Memantine HCl 5 MG TABLET PO (09:08)
[2023-02-01] MEDS: Acetaminophen 325 MG TABLET 650 MG PO (09:08)
[2023-02-01 15:04] VITALS: BP 95/54; PULSE 100; RESP 20; TEMP 36.6; O2SAT 94
[2023-02-01] MEDS: QUEtiapine Fumarate 25 MG TABLET PO ×2 (15:09→20:10)
--- NOTE | 2023-02-01 15:47 | MHC.CM.PN ---
PT AWAITING [facility] ORDER FOR LTC PLACEMENT
[2023-02-01 19:22] VITALS: BP 110/70; PULSE 112; RESP 18; TEMP 36.2; O2SAT 94
[2023-02-02 04:00] VITALS: BP 103/60; PULSE 95; RESP 16; TEMP 36; O2SAT 94
[2023-02-02 07:12] VITALS: BP 110/64; PULSE 88; RESP 16; TEMP 36.1; O2SAT 96
[2023-02-02] MEDS: Memantine HCl 5 MG TABLET PO (09:41)
--- NOTE | 2023-02-02 13:25 | MHC.CM.PN ---
Spoke with Hannah/DTR/HCP. She stated that she has not heard from court about a date the regarding [place]. She stated that she has a court date scheduled 02/12/23. Permanent Guardianship and Conservatorship are scheduled on that date. The Court information was reported to CM leaders. DP LTC via BLS.
[2023-02-02] MEDS: QUEtiapine Fumarate 25 MG TABLET PO ×2 (14:46→20:33)
--- NOTE | 2023-02-02 15:56 | HO.PM.IMPN ---
Subjective Subjective Date of Service: 02/02/23 Interval History: Patient waiting for [place], no issues overnight tolerating diet no nausea, no vomiting, no abdominal pain. patient offers no acute complaints tolerating diet ambulating in hallway. Review of Systems All other system reviewed and negative. Physical Exam Vital Signs: Vital Signs: Last Vital Signs Temp 97.0 F 02/02/23 07:12 Pulse 88 02/02/23 07:12 Resp 16 02/02/23 07:12 BP 110/64 02/02/23 07:12 Pulse Ox 96 02/02/23 07:12 O2 Del Method Room Air 02/02/23 07:12 BMI result Body Mass Index 15.9 Const: Other: Gen: in no acute distress HEENT: sclera anicteric, moist mucus membranes Neck: supple Lungs: clear to auscultation bilaterally Heart: regular rate and rhythm, no murmurs Abd: soft, non-tender,? bowel sounds audible, non-distended Ext: no edema Skin: warm/well-perfused Neuro: alert and oriented to self, no motor deficit Psych: impaired insight Objective Data Active Medications Acetaminophen (Acetaminophen 325 Mg Tablet) 650 mg PO Q6H PRN PRN Reason: Pain, Mild (Pain Scale 1-3) Last Admin: 02/01/23 09:08 Dose: 650 mg Documented By: PATRICIA Docusate Sodium (Docusate Sodium 100 Mg Capsule) 100 mg PO DAILY PRN PRN Reason: Constipation Enoxaparin Sodium (Enoxaparin Sodium 40 Mg/0.4 Ml Syringe) 40 mg SUBCUT Q24H [facility] Last Admin: 02/01/23 15:50 Dose: Not Given Documented By: DAHLIA Non-Admin Reason: Patient Refused Lidocaine (Lidocaine 4 % Patch Adh..Patch) 1 patch TRANSDERMA DAILY [facility]; Protocol Last Admin: 02/02/23 09:43 Dose: Not Given Documented By: PATRICIA Non-Admin Reason: Patient Refused Melatonin (Melatonin 3 Mg Tablet) 6 mg PO BEDTIME PRN PRN Reason: Insomnia Last Admin: 01/26/23 19:10 Dose: 6 mg Documented By: CHIKIS Memantine (Memantine Hcl 5 Mg Tablet) 5 mg PO DAILY [facility] Last Admin: 02/02/23 09:41 Dose: 5 mg Documented By: PATRICIA Ondansetron HCl (Ondansetron Hcl 4 Mg/2 Ml Vial) 4 mg IVPUSH Q8H PRN PRN Reason: Nausea and Vomiting Quetiapine Fumarate (Quetiapine Fumarate 25 Mg Tablet) 25 mg PO BID@1500,2100 [facility] Last Admin: 02/02/23 14:46 Dose: 25 mg Documented By: PATRICIA Labs 01/31/23 07:23 01/31/23 07:23 Assessment and Plan (1) Dementia: Status: Acute Plan 82yo F with osteoporosis + dementia in observation unit 01/01-01/06/23 awaiting LTC placement but then developed sepsis due to presumed UTI(resolved). Awaiting guardianship for placement 1.Dementia/behavioral disturbance -fairly well controlled with Seroquel as ordered, will continue current dose of Seroquel, not on as needed medications, being followed by psych. 2.Sepsis due to presumed UTI,(resolved), completed abx 3.Mod pr-saba malnut -continue PO supplements Routine cbc and bmp 01/31--unremarkable - LMWH DNR/DNI dispo - accepted by Claude Olson for STR eventual possible transition to LTC; waiting for arianna Badillo will find out about court date . - DNR/DNI Patient requires continued inpatient hospitalization for the following reasons: safe placement Time Spent With Patient Time: Total time managing care of this patient today ____ minutes. Quality Stroke Does the patient have a stroke diagnosis?: No VTE Prior VTE?: No VTE Risk Level:: Medical - moderate - high VTE Device Contraindication: Treatment Not Indicated VTE Drug Contraindication: N/A - Med Ordered
[2023-02-02 16:00] VITALS: BP 111/55; PULSE 109; RESP 18; TEMP 36.4; O2SAT 100
[2023-02-02] MEDS: Enoxaparin Sodium 40 MG/0.4 ML SYRINGE SUBCUT (16:42)
[2023-02-02 19:11] VITALS: BP 115/58; PULSE 116; RESP 16; TEMP 36.3; O2SAT 97
[2023-02-02 23:22] VITALS: BP 129/59; PULSE 96; RESP 18; TEMP 36.3; O2SAT 96
[2023-02-03 07:23] VITALS: BP 110/55; PULSE 92; RESP 16; TEMP 36.5; O2SAT 95
[2023-02-03] MEDS: Memantine HCl 5 MG TABLET PO (09:22)
[2023-02-03] MEDS: Docusate Sodium 100 MG CAPSULE PO (09:22)
--- NOTE | 2023-02-03 13:12 | P.PNIM_ITS ---
Subjective Subjective Date of Service: 02/03/23 Interval History: Dementia/behavioral disturbance Review of Systems no new c/o Physical Exam Vital Signs: Vital Signs: Last Vital Signs Temp 97.7 F 02/03/23 07:23 Pulse 92 02/03/23 07:23 Resp 16 02/03/23 07:23 BP 110/55 L 02/03/23 07:23 Pulse Ox 95 02/03/23 07:23 O2 Del Method Room Air 02/03/23 07:23 BMI result Body Mass Index 15.9 Gen: in no acute distress Lungs: clear to auscultation bilaterally Heart: regular rate and rhythm. Abd: soft, non-tender,? bowel sounds audible, non-distended Ext: no edema Neuro: alert and oriented to self, no motor deficit Psych: impaired insight Objective Data Active Medications Acetaminophen (Acetaminophen 325 Mg Tablet) 650 mg PO Q6H PRN PRN Reason: Pain, Mild (Pain Scale 1-3) Last Admin: 02/01/23 09:08 Dose: 650 mg Documented By: PATRICIA Docusate Sodium (Docusate Sodium 100 Mg Capsule) 100 mg PO DAILY PRN PRN Reason: Constipation Last Admin: 02/03/23 09:22 Dose: 100 mg Documented By: PATRICIA Enoxaparin Sodium (Enoxaparin Sodium 40 Mg/0.4 Ml Syringe) 40 mg SUBCUT Q24H [facility] Last Admin: 02/02/23 16:42 Dose: 40 mg Documented By: ULISES Lidocaine (Lidocaine 4 % Patch Adh..Patch) 1 patch TRANSDERMA DAILY [facility]; Protocol Last Admin: 02/03/23 08:59 Dose: Not Given Documented By: PATRICIA Non-Admin Reason: Patient Refused Melatonin (Melatonin 3 Mg Tablet) 6 mg PO BEDTIME PRN PRN Reason: Insomnia Last Admin: 01/26/23 19:10 Dose: 6 mg Documented By: CHIKIS Memantine (Memantine Hcl 5 Mg Tablet) 5 mg PO DAILY [facility] Last Admin: 02/03/23 09:22 Dose: 5 mg Documented By: PATRICIA Ondansetron HCl (Ondansetron Hcl 4 Mg/2 Ml Vial) 4 mg IVPUSH Q8H PRN PRN Reason: Nausea and Vomiting Quetiapine Fumarate (Quetiapine Fumarate 25 Mg Tablet) 25 mg PO BID@1500,2100 [facility] Last Admin: 02/02/23 20:33 Dose: 25 mg Documented By: ULISES Labs 01/31/23 07:23 01/31/23 07:23 Assessment and Plan (1) Major neurocognitive disorder due to Alzheimer's disease, with behavioral disturbance: Status: Acute Assessment and Plan: 82yo F with osteoporosis + dementia in observation unit 01/01-01/06/23 awaiting LTC placement but then developed sepsis due to presumed UTI(resolved).? Awaiting guardianship for placement 1.Dementia/behavioral disturbance -fairly well controlled with Seroquel as ordered,? will continue current dose of Seroquel, not on as needed medications, being followed by psych. 2.Sepsis due to presumed UTI,(resolved), completed abx 3.Mod pr-saba malnut -continue PO supplements Routine cbc and bmp 01/31--unremarkable - LMWH DNR/DNI dispo - accepted by Claude Olson for STR eventual possible transition to LTC; waiting for arianna Badillo will find out about court date . - DNR/DNI Patient requires continued inpatient hospitalization for the following reasons: safe placement. Time Spent With Patient Time: Total time managing care of this patient today ____ minutes. Quality Stroke Does the patient have a stroke diagnosis?: No VTE Prior VTE?: No VTE Risk Level:: Medical - moderate - high VTE Device Contraindication: Treatment Not Indicated VTE Drug Contraindication: N/A - Med Ordered
--- NOTE | 2023-02-03 13:38 | MHC.CLN ---
F/U PO INTAKE 50-100%, WITH MOST MEALS 100%. DIET RX: REGULAR-APPROPRIATE PT RECEIVES ENSURE BID PROVIDES 700 KCALS, 40 G PROTEIN. NO SKIN ISSUES. CONTINUE TO MONITOR PO INTAKE AND WEIGHTS. RD TO FOLLOW WEEKLY.
[2023-02-03] MEDS: QUEtiapine Fumarate 25 MG TABLET PO ×2 (14:28→20:43)
[2023-02-03 15:22] VITALS: BP 100/60; PULSE 100; RESP 17; TEMP 36.1; O2SAT 97
[2023-02-03 19:29] VITALS: BP 131/59; PULSE 100; RESP 17; TEMP 36.2; O2SAT 97
[2023-02-04 04:00] VITALS: BP 120/61; PULSE 70; RESP 17; TEMP 36.2; O2SAT 97
[2023-02-04 07:34] VITALS: BP 110/55; PULSE 88; RESP 16; TEMP 36; O2SAT 96
[2023-02-04] MEDS: Memantine HCl 5 MG TABLET PO (08:08)
--- NOTE | 2023-02-04 09:27 | HO.PM.IMPN ---
Subjective Subjective Date of Service: 02/05/23 Interval History: Dementia/behavioral disturbance Review of Systems no new c/o Physical Exam Vital Signs: Vital Signs: Last Vital Signs Temp 96.8 F 02/04/23 07:34 Pulse 88 02/04/23 07:34 Resp 16 02/04/23 07:34 BP 110/55 L 02/04/23 07:34 Pulse Ox 96 02/04/23 07:34 O2 Del Method Room Air 02/04/23 07:34 BMI result Body Mass Index 15.9 Gen: in no acute distress Lungs: clear to auscultation bilaterally Heart: regular rate and rhythm. Abd: soft, non-tender,? bowel sounds audible, non-distended Ext: no edema Neuro: alert and oriented to self, no motor deficit Psych: impaired insight Objective Data Active Medications Acetaminophen (Acetaminophen 325 Mg Tablet) 650 mg PO Q6H PRN PRN Reason: Pain, Mild (Pain Scale 1-3) Last Admin: 02/01/23 09:08 Dose: 650 mg Documented By: PATRICIA Docusate Sodium (Docusate Sodium 100 Mg Capsule) 100 mg PO DAILY PRN PRN Reason: Constipation Last Admin: 02/03/23 09:22 Dose: 100 mg Documented By: PATRICIA Enoxaparin Sodium (Enoxaparin Sodium 40 Mg/0.4 Ml Syringe) 40 mg SUBCUT Q24H [facility] Last Admin: 02/03/23 15:17 Dose: Not Given Documented By: DAHLIA Non-Admin Reason: Patient Refused Lidocaine (Lidocaine 4 % Patch Adh..Patch) 1 patch TRANSDERMA DAILY [facility]; Protocol Last Admin: 02/04/23 07:26 Dose: Not Given Documented By: TYLER Non-Admin Reason: Patient Refused Melatonin (Melatonin 3 Mg Tablet) 6 mg PO BEDTIME PRN PRN Reason: Insomnia Last Admin: 01/26/23 19:10 Dose: 6 mg Documented By: CHIKIS Memantine (Memantine Hcl 5 Mg Tablet) 5 mg PO DAILY [facility] Last Admin: 02/04/23 08:08 Dose: 5 mg Documented By: TYLER Ondansetron HCl (Ondansetron Hcl 4 Mg/2 Ml Vial) 4 mg IVPUSH Q8H PRN PRN Reason: Nausea and Vomiting Quetiapine Fumarate (Quetiapine Fumarate 25 Mg Tablet) 25 mg PO BID@1500,2100 [facility] Last Admin: 02/03/23 20:43 Dose: 25 mg Documented By: LYNETTE Labs 01/31/23 07:23 01/31/23 07:23 Assessment and Plan (1) Major neurocognitive disorder due to Alzheimer's disease, with behavioral disturbance: Status: Acute Assessment and Plan: 82yo F with osteoporosis + dementia in observation unit 01/01-01/06/23 awaiting LTC placement but then developed sepsis due to presumed UTI(resolved).? Awaiting guardianship for placement 1.Dementia/behavioral disturbance -fairly well controlled with Seroquel as ordered,? will continue current dose of Seroquel, not on as needed medications, being followed by psych. 2.Sepsis due to presumed UTI,(resolved), completed abx 3.Mod pr-saba malnut -continue PO supplements Routine cbc and bmp 01/31--unremarkable - LMWH DNR/DNI dispo - accepted by Claude Olson for STR eventual possible transition to LTC; waiting for arianna Badillo will find out about court date . - DNR/DNI Patient requires continued inpatient hospitalization for the following reasons: safe placement. Time Spent With Patient Time: Total time managing care of this patient today ____ minutes. Quality Stroke Does the patient have a stroke diagnosis?: No VTE Prior VTE?: No VTE Risk Level:: Medical - moderate - high VTE Device Contraindication: Treatment Not Indicated VTE Drug Contraindication: N/A - Med Ordered
[2023-02-04] MEDS: QUEtiapine Fumarate 25 MG TABLET PO ×2 (14:05→19:43)
[2023-02-04 15:09] VITALS: BP 109/56; PULSE 105; RESP 14; TEMP 36.5; O2SAT 96
[2023-02-04 19:28] VITALS: BP 114/69; PULSE 113; RESP 20; TEMP 36; O2SAT 98
[2023-02-05 03:42] VITALS: BP 104/51; PULSE 93; RESP 17; TEMP 36.1; O2SAT 94
--- NOTE | 2023-02-05 12:13 | P.PNIM_ITS ---
Subjective Subjective Date of Service: 02/05/23 Interval History: Dementia/behavioral disturbance Review of Systems no new c/o Physical Exam Vital Signs: Vital Signs: Last Vital Signs Temp 97 F 02/05/23 03:42 Pulse 93 02/05/23 03:42 Resp 17 02/05/23 03:42 BP 104/51 L 02/05/23 03:42 Pulse Ox 94 02/05/23 03:42 O2 Del Method Room Air 02/05/23 03:42 BMI result Body Mass Index 15.9 Gen: in no acute distress Lungs: clear to auscultation bilaterally Heart: regular rate and rhythm. Abd: soft, non-tender,? bowel sounds audible, non-distended Ext: no edema Neuro: alert and oriented to self, no motor deficit Psych: impaired insight Objective Data Active Medications Acetaminophen (Acetaminophen 325 Mg Tablet) 650 mg PO Q6H PRN PRN Reason: Pain, Mild (Pain Scale 1-3) Last Admin: 02/01/23 09:08 Dose: 650 mg Documented By: PATRICIA Docusate Sodium (Docusate Sodium 100 Mg Capsule) 100 mg PO DAILY PRN PRN Reason: Constipation Last Admin: 02/03/23 09:22 Dose: 100 mg Documented By: PATRICIA Enoxaparin Sodium (Enoxaparin Sodium 40 Mg/0.4 Ml Syringe) 40 mg SUBCUT Q24H [facility] Last Admin: 02/04/23 15:10 Dose: Not Given Documented By: TYLER Non-Admin Reason: Patient Refused Lidocaine (Lidocaine 4 % Patch Adh..Patch) 1 patch TRANSDERMA DAILY [facility]; Protocol Last Admin: 02/05/23 09:18 Dose: Not Given Documented By: MARIAN Non-Admin Reason: Patient Refused Melatonin (Melatonin 3 Mg Tablet) 6 mg PO BEDTIME PRN PRN Reason: Insomnia Last Admin: 01/26/23 19:10 Dose: 6 mg Documented By: CHIKIS Memantine (Memantine Hcl 5 Mg Tablet) 5 mg PO DAILY JOHN Last Admin: 02/05/23 10:31 Dose: Not Given Documented By: MARIAN Non-Admin Reason: Patient Refused Ondansetron HCl (Ondansetron Hcl 4 Mg/2 Ml Vial) 4 mg IVPUSH Q8H PRN PRN Reason: Nausea and Vomiting Quetiapine Fumarate (Quetiapine Fumarate 25 Mg Tablet) 25 mg PO BID@1500,2100 JOHN Last Admin: 02/04/23 19:43 Dose: 25 mg Documented By: LYNETTE Labs 01/31/23 07:23 01/31/23 07:23 Assessment and Plan (1) Dementia with behavioral disturbance: Status: Acute Plan 82yo F with osteoporosis + dementia in observation unit 01/01-01/06/23 awaiting LTC placement but then developed sepsis due to presumed UTI(resolved).? Awaiting guardianship for placement 1.Dementia/behavioral disturbance -fairly well controlled with Seroquel as ordered,? will continue current dose of Seroquel, not on as needed medications, being followed by psych. 2.Sepsis due to presumed UTI,(resolved), completed abx 3.Mod pr-saba malnut -continue PO supplements Routine cbc and bmp 01/31--unremarkable - LMWH DNR/DNI dispo - accepted by Claude Olson for STR eventual possible transition to LTC; waiting for arianna Badillo will find out about court date . - DNR/DNI Patient requires continued inpatient hospitalization for the following reasons: safe placement. Time Spent With Patient Time: Total time managing care of this patient today ____ minutes. Quality Stroke Does the patient have a stroke diagnosis?: No VTE Prior VTE?: No VTE Risk Level:: Medical - moderate - high VTE Device Contraindication: Treatment Not Indicated VTE Drug Contraindication: N/A - Med Ordered
--- NOTE | 2023-02-05 13:56 | MHC.CM.PN ---
PT AWAITING [facility] ORDER FOR LTC PLACEMENT
[2023-02-05 15:12] VITALS: BP 120/66; PULSE 80; RESP 15; TEMP 36.7; O2SAT 94
[2023-02-05] MEDS: QUEtiapine Fumarate 25 MG TABLET PO (20:06)
[2023-02-06 02:59] VITALS: BP 100/58; PULSE 97; RESP 16; TEMP 36.6; O2SAT 94
[2023-02-06 08:00] VITALS: BP 106/59; PULSE 97; RESP 18; TEMP 36.7; O2SAT 95
[2023-02-06] MEDS: guaiFENesin 100 MG/5 ML LIQUID 10 ML PO (08:35)
[2023-02-06] MEDS: Memantine HCl 5 MG TABLET PO (08:35)
--- NOTE | 2023-02-06 10:13 | HO.PM.IMPN ---
Subjective Subjective Date of Service: 02/06/23 Interval History: Dementia/behavioral disturbance Review of Systems no new c/o Physical Exam Vital Signs: Vital Signs: Last Vital Signs Temp 98.1 F 02/06/23 08:00 Pulse 97 02/06/23 08:00 Resp 18 02/06/23 08:00 BP 106/59 L 02/06/23 08:00 Pulse Ox 95 02/06/23 08:00 O2 Del Method Room Air 02/06/23 08:00 BMI result Body Mass Index 15.9 Gen: in no acute distress Lungs: clear to auscultation bilaterally Heart: regular rate and rhythm. Abd: soft, non-tender,? bowel sounds audible, non-distended Ext: no edema Neuro: alert and oriented to self, no motor deficit Psych: impaired insight Objective Data Active Medications Acetaminophen (Acetaminophen 325 Mg Tablet) 650 mg PO Q6H PRN PRN Reason: Pain, Mild (Pain Scale 1-3) Last Admin: 02/01/23 09:08 Dose: 650 mg Documented By: PATRICIA Docusate Sodium (Docusate Sodium 100 Mg Capsule) 100 mg PO DAILY PRN PRN Reason: Constipation Last Admin: 02/03/23 09:22 Dose: 100 mg Documented By: PATRICIA Enoxaparin Sodium (Enoxaparin Sodium 40 Mg/0.4 Ml Syringe) 40 mg SUBCUT Q24H [facility] Last Admin: 02/05/23 16:46 Dose: Not Given Documented By: MARIAN Non-Admin Reason: Patient Refused Guaifenesin (Guaifenesin 100 Mg/5 Ml Liquid) 10 ml PO Q4H PRN PRN Reason: Cough Last Admin: 02/06/23 08:35 Dose: 10 ml Documented By: MILA Lidocaine (Lidocaine 4 % Patch Adh..Patch) 1 patch TRANSDERMA DAILY [facility]; Protocol Last Admin: 02/06/23 08:38 Dose: Not Given Documented By: MILA Non-Admin Reason: Patient Refused Melatonin (Melatonin 3 Mg Tablet) 6 mg PO BEDTIME PRN PRN Reason: Insomnia Last Admin: 01/26/23 19:10 Dose: 6 mg Documented By: CHIKIS Memantine (Memantine Hcl 5 Mg Tablet) 5 mg PO DAILY [facility] Last Admin: 02/06/23 08:35 Dose: 5 mg Documented By: MILA Ondansetron HCl (Ondansetron Hcl 4 Mg/2 Ml Vial) 4 mg IVPUSH Q8H PRN PRN Reason: Nausea and Vomiting Quetiapine Fumarate (Quetiapine Fumarate 25 Mg Tablet) 25 mg PO BID@1500,2100 JOHN Last Admin: 02/05/23 20:06 Dose: 25 mg Documented By: CHIKIS Labs 01/31/23 07:23 01/31/23 07:23 Assessment and Plan (1) Dementia with behavioral disturbance: Status: Acute Plan 82yo F with osteoporosis + dementia in observation unit 01/01-01/06/23 awaiting LTC placement but then developed sepsis due to presumed UTI(resolved).? Awaiting guardianship for placement 1.Dementia/behavioral disturbance -fairly well controlled with Seroquel as ordered,? will continue current dose of Seroquel, not on as needed medications, being followed by psych. 2.Sepsis due to presumed UTI,(resolved), completed abx 3.Mod pr-saba malnut -continue PO supplements Routine cbc and bmp 01/31--unremarkable - LMWH DNR/DNI dispo - accepted by Claude Olson for STR eventual possible transition to LTC; waiting for arianna Badillo will find out about court date . - DNR/DNI Patient requires continued inpatient hospitalization for the following reasons: safe placement. Time Spent With Patient Time: Total time managing care of this patient today ____ minutes. Quality Stroke Does the patient have a stroke diagnosis?: No VTE Prior VTE?: No VTE Risk Level:: Medical - moderate - high VTE Device Contraindication: Treatment Not Indicated VTE Drug Contraindication: N/A - Med Ordered
[2023-02-06 15:21] VITALS: BP 102/58; PULSE 89; RESP 18; TEMP 36.4; O2SAT 95
[2023-02-06] MEDS: QUEtiapine Fumarate 25 MG TABLET PO ×2 (15:38→19:42)
[2023-02-06 20:00] VITALS: BP 107/64; PULSE 108; RESP 17; TEMP 36.2; O2SAT 96
[2023-02-07 04:00] VITALS: BP 110/53; PULSE 93; RESP 17; TEMP 36.6; O2SAT 94
[2023-02-07 07:43] VITALS: BP 116/55; PULSE 95; RESP 18; TEMP 36.8; O2SAT 92
[2023-02-07] MEDS: Memantine HCl 5 MG TABLET PO (08:11)
--- NOTE | 2023-02-07 10:28 | P.PNIM_ITS ---
Subjective Subjective Date of Service: 02/07/23 Interval History: Dementia/behavioral disturbance Review of Systems no new c/o Physical Exam Vital Signs: Vital Signs: Last Vital Signs Temp 98.2 F 02/07/23 07:43 Pulse 95 02/07/23 07:43 Resp 18 02/07/23 07:43 BP 116/55 L 02/07/23 07:43 Pulse Ox 92 02/07/23 07:43 O2 Del Method Room Air 02/07/23 07:43 BMI result Body Mass Index 15.9 Gen: in no acute distress Lungs: clear to auscultation bilaterally Heart: regular rate and rhythm. Abd: soft, non-tender,? bowel sounds audible, non-distended Ext: no edema Neuro: alert and oriented to self, no motor deficit Psych: impaired insight Objective Data Active Medications Acetaminophen (Acetaminophen 325 Mg Tablet) 650 mg PO Q6H PRN PRN Reason: Pain, Mild (Pain Scale 1-3) Last Admin: 02/01/23 09:08 Dose: 650 mg Documented By: PATRICIA Docusate Sodium (Docusate Sodium 100 Mg Capsule) 100 mg PO DAILY PRN PRN Reason: Constipation Last Admin: 02/03/23 09:22 Dose: 100 mg Documented By: PATRICIA Enoxaparin Sodium (Enoxaparin Sodium 40 Mg/0.4 Ml Syringe) 40 mg SUBCUT Q24H [facility] Last Admin: 02/06/23 15:38 Dose: Not Given Documented By: MILA Non-Admin Reason: Patient Refused Guaifenesin (Guaifenesin 100 Mg/5 Ml Liquid) 10 ml PO Q4H PRN PRN Reason: Cough Last Admin: 02/06/23 08:35 Dose: 10 ml Documented By: MILA Lidocaine (Lidocaine 4 % Patch Adh..Patch) 1 patch TRANSDERMA DAILY [facility]; Protocol Last Admin: 02/07/23 07:17 Dose: Not Given Documented By: DAVID Non-Admin Reason: Patient Refused Melatonin (Melatonin 3 Mg Tablet) 6 mg PO BEDTIME PRN PRN Reason: Insomnia Last Admin: 01/26/23 19:10 Dose: 6 mg Documented By: CHIKIS Memantine (Memantine Hcl 5 Mg Tablet) 5 mg PO DAILY [facility] Last Admin: 02/07/23 08:11 Dose: 5 mg Documented By: DAVID Ondansetron HCl (Ondansetron Hcl 4 Mg/2 Ml Vial) 4 mg IVPUSH Q8H PRN PRN Reason: Nausea and Vomiting Quetiapine Fumarate (Quetiapine Fumarate 25 Mg Tablet) 25 mg PO BID@1500,2100 JOHN Last Admin: 02/06/23 19:42 Dose: 25 mg Documented By: AMYIT Labs 01/31/23 07:23 01/31/23 07:23 Assessment and Plan (1) Dementia with behavioral disturbance: Status: Acute Plan 82yo F with osteoporosis + dementia in observation unit 01/01-01/06/23 awaiting LTC placement but then developed sepsis due to presumed UTI(resolved).? Awaiting guardianship for placement 1.Dementia/behavioral disturbance -fairly well controlled with Seroquel as ordered,? will continue current dose of Seroquel, not on as needed medications, being followed by psych. 2.Sepsis due to presumed UTI,(resolved), completed abx 3.Mod pr-saba malnut -continue PO supplements Routine cbc and bmp 01/31--unremarkable - LMWH DNR/DNI dispo - accepted by Claude Olson for STR eventual possible transition to LTC; waiting for arianna Badillo will find out about court date . - DNR/DNI Patient requires continued inpatient hospitalization for the following reasons: safe placement. Time Spent With Patient Time: Total time managing care of this patient today ____ minutes. Quality Stroke Does the patient have a stroke diagnosis?: No VTE Prior VTE?: No VTE Risk Level:: Medical - moderate - high VTE Device Contraindication: Treatment Not Indicated VTE Drug Contraindication: N/A - Med Ordered
[2023-02-07] MEDS: QUEtiapine Fumarate 25 MG TABLET PO ×2 (14:12→20:19)
[2023-02-07 15:24] VITALS: BP 128/63; PULSE 95; RESP 18; TEMP 36.5; O2SAT 95
[2023-02-07 19:49] VITALS: BP 159/60; PULSE 100; RESP 17; TEMP 36.3; O2SAT 97
[2023-02-07 23:59] VITALS: BP 109/59; PULSE 99; RESP 18; TEMP 36.1; O2SAT 94
[2023-02-08 07:12] VITALS: BP 116/64; PULSE 90; RESP 17; TEMP 36.2; O2SAT 94
[2023-02-08] MEDS: Memantine HCl 5 MG TABLET PO (09:23)
--- NOTE | 2023-02-08 11:18 | HO.PM.IMPN ---
Subjective Subjective Date of Service: 02/08/23 Interval History: Dementia/behavioral disturbance Review of Systems no new c/o Physical Exam Vital Signs: Vital Signs: Last Vital Signs Temp 97.1 F 02/08/23 07:12 Pulse 90 02/08/23 07:12 Resp 17 02/08/23 07:12 BP 116/64 02/08/23 07:12 Pulse Ox 94 02/08/23 07:12 O2 Del Method Room Air 02/08/23 07:12 BMI result Body Mass Index 15.9 Gen: in no acute distress Lungs: clear to auscultation bilaterally Heart: regular rate and rhythm. Abd: soft, non-tender,? bowel sounds audible, non-distended Ext: no edema Neuro: alert and oriented to self, no motor deficit Psych: impaired insight Objective Data Active Medications Acetaminophen (Acetaminophen 325 Mg Tablet) 650 mg PO Q6H PRN PRN Reason: Pain, Mild (Pain Scale 1-3) Last Admin: 02/01/23 09:08 Dose: 650 mg Documented By: PATRICIA Docusate Sodium (Docusate Sodium 100 Mg Capsule) 100 mg PO DAILY PRN PRN Reason: Constipation Last Admin: 02/03/23 09:22 Dose: 100 mg Documented By: PATRICIA Enoxaparin Sodium (Enoxaparin Sodium 40 Mg/0.4 Ml Syringe) 40 mg SUBCUT Q24H [facility] Last Admin: 02/07/23 16:10 Dose: Not Given Documented By: DAVID Non-Admin Reason: Patient Refused Guaifenesin (Guaifenesin 100 Mg/5 Ml Liquid) 10 ml PO Q4H PRN PRN Reason: Cough Last Admin: 02/06/23 08:35 Dose: 10 ml Documented By: MILA Lidocaine (Lidocaine 4 % Patch Adh..Patch) 1 patch TRANSDERMA DAILY [facility]; Protocol Last Admin: 02/08/23 09:24 Dose: Not Given Documented By: ROGER Non-Admin Reason: Patient Refused Melatonin (Melatonin 3 Mg Tablet) 6 mg PO BEDTIME PRN PRN Reason: Insomnia Last Admin: 01/26/23 19:10 Dose: 6 mg Documented By: CHIKIS Memantine (Memantine Hcl 5 Mg Tablet) 5 mg PO DAILY [facility] Last Admin: 02/08/23 09:23 Dose: 5 mg Documented By: ROGER Ondansetron HCl (Ondansetron Hcl 4 Mg/2 Ml Vial) 4 mg IVPUSH Q8H PRN PRN Reason: Nausea and Vomiting Quetiapine Fumarate (Quetiapine Fumarate 25 Mg Tablet) 25 mg PO BID@1500,2100 JOHN Last Admin: 02/07/23 20:19 Dose: 25 mg Documented By: JOCELYN Labs 01/31/23 07:23 01/31/23 07:23 Assessment and Plan (1) Dementia with behavioral disturbance: Status: Acute Plan 82yo F with osteoporosis + dementia in observation unit 01/01-01/06/23 awaiting LTC placement but then developed sepsis due to presumed UTI(resolved).? Awaiting guardianship for placement 1.Dementia/behavioral disturbance -fairly well controlled with Seroquel as ordered,? will continue current dose of Seroquel, not on as needed medications, being followed by psych. 2.Sepsis due to presumed UTI,(resolved), completed abx 3.Mod pr-saba malnut -continue PO supplements Routine cbc and bmp 01/31--unremarkable - LMWH DNR/DNI dispo - accepted by Claude Olson for STR eventual possible transition to LTC; waiting for arianna Badillo will find out about court date . - DNR/DNI Patient requires continued inpatient hospitalization for the following reasons: safe placement. Time Spent With Patient Time: Total time managing care of this patient today ____ minutes. Quality Stroke Does the patient have a stroke diagnosis?: No VTE Prior VTE?: No VTE Risk Level:: Medical - moderate - high VTE Device Contraindication: Treatment Not Indicated VTE Drug Contraindication: N/A - Med Ordered
--- NOTE | 2023-02-08 13:18 | MHC.CM.PN ---
EMR REVIEWED. [facility] SCHEDULED FOR 02/12, CM WILL CONTINUE TO FOLLOW FOR DC NEEDS/PLAN
[2023-02-08] MEDS: QUEtiapine Fumarate 25 MG TABLET PO ×2 (14:03→20:20)
[2023-02-08 15:02] VITALS: BP 97/51; PULSE 98; RESP 16; TEMP 36.6; O2SAT 96
[2023-02-08 19:31] VITALS: BP 112/53; PULSE 110; RESP 17; TEMP 36.3; O2SAT 95
[2023-02-09 04:00] VITALS: BP 106/55; PULSE 80; RESP 16; TEMP 36.3; O2SAT 94
[2023-02-09 07:22] VITALS: BP 94/54; PULSE 80; RESP 17; TEMP 36.7; O2SAT 91
--- NOTE | 2023-02-09 07:30 | HO.PM.IMPN ---
Subjective Subjective Date of Service: 02/09/23 Interval History: calm, cooperative, eating BF Physical Exam Vital Signs: Vital Signs: Last Vital Signs Temp 98.0 F 02/09/23 07:22 Pulse 80 02/09/23 07:22 Resp 17 02/09/23 07:22 BP 94/54 L 02/09/23 07:22 Pulse Ox 91 L 02/09/23 07:22 O2 Del Method Room Air 02/09/23 07:22 BMI result Body Mass Index 15.9 Const: Other: General: oriented to self Resp: CTA bilateral CVS: S1,S2,RRR GI: +BS, NT, no distention Skin: No rash Neuro: motor grossly intact Psych: appropriate affect Objective Data Active Medications Acetaminophen (Acetaminophen 325 Mg Tablet) 650 mg PO Q6H PRN PRN Reason: Pain, Mild (Pain Scale 1-3) Last Admin: 02/01/23 09:08 Dose: 650 mg Documented By: PATRICIA Docusate Sodium (Docusate Sodium 100 Mg Capsule) 100 mg PO DAILY PRN PRN Reason: Constipation Last Admin: 02/03/23 09:22 Dose: 100 mg Documented By: PATRICIA Enoxaparin Sodium (Enoxaparin Sodium 40 Mg/0.4 Ml Syringe) 40 mg SUBCUT Q24H [facility] Last Admin: 02/08/23 17:17 Dose: Not Given Documented By: ROGER Non-Admin Reason: Patient Refused Guaifenesin (Guaifenesin 100 Mg/5 Ml Liquid) 10 ml PO Q4H PRN PRN Reason: Cough Last Admin: 02/06/23 08:35 Dose: 10 ml Documented By: MILA Lidocaine (Lidocaine 4 % Patch Adh..Patch) 1 patch TRANSDERMA DAILY [facility]; Protocol Last Admin: 02/09/23 07:19 Dose: Not Given Documented By: RHONDA Non-Admin Reason: Patient Refused Melatonin (Melatonin 3 Mg Tablet) 6 mg PO BEDTIME PRN PRN Reason: Insomnia Last Admin: 01/26/23 19:10 Dose: 6 mg Documented By: CHIKIS Memantine (Memantine Hcl 5 Mg Tablet) 5 mg PO DAILY [facility] Last Admin: 02/08/23 09:23 Dose: 5 mg Documented By: ROGER Ondansetron HCl (Ondansetron Hcl 4 Mg/2 Ml Vial) 4 mg IVPUSH Q8H PRN PRN Reason: Nausea and Vomiting Quetiapine Fumarate (Quetiapine Fumarate 25 Mg Tablet) 25 mg PO BID@1500,2100 JOHN Last Admin: 02/08/23 20:20 Dose: 25 mg Documented By: MOSES Labs 01/31/23 07:23 01/31/23 07:23 Assessment and Plan (1) Dementia: Status: Acute Plan 82yo F with osteoporosis + dementia in observation unit 01/01-01/06/23 awaiting LTC placement but then developed sepsis due to presumed UTI(resolved).? Awaiting guardianship for placement 1.Dementia/behavioral disturbance -fairly well controlled with Seroquel as ordered,? will continue current dose of Seroquel, not on as needed medications, being followed by psych. 2.Sepsis due to presumed UTI,(resolved), completed abx 3.Mod pr-saba malnut -continue PO supplements Routine cbc and bmp 01/31--unremarkable - LMWH DNR/DNI dispo - accepted by Claude Olson for STR eventual possible transition to LTC; waiting for arianna Badillo will find out about court date . - DNR/DNI Patient requires continued inpatient hospitalization for the following reasons: safe placement. Time Spent With Patient Time: Total time managing care of this patient today ____ minutes. Quality Stroke Does the patient have a stroke diagnosis?: No VTE Prior VTE?: No VTE Risk Level:: Medical - moderate - high VTE Device Contraindication: Treatment Not Indicated VTE Drug Contraindication: N/A - Med Ordered
[2023-02-09] MEDS: Memantine HCl 5 MG TABLET PO (09:22)
--- NOTE | 2023-02-09 12:47 | PC.NURSE ---
[employer] notified the underwriter that the patient had a skin tear on her left arm. MD Notified, approx 0.5cm x 0.5cm MD notified, edges approximated and steri strip applied.
[2023-02-09 15:30] VITALS: BP 112/56; PULSE 108; RESP 20; TEMP 36.1; O2SAT 95
[2023-02-09] MEDS: QUEtiapine Fumarate 25 MG TABLET PO ×2 (16:10→19:47)
[2023-02-09 19:37] VITALS: BP 118/63; PULSE 102; RESP 20; TEMP 36.2; O2SAT 96
[2023-02-10 03:18] VITALS: BP 99/57; PULSE 90; RESP 14; TEMP 36.4; O2SAT 94
[2023-02-10 07:39] VITALS: BP 116/54; PULSE 90; RESP 18; TEMP 36; O2SAT 96
--- NOTE | 2023-02-10 07:39 | P.PNIM_ITS ---
Subjective Subjective Date of Service: 02/10/23 Interval History: calm, cooperative, sitting in chair wathing TV and eating BF Physical Exam Vital Signs: Vital Signs: Last Vital Signs Temp 97.5 F 02/10/23 03:18 Pulse 90 02/10/23 03:18 Resp 14 02/10/23 03:18 BP 99/57 L 02/10/23 03:18 Pulse Ox 94 02/10/23 03:18 O2 Del Method Room Air 02/10/23 03:18 BMI result Body Mass Index 15.9 Const: Other: General: oriented to self Resp: CTA bilateral CVS: S1,S2,RRR GI: +BS, NT, no distention Skin: No rash Neuro: motor grossly intact Psych: appropriate affect Objective Data Active Medications Acetaminophen (Acetaminophen 325 Mg Tablet) 650 mg PO Q6H PRN PRN Reason: Pain, Mild (Pain Scale 1-3) Last Admin: 02/01/23 09:08 Dose: 650 mg Documented By: PATRICIA Docusate Sodium (Docusate Sodium 100 Mg Capsule) 100 mg PO DAILY PRN PRN Reason: Constipation Last Admin: 02/03/23 09:22 Dose: 100 mg Documented By: PATRICIA Enoxaparin Sodium (Enoxaparin Sodium 40 Mg/0.4 Ml Syringe) 40 mg SUBCUT Q24H [facility] Last Admin: 02/09/23 16:11 Dose: Not Given Documented By: RHONDA Non-Admin Reason: Patient Refused Guaifenesin (Guaifenesin 100 Mg/5 Ml Liquid) 10 ml PO Q4H PRN PRN Reason: Cough Last Admin: 02/06/23 08:35 Dose: 10 ml Documented By: MILA Lidocaine (Lidocaine 4 % Patch Adh..Patch) 1 patch TRANSDERMA DAILY [facility]; Protocol Last Admin: 02/09/23 07:19 Dose: Not Given Documented By: RHONDA Non-Admin Reason: Patient Refused Melatonin (Melatonin 3 Mg Tablet) 6 mg PO BEDTIME PRN PRN Reason: Insomnia Last Admin: 01/26/23 19:10 Dose: 6 mg Documented By: CHIKIS Memantine (Memantine Hcl 5 Mg Tablet) 5 mg PO DAILY JOHN Last Admin: 02/09/23 09:22 Dose: 5 mg Documented By: HO.DABA Ondansetron HCl (Ondansetron Hcl 4 Mg/2 Ml Vial) 4 mg IVPUSH Q8H PRN PRN Reason: Nausea and Vomiting Quetiapine Fumarate (Quetiapine Fumarate 25 Mg Tablet) 25 mg PO BID@1500,2100 JOHN Last Admin: 02/09/23 19:47 Dose: 25 mg Documented By: SAKSHI Labs 01/31/23 07:23 01/31/23 07:23 Assessment and Plan (1) Dementia: Status: Acute Plan 82yo F with osteoporosis + dementia in observation unit 01/01-01/06/23 awaiting LTC placement but then developed sepsis due to presumed UTI(resolved).? Awaiting guardianship for placement Essentially no change in care at this time 1.Dementia/behavioral disturbance -fairly well controlled with Seroquel as ordered,? will continue current dose of Seroquel, not on as needed medications, being followed by psych. 2.Sepsis due to presumed UTI,(resolved), completed abx 3.Mod pr-saba malnut -continue PO supplements Routine cbc and bmp 01/31--unremarkable - LMWH DNR/DNI dispo - accepted by Claude Olson for STR eventual possible transition to LTC; waiting for arianna Badillo will find out about court date . - DNR/DNI Patient requires continued inpatient hospitalization for the following reasons: safe placement. Time Spent With Patient Time: Total time managing care of this patient today ____ minutes. Quality Stroke Does the patient have a stroke diagnosis?: No VTE Prior VTE?: No VTE Risk Level:: Medical - moderate - high VTE Device Contraindication: Treatment Not Indicated VTE Drug Contraindication: N/A - Med Ordered
[2023-02-10] MEDS: Memantine HCl 5 MG TABLET PO (08:08)
--- NOTE | 2023-02-10 13:39 | MHC.CLN ---
F/U PO INTAKE 50-100%, WITH MOST MEALS 100%. DIET RX: REGULAR-APPROPRIATE PT RECEIVES ENSURE BID PROVIDES 700 KCALS, 40 G PROTEIN. STATED THAT SHE IS EATING WELL AND LIKES ENSURE SUPPPLEMENT. NO SKIN ISSUES. CONTINUE TO MONITOR PO INTAKE AND WEIGHTS. RD TO FOLLOW WEEKLY.
[2023-02-10] MEDS: QUEtiapine Fumarate 25 MG TABLET PO ×2 (14:02→20:37)
[2023-02-10 15:40] VITALS: BP 111/59; PULSE 115; RESP 20; TEMP 36.3; O2SAT 98
[2023-02-10] MEDS: Enoxaparin Sodium 40 MG/0.4 ML SYRINGE SUBCUT (16:22)
[2023-02-10 19:34] VITALS: BP 134/68; PULSE 115; RESP 20; TEMP 36; O2SAT 94
[2023-02-11 03:55] VITALS: BP 92/49; PULSE 89; RESP 16; TEMP 36; O2SAT 95
[2023-02-11 08:00] VITALS: BP 113/55; PULSE 103; RESP 18; TEMP 36; O2SAT 97
--- NOTE | 2023-02-11 09:10 | HO.PM.IMPN ---
Subjective Subjective Date of Service: 02/11/23 Interval History: No new issues, calm Physical Exam Vital Signs: Vital Signs: Last Vital Signs Temp 96.8 F 02/11/23 03:55 Pulse 89 02/11/23 03:55 Resp 16 02/11/23 03:55 BP 92/49 L 02/11/23 03:55 Pulse Ox 95 02/11/23 03:55 O2 Del Method Room Air 02/11/23 03:55 BMI result Body Mass Index 15.9 Const: Other: General: oriented to self Resp: CTA bilateral CVS: S1,S2,RRR GI: +BS, NT, no distention Skin: No rash Neuro: motor grossly intact Psych: appropriate affect Objective Data Active Medications Acetaminophen (Acetaminophen 325 Mg Tablet) 650 mg PO Q6H PRN PRN Reason: Pain, Mild (Pain Scale 1-3) Last Admin: 02/01/23 09:08 Dose: 650 mg Documented By: PATRICIA Docusate Sodium (Docusate Sodium 100 Mg Capsule) 100 mg PO DAILY PRN PRN Reason: Constipation Last Admin: 02/03/23 09:22 Dose: 100 mg Documented By: PATRICIA Enoxaparin Sodium (Enoxaparin Sodium 40 Mg/0.4 Ml Syringe) 40 mg SUBCUT Q24H [facility] Last Admin: 02/10/23 16:22 Dose: 40 mg Documented By: MISSY Guaifenesin (Guaifenesin 100 Mg/5 Ml Liquid) 10 ml PO Q4H PRN PRN Reason: Cough Last Admin: 02/06/23 08:35 Dose: 10 ml Documented By: MILA Lidocaine (Lidocaine 4 % Patch Adh..Patch) 1 patch TRANSDERMA DAILY [facility]; Protocol Last Admin: 02/10/23 08:09 Dose: Not Given Documented By: NINFA Non-Admin Reason: Patient Refused Melatonin (Melatonin 3 Mg Tablet) 6 mg PO BEDTIME PRN PRN Reason: Insomnia Last Admin: 01/26/23 19:10 Dose: 6 mg Documented By: CHIKIS Memantine (Memantine Hcl 5 Mg Tablet) 5 mg PO DAILY [facility] Last Admin: 02/10/23 08:08 Dose: 5 mg Documented By: NINFA Ondansetron HCl (Ondansetron Hcl 4 Mg/2 Ml Vial) 4 mg IVPUSH Q8H PRN PRN Reason: Nausea and Vomiting Quetiapine Fumarate (Quetiapine Fumarate 25 Mg Tablet) 25 mg PO BID@1500,2100 [facility] Last Admin: 02/10/23 20:37 Dose: 25 mg Documented By: ROSELYN Labs 01/31/23 07:23 01/31/23 07:23 Assessment and Plan (1) Dementia: Status: Acute Plan 82yo F with osteoporosis + dementia in observation unit 01/01-01/06/23 awaiting LTC placement but then developed sepsis due to presumed UTI(resolved).? Awaiting guardianship for placement Essentially no change in care at this time 1.Dementia/behavioral disturbance -fairly well controlled with Seroquel as ordered,? will continue current dose of Seroquel, not on as needed medications, being followed by psych. 2.Sepsis due to presumed UTI,(resolved), completed abx 3.Mod pr-saba malnut -continue PO supplements Routine cbc and bmp 01/31--unremarkable - LMWH DNR/DNI dispo - accepted by Claude Olson for STR eventual possible transition to LTC; waiting for arianna Badillo will find out about court date . - DNR/DNI Patient requires continued inpatient hospitalization for the following reasons: safe placement. Time Spent With Patient Time: Total time managing care of this patient today ____ minutes. Quality Stroke Does the patient have a stroke diagnosis?: No VTE Prior VTE?: No VTE Risk Level:: Medical - moderate - high VTE Device Contraindication: Treatment Not Indicated VTE Drug Contraindication: N/A - Med Ordered
[2023-02-11] MEDS: Memantine HCl 5 MG TABLET PO (09:22)
[2023-02-11] MEDS: QUEtiapine Fumarate 25 MG TABLET PO ×2 (14:44→18:53)
[2023-02-11 15:20] VITALS: BP 97/56; PULSE 94; RESP 20; TEMP 36.6; O2SAT 96
[2023-02-11 19:25] VITALS: BP 118/56; PULSE 109; RESP 20; TEMP 36.2; O2SAT 96
[2023-02-12 02:57] VITALS: BP 109/66; PULSE 83; RESP 16; TEMP 36.8; O2SAT 96
[2023-02-12 08:00] VITALS: BP 119/58; PULSE 89; RESP 18; TEMP 36.4; O2SAT 97
[2023-02-12] MEDS: Memantine HCl 5 MG TABLET PO (08:37)
--- NOTE | 2023-02-12 09:16 | HO.PM.IMPN ---
Subjective Subjective Date of Service: 02/12/23 Interval History: doing well, no new issues Physical Exam Vital Signs: Vital Signs: Last Vital Signs Temp 97.6 F 02/12/23 08:00 Pulse 89 02/12/23 08:00 Resp 18 02/12/23 08:00 BP 119/58 L 02/12/23 08:00 Pulse Ox 97 02/12/23 08:00 O2 Del Method Room Air 02/12/23 08:00 BMI result Body Mass Index 15.9 Const: Other: General: oriented to self Resp: CTA bilateral CVS: S1,S2,RRR GI: +BS, NT, no distention Skin: No rash Neuro: motor grossly intact Psych: appropriate affect Objective Data Active Medications Acetaminophen (Acetaminophen 325 Mg Tablet) 650 mg PO Q6H PRN PRN Reason: Pain, Mild (Pain Scale 1-3) Last Admin: 02/01/23 09:08 Dose: 650 mg Documented By: PATRICIA Docusate Sodium (Docusate Sodium 100 Mg Capsule) 100 mg PO DAILY PRN PRN Reason: Constipation Last Admin: 02/03/23 09:22 Dose: 100 mg Documented By: PATRICIA Enoxaparin Sodium (Enoxaparin Sodium 40 Mg/0.4 Ml Syringe) 40 mg SUBCUT Q24H [facility] Last Admin: 02/11/23 16:39 Dose: Not Given Documented By: RHONDA Non-Admin Reason: Patient Refused Guaifenesin (Guaifenesin 100 Mg/5 Ml Liquid) 10 ml PO Q4H PRN PRN Reason: Cough Last Admin: 02/06/23 08:35 Dose: 10 ml Documented By: MILA Lidocaine (Lidocaine 4 % Patch Adh..Patch) 1 patch TRANSDERMA DAILY [facility]; Protocol Last Admin: 02/12/23 08:37 Dose: Not Given Documented By: MISSY Non-Admin Reason: Patient Refused Melatonin (Melatonin 3 Mg Tablet) 6 mg PO BEDTIME PRN PRN Reason: Insomnia Last Admin: 01/26/23 19:10 Dose: 6 mg Documented By: CHIKIS Memantine (Memantine Hcl 5 Mg Tablet) 5 mg PO DAILY [facility] Last Admin: 02/12/23 08:37 Dose: 5 mg Documented By: MISSY Ondansetron HCl (Ondansetron Hcl 4 Mg/2 Ml Vial) 4 mg IVPUSH Q8H PRN PRN Reason: Nausea and Vomiting Quetiapine Fumarate (Quetiapine Fumarate 25 Mg Tablet) 25 mg PO BID@1500,2100 [facility] Last Admin: 02/11/23 18:53 Dose: 25 mg Documented By: SAKSHI Labs 01/31/23 07:23 01/31/23 07:23 Assessment and Plan (1) Dementia: Status: Acute Plan 82yo F with osteoporosis + dementia in observation unit 01/01-01/06/23 awaiting LTC placement but then developed sepsis due to presumed UTI(resolved).? Awaiting guardianship for placement Essentially no change in care at this time 1.Dementia/behavioral disturbance -fairly well controlled with Seroquel as ordered,? will continue current dose of Seroquel, not on as needed medications, being followed by psych. 2.Sepsis due to presumed UTI,(resolved), completed abx 3.Mod pr-saba malnut -continue PO supplements Routine cbc and bmp 01/31--unremarkable - LMWH DNR/DNI dispo - accepted by [facility] for STR eventual possible transition to LTC; waiting for arianna Badillo will find out about court date . - DNR/DNI Patient requires continued inpatient hospitalization for the following reasons: safe placement. Time Spent With Patient Time: Total time managing care of this patient today ____ minutes. Quality Stroke Does the patient have a stroke diagnosis?: No VTE Prior VTE?: No VTE Risk Level:: Medical - moderate - high VTE Device Contraindication: Treatment Not Indicated VTE Drug Contraindication: N/A - Med Ordered
[2023-02-12] MEDS: QUEtiapine Fumarate 25 MG TABLET PO ×2 (14:19→19:37)
--- NOTE | 2023-02-12 15:09 | MHC.CM.PN ---
Court date today for Permanent conservator, guardianship and Badillo order. Patient attending via a zoom. CM data operations director is assisting with the ZOOM meeting. DP LTC via BLS.
[2023-02-12 15:33] VITALS: BP 108/54; PULSE 102; RESP 18; TEMP 36.7; O2SAT 94
[2023-02-12] MEDS: Enoxaparin Sodium 40 MG/0.4 ML SYRINGE SUBCUT (16:44)
[2023-02-12 20:00] VITALS: BP 90/60; PULSE 100; RESP 20; TEMP 36; O2SAT 100
[2023-02-13 02:57] VITALS: BP 110/60; PULSE 100; RESP 18; TEMP 36; O2SAT 95
[2023-02-13 08:00] VITALS: BP 112/55; PULSE 95; RESP 18; TEMP 36.1; O2SAT 99
--- NOTE | 2023-02-13 08:32 | HO.PM.IMPN ---
Subjective Subjective Date of Service: 02/13/23 Review of Systems no new issues Physical Exam Vital Signs: Vital Signs: Last Vital Signs Temp 97.0 F 02/13/23 08:00 Pulse 95 02/13/23 08:00 Resp 18 02/13/23 08:00 BP 112/55 L 02/13/23 08:00 Pulse Ox 99 02/13/23 08:00 O2 Del Method Room Air 02/13/23 08:00 BMI result Body Mass Index 15.9 Objective Data Active Medications Acetaminophen (Acetaminophen 325 Mg Tablet) 650 mg PO Q6H PRN PRN Reason: Pain, Mild (Pain Scale 1-3) Last Admin: 02/01/23 09:08 Dose: 650 mg Documented By: PATRICIA Docusate Sodium (Docusate Sodium 100 Mg Capsule) 100 mg PO DAILY PRN PRN Reason: Constipation Last Admin: 02/03/23 09:22 Dose: 100 mg Documented By: PATRICIA Enoxaparin Sodium (Enoxaparin Sodium 40 Mg/0.4 Ml Syringe) 40 mg SUBCUT Q24H [facility] Last Admin: 02/12/23 16:44 Dose: 40 mg Documented By: MISSY Guaifenesin (Guaifenesin 100 Mg/5 Ml Liquid) 10 ml PO Q4H PRN PRN Reason: Cough Last Admin: 02/06/23 08:35 Dose: 10 ml Documented By: MILA Lidocaine (Lidocaine 4 % Patch Adh..Patch) 1 patch TRANSDERMA DAILY [facility]; Protocol Last Admin: 02/12/23 08:37 Dose: Not Given Documented By: MISSY Non-Admin Reason: Patient Refused Melatonin (Melatonin 3 Mg Tablet) 6 mg PO BEDTIME PRN PRN Reason: Insomnia Last Admin: 01/26/23 19:10 Dose: 6 mg Documented By: CHIKIS Memantine (Memantine Hcl 5 Mg Tablet) 5 mg PO DAILY [facility] Last Admin: 02/12/23 08:37 Dose: 5 mg Documented By: MISSY Ondansetron HCl (Ondansetron Hcl 4 Mg/2 Ml Vial) 4 mg IVPUSH Q8H PRN PRN Reason: Nausea and Vomiting Quetiapine Fumarate (Quetiapine Fumarate 25 Mg Tablet) 25 mg PO BID@1500,2100 [facility] Last Admin: 02/12/23 19:37 Dose: 25 mg Documented By: LYNETTE Labs 01/31/23 07:23 01/31/23 07:23 Assessment and Plan (1) Dementia: Status: Acute Plan 82yo F with osteoporosis + dementia in observation unit 01/01-01/06/23 awaiting LTC placement but then developed sepsis due to presumed UTI(resolved).? Awaiting guardianship for placement Essentially no change in care at this time 1.Dementia/behavioral disturbance -well controlled with Seroquel. 2.Sepsis due to UTI, completed Abx and resolved 3.Mod pr-saba malnut -continue PO supplements Routine cbc and bmp 01/31--unremarkable - LMWH DNR/DNI dispo - accepted by [facility] for STR eventual possible transition to LTC; waiting for arianna Badillo will find out about court date . - DNR/DNI Patient requires continued inpatient hospitalization for the following reasons: safe placement. Time Spent With Patient Time: Total time managing care of this patient today ____ minutes. Quality Stroke Does the patient have a stroke diagnosis?: No VTE Prior VTE?: No VTE Risk Level:: Medical - moderate - high VTE Device Contraindication: Treatment Not Indicated VTE Drug Contraindication: N/A - Med Ordered
[2023-02-13] MEDS: Docusate Sodium 100 MG CAPSULE PO (09:21)
[2023-02-13] MEDS: Memantine HCl 5 MG TABLET PO (09:21)
[2023-02-13] MEDS: QUEtiapine Fumarate 25 MG TABLET PO ×2 (15:02→19:47)
[2023-02-13 15:57] VITALS: BP 124/60; PULSE 104; RESP 20; TEMP 37; O2SAT 97
[2023-02-13] MEDS: Enoxaparin Sodium 40 MG/0.4 ML SYRINGE SUBCUT (16:14)
[2023-02-13] MEDS: Acetaminophen 325 MG TABLET 650 MG PO (19:47)
[2023-02-13] MEDS: Melatonin 3 MG TABLET 6 MG PO (19:47)
[2023-02-13 19:51] VITALS: BP 109/55; PULSE 114; RESP 20; TEMP 36.6; O2SAT 96
[2023-02-14 00:21] VITALS: BP 101/52; PULSE 98; RESP 18; TEMP 36.1; O2SAT 95
[2023-02-14 07:38] VITALS: BP 110/55; PULSE 92; RESP 18; TEMP 36.3; O2SAT 94
--- NOTE | 2023-02-14 07:54 | P.PNIM_ITS ---
Subjective Subjective Date of Service: 02/14/23 Review of Systems no new issues, Physical Exam Vital Signs: Vital Signs: Last Vital Signs Temp 97.3 F 02/14/23 07:38 Pulse 92 02/14/23 07:38 Resp 18 02/14/23 07:38 BP 110/55 L 02/14/23 07:38 Pulse Ox 94 02/14/23 07:38 O2 Del Method Room Air 02/14/23 07:38 BMI result Body Mass Index 15.9 Const: Other: General: oriented to self Resp: CTA bilateral CVS: S1,S2,RRR GI: +BS, NT, no distention Skin: No rash Neuro: motor grossly intact Psych: appropriate affect Objective Data Active Medications Acetaminophen (Acetaminophen 325 Mg Tablet) 650 mg PO Q6H PRN PRN Reason: Pain, Mild (Pain Scale 1-3) Last Admin: 02/13/23 19:47 Dose: 325 mg Documented By: KENYATTA Comments: pt refused full dose Docusate Sodium (Docusate Sodium 100 Mg Capsule) 100 mg PO DAILY PRN PRN Reason: Constipation Last Admin: 02/13/23 09:21 Dose: 100 mg Documented By: SPENCER Enoxaparin Sodium (Enoxaparin Sodium 40 Mg/0.4 Ml Syringe) 40 mg SUBCUT Q24H [facility] Last Admin: 02/13/23 16:14 Dose: 40 mg Documented By: SPENCER Guaifenesin (Guaifenesin 100 Mg/5 Ml Liquid) 10 ml PO Q4H PRN PRN Reason: Cough Last Admin: 02/06/23 08:35 Dose: 10 ml Documented By: MILA Lidocaine (Lidocaine 4 % Patch Adh..Patch) 1 patch TRANSDERMA DAILY [facility]; Protocol Last Admin: 02/13/23 09:22 Dose: Not Given Documented By: SPENCER Non-Admin Reason: Patient Refused Melatonin (Melatonin 3 Mg Tablet) 6 mg PO BEDTIME PRN PRN Reason: Insomnia Last Admin: 02/13/23 19:47 Dose: 6 mg Documented By: KENYATTA Memantine (Memantine Hcl 5 Mg Tablet) 5 mg PO DAILY [facility] Last Admin: 02/13/23 09:21 Dose: 5 mg Documented By: SPENCER Ondansetron HCl (Ondansetron Hcl 4 Mg/2 Ml Vial) 4 mg IVPUSH Q8H PRN PRN Reason: Nausea and Vomiting Quetiapine Fumarate (Quetiapine Fumarate 25 Mg Tablet) 25 mg PO BID@1500,2100 [facility] Last Admin: 02/13/23 19:47 Dose: 25 mg Documented By: KENYATTA Labs 01/31/23 07:23 01/31/23 07:23 Assessment and Plan (1) Dementia: Status: Acute Plan 82yo F with osteoporosis + dementia in observation unit 01/01-01/06/23 awaiting LTC placement but then developed sepsis due to presumed UTI(resolved).? Awaiting guardianship for placement Essentially no change in care at this time 1.Dementia/behavioral disturbance -well controlled with Seroquel. 2.Sepsis due to UTI, completed Abx and resolved 3.Mod pr-saba malnut -continue PO supplements Routine cbc and bmp 01/31--unremarkable - LMWH DNR/DNI dispo - accepted by [facility] for STR eventual possible transition to LTC; waiting for noah Badillo court hearing on 02/12, unsure of outcome - DNR/DNI Patient requires continued inpatient hospitalization for the following reasons: safe placement. Time Spent With Patient Time: Total time managing care of this patient today ____ minutes. Quality Stroke Does the patient have a stroke diagnosis?: No VTE Prior VTE?: No VTE Risk Level:: Medical - moderate - high VTE Device Contraindication: Treatment Not Indicated VTE Drug Contraindication: N/A - Med Ordered
[2023-02-14] MEDS: Lidocaine 4 % Patch ADH..PATCH 1 PATCH TRANSDERMA (10:23)
[2023-02-14] MEDS: Memantine HCl 5 MG TABLET PO (10:23)
[2023-02-14] MEDS: QUEtiapine Fumarate 25 MG TABLET PO ×2 (14:02→22:11)
[2023-02-14 16:00] VITALS: BP 121/60; PULSE 111; RESP 18; TEMP 36.3; O2SAT 98
[2023-02-14 20:00] VITALS: BP 113/60; PULSE 105; RESP 20; TEMP 36.2; O2SAT 96
[2023-02-14 23:57] VITALS: BP 113/59; PULSE 104; RESP 18; TEMP 36.6; O2SAT 95
[2023-02-15 06:53] VITALS: BP 111/58; PULSE 91; RESP 17; TEMP 36.1; O2SAT 95
[2023-02-15] MEDS: Memantine HCl 5 MG TABLET PO (09:07)
--- NOTE | 2023-02-15 09:42 | HO.PM.IMPN ---
Subjective Subjective Date of Service: 02/15/23 Interval History: no new issues Physical Exam Vital Signs: Vital Signs: Last Vital Signs Temp 97 F 02/15/23 06:53 Pulse 91 02/15/23 06:53 Resp 17 02/15/23 06:53 BP 111/58 L 02/15/23 06:53 Pulse Ox 95 02/15/23 06:53 O2 Del Method Room Air 02/15/23 06:53 BMI result Body Mass Index 15.9 Const: Other: General: oriented to self Resp: CTA bilateral CVS: S1,S2,RRR GI: +BS, NT, no distention Skin: No rash Neuro: motor grossly intact Psych: appropriate affect Objective Data Active Medications Acetaminophen (Acetaminophen 325 Mg Tablet) 650 mg PO Q6H PRN PRN Reason: Pain, Mild (Pain Scale 1-3) Last Admin: 02/13/23 19:47 Dose: 325 mg Documented By: KENYATTA Comments: pt refused full dose Docusate Sodium (Docusate Sodium 100 Mg Capsule) 100 mg PO DAILY PRN PRN Reason: Constipation Last Admin: 02/13/23 09:21 Dose: 100 mg Documented By: SPENCER Enoxaparin Sodium (Enoxaparin Sodium 40 Mg/0.4 Ml Syringe) 40 mg SUBCUT Q24H [facility] Last Admin: 02/14/23 17:09 Dose: Not Given Documented By: ROGER Non-Admin Reason: Patient Refused Guaifenesin (Guaifenesin 100 Mg/5 Ml Liquid) 10 ml PO Q4H PRN PRN Reason: Cough Last Admin: 02/06/23 08:35 Dose: 10 ml Documented By: MILA Lidocaine (Lidocaine 4 % Patch Adh..Patch) 1 patch TRANSDERMA DAILY [facility]; Protocol Last Admin: 02/15/23 09:08 Dose: Not Given Documented By: MISSY Non-Admin Reason: Patient Refused Melatonin (Melatonin 3 Mg Tablet) 6 mg PO BEDTIME PRN PRN Reason: Insomnia Last Admin: 02/13/23 19:47 Dose: 6 mg Documented By: KENYATTA Memantine (Memantine Hcl 5 Mg Tablet) 5 mg PO DAILY [facility] Last Admin: 02/15/23 09:07 Dose: 5 mg Documented By: MISSY Ondansetron HCl (Ondansetron Hcl 4 Mg/2 Ml Vial) 4 mg IVPUSH Q8H PRN PRN Reason: Nausea and Vomiting Quetiapine Fumarate (Quetiapine Fumarate 25 Mg Tablet) 25 mg PO BID@1500,2100 [facility] Last Admin: 02/14/23 22:11 Dose: 25 mg Documented By: MARIA ESTHER Labs 01/31/23 07:23 01/31/23 07:23 Assessment and Plan (1) Dementia: Status: Acute Plan Admitted on 12/07/22 Chief Complaint: Leukocytosis, sepsis Pt is a 82-year-old female with a PMH significant for?osteoporosis and profound dementia not on home meds who presented to the ED 5 days prior on 01/01/2023 with worsening dementia.? Patient was brought in by family after wandering out of her house multiple times and eventually ending up in her neighbor's home.? According to guardian, patient's wandering has worsened recently to the point where the family no longer feels like they can manage her at home.? Patient apparently had been living with her in [place] up until September of this year when her began having health issues of his own and could no longer take care of the patient.? Guardian notes that for the past few weeks patient has been less ambulatory than prior, has been complaining of left knee pain after morning walks around the block.? All workup, including CBC, CMP, and UA were negative. Pt has been in the observation unit since then awaiting placement at a long-term care facility.? This morning patient was noted be lethargic, tachycardic up to 109, and labs were significant for a leukocytosis of 14.2.? Chest x-ray negative for acute cardiopulmonary process.? UA still pending since urine has not yet been able to be obtained via straight catheterization despite 3 attempts by 3 different clinicians. Pt was treated with ceftriaxone and IVF. Pt will be admitted to the hospital for sepsis possibly secondary to UTI. Hospital course: This patient has advanced dementia and has been living alone. Unfortunately, her dementia has been getting worse, and she has been wondering out of the house to places, including neighbors; this has raised safety concerns, and given the escalation nature of this, the family brought her to the ED to be assessed in November, and at that time she was found to have UTI with sepsis, leukocytosis. The infection was successfully treated with antibiotics and resolved. During hospitalization, she had behavior issues and was seen by Psych recommendation for Seroquel 25 mg twice and to continue Namenda. This has worked very well with very control of her behaviors at this time. Unfortunately, she is incapable of living alone at this time and and needed a safe disposition, and this could not be done until Eugene's order was in place. A Justino's order was finally obtained on 02/12/23, and the patient will be discharged to rest home at [place]. Her hospital stay was uncomplicated, and the lengthy hospitalization was all due to finding the proper disposition for her. Her vitals are stable and unremarkable, and routine labs have also been okay. She has moderate protein calorie malnutrition and is given protein supplements. DVT - LMWH DNR/DNI To Patient requires continued inpatient hospitalization for the following reasons: safe placement. To [facility] on 02/16/23 Time Spent With Patient Time: Total time managing care of this patient today ____ minutes. Quality Stroke Does the patient have a stroke diagnosis?: No VTE Prior VTE?: No VTE Risk Level:: Medical - moderate - high VTE Device Contraindication: Treatment Not Indicated VTE Drug Contraindication: N/A - Med Ordered
[2023-02-15] MEDS: QUEtiapine Fumarate 25 MG TABLET PO ×2 (14:47→19:15)
[2023-02-15 15:36] VITALS: BP 97/55; PULSE 96; RESP 20; TEMP 36.6; O2SAT 96
[2023-02-15] MEDS: Enoxaparin Sodium 40 MG/0.4 ML SYRINGE SUBCUT (16:17)
[2023-02-15 19:08] VITALS: BP 118/57; PULSE 113; RESP 18; TEMP 36.2; O2SAT 95
[2023-02-16 04:00] VITALS: BP 104/51; PULSE 98; RESP 16; TEMP 36.3; O2SAT 94
[2023-02-16 08:00] VITALS: BP 117/58; PULSE 92; RESP 18; TEMP 36.8; O2SAT 93
[2023-02-16] MEDS: Memantine HCl 5 MG TABLET PO (08:23)
--- NOTE | 2023-02-16 12:34 | HO.PM.IMPN ---
Subjective Subjective Date of Service: 02/16/23 Interval History: Offers no acute complaints, no issues overnight tolerating diet no nausea, no vomiting no abdominal pain. Review of Systems All other system reviewed and negative. Although unable to provide meaningful history due to underlying dementia. Physical Exam Vital Signs: Vital Signs: Last Vital Signs Temp 98.3 F 02/16/23 08:00 Pulse 92 02/16/23 08:00 Resp 18 02/16/23 08:00 BP 117/58 L 02/16/23 08:00 Pulse Ox 93 02/16/23 08:00 O2 Del Method Room Air 02/16/23 08:00 BMI result Body Mass Index 15.9 Const: Other: General: oriented to self Neck no JVD Resp:? CTA bilateral CVS: S1,S2,RRR GI: +BS, NT, no distention Skin: No rash Neuro:? motor grossly intact Psych: appropriate affect Objective Data Active Medications Acetaminophen (Acetaminophen 325 Mg Tablet) 650 mg PO Q6H PRN PRN Reason: Pain, Mild (Pain Scale 1-3) Last Admin: 02/13/23 19:47 Dose: 325 mg Documented By: KENYATTA Comments: pt refused full dose Docusate Sodium (Docusate Sodium 100 Mg Capsule) 100 mg PO DAILY PRN PRN Reason: Constipation Last Admin: 02/13/23 09:21 Dose: 100 mg Documented By: SPENCER Enoxaparin Sodium (Enoxaparin Sodium 40 Mg/0.4 Ml Syringe) 40 mg SUBCUT Q24H [facility] Last Admin: 02/15/23 16:17 Dose: 40 mg Documented By: MISSY Guaifenesin (Guaifenesin 100 Mg/5 Ml Liquid) 10 ml PO Q4H PRN PRN Reason: Cough Last Admin: 02/06/23 08:35 Dose: 10 ml Documented By: MILA Lidocaine (Lidocaine 4 % Patch Adh..Patch) 1 patch TRANSDERMA DAILY [facility]; Protocol Last Admin: 02/16/23 07:18 Dose: Not Given Documented By: MISSY Non-Admin Reason: Patient Refused Melatonin (Melatonin 3 Mg Tablet) 6 mg PO BEDTIME PRN PRN Reason: Insomnia Last Admin: 02/13/23 19:47 Dose: 6 mg Documented By: KENYATTA Memantine (Memantine Hcl 5 Mg Tablet) 5 mg PO DAILY [facility] Last Admin: 02/16/23 08:23 Dose: 5 mg Documented By: MISSY Ondansetron HCl (Ondansetron Hcl 4 Mg/2 Ml Vial) 4 mg IVPUSH Q8H PRN PRN Reason: Nausea and Vomiting Quetiapine Fumarate (Quetiapine Fumarate 25 Mg Tablet) 25 mg PO BID@1500,2100 [facility] Last Admin: 02/15/23 19:15 Dose: 25 mg Documented By: ROSELYN Labs 01/31/23 07:23 01/31/23 07:23 Assessment and Plan (1) Major neurocognitive disorder due to Alzheimer's disease, with behavioral disturbance: Status: Acute Plan 82yo F with osteoporosis + dementia in observation unit 01/01-01/06/23 awaiting LTC placement but then developed sepsis due to presumed UTI(resolved).? Awaiting guardianship for placement ?Essentially no change in care 1.Dementia/behavioral disturbance -well controlled with Seroquel. 2.Sepsis due to UTI, completed Abx and resolved. 3.Mod pr-saba malnut -continue PO supplements Routine cbc and bmp 01/31--unremarkable - LMWH DNR/DNI dispo - accepted by [facility] for STR eventual possible transition to LTC; waiting for Justino had court hearing on 02/12, unsure of outcome - DNR/DNI Patient requires continued inpatient hospitalization for the following reasons: safe placement. Time Spent With Patient Time: Total time managing care of this patient today ____ minutes. Quality Stroke Does the patient have a stroke diagnosis?: No VTE Prior VTE?: No VTE Risk Level:: Medical - moderate - high VTE Device Contraindication: Treatment Not Indicated VTE Drug Contraindication: N/A - Med Ordered
[2023-02-16 15:47] VITALS: BP 106/57; PULSE 105; RESP 18; TEMP 36.6; O2SAT 97
--- NOTE | 2023-02-16 15:58 | MHC.CM.PN ---
Cm attempted to contact pt's sister Melani to determine if she has recieved any paperwork from courts regarding guardianship/conservatorship/Badillo that was granted on 02/12/23, no answer and detailed message left. Pt has no bed offers at this time, snf referral updated and expanded as [facility] and [facility] no longer have LTC beds available, cm will cont to follow d/c needs.
[2023-02-16] MEDS: Enoxaparin Sodium 40 MG/0.4 ML SYRINGE SUBCUT (16:14)
[2023-02-16] MEDS: QUEtiapine Fumarate 25 MG TABLET PO ×2 (16:14→19:23)
[2023-02-17 04:00] VITALS: BP 121/64; PULSE 92; RESP 18; TEMP 36.2; O2SAT 93
[2023-02-17 07:16] VITALS: BP 98/55; PULSE 86; RESP 16; TEMP 36.1; O2SAT 95
[2023-02-17] MEDS: Lidocaine 4 % Patch ADH..PATCH 1 PATCH TRANSDERMA (07:59)
[2023-02-17] MEDS: Memantine HCl 5 MG TABLET PO (08:00)
[2023-02-17] MEDS: Acetaminophen 325 MG TABLET 650 MG PO (08:00)
--- NOTE | 2023-02-17 11:13 | MHC.CLN ---
F/U DIET=REGULAR-APPROPRIATE. ENSURE BID PROVIDES ADDITIONAL 700 KCALS, 40 G PROTEIN. PO INTAKE 50-100%, WITH MOST MEALS 100%. NO SKIN ISSUES. NO NEW WEIGHTS. CONTINUE TO MONITOR PO INTAKE AND WEIGHTS. RD TO FOLLOW WEEKLY.
--- NOTE | 2023-02-17 11:31 | P.PNIM_ITS ---
Subjective Subjective Date of Service: 02/17/23 Interval History: Sitting comfortably eating breakfast, no acute issues overnight. Review of Systems Unable to obtain detailed review of system due to dementia. Physical Exam Vital Signs: Vital Signs: Last Vital Signs Temp 97 F 02/17/23 07:16 Pulse 86 02/17/23 07:16 Resp 16 02/17/23 07:16 BP 98/55 L 02/17/23 07:16 Pulse Ox 95 02/17/23 07:16 O2 Del Method Room Air 02/17/23 07:16 BMI result Body Mass Index 15.9 Const: Other: General: oriented to self Neck no JVD Resp:? CTA bilateral CVS: S1,S2,RRR GI: +BS, NT, no distention Skin: No rash Extremities no edema Neuro:? motor grossly intact Psych: appropriate affect Objective Data Active Medications Acetaminophen (Acetaminophen 325 Mg Tablet) 650 mg PO Q6H PRN PRN Reason: Pain, Mild (Pain Scale 1-3) Last Admin: 02/17/23 08:00 Dose: 650 mg Documented By: DENNYS Docusate Sodium (Docusate Sodium 100 Mg Capsule) 100 mg PO DAILY PRN PRN Reason: Constipation Last Admin: 02/13/23 09:21 Dose: 100 mg Documented By: SPENCER Enoxaparin Sodium (Enoxaparin Sodium 40 Mg/0.4 Ml Syringe) 40 mg SUBCUT Q24H [facility] Last Admin: 02/16/23 16:14 Dose: 40 mg Documented By: MISSY Guaifenesin (Guaifenesin 100 Mg/5 Ml Liquid) 10 ml PO Q4H PRN PRN Reason: Cough Last Admin: 02/06/23 08:35 Dose: 10 ml Documented By: MILA Lidocaine (Lidocaine 4 % Patch Adh..Patch) 1 patch TRANSDERMA DAILY [facility]; Protocol Last Admin: 02/17/23 07:59 Dose: 1 patch Documented By: DENNYS Melatonin (Melatonin 3 Mg Tablet) 6 mg PO BEDTIME PRN PRN Reason: Insomnia Last Admin: 02/13/23 19:47 Dose: 6 mg Documented By: KENYATTA Memantine (Memantine Hcl 5 Mg Tablet) 5 mg PO DAILY [facility] Last Admin: 02/17/23 08:00 Dose: 5 mg Documented By: DENNYS Ondansetron HCl (Ondansetron Hcl 4 Mg/2 Ml Vial) 4 mg IVPUSH Q8H PRN PRN Reason: Nausea and Vomiting Quetiapine Fumarate (Quetiapine Fumarate 25 Mg Tablet) 25 mg PO BID@1500,2100 [facility] Last Admin: 02/16/23 19:23 Dose: 25 mg Documented By: ROSELYN Labs 01/31/23 07:23 01/31/23 07:23 Assessment and Plan (1) Major neurocognitive disorder due to Alzheimer's disease, with behavioral disturbance: Status: Acute Plan 82yo F with osteoporosis + dementia in observation unit 01/01-01/06/23 awaiting LTC placement but then developed sepsis due to presumed UTI(resolved).? Awaiting guardianship for placement ? 1.Dementia/behavioral disturbance -well controlled with Seroquel. 2.Sepsis due to UTI, completed Abx and resolved. 3.Mod protein calorie malnutrition continue supplements Routine cbc and bmp 01/31--unremarkable - LMWH DNR/DNI dispo - watch case polisher looking for bed - DNR/DNI Patient requires continued inpatient hospitalization for the following reasons: safe placement. Time Spent With Patient Time: Total time managing care of this patient today ____ minutes. Quality Stroke Does the patient have a stroke diagnosis?: No VTE Prior VTE?: No VTE Risk Level:: Medical - moderate - high VTE Device Contraindication: Treatment Not Indicated VTE Drug Contraindication: N/A - Med Ordered
--- NOTE | 2023-02-17 13:47 | MHC.CM.PN ---
EMR REVIEWED, CM AWAITING CALL BACK FROM PT'S SISTER/NEWLY APPOINTED [facility], NO BED LTC BED OFFERS AT THIS TIME, SNF REFERRAL EXPANDED TO [address] IN [facility], CM WILL CONT TO FOLLOW FOR PLACEMENT AND RECEIPT OF PERMANENT [facility] NEEDED FOR PLACEMENT.
[2023-02-17 15:42] VITALS: BP 106/54; PULSE 111; RESP 18; TEMP 37; O2SAT 95
[2023-02-17] MEDS: QUEtiapine Fumarate 25 MG TABLET PO ×2 (15:57→19:23)
[2023-02-17] MEDS: Enoxaparin Sodium 40 MG/0.4 ML SYRINGE SUBCUT (16:01)
[2023-02-17 17:31] VITALS: PULSE 92
[2023-02-17] MEDS: Melatonin 3 MG TABLET 6 MG PO (19:23)
[2023-02-17 19:38] VITALS: BP 107/60; PULSE 111; RESP 17; TEMP 36.6; O2SAT 94
[2023-02-18 03:42] VITALS: BP 107/52; PULSE 92; RESP 16; TEMP 36.1; O2SAT 95
[2023-02-18 07:13] VITALS: BP 111/59; PULSE 88; RESP 20; TEMP 36.4; O2SAT 96
[2023-02-18] MEDS: Memantine HCl 5 MG TABLET PO (07:35)
[2023-02-18] MEDS: Lidocaine 4 % Patch ADH..PATCH 1 PATCH TRANSDERMA (07:35)
--- NOTE | 2023-02-18 14:21 | HO.PM.IMPN ---
Subjective Subjective Date of Service: 02/18/23 Interval History: Offers no acute complaints, tolerating diet no nausea, no vomiting, no abdominal pain, no issues overnight. Review of Systems Unable to obtain due to mental status Physical Exam Vital Signs: Vital Signs: Last Vital Signs Temp 97.5 F 02/18/23 07:13 Pulse 88 02/18/23 07:13 Resp 20 02/18/23 07:13 BP 111/59 L 02/18/23 07:13 Pulse Ox 96 02/18/23 07:13 O2 Del Method Room Air 02/18/23 07:13 BMI result Body Mass Index 15.9 Const: Other: General: oriented to self Neck no JVD Resp:? CTA bilateral CVS: S1,S2,RRR GI: +BS, NT, no distention Skin: No rash Extremities no edema Neuro:? motor grossly intact Psych: appropriate affect Objective Data Active Medications Acetaminophen (Acetaminophen 325 Mg Tablet) 650 mg PO Q6H PRN PRN Reason: Pain, Mild (Pain Scale 1-3) Last Admin: 02/17/23 08:00 Dose: 650 mg Documented By: DENNYS Docusate Sodium (Docusate Sodium 100 Mg Capsule) 100 mg PO DAILY PRN PRN Reason: Constipation Last Admin: 02/13/23 09:21 Dose: 100 mg Documented By: SPENCER Enoxaparin Sodium (Enoxaparin Sodium 40 Mg/0.4 Ml Syringe) 40 mg SUBCUT Q24H [facility] Last Admin: 02/17/23 16:01 Dose: 40 mg Documented By: DENNYS Guaifenesin (Guaifenesin 100 Mg/5 Ml Liquid) 10 ml PO Q4H PRN PRN Reason: Cough Last Admin: 02/06/23 08:35 Dose: 10 ml Documented By: MILA Lidocaine (Lidocaine 4 % Patch Adh..Patch) 1 patch TRANSDERMA DAILY [facility]; Protocol Last Admin: 02/18/23 07:35 Dose: 1 patch Documented By: RHONDA Melatonin (Melatonin 3 Mg Tablet) 6 mg PO BEDTIME PRN PRN Reason: Insomnia Last Admin: 02/17/23 19:23 Dose: 6 mg Documented By: SAKSHI Memantine (Memantine Hcl 5 Mg Tablet) 5 mg PO DAILY [facility] Last Admin: 02/18/23 07:35 Dose: 5 mg Documented By: DABRosette Ondansetron HCl (Ondansetron Hcl 4 Mg/2 Ml Vial) 4 mg IVPUSH Q8H PRN PRN Reason: Nausea and Vomiting Quetiapine Fumarate (Quetiapine Fumarate 25 Mg Tablet) 25 mg PO BID@1500,2100 [facility] Last Admin: 02/17/23 19:23 Dose: 25 mg Documented By: TEMITOPEQC Labs 01/31/23 07:23 01/31/23 07:23 Assessment and Plan (1) Major neurocognitive disorder due to Alzheimer's disease, with behavioral disturbance: Status: Acute Plan 82yo F with osteoporosis + dementia in observation unit 01/01-01/06/23 awaiting LTC placement but then developed sepsis due to presumed UTI(resolved).? Awaiting guardianship for placement ? 1.Dementia/behavioral disturbance -well controlled with Seroquel. 2.Sepsis due to UTI, completed Abx and resolved. 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 Time Spent With Patient Time: Total time managing care of this patient today ____ minutes. Quality Stroke Does the patient have a stroke diagnosis?: No VTE Prior VTE?: No VTE Risk Level:: Medical - moderate - high VTE Device Contraindication: Treatment Not Indicated VTE Drug Contraindication: N/A - Med Ordered
[2023-02-18] MEDS: QUEtiapine Fumarate 25 MG TABLET PO ×2 (14:34→20:37)
[2023-02-18] MEDS: Enoxaparin Sodium 40 MG/0.4 ML SYRINGE SUBCUT (14:35)
[2023-02-18 15:31] VITALS: BP 104/58; PULSE 100; RESP 20; TEMP 36.6; O2SAT 97
[2023-02-18 19:51] VITALS: BP 100/56; PULSE 72; RESP 20; TEMP 36.2; O2SAT 95
[2023-02-19 03:59] VITALS: BP 91/54; PULSE 99; RESP 20; TEMP 37.1; O2SAT 93
[2023-02-19 07:40] VITALS: BP 98/52; PULSE 94; RESP 20; TEMP 36.2; O2SAT 94
[2023-02-19] MEDS: Memantine HCl 5 MG TABLET PO (09:39)
[2023-02-19] MEDS: Acetaminophen 325 MG TABLET 650 MG PO (13:08)
--- NOTE | 2023-02-19 13:27 | MHC.CM.PN ---
Patient in need of LTC. No documents have been received from the court re Guardianship/conservatorship(permanent) and Badillo order. VMs have been left for the patients dtr/HCP Hannah. Request for [facility] documents outstanding and court papers. No return call received. CM will continue to follow.
[2023-02-19] MEDS: QUEtiapine Fumarate 25 MG TABLET PO ×2 (14:02→19:34)
--- NOTE | 2023-02-19 14:24 | P.PNIM_ITS ---
Subjective Subjective Date of Service: 02/19/23 Interval History: Offers no acute complaints, no issues overnight, tolerating diet no nausea no vomiting no abdominal pain. Review of Systems Unable to obtain due to mental status. Physical Exam 2 Vital Signs: Vital Signs: Last Vital Signs Temp 97.2 F 02/19/23 07:40 Pulse 94 02/19/23 07:40 Resp 20 02/19/23 07:40 BP 98/52 L 02/19/23 07:40 Pulse Ox 94 02/19/23 07:40 O2 Del Method Room Air 02/19/23 07:40 BMI result Body Mass Index 15.9 Const: Other: General: oriented to self Neck no JVD Resp:? CTA bilateral CVS: S1,S2,RRR GI: +BS, NT, no distention Skin: No rash Extremities no edema Neuro:? motor grossly intact Psych: appropriate affect Objective Data Active Medications Acetaminophen (Acetaminophen 325 Mg Tablet) 650 mg PO Q6H PRN PRN Reason: Pain, Mild (Pain Scale 1-3) Last Admin: 02/19/23 13:08 Dose: 650 mg Documented By: ROGER Docusate Sodium (Docusate Sodium 100 Mg Capsule) 100 mg PO DAILY PRN PRN Reason: Constipation Last Admin: 02/13/23 09:21 Dose: 100 mg Documented By: SPENCER Enoxaparin Sodium (Enoxaparin Sodium 40 Mg/0.4 Ml Syringe) 40 mg SUBCUT Q24H [facility] Last Admin: 02/18/23 14:35 Dose: 40 mg Documented By: RHONDA Guaifenesin (Guaifenesin 100 Mg/5 Ml Liquid) 10 ml PO Q4H PRN PRN Reason: Cough Last Admin: 02/06/23 08:35 Dose: 10 ml Documented By: MILA Lidocaine (Lidocaine 4 % Patch Adh..Patch) 1 patch TRANSDERMA DAILY [facility]; Protocol Last Admin: 02/19/23 09:40 Dose: Not Given Documented By: ROGER Non-Admin Reason: Patient Refused Melatonin (Melatonin 3 Mg Tablet) 6 mg PO BEDTIME PRN PRN Reason: Insomnia Last Admin: 02/17/23 19:23 Dose: 6 mg Documented By: SAKSHI Memantine (Memantine Hcl 5 Mg Tablet) 5 mg PO DAILY [facility] Last Admin: 02/19/23 09:39 Dose: 5 mg Documented By: ROGER Ondansetron HCl (Ondansetron Hcl 4 Mg/2 Ml Vial) 4 mg IVPUSH Q8H PRN PRN Reason: Nausea and Vomiting Quetiapine Fumarate (Quetiapine Fumarate 25 Mg Tablet) 25 mg PO BID@1500,2100 [facility] Last Admin: 02/19/23 14:02 Dose: 25 mg Documented By: ROGER Labs 01/31/23 07:23 01/31/23 07:23 Assessment and Plan (1) Major neurocognitive disorder due to Alzheimer's disease, with behavioral disturbance: Status: Acute Plan 82yo F with osteoporosis + dementia in observation unit 01/01-01/06/23 awaiting LTC placement but then developed sepsis due to presumed UTI(resolved).? Awaiting guardianship for placement ? 1.Dementia/behavioral disturbance -well controlled with Seroquel. 2.Sepsis due to UTI, completed Abx and resolved. 3.Mod protein calorie malnutrition continue supplements Routine cbc and bmp 01/31--unremarkable - LMWH DNR/DNI patient requires continued inpatient hospitalization for the following reasons: safe placement. Time Spent With Patient Time: Total time managing care of this patient today ____ minutes. Quality Stroke Does the patient have a stroke diagnosis?: No VTE Prior VTE?: No VTE Risk Level:: Medical - moderate - high VTE Device Contraindication: Treatment Not Indicated VTE Drug Contraindication: N/A - Med Ordered
[2023-02-19 16:00] VITALS: BP 94/53; PULSE 92; RESP 18; TEMP 36.2; O2SAT 94
[2023-02-19 20:00] VITALS: BP 95/55; PULSE 85; RESP 18; TEMP 36.1; O2SAT 94
[2023-02-19] MEDS: Melatonin 3 MG TABLET 6 MG PO (21:03)
[2023-02-20 02:53] VITALS: BP 114/56; PULSE 73; RESP 18; TEMP 36.6; O2SAT 95
[2023-02-20] MEDS: Memantine HCl 5 MG TABLET PO (07:44)
[2023-02-20 07:45] VITALS: BP 113/55; PULSE 85; RESP 18; TEMP 36.6; O2SAT 95
--- NOTE | 2023-02-20 08:39 | P.PNIM_ITS ---
Subjective Subjective Date of Service: 02/20/23 Interval History: No acute issues overnight, patient sitting comfortably eating breakfast no nausea, no vomiting, offers no acute complaints. Review of Systems Unable to obtain review of system due to mental status Physical Exam 2 Vital Signs: Vital Signs: Last Vital Signs Temp 97.9 F 02/20/23 07:45 Pulse 85 02/20/23 07:45 Resp 18 02/20/23 07:45 BP 113/55 L 02/20/23 07:45 Pulse Ox 95 02/20/23 07:45 O2 Del Method Room Air 02/20/23 07:45 BMI result Body Mass Index 15.9 Const: Other: General: oriented to self Neck no JVD Resp:? CTA bilateral CVS: S1,S2,RRR GI: +BS, NT, no distention Skin: No rash Extremities no edema Neuro:? motor grossly intact Psych: appropriate affect Objective Data Active Medications Acetaminophen (Acetaminophen 325 Mg Tablet) 650 mg PO Q6H PRN PRN Reason: Pain, Mild (Pain Scale 1-3) Last Admin: 02/19/23 13:08 Dose: 650 mg Documented By: ROGER Docusate Sodium (Docusate Sodium 100 Mg Capsule) 100 mg PO DAILY PRN PRN Reason: Constipation Last Admin: 02/13/23 09:21 Dose: 100 mg Documented By: SPENCER Enoxaparin Sodium (Enoxaparin Sodium 40 Mg/0.4 Ml Syringe) 40 mg SUBCUT Q24H [facility] Last Admin: 02/19/23 18:42 Dose: Not Given Documented By: ROGER Non-Admin Reason: Patient Refused Guaifenesin (Guaifenesin 100 Mg/5 Ml Liquid) 10 ml PO Q4H PRN PRN Reason: Cough Last Admin: 02/06/23 08:35 Dose: 10 ml Documented By: MILA Lidocaine (Lidocaine 4 % Patch Adh..Patch) 1 patch TRANSDERMA DAILY [facility]; Protocol Last Admin: 02/20/23 07:42 Dose: Not Given Documented By: DAVID Non-Admin Reason: Patient Refused Melatonin (Melatonin 3 Mg Tablet) 6 mg PO BEDTIME PRN PRN Reason: Insomnia Last Admin: 02/19/23 21:03 Dose: 6 mg Documented By: CHIKIS Memantine (Memantine Hcl 5 Mg Tablet) 5 mg PO DAILY [facility] Last Admin: 02/20/23 07:44 Dose: 5 mg Documented By: DAVID Ondansetron HCl (Ondansetron Hcl 4 Mg/2 Ml Vial) 4 mg IVPUSH Q8H PRN PRN Reason: Nausea and Vomiting Quetiapine Fumarate (Quetiapine Fumarate 25 Mg Tablet) 25 mg PO BID@1500,2100 [facility] Last Admin: 02/19/23 19:34 Dose: 25 mg Documented By: CHIKIS Labs 01/31/23 07:23 01/31/23 07:23 Assessment and Plan (1) Major neurocognitive disorder due to Alzheimer's disease, with behavioral disturbance: Status: Acute Plan 82yo F with osteoporosis + dementia in observation unit 01/01-01/06/23 awaiting LTC placement but then developed sepsis due to presumed UTI(resolved).? Awaiting guardianship for placement ? 1.Dementia/behavioral disturbance -well controlled with Seroquel. 2.Sepsis due to UTI, completed Abx and resolved. 3.Mod protein calorie malnutrition continue supplements Routine cbc and bmp 01/31--unremarkable - LMWH DNR/DNI patient requires continued inpatient hospitalization for the following reasons: safe placement. Patient need LT C waiting for documents from court regarding guardianship and Badillo order. Time Spent With Patient Time: Total time managing care of this patient today ____ minutes. Quality Stroke Does the patient have a stroke diagnosis?: No VTE Prior VTE?: No VTE Risk Level:: Medical - moderate - high VTE Device Contraindication: Treatment Not Indicated VTE Drug Contraindication: N/A - Med Ordered
[2023-02-20] MEDS: QUEtiapine Fumarate 25 MG TABLET PO ×2 (14:20→19:21)
[2023-02-20 15:08] VITALS: BP 116/64; PULSE 120; RESP 18; TEMP 36.4; O2SAT 97
[2023-02-20] MEDS: Melatonin 3 MG TABLET 6 MG PO (19:21)
[2023-02-20 19:55] VITALS: BP 113/58; PULSE 101; RESP 18; TEMP 36.3; O2SAT 96
[2023-02-21 03:29] VITALS: BP 113/69; PULSE 93; RESP 17; TEMP 36.3; O2SAT 95
[2023-02-21 07:35] VITALS: BP 124/68; PULSE 91; RESP 18; TEMP 36.7; O2SAT 94
[2023-02-21] MEDS: Memantine HCl 5 MG TABLET PO (07:48)
--- NOTE | 2023-02-21 13:56 | P.PNIM_ITS ---
Subjective Subjective Date of Service: 02/21/23 Interval History: No acute events overnight, tolerating diet no nausea no vomiting no abdominal pain, patient offers no acute complaints. Review of Systems Unable to obtain detailed review of system due to mental status Physical Exam 2 Vital Signs: Vital Signs: Last Vital Signs Temp 98.0 F 02/21/23 07:35 Pulse 91 02/21/23 07:35 Resp 18 02/21/23 07:35 BP 124/68 02/21/23 07:35 Pulse Ox 94 02/21/23 07:35 O2 Del Method Room Air 02/21/23 07:35 BMI result Body Mass Index 15.9 Const: Other: General: oriented to self Neck no JVD Resp:? CTA bilateral CVS: S1,S2,RRR GI: +BS, NT, no distention Skin: No rash Extremities no edema Neuro:? motor grossly intact Psych: appropriate affect Objective Data Active Medications Acetaminophen (Acetaminophen 325 Mg Tablet) 650 mg PO Q6H PRN PRN Reason: Pain, Mild (Pain Scale 1-3) Last Admin: 02/19/23 13:08 Dose: 650 mg Documented By: ROGER Docusate Sodium (Docusate Sodium 100 Mg Capsule) 100 mg PO DAILY PRN PRN Reason: Constipation Last Admin: 02/13/23 09:21 Dose: 100 mg Documented By: SPENCER Enoxaparin Sodium (Enoxaparin Sodium 40 Mg/0.4 Ml Syringe) 40 mg SUBCUT Q24H [facility] Last Admin: 02/20/23 16:26 Dose: Not Given Documented By: DAVID Non-Admin Reason: Patient Refused Guaifenesin (Guaifenesin 100 Mg/5 Ml Liquid) 10 ml PO Q4H PRN PRN Reason: Cough Last Admin: 02/06/23 08:35 Dose: 10 ml Documented By: MILA Lidocaine (Lidocaine 4 % Patch Adh..Patch) 1 patch TRANSDERMA DAILY [facility]; Protocol Last Admin: 02/21/23 07:45 Dose: Not Given Documented By: DAVID Non-Admin Reason: Patient Refused Melatonin (Melatonin 3 Mg Tablet) 6 mg PO BEDTIME PRN PRN Reason: Insomnia Last Admin: 02/20/23 19:21 Dose: 6 mg Documented By: CHIKIS Memantine (Memantine Hcl 5 Mg Tablet) 5 mg PO DAILY [facility] Last Admin: 02/21/23 07:48 Dose: 5 mg Documented By: DAVID Ondansetron HCl (Ondansetron Hcl 4 Mg/2 Ml Vial) 4 mg IVPUSH Q8H PRN PRN Reason: Nausea and Vomiting Quetiapine Fumarate (Quetiapine Fumarate 25 Mg Tablet) 25 mg PO BID@1500,2100 [facility] Last Admin: 02/20/23 19:21 Dose: 25 mg Documented By: CHIKIS Labs 01/31/23 07:23 01/31/23 07:23 Assessment and Plan (1) Major neurocognitive disorder due to Alzheimer's disease, with behavioral disturbance: Status: Acute Plan 82yo F with osteoporosis + dementia in observation unit 01/01-01/06/23 awaiting LTC placement but then developed sepsis due to presumed UTI(resolved).? Awaiting guardianship for placement ? 1.Dementia/behavioral disturbance -well controlled with Seroquel. 2.Sepsis due to UTI, completed Abx and resolved. 3.Mod protein calorie malnutrition continue supplements Routine cbc and bmp 01/31--unremarkable - LMWH DNR/DNI patient requires continued inpatient hospitalization for the following reasons: safe placement. Patient need LT C waiting for documents from court regarding guardianship and Badillo order. Time Spent With Patient Time: Total time managing care of this patient today ____ minutes. Quality Stroke Does the patient have a stroke diagnosis?: No VTE Prior VTE?: No VTE Risk Level:: Medical - moderate - high VTE Device Contraindication: Treatment Not Indicated VTE Drug Contraindication: N/A - Med Ordered
[2023-02-21] MEDS: QUEtiapine Fumarate 25 MG TABLET PO ×2 (14:32→19:52)
[2023-02-21 15:36] VITALS: BP 98/54; PULSE 101; RESP 18; TEMP 36.8; O2SAT 97
[2023-02-21 20:00] VITALS: BP 122/79; PULSE 81; RESP 20; TEMP 36.6; O2SAT 98
[2023-02-22 04:00] VITALS: BP 130/60; PULSE 85; RESP 16; TEMP 36.1; O2SAT 100
[2023-02-22 08:00] VITALS: BP 103/57; PULSE 98; RESP 20; TEMP 36.9; O2SAT 100
[2023-02-22] MEDS: Memantine HCl 5 MG TABLET PO (08:22)
[2023-02-22] MEDS: Lidocaine 4 % Patch ADH..PATCH 1 PATCH TRANSDERMA (08:22)
[2023-02-22] MEDS: QUEtiapine Fumarate 25 MG TABLET PO ×2 (14:00→19:40)
[2023-02-22] MEDS: Acetaminophen 325 MG TABLET 650 MG PO (14:00)
--- NOTE | 2023-02-22 14:07 | HO.PM.IMPN ---
Subjective Subjective Date of Service: 02/22/23 Interval History: No acute events overnight Physical Exam Vital Signs: Vital Signs: Last Vital Signs Temp 98.5 F 02/22/23 08:00 Pulse 98 02/22/23 08:00 Resp 20 02/22/23 08:00 BP 103/57 L 02/22/23 08:00 Pulse Ox 100 02/22/23 08:00 O2 Del Method Room Air 02/22/23 08:00 BMI result Body Mass Index 15.9 General: oriented to self Resp:? CTA bilateral, no rales or wheezing CVS: S1,S2,RRR GI: +BS, NT, no distention Skin: No rash Extremities no edema Neuro:? motor grossly intact Objective Data Active Medications Acetaminophen (Acetaminophen 325 Mg Tablet) 650 mg PO Q6H PRN PRN Reason: Pain, Mild (Pain Scale 1-3) Last Admin: 02/22/23 14:00 Dose: 650 mg Documented By: DENNYS Docusate Sodium (Docusate Sodium 100 Mg Capsule) 100 mg PO DAILY PRN PRN Reason: Constipation Last Admin: 02/13/23 09:21 Dose: 100 mg Documented By: SPENCER Enoxaparin Sodium (Enoxaparin Sodium 40 Mg/0.4 Ml Syringe) 40 mg SUBCUT Q24H [facility] Last Admin: 02/21/23 16:31 Dose: Not Given Documented By: DAVID Non-Admin Reason: Patient Refused Guaifenesin (Guaifenesin 100 Mg/5 Ml Liquid) 10 ml PO Q4H PRN PRN Reason: Cough Last Admin: 02/06/23 08:35 Dose: 10 ml Documented By: MILA Lidocaine (Lidocaine 4 % Patch Adh..Patch) 1 patch TRANSDERMA DAILY [facility]; Protocol Last Admin: 02/22/23 08:22 Dose: 1 patch Documented By: DENNYS Melatonin (Melatonin 3 Mg Tablet) 6 mg PO BEDTIME PRN PRN Reason: Insomnia Last Admin: 02/20/23 19:21 Dose: 6 mg Documented By: CHIKIS Memantine (Memantine Hcl 5 Mg Tablet) 5 mg PO DAILY [facility] Last Admin: 02/22/23 08:22 Dose: 5 mg Documented By: DENNYS Ondansetron HCl (Ondansetron Hcl 4 Mg/2 Ml Vial) 4 mg IVPUSH Q8H PRN PRN Reason: Nausea and Vomiting Quetiapine Fumarate (Quetiapine Fumarate 25 Mg Tablet) 25 mg PO BID@1500,2100 [facility] Last Admin: 02/22/23 14:00 Dose: 25 mg Documented By: DENNYS Labs 01/31/23 07:23 01/31/23 07:23 Assessment and Plan (1) Major neurocognitive disorder due to Alzheimer's disease, with behavioral disturbance: Status: Acute Plan 82yo F with osteoporosis + dementia in observation unit 01/01-01/06/23 awaiting LTC placement but then developed sepsis due to presumed UTI(resolved).? Awaiting guardianship for placement ? 1.Dementia/behavioral disturbance -well controlled with Seroquel. 2.Sepsis due to UTI, completed Abx and resolved. 3.Mod protein calorie malnutrition continue supplements Routine cbc and bmp 01/31--unremarkable - LMWH DNR/DNI patient requires continued inpatient hospitalization for the following reasons: safe placement. Patient need LT C waiting for documents from court regarding guardianship and Badillo order. Time Spent With Patient Time: Total time managing care of this patient today ____ minutes. Quality Stroke Does the patient have a stroke diagnosis?: No VTE Prior VTE?: No VTE Risk Level:: Medical - moderate - high VTE Device Contraindication: Treatment Not Indicated VTE Drug Contraindication: N/A - Med Ordered
[2023-02-22 15:34] VITALS: BP 146/90; PULSE 75; RESP 20; TEMP 36.1; O2SAT 98
[2023-02-22] MEDS: Enoxaparin Sodium 40 MG/0.4 ML SYRINGE SUBCUT (16:04)
[2023-02-22 19:55] VITALS: BP 126/58; PULSE 101; RESP 16; TEMP 36.4; O2SAT 98
[2023-02-23 03:16] VITALS: BP 109/63; PULSE 85; RESP 16; TEMP 36.2; O2SAT 94
[2023-02-23 07:26] VITALS: BP 103/56; PULSE 86; RESP 16; TEMP 36.2; O2SAT 94
--- NOTE | 2023-02-23 08:25 | HO.PM.IMPN ---
Subjective Subjective Date of Service: 02/23/23 Interval History: no new issues, personally seen/examined Physical Exam Vital Signs: Vital Signs: Last Vital Signs Temp 97.1 F 02/23/23 07:26 Pulse 86 02/23/23 07:26 Resp 16 02/23/23 07:26 BP 103/56 L 02/23/23 07:26 Pulse Ox 94 02/23/23 07:26 O2 Del Method Room Air 02/23/23 07:26 BMI result Body Mass Index 15.9 General: oriented to self Resp:? CTA bilateral, no rales or wheezing CVS: S1,S2,RRR GI: +BS, NT, no distention Skin: No rash Extremities no edema Neuro:? motor grossly intact Objective Data Active Medications Acetaminophen (Acetaminophen 325 Mg Tablet) 650 mg PO Q6H PRN PRN Reason: Pain, Mild (Pain Scale 1-3) Last Admin: 02/22/23 14:00 Dose: 650 mg Documented By: DENNYS Docusate Sodium (Docusate Sodium 100 Mg Capsule) 100 mg PO DAILY PRN PRN Reason: Constipation Last Admin: 02/13/23 09:21 Dose: 100 mg Documented By: SPENCER Enoxaparin Sodium (Enoxaparin Sodium 40 Mg/0.4 Ml Syringe) 40 mg SUBCUT Q24H [facility] Last Admin: 02/22/23 16:04 Dose: 40 mg Documented By: DENNYS Guaifenesin (Guaifenesin 100 Mg/5 Ml Liquid) 10 ml PO Q4H PRN PRN Reason: Cough Last Admin: 02/06/23 08:35 Dose: 10 ml Documented By: MILA Lidocaine (Lidocaine 4 % Patch Adh..Patch) 1 patch TRANSDERMA DAILY [facility]; Protocol Last Admin: 02/22/23 08:22 Dose: 1 patch Documented By: DENNYS Melatonin (Melatonin 3 Mg Tablet) 6 mg PO BEDTIME PRN PRN Reason: Insomnia Last Admin: 02/20/23 19:21 Dose: 6 mg Documented By: CHIKIS Memantine (Memantine Hcl 5 Mg Tablet) 5 mg PO DAILY [facility] Last Admin: 02/22/23 08:22 Dose: 5 mg Documented By: DENNYS Ondansetron HCl (Ondansetron Hcl 4 Mg/2 Ml Vial) 4 mg IVPUSH Q8H PRN PRN Reason: Nausea and Vomiting Quetiapine Fumarate (Quetiapine Fumarate 25 Mg Tablet) 25 mg PO BID@1500,2100 [facility] Last Admin: 02/22/23 19:40 Dose: 25 mg Documented By: DAHLIA Labs 01/31/23 07:23 01/31/23 07:23 Assessment and Plan (1) Major neurocognitive disorder due to Alzheimer's disease, with behavioral disturbance: Status: Acute Plan 82yo F with osteoporosis + dementia in observation unit 01/01-01/06/23 awaiting LTC placement but then developed sepsis due to presumed UTI(resolved).? essentially no change in care ? 1.Dementia/behavioral disturbance -well controlled with Seroquel. 2.Sepsis due to UTI, completed Abx and resolved. 3.Mod protein calorie malnutrition continue supplements Routine cbc and bmp 01/31--unremarkable - LMWH DNR/DNI patient requires continued inpatient hospitalization for the following reasons: safe placement. Patient need LT C waiting for documents from court regarding guardianship and Badillo order. Time Spent With Patient Time: Total time managing care of this patient today ____ minutes. Quality Stroke Does the patient have a stroke diagnosis?: No VTE Prior VTE?: No VTE Risk Level:: Medical - moderate - high VTE Device Contraindication: Treatment Not Indicated VTE Drug Contraindication: N/A - Med Ordered
[2023-02-23] MEDS: Lidocaine 4 % Patch ADH..PATCH 1 PATCH TRANSDERMA (08:39)
[2023-02-23] MEDS: Memantine HCl 5 MG TABLET PO (08:39)
[2023-02-23] MEDS: QUEtiapine Fumarate 25 MG TABLET PO ×2 (14:31→21:21)
[2023-02-23 15:58] VITALS: BP 98/54; PULSE 97; RESP 18; TEMP 37; O2SAT 97
[2023-02-23] MEDS: Enoxaparin Sodium 40 MG/0.4 ML SYRINGE SUBCUT (17:28)
[2023-02-23 20:00] VITALS: BP 114/57; PULSE 98; RESP 18; TEMP 37.1; O2SAT 96
[2023-02-24 00:24] VITALS: BP 111/57; PULSE 93; RESP 18; TEMP 36.3; O2SAT 95
[2023-02-24 08:00] VITALS: BP 109/59; PULSE 95; RESP 18; TEMP 36; O2SAT 98
[2023-02-24] MEDS: Memantine HCl 5 MG TABLET PO (08:08)
--- NOTE | 2023-02-24 09:13 | P.PNIM_ITS ---
Subjective Subjective Date of Service: 02/24/23 Interval History: doing fine, no new issues Physical Exam 2 Vital Signs: Vital Signs: Last Vital Signs Temp 96.8 F 02/24/23 08:00 Pulse 95 02/24/23 08:00 Resp 18 02/24/23 08:00 BP 109/59 L 02/24/23 08:00 Pulse Ox 98 02/24/23 08:00 O2 Del Method Room Air 02/24/23 08:00 BMI result Body Mass Index 15.9 Objective Data Active Medications Acetaminophen (Acetaminophen 325 Mg Tablet) 650 mg PO Q6H PRN PRN Reason: Pain, Mild (Pain Scale 1-3) Last Admin: 02/22/23 14:00 Dose: 650 mg Documented By: DENNYS Docusate Sodium (Docusate Sodium 100 Mg Capsule) 100 mg PO DAILY PRN PRN Reason: Constipation Last Admin: 02/13/23 09:21 Dose: 100 mg Documented By: SPENCER Enoxaparin Sodium (Enoxaparin Sodium 40 Mg/0.4 Ml Syringe) 40 mg SUBCUT Q24H [facility] Last Admin: 02/23/23 17:28 Dose: 40 mg Documented By: NIRU Guaifenesin (Guaifenesin 100 Mg/5 Ml Liquid) 10 ml PO Q4H PRN PRN Reason: Cough Last Admin: 02/06/23 08:35 Dose: 10 ml Documented By: MILA Lidocaine (Lidocaine 4 % Patch Adh..Patch) 1 patch TRANSDERMA DAILY [facility]; Protocol Last Admin: 02/24/23 08:06 Dose: Not Given Documented By: MISSY Non-Admin Reason: Patient Refused Melatonin (Melatonin 3 Mg Tablet) 6 mg PO BEDTIME PRN PRN Reason: Insomnia Last Admin: 02/20/23 19:21 Dose: 6 mg Documented By: CHIKIS Memantine (Memantine Hcl 5 Mg Tablet) 5 mg PO DAILY [facility] Last Admin: 02/24/23 08:08 Dose: 5 mg Documented By: MISSY Ondansetron HCl (Ondansetron Hcl 4 Mg/2 Ml Vial) 4 mg IVPUSH Q8H PRN PRN Reason: Nausea and Vomiting Quetiapine Fumarate (Quetiapine Fumarate 25 Mg Tablet) 25 mg PO BID@1500,2100 [facility] Last Admin: 02/23/23 21:21 Dose: 25 mg Documented By: JAME Labs 01/31/23 07:23 01/31/23 07:23 Assessment and Plan (1) Major neurocognitive disorder due to Alzheimer's disease, with behavioral disturbance: Status: Acute Plan 82yo F with osteoporosis + dementia in observation unit 01/01-01/06/23 awaiting LTC placement but then developed sepsis due to presumed UTI(resolved).? essentially no change in care ? 1.Dementia/behavioral disturbance -well controlled with Seroquel. 2.Sepsis due to UTI, completed Abx and resolved. 3.Mod protein calorie malnutrition continue supplements Routine cbc and bmp 01/31--unremarkable - LMWH DNR/DNI patient requires continued inpatient hospitalization for the following reasons: safe placement. Patient need LT C waiting for documents from court regarding guardianship and Badillo order. Time Spent With Patient Time: Total time managing care of this patient today ____ minutes. Quality Stroke Does the patient have a stroke diagnosis?: No VTE Prior VTE?: No VTE Risk Level:: Medical - moderate - high VTE Device Contraindication: Treatment Not Indicated VTE Drug Contraindication: N/A - Med Ordered
--- NOTE | 2023-02-24 10:05 | MHC.CLN ---
Addendum entered by Eugenia Viveros, LUNA 02/24/23 10:18: PATIENT REPORTED THAT SHE IS EATING VERY WELL. TAKES ENSURE SUPPLEMENT RARELY. OK TO DISCONTINUE ENSURE SUPPLEMENT. Original Note: F/U DIET=REGULAR-APPROPRIATE. ENSURE BID PROVIDES ADDITIONAL 700 KCALS, 40 G PROTEIN. PO INTAKE MOST MEALS 75-100%. NO SKIN ISSUES. NO NEW WEIGHTS. CONTINUE TO MONITOR PO INTAKE AND WEIGHTS. RD TO FOLLOW WEEKLY.
[2023-02-24] MEDS: QUEtiapine Fumarate 25 MG TABLET PO ×2 (15:03→19:38)
[2023-02-24 15:18] VITALS: BP 110/55; PULSE 101; RESP 18; TEMP 35.8; O2SAT 97
[2023-02-24] MEDS: Enoxaparin Sodium 40 MG/0.4 ML SYRINGE SUBCUT (16:58)
[2023-02-24 19:38] VITALS: BP 112/59; PULSE 114; RESP 16; TEMP 36.3; O2SAT 97
[2023-02-25 04:00] VITALS: BP 103/55; PULSE 92; RESP 18; TEMP 36.6; O2SAT 95
[2023-02-25] MEDS: Memantine HCl 5 MG TABLET PO (08:25)
[2023-02-25 09:02] VITALS: BP 118/59; PULSE 98; RESP 17; TEMP 36.6; O2SAT 95
--- NOTE | 2023-02-25 09:08 | P.PNIM_ITS ---
Subjective Subjective Date of Service: 02/25/23 Interval History: no new issues Physical Exam 2 Vital Signs: Vital Signs: Last Vital Signs Temp 97.8 F 02/25/23 09:02 Pulse 98 02/25/23 09:02 Resp 17 02/25/23 09:02 BP 118/59 L 02/25/23 09:02 Pulse Ox 95 02/25/23 09:02 O2 Del Method Room Air 02/25/23 09:02 BMI result Body Mass Index 15.9 Const: Other: General: oriented to self Neck no JVD Resp:? CTA bilateral CVS: S1,S2,RRR GI: +BS, NT, no distention Skin: No rash Extremities no edema Neuro:? motor grossly intact Psych: appropriate affect Objective Data Active Medications Acetaminophen (Acetaminophen 325 Mg Tablet) 650 mg PO Q6H PRN PRN Reason: Pain, Mild (Pain Scale 1-3) Last Admin: 02/22/23 14:00 Dose: 650 mg Documented By: DENNYS Docusate Sodium (Docusate Sodium 100 Mg Capsule) 100 mg PO DAILY PRN PRN Reason: Constipation Last Admin: 02/13/23 09:21 Dose: 100 mg Documented By: SPENCER Enoxaparin Sodium (Enoxaparin Sodium 40 Mg/0.4 Ml Syringe) 40 mg SUBCUT Q24H [facility] Last Admin: 02/24/23 16:58 Dose: 40 mg Documented By: MISSY Guaifenesin (Guaifenesin 100 Mg/5 Ml Liquid) 10 ml PO Q4H PRN PRN Reason: Cough Last Admin: 02/06/23 08:35 Dose: 10 ml Documented By: MILA Lidocaine (Lidocaine 4 % Patch Adh..Patch) 1 patch TRANSDERMA DAILY [facility]; Protocol Last Admin: 02/25/23 07:44 Dose: Not Given Documented By: MISSY Non-Admin Reason: Patient Refused Melatonin (Melatonin 3 Mg Tablet) 6 mg PO BEDTIME PRN PRN Reason: Insomnia Last Admin: 02/20/23 19:21 Dose: 6 mg Documented By: CHIKIS Memantine (Memantine Hcl 5 Mg Tablet) 5 mg PO DAILY [facility] Last Admin: 02/25/23 08:25 Dose: 5 mg Documented By: MISSY Ondansetron HCl (Ondansetron Hcl 4 Mg/2 Ml Vial) 4 mg IVPUSH Q8H PRN PRN Reason: Nausea and Vomiting Quetiapine Fumarate (Quetiapine Fumarate 25 Mg Tablet) 25 mg PO BID@1500,2100 JOHN Last Admin: 02/24/23 19:38 Dose: 25 mg Documented By: ROSELYN Labs 01/31/23 07:23 01/31/23 07:23 Assessment and Plan (1) Major neurocognitive disorder due to Alzheimer's disease, with behavioral disturbance: Status: Acute Plan 82yo F with osteoporosis + dementia in observation unit 01/01-01/06/23 awaiting LTC placement but then developed sepsis due to presumed UTI(resolved).? essentially no change in care ? 1.Dementia/behavioral disturbance -well controlled with Seroquel. 2.Sepsis due to UTI, completed Abx and resolved. 3.Mod protein calorie malnutrition continue supplements Routine cbc and bmp 01/31--unremarkable - LMWH DNR/DNI patient requires continued inpatient hospitalization for the following reasons: safe placement. Patient need LT C waiting for documents from court regarding guardianship and [place] order. Time Spent With Patient Time: Total time managing care of this patient today ____ minutes. Quality Stroke Does the patient have a stroke diagnosis?: No VTE Prior VTE?: No VTE Risk Level:: Medical - moderate - high VTE Device Contraindication: Treatment Not Indicated VTE Drug Contraindication: N/A - Med Ordered
--- NOTE | 2023-02-25 10:08 | MHC.CM.PN ---
DP LTC via [facility] application is still in progress. Communicated with The financial pace analyst, Emely. She reported that Hannah did come in earlier this week with documents. She Provided past 3 years of bank statements. 5 years are required. She was instructed to obtain the prior 2 years. [facility] loretta pending complete pending family providing the financial documents requested. CM will follow for placement and complete MH loretta.
[2023-02-25] MEDS: QUEtiapine Fumarate 25 MG TABLET PO ×2 (15:13→19:26)
[2023-02-25 15:53] VITALS: BP 135/78; PULSE 78; RESP 20; TEMP 36; O2SAT 96
[2023-02-25] MEDS: Enoxaparin Sodium 40 MG/0.4 ML SYRINGE SUBCUT (16:13)
[2023-02-25 19:54] VITALS: BP 148/81; PULSE 114; RESP 20; TEMP 36; O2SAT 97
[2023-02-26 03:16] VITALS: BP 98/54; PULSE 95; RESP 18; TEMP 36.3; O2SAT 94
[2023-02-26 07:33] VITALS: BP 117/57; PULSE 90; RESP 14; TEMP 36.4; O2SAT 94
--- NOTE | 2023-02-26 07:52 | HO.PM.IMPN ---
Subjective Subjective Date of Service: 02/26/23 Interval History: No new issues, occasional behavior disturbances Physical Exam Vital Signs: Vital Signs: Last Vital Signs Temp 97.5 F 02/26/23 07:33 Pulse 90 02/26/23 07:33 Resp 14 02/26/23 07:33 BP 117/57 L 02/26/23 07:33 Pulse Ox 94 02/26/23 07:33 O2 Del Method Room Air 02/26/23 07:33 BMI result Body Mass Index 15.9 Const: Other: General: oriented to self Neck no JVD Resp:? CTA bilateral CVS: S1,S2,RRR GI: +BS, NT, no distention Skin: No rash Extremities no edema Neuro:? motor grossly intact Psych: appropriate affect Objective Data Active Medications Acetaminophen (Acetaminophen 325 Mg Tablet) 650 mg PO Q6H PRN PRN Reason: Pain, Mild (Pain Scale 1-3) Last Admin: 02/22/23 14:00 Dose: 650 mg Documented By: DENNYS Docusate Sodium (Docusate Sodium 100 Mg Capsule) 100 mg PO DAILY PRN PRN Reason: Constipation Last Admin: 02/13/23 09:21 Dose: 100 mg Documented By: SPENCER Enoxaparin Sodium (Enoxaparin Sodium 40 Mg/0.4 Ml Syringe) 40 mg SUBCUT Q24H [facility] Last Admin: 02/25/23 16:13 Dose: 40 mg Documented By: MISSY Guaifenesin (Guaifenesin 100 Mg/5 Ml Liquid) 10 ml PO Q4H PRN PRN Reason: Cough Last Admin: 02/06/23 08:35 Dose: 10 ml Documented By: MILA Lidocaine (Lidocaine 4 % Patch Adh..Patch) 1 patch TRANSDERMA DAILY [facility]; Protocol Last Admin: 02/25/23 07:44 Dose: Not Given Documented By: MISSY Non-Admin Reason: Patient Refused Melatonin (Melatonin 3 Mg Tablet) 6 mg PO BEDTIME PRN PRN Reason: Insomnia Last Admin: 02/20/23 19:21 Dose: 6 mg Documented By: CHIKIS Memantine (Memantine Hcl 5 Mg Tablet) 5 mg PO DAILY [facility] Last Admin: 02/25/23 08:25 Dose: 5 mg Documented By: MISSY Ondansetron HCl (Ondansetron Hcl 4 Mg/2 Ml Vial) 4 mg IVPUSH Q8H PRN PRN Reason: Nausea and Vomiting Quetiapine Fumarate (Quetiapine Fumarate 25 Mg Tablet) 25 mg PO BID@1500,2100 JOHN Last Admin: 02/25/23 19:26 Dose: 25 mg Documented By: ROSELYN Labs 01/31/23 07:23 01/31/23 07:23 Assessment and Plan (1) Major neurocognitive disorder due to Alzheimer's disease, with behavioral disturbance: Status: Acute Plan 82yo F with osteoporosis + dementia in observation unit 01/01-01/06/23 awaiting LTC placement but then developed sepsis due to presumed UTI(resolved).? essentially no change in care ? 1.Dementia/behavioral disturbance -well controlled with Seroquel. 2.Sepsis due to UTI, completed Abx and resolved. 3.Mod protein calorie malnutrition continue supplements Routine cbc and bmp 01/31--unremarkable - LMWH DNR/DNI patient requires continued inpatient hospitalization for the following reasons: safe placement. Patient need LT C waiting for documents from court regarding guardianship and [place] order. Time Spent With Patient Time: Total time managing care of this patient today ____ minutes. Quality Stroke Does the patient have a stroke diagnosis?: No VTE Prior VTE?: No VTE Risk Level:: Medical - moderate - high VTE Device Contraindication: Treatment Not Indicated VTE Drug Contraindication: N/A - Med Ordered
--- NOTE | 2023-02-26 09:13 | MHC.CM.PN ---
PT STILL AWAITING [facility] FOR LTC PLACEMENT [facility] [place] [facility] IS WORKING WITH DAUGHTER ON [facility] CURRENTLY THEY ARE AWAITING PTS FINANCIAL STATEMENTS (DAUGHTER BROUGHT IN ONLY 3 OF THE 5 YEARS NEEDED) REFERRALS ARE OUT [facility], AND DARELL CARDONA [place] FOLLOWING
[2023-02-26] MEDS: Lidocaine 4 % Patch ADH..PATCH 1 PATCH TRANSDERMA (09:19)
[2023-02-26] MEDS: Memantine HCl 5 MG TABLET PO (09:19)
[2023-02-26] MEDS: QUEtiapine Fumarate 25 MG TABLET PO ×2 (14:33→19:19)
[2023-02-26 15:52] VITALS: BP 120/68; PULSE 105; RESP 20; TEMP 36.4; O2SAT 98
[2023-02-26] MEDS: Enoxaparin Sodium 40 MG/0.4 ML SYRINGE SUBCUT (17:29)
[2023-02-26 20:00] VITALS: BP 122/80; PULSE 86; RESP 20; TEMP 36
[2023-02-27 03:29] VITALS: BP 105/63; PULSE 86; RESP 18; TEMP 36; O2SAT 93
[2023-02-27 08:00] VITALS: BP 101/55; PULSE 100; RESP 16; TEMP 36.1; O2SAT 95
--- NOTE | 2023-02-27 08:33 | P.PNIM_ITS ---
Subjective Subjective Date of Service: 02/27/23 Interval History: No new issues, occasional behavior disturbances, but for the most part doing well Review of Systems no new issues, Physical Exam 2 Vital Signs: Vital Signs: Last Vital Signs Temp 96.8 F 02/27/23 03:29 Pulse 86 02/27/23 03:29 Resp 18 02/27/23 03:29 BP 105/63 02/27/23 03:29 Pulse Ox 93 02/27/23 03:29 O2 Del Method Room Air 02/27/23 03:29 BMI result Body Mass Index 15.9 Const: Other: General: oriented to self Neck no JVD Resp:? CTA bilateral CVS: S1,S2,RRR GI: +BS, NT, no distention Skin: No rash Extremities no edema Neuro:? motor grossly intact Psych: appropriate affect Objective Data Active Medications Acetaminophen (Acetaminophen 325 Mg Tablet) 650 mg PO Q6H PRN PRN Reason: Pain, Mild (Pain Scale 1-3) Last Admin: 02/22/23 14:00 Dose: 650 mg Documented By: DENNYS Docusate Sodium (Docusate Sodium 100 Mg Capsule) 100 mg PO DAILY PRN PRN Reason: Constipation Last Admin: 02/13/23 09:21 Dose: 100 mg Documented By: SPENCER Enoxaparin Sodium (Enoxaparin Sodium 40 Mg/0.4 Ml Syringe) 40 mg SUBCUT Q24H [facility] Last Admin: 02/26/23 17:29 Dose: 40 mg Documented By: ROSELYN Guaifenesin (Guaifenesin 100 Mg/5 Ml Liquid) 10 ml PO Q4H PRN PRN Reason: Cough Last Admin: 02/06/23 08:35 Dose: 10 ml Documented By: MILA Lidocaine (Lidocaine 4 % Patch Adh..Patch) 1 patch TRANSDERMA DAILY [facility]; Protocol Last Admin: 02/26/23 09:19 Dose: 1 patch Documented By: DAMON Melatonin (Melatonin 3 Mg Tablet) 6 mg PO BEDTIME PRN PRN Reason: Insomnia Last Admin: 02/20/23 19:21 Dose: 6 mg Documented By: CHIKIS Memantine (Memantine Hcl 5 Mg Tablet) 5 mg PO DAILY [facility] Last Admin: 02/26/23 09:19 Dose: 5 mg Documented By: DAMON Ondansetron HCl (Ondansetron Hcl 4 Mg/2 Ml Vial) 4 mg IVPUSH Q8H PRN PRN Reason: Nausea and Vomiting Quetiapine Fumarate (Quetiapine Fumarate 25 Mg Tablet) 25 mg PO BID@1500,2100 JOHN Last Admin: 02/26/23 19:19 Dose: 25 mg Documented By: ASAD Labs 01/31/23 07:23 01/31/23 07:23 Assessment and Plan (1) Major neurocognitive disorder due to Alzheimer's disease, with behavioral disturbance: Status: Acute Plan 82yo F with osteoporosis + dementia in observation unit 01/01-01/06/23 awaiting LTC placement but then developed sepsis due to presumed UTI(resolved).? essentially no change in care ? 1.Dementia/behavioral disturbance -well controlled with Seroquel. 2.Sepsis due to UTI, completed Abx and resolved. 3.Mod protein calorie malnutrition continue supplements Routine cbc and bmp 01/31--unremarkable - LMWH DNR/DNI patient requires continued inpatient hospitalization for the following reasons: safe placement. Patient need LT C waiting for documents from court regarding guardianship and [place] order. Time Spent With Patient Time: Total time managing care of this patient today ____ minutes. Quality Stroke Does the patient have a stroke diagnosis?: No VTE Prior VTE?: No VTE Risk Level:: Medical - moderate - high VTE Device Contraindication: Treatment Not Indicated VTE Drug Contraindication: N/A - Med Ordered
[2023-02-27] MEDS: Memantine HCl 5 MG TABLET PO (08:50)
[2023-02-27] MEDS: Lidocaine 4 % Patch ADH..PATCH 1 PATCH TRANSDERMA (08:50)
[2023-02-27] MEDS: Acetaminophen 325 MG TABLET 650 MG PO (14:44)
[2023-02-27] MEDS: QUEtiapine Fumarate 25 MG TABLET PO ×2 (14:44→20:55)
[2023-02-27 15:54] VITALS: BP 96/54; PULSE 108; RESP 20; TEMP 36; O2SAT 97
[2023-02-27 19:14] VITALS: BP 102/55; PULSE 108; RESP 20; TEMP 36; O2SAT 96
[2023-02-27 23:41] VITALS: BP 135/75; PULSE 109; RESP 18; TEMP 36.2; O2SAT 96
[2023-02-28 08:18] VITALS: BP 108/56; PULSE 84; RESP 18; TEMP 36.4; O2SAT 96
--- NOTE | 2023-02-28 08:38 | HO.PM.IMPN ---
Subjective Subjective Date of Service: 02/28/23 Interval History: No new issues, occasional behavior disturbances, but for the most part doing well Physical Exam Vital Signs: Vital Signs: Last Vital Signs Temp 97.5 F 02/28/23 08:18 Pulse 84 02/28/23 08:18 Resp 18 02/28/23 08:18 BP 108/56 L 02/28/23 08:18 Pulse Ox 96 02/28/23 08:18 O2 Del Method Room Air 02/28/23 08:18 BMI result Body Mass Index 15.9 Const: Other: General: oriented to self Neck no JVD Resp:? CTA bilateral CVS: S1,S2,RRR GI: +BS, NT, no distention Skin: No rash Extremities no edema Neuro:? motor grossly intact Psych: appropriate affect Objective Data Active Medications Acetaminophen (Acetaminophen 325 Mg Tablet) 650 mg PO Q6H PRN PRN Reason: Pain, Mild (Pain Scale 1-3) Last Admin: 02/27/23 14:44 Dose: 650 mg Documented By: MARIAN Docusate Sodium (Docusate Sodium 100 Mg Capsule) 100 mg PO DAILY PRN PRN Reason: Constipation Last Admin: 02/13/23 09:21 Dose: 100 mg Documented By: SPENCER Enoxaparin Sodium (Enoxaparin Sodium 40 Mg/0.4 Ml Syringe) 40 mg SUBCUT Q24H [facility] Last Admin: 02/27/23 17:35 Dose: Not Given Documented By: MARIAN Non-Admin Reason: Patient Refused Guaifenesin (Guaifenesin 100 Mg/5 Ml Liquid) 10 ml PO Q4H PRN PRN Reason: Cough Last Admin: 02/06/23 08:35 Dose: 10 ml Documented By: MILA Lidocaine (Lidocaine 4 % Patch Adh..Patch) 1 patch TRANSDERMA DAILY [facility]; Protocol Last Admin: 02/27/23 08:50 Dose: 1 patch Documented By: MARIAN Melatonin (Melatonin 3 Mg Tablet) 6 mg PO BEDTIME PRN PRN Reason: Insomnia Last Admin: 02/20/23 19:21 Dose: 6 mg Documented By: CHIKIS Memantine (Memantine Hcl 5 Mg Tablet) 5 mg PO DAILY JOHN Last Admin: 02/27/23 08:50 Dose: 5 mg Documented By: MARIAN Ondansetron HCl (Ondansetron Hcl 4 Mg/2 Ml Vial) 4 mg IVPUSH Q8H PRN PRN Reason: Nausea and Vomiting Quetiapine Fumarate (Quetiapine Fumarate 25 Mg Tablet) 25 mg PO BID@1500,2100 JOHN Last Admin: 02/27/23 20:55 Dose: 25 mg Documented By: MARIA ESTHER Labs 01/31/23 07:23 01/31/23 07:23 Assessment and Plan (1) Major neurocognitive disorder due to Alzheimer's disease, with behavioral disturbance: Status: Acute Plan 82yo F with osteoporosis + dementia in observation unit 01/01-01/06/23 awaiting LTC placement but then developed sepsis due to presumed UTI(resolved).? no new issues, cooperative ? 1.Dementia/behavioral disturbance -well controlled with Seroquel. 2.Sepsis due to UTI, completed Abx and resolved. 3.Mod protein calorie malnutrition continue supplements Routine cbc and bmp 01/31--unremarkable - LMWH DNR/DNI patient requires continued inpatient hospitalization for the following reasons: safe placement. Placement once [facility] obtained Time Spent With Patient Time: Total time managing care of this patient today ____ minutes. Quality Stroke Does the patient have a stroke diagnosis?: No VTE Prior VTE?: No VTE Risk Level:: Medical - moderate - high VTE Device Contraindication: Treatment Not Indicated VTE Drug Contraindication: N/A - Med Ordered
[2023-02-28] MEDS: Memantine HCl 5 MG TABLET PO (08:39)
[2023-02-28] MEDS: Lidocaine 4 % Patch ADH..PATCH 1 PATCH TRANSDERMA (08:39)
[2023-02-28] MEDS: QUEtiapine Fumarate 25 MG TABLET PO ×2 (14:12→20:23)
[2023-02-28 16:00] VITALS: BP 92/58; PULSE 94; RESP 18; TEMP 36.7; O2SAT 98
[2023-03-01 04:00] VITALS: BP 108/53; PULSE 89; RESP 17; TEMP 36.2; O2SAT 96
[2023-03-01] MEDS: Memantine HCl 5 MG TABLET PO (09:42)
--- NOTE | 2023-03-01 10:59 | P.PNIM_ITS ---
Subjective Subjective Date of Service: 03/01/23 Interval History: No new issues, occasional behavior disturbances, but for the most part doing well Physical Exam 2 Vital Signs: Vital Signs: Last Vital Signs Temp 97.2 F 03/01/23 04:00 Pulse 89 03/01/23 04:00 Resp 17 03/01/23 04:00 BP 108/53 L 03/01/23 04:00 Pulse Ox 96 03/01/23 04:00 O2 Del Method Room Air 03/01/23 04:00 BMI result Body Mass Index 15.9 Const: Other: General: oriented to self Neck no JVD Resp:? CTA bilateral CVS: S1,S2,RRR GI: +BS, NT, no distention Skin: No rash Extremities no edema Neuro:? motor grossly intact Psych: appropriate affect Objective Data Active Medications Acetaminophen (Acetaminophen 325 Mg Tablet) 650 mg PO Q6H PRN PRN Reason: Pain, Mild (Pain Scale 1-3) Last Admin: 02/27/23 14:44 Dose: 650 mg Documented By: MARIAN Docusate Sodium (Docusate Sodium 100 Mg Capsule) 100 mg PO DAILY PRN PRN Reason: Constipation Last Admin: 02/13/23 09:21 Dose: 100 mg Documented By: SPENCER Enoxaparin Sodium (Enoxaparin Sodium 40 Mg/0.4 Ml Syringe) 40 mg SUBCUT Q24H [facility] Last Admin: 02/28/23 16:26 Dose: Not Given Documented By: ZACK Non-Admin Reason: Patient Refused Guaifenesin (Guaifenesin 100 Mg/5 Ml Liquid) 10 ml PO Q4H PRN PRN Reason: Cough Last Admin: 02/06/23 08:35 Dose: 10 ml Documented By: MILA Lidocaine (Lidocaine 4 % Patch Adh..Patch) 1 patch TRANSDERMA DAILY [facility]; Protocol Last Admin: 03/01/23 09:06 Dose: Not Given Documented By: MARYAN Non-Admin Reason: Patient Asleep Melatonin (Melatonin 3 Mg Tablet) 6 mg PO BEDTIME PRN PRN Reason: Insomnia Last Admin: 02/20/23 19:21 Dose: 6 mg Documented By: CHIKIS Memantine (Memantine Hcl 5 Mg Tablet) 5 mg PO DAILY [facility] Last Admin: 03/01/23 09:42 Dose: 5 mg Documented By: COTEMA Ondansetron HCl (Ondansetron Hcl 4 Mg/2 Ml Vial) 4 mg IVPUSH Q8H PRN PRN Reason: Nausea and Vomiting Quetiapine Fumarate (Quetiapine Fumarate 25 Mg Tablet) 25 mg PO BID@1500,2100 JOHN Last Admin: 02/28/23 20:23 Dose: 25 mg Documented By: OWEN Labs 01/31/23 07:23 01/31/23 07:23 Assessment and Plan (1) Major neurocognitive disorder due to Alzheimer's disease, with behavioral disturbance: Status: Acute Plan 82yo F with osteoporosis + dementia in observation unit 01/01-01/06/23 awaiting LTC placement but then developed sepsis due to presumed UTI(resolved).? no new issues, cooperative ? 1.Dementia/behavioral disturbance -well controlled with Seroquel. 2.Sepsis due to UTI, completed Abx and resolved. 3.Mod protein calorie malnutrition continue supplements Routine cbc and bmp 01/31--unremarkable - LMWH DNR/DNI patient requires continued inpatient hospitalization for the following reasons: safe placement. Placement once [facility] obtained Time Spent With Patient Time: Total time managing care of this patient today ____ minutes. Quality Stroke Does the patient have a stroke diagnosis?: No VTE Prior VTE?: No VTE Risk Level:: Medical - moderate - high VTE Device Contraindication: Treatment Not Indicated VTE Drug Contraindication: N/A - Med Ordered
--- NOTE | 2023-03-01 13:51 | MHC.CM.PN ---
PT STILL AWAITING LTC PLACEMENT [facility] APPLICATION NOT YET COMPLETE, PENDING DOCUMENTS REQUESTED FROM PTS [facility] REFERRALS ARE OUT
[2023-03-01] MEDS: QUEtiapine Fumarate 25 MG TABLET PO ×2 (14:15→19:44)
[2023-03-01 15:21] VITALS: BP 98/59; PULSE 94; RESP 18; TEMP 36.1; O2SAT 96
[2023-03-01 20:00] VITALS: BP 106/67; PULSE 110; RESP 20; TEMP 36.8; O2SAT 97
[2023-03-02 03:20] VITALS: BP 99/53; PULSE 94; RESP 14; TEMP 35.9; O2SAT 96
[2023-03-02 07:56] VITALS: BP 96/55; PULSE 94; RESP 18; TEMP 36; O2SAT 95
[2023-03-02] MEDS: Memantine HCl 5 MG TABLET PO (08:58)
--- NOTE | 2023-03-02 13:57 | P.PNIM_ITS ---
Subjective Subjective Date of Service: 03/02/23 Interval History: Dementia/behavioral disturbance Review of Systems No new issues, occasional behavior disturbances, but for the most part doing well Physical Exam 2 Vital Signs: Vital Signs: Last Vital Signs Temp 96.8 F 03/02/23 07:56 Pulse 94 03/02/23 07:56 Resp 18 03/02/23 07:56 BP 96/55 L 03/02/23 07:56 Pulse Ox 95 03/02/23 07:56 O2 Del Method Room Air 03/02/23 07:56 BMI result Body Mass Index 15.9 General: oriented to self Resp:? CTA bilateral CVS: S1,S2,RRR GI: +BS, NT, no distention Skin: No rash Extremities no edema Neuro:? motor grossly intact Psych: appropriate affect Objective Data Active Medications Acetaminophen (Acetaminophen 325 Mg Tablet) 650 mg PO Q6H PRN PRN Reason: Pain, Mild (Pain Scale 1-3) Last Admin: 02/27/23 14:44 Dose: 650 mg Documented By: MARIAN Docusate Sodium (Docusate Sodium 100 Mg Capsule) 100 mg PO DAILY PRN PRN Reason: Constipation Last Admin: 02/13/23 09:21 Dose: 100 mg Documented By: SPENCER Enoxaparin Sodium (Enoxaparin Sodium 40 Mg/0.4 Ml Syringe) 40 mg SUBCUT Q24H [facility] Last Admin: 03/01/23 16:31 Dose: Not Given Documented By: MARYAN Non-Admin Reason: Patient Refused Guaifenesin (Guaifenesin 100 Mg/5 Ml Liquid) 10 ml PO Q4H PRN PRN Reason: Cough Last Admin: 02/06/23 08:35 Dose: 10 ml Documented By: MILA Lidocaine (Lidocaine 4 % Patch Adh..Patch) 1 patch TRANSDERMA DAILY [facility]; Protocol Last Admin: 03/02/23 08:59 Dose: Not Given Documented By: MARYAN Non-Admin Reason: Patient Refused Melatonin (Melatonin 3 Mg Tablet) 6 mg PO BEDTIME PRN PRN Reason: Insomnia Last Admin: 02/20/23 19:21 Dose: 6 mg Documented By: CHIKIS Memantine (Memantine Hcl 5 Mg Tablet) 5 mg PO DAILY [facility] Last Admin: 03/02/23 08:58 Dose: 5 mg Documented By: HO.COTEMA Ondansetron HCl (Ondansetron Hcl 4 Mg/2 Ml Vial) 4 mg IVPUSH Q8H PRN PRN Reason: Nausea and Vomiting Quetiapine Fumarate (Quetiapine Fumarate 25 Mg Tablet) 25 mg PO BID@1500,2100 JOHN Last Admin: 03/01/23 19:44 Dose: 25 mg Documented By: CASTILM Labs 01/31/23 07:23 01/31/23 07:23 Assessment and Plan (1) Major neurocognitive disorder due to Alzheimer's disease, with behavioral disturbance: Status: Acute Plan 82yo F with osteoporosis + dementia in observation unit 01/01-01/06/23 awaiting LTC placement but then developed sepsis due to presumed UTI(resolved).? no new issues, cooperative ? 1.Dementia/behavioral disturbance -well controlled with Seroquel. 2.Sepsis due to UTI, completed Abx and resolved. 3.Mod protein calorie malnutrition continue supplements Routine cbc and bmp 01/31--unremarkable - LMWH DNR/DNI patient requires continued inpatient hospitalization for the following reasons: safe placement. Placement once [facility] obtained Time Spent With Patient Time: Total time managing care of this patient today ____ minutes. Quality Stroke Does the patient have a stroke diagnosis?: No VTE Prior VTE?: No VTE Risk Level:: Medical - moderate - high VTE Device Contraindication: Treatment Not Indicated VTE Drug Contraindication: N/A - Med Ordered
[2023-03-02] MEDS: QUEtiapine Fumarate 25 MG TABLET PO ×2 (14:14→20:01)
[2023-03-02 16:00] VITALS: BP 116/59; PULSE 111; RESP 20; TEMP 36.3; O2SAT 97
[2023-03-02 19:39] VITALS: BP 110/58; PULSE 113; RESP 20; TEMP 36.9; O2SAT 98
[2023-03-03 02:56] VITALS: BP 106/58; PULSE 84; RESP 16; TEMP 36; O2SAT 95
[2023-03-03 07:35] VITALS: BP 95/51; PULSE 90; RESP 16; TEMP 36.7; O2SAT 92
[2023-03-03] MEDS: Lidocaine 4 % Patch ADH..PATCH 1 PATCH TRANSDERMA (08:25)
[2023-03-03] MEDS: Memantine HCl 5 MG TABLET PO (08:26)
--- NOTE | 2023-03-03 11:17 | MHC.CLN ---
F/U DIET=REGULAR-APPROPRIATE. SUPPLEMENT DISCONTINUED PER PRIOR CONVERSATION WITH PATIENT. PO INTAKE MOST MEALS 50-100%. NO SKIN ISSUES. AWAITING LTC PLACEMENT. CONTINUE TO MONITOR PO INTAKE AND WEIGHTS. RD TO FOLLOW WEEKLY.
[2023-03-03] MEDS: QUEtiapine Fumarate 25 MG TABLET PO ×2 (14:10→19:53)
[2023-03-03 15:00] VITALS: BP 93/55; PULSE 110; RESP 18; TEMP 36.5; O2SAT 96
--- NOTE | 2023-03-03 16:52 | P.PNIM_ITS ---
Subjective Subjective Date of Service: 03/03/23 Interval History: Dementia/behavioral disturbance Review of Systems No new issues, occasional behavior disturbances, but for the most part doing well Physical Exam 2 Vital Signs: Vital Signs: Last Vital Signs Temp 97.7 F 03/03/23 15:00 Pulse 110 H 03/03/23 15:00 Resp 18 03/03/23 15:00 BP 93/55 L 03/03/23 15:00 Pulse Ox 96 03/03/23 15:00 O2 Del Method Room Air 03/03/23 15:00 BMI result Body Mass Index 15.9 General: oriented to self Resp:? CTA bilateral CVS: S1,S2,RRR GI: +BS, NT, no distention Skin: No rash Extremities no edema Neuro:? motor grossly intact Psych: appropriate affect Objective Data Active Medications Acetaminophen (Acetaminophen 325 Mg Tablet) 650 mg PO Q6H PRN PRN Reason: Pain, Mild (Pain Scale 1-3) Last Admin: 02/27/23 14:44 Dose: 650 mg Documented By: MARIAN Docusate Sodium (Docusate Sodium 100 Mg Capsule) 100 mg PO DAILY PRN PRN Reason: Constipation Last Admin: 02/13/23 09:21 Dose: 100 mg Documented By: SPENCER Enoxaparin Sodium (Enoxaparin Sodium 40 Mg/0.4 Ml Syringe) 40 mg SUBCUT Q24H [facility] Last Admin: 03/02/23 15:51 Dose: Not Given Documented By: COTEMA Non-Admin Reason: Patient Refused Guaifenesin (Guaifenesin 100 Mg/5 Ml Liquid) 10 ml PO Q4H PRN PRN Reason: Cough Last Admin: 02/06/23 08:35 Dose: 10 ml Documented By: MILA Lidocaine (Lidocaine 4 % Patch Adh..Patch) 1 patch TRANSDERMA DAILY [facility]; Protocol Last Admin: 03/03/23 08:25 Dose: 1 patch Documented By: RAFI Melatonin (Melatonin 3 Mg Tablet) 6 mg PO BEDTIME PRN PRN Reason: Insomnia Last Admin: 02/20/23 19:21 Dose: 6 mg Documented By: CHIKIS Memantine (Memantine Hcl 5 Mg Tablet) 5 mg PO DAILY [facility] Last Admin: 03/03/23 08:26 Dose: 5 mg Documented By: RAFI Ondansetron HCl (Ondansetron Hcl 4 Mg/2 Ml Vial) 4 mg IVPUSH Q8H PRN PRN Reason: Nausea and Vomiting Quetiapine Fumarate (Quetiapine Fumarate 25 Mg Tablet) 25 mg PO BID@1500,2100 JOHN Last Admin: 03/03/23 14:10 Dose: 25 mg Documented By: RAFI Labs 01/31/23 07:23 01/31/23 07:23 Assessment and Plan (1) Dementia with behavioral disturbance: Status: Acute Plan 82yo F with osteoporosis + dementia in observation unit 01/01-01/06/23 awaiting LTC placement but then developed sepsis due to presumed UTI(resolved).? no new issues, cooperative ? 1.Dementia/behavioral disturbance -well controlled with Seroquel. 2.Sepsis due to UTI, completed Abx and resolved. 3.Mod protein calorie malnutrition continue supplements 4. possible boderline bp: sec to low po hydration added ivf LR. - LMWH DNR/DNI patient requires continued inpatient hospitalization for the following reasons: safe placement. Placement once [facility] obtained Time Spent With Patient Time: Total time managing care of this patient today ____ minutes. Quality Stroke Does the patient have a stroke diagnosis?: No VTE Prior VTE?: No VTE Risk Level:: Medical - moderate - high VTE Device Contraindication: Treatment Not Indicated VTE Drug Contraindication: N/A - Med Ordered
[2023-03-03] MEDS: Enoxaparin Sodium 40 MG/0.4 ML SYRINGE SUBCUT (17:34)
[2023-03-03] MEDS: Lactated Ringers 1,000 ML 100 ML IVCONT (17:34)
[2023-03-03 18:58] VITALS: BP 91/53; PULSE 97; RESP 18; TEMP 36.8; O2SAT 96
[2023-03-04 03:16] VITALS: BP 114/61; PULSE 90; RESP 16; TEMP 36; O2SAT 97
[2023-03-04 07:56] VITALS: BP 113/68; RESP 86; TEMP 36.9; O2SAT 94
[2023-03-04] MEDS: Memantine HCl 5 MG TABLET PO (10:24)
[2023-03-04] MEDS: QUEtiapine Fumarate 25 MG TABLET PO ×2 (14:28→21:26)
[2023-03-04] MEDS: guaiFENesin 100 MG/5 ML LIQUID 10 ML PO (14:31)
--- NOTE | 2023-03-04 14:42 | HO.PM.IMPN ---
Subjective Subjective Date of Service: 03/04/23 Interval History: Dementia/behavioral disturbance Review of Systems No new issues, no new behavior disturbances, most part doing well Physical Exam Vital Signs: Vital Signs: Last Vital Signs Temp 98.5 F 03/04/23 07:56 Pulse 90 03/04/23 03:16 Resp 86 H 03/04/23 07:56 BP 113/68 03/04/23 07:56 Pulse Ox 94 03/04/23 07:56 O2 Del Method Room Air 03/04/23 07:56 BMI result Body Mass Index 15.9 General: oriented to self Resp:? CTA bilateral CVS: S1,S2,RRR GI: +BS, NT, no distention Skin: No rash Extremities no edema Neuro:? motor grossly intact Psych: appropriate affect Objective Data Active Medications Acetaminophen (Acetaminophen 325 Mg Tablet) 650 mg PO Q6H PRN PRN Reason: Pain, Mild (Pain Scale 1-3) Last Admin: 02/27/23 14:44 Dose: 650 mg Documented By: MARIAN Docusate Sodium (Docusate Sodium 100 Mg Capsule) 100 mg PO DAILY PRN PRN Reason: Constipation Last Admin: 02/13/23 09:21 Dose: 100 mg Documented By: SPENCER Enoxaparin Sodium (Enoxaparin Sodium 40 Mg/0.4 Ml Syringe) 40 mg SUBCUT Q24H JOHN Last Admin: 03/03/23 17:34 Dose: 40 mg Documented By: RAFI Guaifenesin (Guaifenesin 100 Mg/5 Ml Liquid) 10 ml PO Q4H PRN PRN Reason: Cough Last Admin: 03/04/23 14:31 Dose: 10 ml Documented By: ZACK Lidocaine (Lidocaine 4 % Patch Adh..Patch) 1 patch TRANSDERMA DAILY [facility]; Protocol Last Admin: 03/04/23 10:26 Dose: Not Given Documented By: ZACK Non-Admin Reason: Patient Refused Melatonin (Melatonin 3 Mg Tablet) 6 mg PO BEDTIME PRN PRN Reason: Insomnia Last Admin: 02/20/23 19:21 Dose: 6 mg Documented By: CHIKIS Memantine (Memantine Hcl 5 Mg Tablet) 5 mg PO DAILY JOHN Last Admin: 03/04/23 10:24 Dose: 5 mg Documented By: ZACK Ondansetron HCl (Ondansetron Hcl 4 Mg/2 Ml Vial) 4 mg IVPUSH Q8H PRN PRN Reason: Nausea and Vomiting Quetiapine Fumarate (Quetiapine Fumarate 25 Mg Tablet) 25 mg PO BID@1500,2100 JOHN Last Admin: 03/04/23 14:28 Dose: 25 mg Documented By: ZACK Labs 01/31/23 07:23 01/31/23 07:23 Assessment and Plan (1) Dementia with behavioral disturbance: Status: Acute Plan 82yo F with osteoporosis + dementia in observation unit 01/01-01/06/23 awaiting LTC placement but then developed sepsis due to presumed UTI(resolved).? no new issues, cooperative ? 1.Dementia/behavioral disturbance -well controlled with Seroquel. BH-ot added psych follow up 2.Sepsis due to UTI, completed Abx and resolved. 3.Mod protein calorie malnutrition continue supplements 4. possible boderline bp: sec to low po hydration added ivf LR. - LMWH DNR/DNI patient requires continued inpatient hospitalization for the following reasons: safe placement. p Time Spent With Patient Time: Total time managing care of this patient today ____ minutes. Quality Stroke Does the patient have a stroke diagnosis?: No VTE Prior VTE?: No VTE Risk Level:: Medical - moderate - high VTE Device Contraindication: Treatment Not Indicated VTE Drug Contraindication: N/A - Med Ordered
[2023-03-04 16:00] VITALS: BP 121/63; PULSE 111; RESP 18; TEMP 36.1; O2SAT 98
[2023-03-04 19:41] VITALS: BP 133/62; PULSE 101; RESP 16; TEMP 36.1; O2SAT 100
[2023-03-05 07:22] VITALS: BP 104/59; PULSE 82; RESP 12; TEMP 36.2; O2SAT 97
[2023-03-05] MEDS: Memantine HCl 5 MG TABLET PO (08:42)
[2023-03-05] MEDS: Lidocaine 4 % Patch ADH..PATCH 1 PATCH TRANSDERMA (08:42)
--- NOTE | 2023-03-05 11:16 | MHC.CM.PN ---
PT and OT evaluations complete. Patient able to ambulate and perform ADLs. Patient is Physically and mentally improved since CM admission assessment. Recommendation is still LTC. Reached out to dtr Hannah. A request for a return call to discuss discharge. The patients daughters were providing care 04/01 prior to the UTI and admission. CM waiting for return call from [facility].
--- NOTE | 2023-03-05 11:57 | P.PNIM_ITS ---
Subjective Subjective Date of Service: 03/05/23 Interval History: Dementia/behavioral disturbance Review of Systems No new issues, no new behavior disturbances, most part doing well Physical Exam 2 Vital Signs: Vital Signs: Last Vital Signs Temp 97.1 F 03/05/23 07:22 Pulse 82 03/05/23 07:22 Resp 12 03/05/23 07:22 BP 104/59 L 03/05/23 07:22 Pulse Ox 97 03/05/23 07:22 O2 Del Method Room Air 03/05/23 07:22 BMI result Body Mass Index 15.9 General: oriented to self Resp:? CTA bilateral CVS: S1,S2,RRR GI: +BS, NT, no distention Skin: No rash Extremities no edema Neuro:? motor grossly intact Psych: appropriate affect Objective Data Active Medications Acetaminophen (Acetaminophen 325 Mg Tablet) 650 mg PO Q6H PRN PRN Reason: Pain, Mild (Pain Scale 1-3) Last Admin: 02/27/23 14:44 Dose: 650 mg Documented By: MARIAN Docusate Sodium (Docusate Sodium 100 Mg Capsule) 100 mg PO DAILY PRN PRN Reason: Constipation Last Admin: 02/13/23 09:21 Dose: 100 mg Documented By: SPENCER Enoxaparin Sodium (Enoxaparin Sodium 40 Mg/0.4 Ml Syringe) 40 mg SUBCUT Q24H [facility] Last Admin: 03/04/23 16:02 Dose: Not Given Documented By: ZACK Non-Admin Reason: Patient Refused Guaifenesin (Guaifenesin 100 Mg/5 Ml Liquid) 10 ml PO Q4H PRN PRN Reason: Cough Last Admin: 03/04/23 14:31 Dose: 10 ml Documented By: ZACK Lidocaine (Lidocaine 4 % Patch Adh..Patch) 1 patch TRANSDERMA DAILY [facility]; Protocol Last Admin: 03/05/23 08:42 Dose: 1 patch Documented By: DENNYS Melatonin (Melatonin 3 Mg Tablet) 6 mg PO BEDTIME PRN PRN Reason: Insomnia Last Admin: 02/20/23 19:21 Dose: 6 mg Documented By: CHIKIS Memantine (Memantine Hcl 5 Mg Tablet) 5 mg PO DAILY JOHN Last Admin: 03/05/23 08:42 Dose: 5 mg Documented By: HO.COUGHLM Ondansetron HCl (Ondansetron Hcl 4 Mg/2 Ml Vial) 4 mg IVPUSH Q8H PRN PRN Reason: Nausea and Vomiting Quetiapine Fumarate (Quetiapine Fumarate 25 Mg Tablet) 25 mg PO BID@1500,2100 JOHN Last Admin: 03/04/23 21:26 Dose: 25 mg Documented By: KENYATTA Labs 01/31/23 07:23 01/31/23 07:23 Assessment and Plan (1) Dementia with behavioral disturbance: Status: Acute Plan 82yo F with osteoporosis + dementia in observation unit 01/01-01/06/23 awaiting LTC placement but then developed sepsis due to presumed UTI(resolved).? no new issues, cooperative ? 1.Dementia/behavioral disturbance -well controlled with Seroquel. BH-ot added psych follow up 2.Sepsis due to UTI, completed Abx and resolved. 3.Mod protein calorie malnutrition continue supplements 4. possible boderline bp: sec to low po hydration added ivf LR. - LMWH DNR/DNI patient requires continued inpatient hospitalization for the following reasons: safe placement. Time Spent With Patient Time: Total time managing care of this patient today ____ minutes. Quality Stroke Does the patient have a stroke diagnosis?: No VTE Prior VTE?: No VTE Risk Level:: Medical - moderate - high VTE Device Contraindication: Treatment Not Indicated VTE Drug Contraindication: N/A - Med Ordered
[2023-03-05] MEDS: QUEtiapine Fumarate 25 MG TABLET PO ×2 (14:47→21:33)
--- NOTE | 2023-03-05 14:52 | MHC.CM.PN ---
This information writer placed call to pt's daughter Hannah to discuss discharge planning. Patient has had some improvement and can return home w/ 04/01 care. Prior to hospitalization patient was living w/ sister Rosanna, w/ additional supports from Hannah. Hannah reports that she does not think that Rosanna can take care of patient. Placed call to Rosanna @ [phone], left and awaiting return phone call. Placed another follow-up call to Hannah and she did not answer the phone left . Financial consolers continue to wait for 2 additional years of bank statements to complete the [employer] application. Plan for Wednesday to issue notice of non-coverage to family for continued stay in hospital.
[2023-03-05 15:22] VITALS: BP 90/53; PULSE 98; RESP 18; TEMP 36.6; O2SAT 97
[2023-03-05 20:00] VITALS: BP 124/57; PULSE 99; RESP 18; TEMP 36.2; O2SAT 97
[2023-03-06 07:28] VITALS: BP 126/60; PULSE 86; RESP 16; TEMP 36.2; O2SAT 96
[2023-03-06] MEDS: Memantine HCl 5 MG TABLET PO (08:35)
--- NOTE | 2023-03-06 12:15 | P.PNIM_ITS ---
Subjective Subjective Date of Service: 03/06/23 Interval History: Dementia/behavioral disturbance Review of Systems No new issues, no new behavior disturbances, most part doing well Physical Exam 2 Vital Signs: Vital Signs: Last Vital Signs Temp 97.1 F 03/06/23 07:28 Pulse 86 03/06/23 07:28 Resp 16 03/06/23 07:28 BP 126/60 03/06/23 07:28 Pulse Ox 96 03/06/23 07:28 O2 Del Method Room Air 03/06/23 07:28 BMI result Body Mass Index 15.9 General: oriented to self Resp:? CTA bilateral CVS: S1,S2,RRR GI: +BS, NT, no distention Skin: No rash Extremities no edema Neuro:? motor grossly intact Psych: appropriate affect Objective Data Active Medications Acetaminophen (Acetaminophen 325 Mg Tablet) 650 mg PO Q6H PRN PRN Reason: Pain, Mild (Pain Scale 1-3) Last Admin: 02/27/23 14:44 Dose: 650 mg Documented By: MARIAN Docusate Sodium (Docusate Sodium 100 Mg Capsule) 100 mg PO DAILY PRN PRN Reason: Constipation Last Admin: 02/13/23 09:21 Dose: 100 mg Documented By: SPENCER Enoxaparin Sodium (Enoxaparin Sodium 40 Mg/0.4 Ml Syringe) 40 mg SUBCUT Q24H JOHN Last Admin: 03/05/23 16:08 Dose: Not Given Documented By: DENNYS Non-Admin Reason: Patient Refused Guaifenesin (Guaifenesin 100 Mg/5 Ml Liquid) 10 ml PO Q4H PRN PRN Reason: Cough Last Admin: 03/04/23 14:31 Dose: 10 ml Documented By: ZACK Lidocaine (Lidocaine 4 % Patch Adh..Patch) 1 patch TRANSDERMA DAILY [facility]; Protocol Last Admin: 03/06/23 08:35 Dose: Not Given Documented By: MISSY Non-Admin Reason: Patient Refused Melatonin (Melatonin 3 Mg Tablet) 6 mg PO BEDTIME PRN PRN Reason: Insomnia Last Admin: 02/20/23 19:21 Dose: 6 mg Documented By: CIHKIS Memantine (Memantine Hcl 5 Mg Tablet) 5 mg PO DAILY JOHN Last Admin: 03/06/23 08:35 Dose: 5 mg Documented By: MISSY Ondansetron HCl (Ondansetron Hcl 4 Mg/2 Ml Vial) 4 mg IVPUSH Q8H PRN PRN Reason: Nausea and Vomiting Quetiapine Fumarate (Quetiapine Fumarate 25 Mg Tablet) 25 mg PO BID@1500,2100 JOHN Last Admin: 03/05/23 21:33 Dose: 25 mg Documented By: OWEN Labs 01/31/23 07:23 01/31/23 07:23 Assessment and Plan (1) Major neurocognitive disorder due to Alzheimer's disease, with behavioral disturbance: Status: Acute Plan 82yo F with osteoporosis + dementia in observation unit 01/01-01/06/23 awaiting LTC placement but then developed sepsis due to presumed UTI(resolved).? no new issues, cooperative ? 1.Dementia/behavioral disturbance -well controlled with Seroquel. BH-ot added psych follow up 2.Sepsis due to UTI, completed Abx and resolved. 3.Mod protein calorie malnutrition continue supplements 4. possible boderline bp: sec to low po hydration added ivf LR. - LMWH DNR/DNI patient requires continued inpatient hospitalization for the following reasons: safe placement. Time Spent With Patient Time: Total time managing care of this patient today ____ minutes. Quality Stroke Does the patient have a stroke diagnosis?: No VTE Prior VTE?: No VTE Risk Level:: Medical - moderate - high VTE Device Contraindication: Treatment Not Indicated VTE Drug Contraindication: N/A - Med Ordered
[2023-03-06] MEDS: QUEtiapine Fumarate 25 MG TABLET PO ×2 (15:03→20:47)
[2023-03-06 15:32] VITALS: BP 102/55; PULSE 97; RESP 16; TEMP 36; O2SAT 98
[2023-03-06] MEDS: Enoxaparin Sodium 40 MG/0.4 ML SYRINGE SUBCUT (16:19)
[2023-03-06 19:04] VITALS: BP 136/67; PULSE 77; RESP 18; TEMP 36.2; O2SAT 99
[2023-03-06] MEDS: Melatonin 3 MG TABLET 6 MG PO (20:46)
[2023-03-06] MEDS: Acetaminophen 325 MG TABLET 650 MG PO (20:46)
[2023-03-07 04:00] VITALS: BP 130/63; PULSE 91; RESP 18; TEMP 36.7; O2SAT 99
[2023-03-07 07:35] VITALS: BP 126/70; PULSE 68; RESP 16; TEMP 36.4; O2SAT 96
[2023-03-07] MEDS: Memantine HCl 5 MG TABLET PO (08:32)
--- NOTE | 2023-03-07 13:25 | HO.PM.IMPN ---
Subjective Subjective Date of Service: 03/07/23 Interval History: Dementia/behavioral disturbance Review of Systems No new issues, no new behavior disturbances Physical Exam Vital Signs: Vital Signs: Last Vital Signs Temp 97.6 F 03/07/23 07:35 Pulse 68 03/07/23 07:35 Resp 16 03/07/23 07:35 BP 126/70 03/07/23 07:35 Pulse Ox 96 03/07/23 07:35 O2 Del Method Room Air 03/07/23 07:35 BMI result Body Mass Index 15.9 General: oriented to self Resp:? CTA bilateral CVS: S1,S2,RRR GI: +BS, NT, no distention Skin: No rash Extremities no edema Neuro:? motor grossly intact Psych: appropriate affect Objective Data Active Medications Acetaminophen (Acetaminophen 325 Mg Tablet) 650 mg PO Q6H PRN PRN Reason: Pain, Mild (Pain Scale 1-3) Last Admin: 03/06/23 20:46 Dose: 650 mg Documented By: RICKY Docusate Sodium (Docusate Sodium 100 Mg Capsule) 100 mg PO DAILY PRN PRN Reason: Constipation Last Admin: 02/13/23 09:21 Dose: 100 mg Documented By: SPENCER Enoxaparin Sodium (Enoxaparin Sodium 40 Mg/0.4 Ml Syringe) 40 mg SUBCUT Q24H [facility] Last Admin: 03/06/23 16:19 Dose: 40 mg Documented By: MISSY Guaifenesin (Guaifenesin 100 Mg/5 Ml Liquid) 10 ml PO Q4H PRN PRN Reason: Cough Last Admin: 03/04/23 14:31 Dose: 10 ml Documented By: ZACK Lidocaine (Lidocaine 4 % Patch Adh..Patch) 1 patch TRANSDERMA DAILY [facility]; Protocol Last Admin: 03/07/23 07:30 Dose: Not Given Documented By: MISSY Non-Admin Reason: Patient Refused Melatonin (Melatonin 3 Mg Tablet) 6 mg PO BEDTIME PRN PRN Reason: Insomnia Last Admin: 03/06/23 20:46 Dose: 6 mg Documented By: RICKY Memantine (Memantine Hcl 5 Mg Tablet) 5 mg PO DAILY [facility] Last Admin: 03/07/23 08:32 Dose: 5 mg Documented By: MISSY Ondansetron HCl (Ondansetron Hcl 4 Mg/2 Ml Vial) 4 mg IVPUSH Q8H PRN PRN Reason: Nausea and Vomiting Quetiapine Fumarate (Quetiapine Fumarate 25 Mg Tablet) 25 mg PO BID@1500,2100 JOHN Last Admin: 03/06/23 20:47 Dose: 25 mg Documented By: RICKY Labs 01/31/23 07:23 01/31/23 07:23 Assessment and Plan (1) Major neurocognitive disorder due to Alzheimer's disease, with behavioral disturbance: Status: Acute Plan 82yo F with osteoporosis + dementia in observation unit 01/01-01/06/23 awaiting LTC placement but then developed sepsis due to presumed UTI(resolved).? no new issues, cooperative ? 1.Dementia/behavioral disturbance -well controlled with Seroquel. BH-ot added psych follow up 2.Sepsis due to UTI, completed Abx and resolved. 3.Mod protein calorie malnutrition continue supplements 4. possible boderline bp: sec to low po hydration added ivf LR. - LMWH DNR/DNI patient requires continued inpatient hospitalization for the following reasons: safe placement. Time Spent With Patient Time: Total time managing care of this patient today ____ minutes. Quality Stroke Does the patient have a stroke diagnosis?: No VTE Prior VTE?: No VTE Risk Level:: Medical - moderate - high VTE Device Contraindication: Treatment Not Indicated VTE Drug Contraindication: N/A - Med Ordered
[2023-03-07] MEDS: QUEtiapine Fumarate 25 MG TABLET PO ×2 (14:36→20:26)
[2023-03-07 16:00] VITALS: BP 120/68; PULSE 78; RESP 18; TEMP 36.8; O2SAT 98
[2023-03-07] MEDS: Enoxaparin Sodium 40 MG/0.4 ML SYRINGE SUBCUT (17:28)
[2023-03-07 18:47] VITALS: BP 120/69; PULSE 69; RESP 18; TEMP 36.2; O2SAT 98
[2023-03-08 04:00] VITALS: BP 107/54; PULSE 95; RESP 18; TEMP 36.2; O2SAT 93
[2023-03-08 07:48] VITALS: BP 113/59; PULSE 89; RESP 18; TEMP 36.2; O2SAT 98
[2023-03-08] MEDS: Acetaminophen 325 MG TABLET 650 MG PO (07:50)
[2023-03-08] MEDS: Memantine HCl 5 MG TABLET PO (07:51)
[2023-03-08] MEDS: Lidocaine 4 % Patch ADH..PATCH 1 PATCH TRANSDERMA (07:55)
--- NOTE | 2023-03-08 15:02 | MHC.CM.PN ---
pt unable to be placed dgter needs to bring in 2 years worth of bank statements dc pending same
[2023-03-08 15:12] VITALS: BP 112/54; PULSE 98; RESP 20; TEMP 36.3; O2SAT 99
--- NOTE | 2023-03-08 15:18 | P.CNPS_ITS ---
History of Present Illness Date of Service: 03/08/2023 Chief Complaint: [employer] Requesting physician: Yair Ayoub Sources of Information: patient interviewed, chart reviewed and crisis/core team assessment reviewed HPI Narrative: Interim Hx: pt sleeping well. No behavioral concerns. No side effects with seroquel for agitation. Pt stable but requires 24/7 supervision. Pt pleasant on approach. Takes medications as prescribed. No aggression towards self or others. Review of Systems Review of Systems No new issues, no new behavior disturbances Yes all other systems are reviewed and are negative and Unobtainable due to mental status Constitutional: Denies chills and Denies fever(s) Denies dizziness Cardiovascular: Denies chest pain Gastrointestinal: Denies abdominal pain Denies dizziness Diagnostics Vital Signs (24Hr): Vital Signs - 24 hr 03/07/23 16:00 03/07/23 18:47 03/08/23 04:00 Temperature 98.2 F 97.2 F 97.2 F Pulse Rate 78 69 95 Respiratory Rate 18 18 18 Blood Pressure 120/68 120/69 107/54 L Pulse Oximetry 98 98 93 Oxygen Delivery Method Room Air Room Air Room Air 03/08/23 07:48 03/08/23 15:12 Temperature 97.1 F 97.3 F Pulse Rate 89 98 Respiratory Rate 18 20 Blood Pressure 113/59 L 112/54 L Pulse Oximetry 98 99 Oxygen Delivery Method Room Air Room Air BMI result Body Mass Index 15.9 Labs 01/31/23 07:23 01/31/23 07:23 Imaging Radiology Impressions: ITS Impressions Cervical Spine CT 01/04/23 00:30 IMPRESSION: HEAD: No acute intracranial findings. CERVICAL SPINE: No acute findings identified. Moderate to severe degenerative changes. Head CT 01/04/23 00:30 IMPRESSION: HEAD: No acute intracranial findings. CERVICAL SPINE: No acute findings identified. Moderate to severe degenerative changes. Chest X-Ray 01/06/23 11:14 IMPRESSION: No acute cardiopulmonary process. Knee X-Ray 01/06/23 11:14 IMPRESSION: 1. Moderate tricompartmental degenerative joint changes most consistent with osteoarthritis. 2. Small to moderate joint effusion and mild surrounding soft tissue swelling without acute underlying osseous abnormality. Mental Status Exam Mental Status Exam Narrative: Appearance: wearing hospital gown, fair hygiene, in NAD Behavior: pleasant and friendly Psychomotor: no agitation or retardation noted at time of this interview Speech: clear, regular rate/rhythm/volume, spontaneous TP: mostly linear TC: enjoying her dinner, I'm staying here mood: good Affect: congruent SI: denies HI: denies VH/AH: none Delusions: none noted or reported. some confabulation Insight/judgment: impaired x 2. Memory/cog: alert, not oriented to place, situation, year or month. Medications Medications Current Medications Acetaminophen (Acetaminophen 325 Mg Tablet) 650 mg PO Q6H PRN PRN Reason: Pain, Mild (Pain Scale 1-3) Last Admin: 03/08/23 07:50 Dose: 650 mg Docusate Sodium (Docusate Sodium 100 Mg Capsule) 100 mg PO DAILY PRN PRN Reason: Constipation Last Admin: 02/13/23 09:21 Dose: 100 mg Enoxaparin Sodium (Enoxaparin Sodium 40 Mg/0.4 Ml Syringe) 40 mg SUBCUT Q24H [facility] Last Admin: 03/07/23 17:28 Dose: 40 mg Guaifenesin (Guaifenesin 100 Mg/5 Ml Liquid) 10 ml PO Q4H PRN PRN Reason: Cough Last Admin: 03/04/23 14:31 Dose: 10 ml Lidocaine (Lidocaine 4 % Patch Adh..Patch) 1 patch TRANSDERMA DAILY [facility]; Protocol Last Admin: 03/08/23 07:55 Dose: 1 patch Melatonin (Melatonin 3 Mg Tablet) 6 mg PO BEDTIME PRN PRN Reason: Insomnia Last Admin: 03/06/23 20:46 Dose: 6 mg Memantine (Memantine Hcl 5 Mg Tablet) 5 mg PO DAILY [facility] Last Admin: 03/08/23 07:51 Dose: 5 mg Ondansetron HCl (Ondansetron Hcl 4 Mg/2 Ml Vial) 4 mg IVPUSH Q8H PRN PRN Reason: Nausea and Vomiting Quetiapine Fumarate (Quetiapine Fumarate 25 Mg Tablet) 25 mg PO BID@1500,2100 [facility] Last Admin: 03/07/23 20:26 Dose: 25 mg Allergies Allergies Allergy/AdvReac Type Severity Reaction Status Date / Time No Known Allergies Allergy Verified 01/01/23 21:32 Assessment & Plan Assessment & Plan (1) Major neurocognitive disorder due to Alzheimer's disease, with behavioral disturbance: Status: Acute Code(s): G30.9 - Alzheimer's disease, unspecified; F02.818 - Dementia in other diseases classified elsewhere, unspecified severity, with other behavioral disturbance Plan 82yo F with osteoporosis + dementia in observation unit 01/01-01/06/23 awaiting LTC placement but then developed sepsis due to presumed UTI(resolved).? 03/08 pt stable with no combative behaviors secondary to dementia. Pt requires / care- wherever this level of support can be provided. Total time managing care of this patient today ____ minutes.
--- NOTE | 2023-03-08 15:39 | HO.PM.IMPN ---
Subjective Subjective Date of Service: 03/08/23 Interval History: Dementia/behavioral disturbance Review of Systems No new issues, no new behavior disturbances Physical Exam Vital Signs: Vital Signs: Last Vital Signs Temp 97.3 F 03/08/23 15:12 Pulse 98 03/08/23 15:12 Resp 20 03/08/23 15:12 BP 112/54 L 03/08/23 15:12 Pulse Ox 99 03/08/23 15:12 O2 Del Method Room Air 03/08/23 15:12 BMI result Body Mass Index 15.9 General: oriented to self Resp:? CTA bilateral CVS: S1,S2,RRR GI: +BS, NT, no distention Skin: No rash Extremities no edema Neuro:? motor grossly intact Psych: appropriate affect Objective Data Active Medications Acetaminophen (Acetaminophen 325 Mg Tablet) 650 mg PO Q6H PRN PRN Reason: Pain, Mild (Pain Scale 1-3) Last Admin: 03/08/23 07:50 Dose: 650 mg Documented By: DENNYS Docusate Sodium (Docusate Sodium 100 Mg Capsule) 100 mg PO DAILY PRN PRN Reason: Constipation Last Admin: 02/13/23 09:21 Dose: 100 mg Documented By: SPENCER Enoxaparin Sodium (Enoxaparin Sodium 40 Mg/0.4 Ml Syringe) 40 mg SUBCUT Q24H [facility] Last Admin: 03/07/23 17:28 Dose: 40 mg Documented By: MISSY Guaifenesin (Guaifenesin 100 Mg/5 Ml Liquid) 10 ml PO Q4H PRN PRN Reason: Cough Last Admin: 03/04/23 14:31 Dose: 10 ml Documented By: ZACK Lidocaine (Lidocaine 4 % Patch Adh..Patch) 1 patch TRANSDERMA DAILY [facility]; Protocol Last Admin: 03/08/23 07:55 Dose: 1 patch Documented By: DENNYS Melatonin (Melatonin 3 Mg Tablet) 6 mg PO BEDTIME PRN PRN Reason: Insomnia Last Admin: 03/06/23 20:46 Dose: 6 mg Documented By: JUANORALB Memantine (Memantine Hcl 5 Mg Tablet) 5 mg PO DAILY [facility] Last Admin: 03/08/23 07:51 Dose: 5 mg Documented By: DENNYS Ondansetron HCl (Ondansetron Hcl 4 Mg/2 Ml Vial) 4 mg IVPUSH Q8H PRN PRN Reason: Nausea and Vomiting Quetiapine Fumarate (Quetiapine Fumarate 25 Mg Tablet) 25 mg PO BID@1500,2100 [facility] Last Admin: 03/07/23 20:26 Dose: 25 mg Documented By: LYNETTE Labs 01/31/23 07:23 01/31/23 07:23 Assessment and Plan (1) Major neurocognitive disorder due to Alzheimer's disease, with behavioral disturbance: Status: Acute Plan 82yo F with osteoporosis + dementia in observation unit 01/01-01/06/23 awaiting LTC placement but then developed sepsis due to presumed UTI(resolved).? no new issues, cooperative ? 1.Dementia/behavioral disturbance -well controlled with Seroquel. BH-ot added psych follow up 2.Sepsis due to UTI, completed Abx and resolved. 3.Mod protein calorie malnutrition continue supplements 4. possible boderline bp: sec to low po hydration added ivf LR. - LMWH DNR/DNI patient requires continued inpatient hospitalization for the following reasons: safe placement. Time Spent With Patient Time: Total time managing care of this patient today ____ minutes. Quality Stroke Does the patient have a stroke diagnosis?: No VTE Prior VTE?: No VTE Risk Level:: Medical - moderate - high VTE Device Contraindication: Treatment Not Indicated VTE Drug Contraindication: N/A - Med Ordered
[2023-03-08] MEDS: QUEtiapine Fumarate 25 MG TABLET PO ×2 (16:02→20:38)
[2023-03-08] MEDS: Enoxaparin Sodium 40 MG/0.4 ML SYRINGE SUBCUT (16:02)
[2023-03-08 20:00] VITALS: BP 94/61; PULSE 100; RESP 20; TEMP 36.4; O2SAT 97
[2023-03-09 03:39] VITALS: BP 112/59; PULSE 96; RESP 16; TEMP 36.2; O2SAT 93
[2023-03-09 08:00] VITALS: BP 105/54; PULSE 93; RESP 16; TEMP 36.6; O2SAT 94
[2023-03-09] MEDS: Lidocaine 4 % Patch ADH..PATCH 1 PATCH TRANSDERMA (08:22)
[2023-03-09] MEDS: Memantine HCl 5 MG TABLET PO (08:22)
[2023-03-09] MEDS: Acetaminophen 325 MG TABLET 650 MG PO (09:05)
--- NOTE | 2023-03-09 10:34 | HO.PM.IMPN ---
Subjective Subjective Date of Service: 03/09/23 Interval History: Dementia/behavioral disturbance Review of Systems No new issues, no new behavior disturbances Physical Exam Vital Signs: Vital Signs: Last Vital Signs Temp 97.8 F 03/09/23 08:00 Pulse 93 03/09/23 08:00 Resp 16 03/09/23 08:00 BP 105/54 L 03/09/23 08:00 Pulse Ox 94 03/09/23 08:00 O2 Del Method Room Air 03/09/23 08:00 BMI result Body Mass Index 15.9 Objective Data Active Medications Acetaminophen (Acetaminophen 325 Mg Tablet) 650 mg PO Q6H PRN PRN Reason: Pain, Mild (Pain Scale 1-3) Last Admin: 03/09/23 09:05 Dose: 650 mg Documented By: DENNYS Docusate Sodium (Docusate Sodium 100 Mg Capsule) 100 mg PO DAILY PRN PRN Reason: Constipation Last Admin: 02/13/23 09:21 Dose: 100 mg Documented By: SPENCER Enoxaparin Sodium (Enoxaparin Sodium 40 Mg/0.4 Ml Syringe) 40 mg SUBCUT Q24H [facility] Last Admin: 03/08/23 16:02 Dose: 40 mg Documented By: DENNYS Guaifenesin (Guaifenesin 100 Mg/5 Ml Liquid) 10 ml PO Q4H PRN PRN Reason: Cough Last Admin: 03/04/23 14:31 Dose: 10 ml Documented By: ZACK Lidocaine (Lidocaine 4 % Patch Adh..Patch) 1 patch TRANSDERMA DAILY [facility]; Protocol Last Admin: 03/09/23 08:22 Dose: 1 patch Documented By: DENNYS Melatonin (Melatonin 3 Mg Tablet) 6 mg PO BEDTIME PRN PRN Reason: Insomnia Last Admin: 03/06/23 20:46 Dose: 6 mg Documented By: OZORALB Memantine (Memantine Hcl 5 Mg Tablet) 5 mg PO DAILY [facility] Last Admin: 03/09/23 08:22 Dose: 5 mg Documented By: DENNYS Ondansetron HCl (Ondansetron Hcl 4 Mg/2 Ml Vial) 4 mg IVPUSH Q8H PRN PRN Reason: Nausea and Vomiting Quetiapine Fumarate (Quetiapine Fumarate 25 Mg Tablet) 25 mg PO BID@1500,2100 [facility] Last Admin: 03/08/23 20:38 Dose: 25 mg Documented By: LYNETTE Labs 01/31/23 07:23 01/31/23 07:23 Assessment and Plan (1) Major neurocognitive disorder due to Alzheimer's disease, with behavioral disturbance: Status: Acute Plan 82yo F with osteoporosis + dementia in observation unit 01/01-01/06/23 awaiting LTC placement but then developed sepsis due to presumed UTI(resolved).? no new issues, cooperative ? 1.Dementia/behavioral disturbance -well controlled with Seroquel. 2.Sepsis due to UTI, completed Abx and resolved. 3.Mod protein calorie malnutrition continue supplements 4. possible boderline bp: sec to low po hydration added ivf LR. - LMWH DNR/DNI patient requires continued inpatient hospitalization for the following reasons: safe placement. Time Spent With Patient Time: Total time managing care of this patient today ____ minutes. Quality Stroke Does the patient have a stroke diagnosis?: No VTE Prior VTE?: No VTE Risk Level:: Medical - moderate - high VTE Device Contraindication: Treatment Not Indicated VTE Drug Contraindication: N/A - Med Ordered
[2023-03-09] MEDS: QUEtiapine Fumarate 25 MG TABLET PO ×2 (14:01→19:24)
[2023-03-09 16:00] VITALS: BP 108/56; PULSE 111; RESP 20; TEMP 36.4; O2SAT 96
[2023-03-09 19:54] VITALS: BP 134/56; PULSE 106; RESP 20; TEMP 36.2; O2SAT 98
[2023-03-10 03:11] VITALS: BP 98/55; PULSE 99; RESP 16; TEMP 36.4; O2SAT 94
[2023-03-10 07:20] VITALS: BP 125/64; PULSE 102; RESP 12; TEMP 36.1; O2SAT 97
[2023-03-10] MEDS: Memantine HCl 5 MG TABLET PO (08:08)
[2023-03-10] MEDS: Lidocaine 4 % Patch ADH..PATCH 1 PATCH TRANSDERMA (08:09)
--- NOTE | 2023-03-10 08:31 | P.PNIM_ITS ---
Subjective Subjective Date of Service: 03/10/23 Interval History: Dementia/behavioral disturbance, overall well no new changes Physical Exam 2 Vital Signs: Vital Signs: Last Vital Signs Temp 97.0 F 03/10/23 07:20 Pulse 102 H 03/10/23 07:20 Resp 12 03/10/23 07:20 BP 125/64 03/10/23 07:20 Pulse Ox 97 03/10/23 07:20 O2 Del Method Room Air 03/10/23 07:20 BMI result Body Mass Index 15.9 Const: Other: General: oriented to self Neck no JVD Resp:? CTA bilateral CVS: S1,S2,RRR GI: +BS, NT, no distention Skin: No rash Extremities no edema Neuro:? motor grossly intact Psych: appropriate affect Objective Data Active Medications Acetaminophen (Acetaminophen 325 Mg Tablet) 650 mg PO Q6H PRN PRN Reason: Pain, Mild (Pain Scale 1-3) Last Admin: 03/09/23 09:05 Dose: 650 mg Documented By: DENNYS Docusate Sodium (Docusate Sodium 100 Mg Capsule) 100 mg PO DAILY PRN PRN Reason: Constipation Last Admin: 02/13/23 09:21 Dose: 100 mg Documented By: SPENCER Enoxaparin Sodium (Enoxaparin Sodium 40 Mg/0.4 Ml Syringe) 40 mg SUBCUT Q24H JOHN Last Admin: 03/09/23 16:16 Dose: Not Given Documented By: DENNYS Non-Admin Reason: Patient Refused Guaifenesin (Guaifenesin 100 Mg/5 Ml Liquid) 10 ml PO Q4H PRN PRN Reason: Cough Last Admin: 03/04/23 14:31 Dose: 10 ml Documented By: ZACK Lidocaine (Lidocaine 4 % Patch Adh..Patch) 1 patch TRANSDERMA DAILY [facility]; Protocol Last Admin: 03/10/23 08:09 Dose: 1 patch Documented By: BALDEV Melatonin (Melatonin 3 Mg Tablet) 6 mg PO BEDTIME PRN PRN Reason: Insomnia Last Admin: 03/06/23 20:46 Dose: 6 mg Documented By: RICKY Memantine (Memantine Hcl 5 Mg Tablet) 5 mg PO DAILY JOHN Last Admin: 03/10/23 08:08 Dose: 5 mg Documented By: BALDEV Ondansetron HCl (Ondansetron Hcl 4 Mg/2 Ml Vial) 4 mg IVPUSH Q8H PRN PRN Reason: Nausea and Vomiting Quetiapine Fumarate (Quetiapine Fumarate 25 Mg Tablet) 25 mg PO BID@1500,2100 JOHN Last Admin: 03/09/23 19:24 Dose: 25 mg Documented By: ASAD Labs 01/31/23 07:23 01/31/23 07:23 Assessment and Plan (1) Major neurocognitive disorder due to Alzheimer's disease, with behavioral disturbance: Status: Acute (2) Dementia with behavioral disturbance: Status: Acute Plan 82yo F with osteoporosis + dementia in observation unit 01/01-01/06/23 awaiting LTC placement but then developed sepsis due to presumed UTI(resolved).? no new issues, cooperative ? 1.Dementia/behavioral disturbance -well controlled with Seroquel. 2.Sepsis due to UTI, completed Abx and resolved. 3.Mod protein calorie malnutrition continue supplements 4. possible boderline bp: sec to low po hydration added ivf LR. - LMWH DNR/DNI patient requires continued inpatient hospitalization for the following reasons: safe placement. Time Spent With Patient Time: Total time managing care of this patient today ____ minutes. Quality Stroke Does the patient have a stroke diagnosis?: No VTE Prior VTE?: No VTE Risk Level:: Medical - moderate - high VTE Device Contraindication: Treatment Not Indicated VTE Drug Contraindication: N/A - Med Ordered
--- NOTE | 2023-03-10 10:24 | P.CDIM_ITS ---
PROVIDER RESPONSE TEXT: To clarify, the appropriate diagnosis supported by the clinical indicators: Clinically unable to determine (explain): no dedhydration QUERY TEXT: PHYSICIAN'S DOCUMENTATION REQUEST Date of Query: 03/10/2023 07:14 AM EDT Patient Name: Malinda Lopez Admit Date: 01/06/2023 Dear Derrell Akins, A review of the medical record indicates additional documentation may be needed. Please review below and update the documentation accordingly. Clinical Indicators: Per Hospitalist Progress Note 03/09/23: possible borderline BP: secondary to low po hydration added IVF LR Based on the above, could you clarify the appropriate diagnosis, if significant, that supports the ab ove abnormalities and additional evaluation, monitoring, and/or treatment rendered: Dehydration Hypotension Other (explain)Clinically unable to determine (explain)Thank you, Sybil Hylton RN Use of terms such as suspected, likely, concern for, or probable (associated with a specific diagnosi s that is being evaluated, monitored, or treated as if it exists) are acceptable and can be coded in the inpatient se tting, when documented at the time of discharge. Please use your independent medical judgment in providing your response. THIS QUERY IS PART OF THE PERMANENT MEDICAL RECORD
--- NOTE | 2023-03-10 11:52 | MHC.CM.PN ---
Contact with dtr/HCP/guardian, Hannah was made via phone today. She stated that she had been to see Emely, financial furniture repair technician, this morning. Emely confirms Hannah brought in a vehicle registration this morning. Hannah states that she is waiting on bank statements. She states that the bank is slow to provide the documentation requested. The 1st 2yrs, of the past 5yrs (of bank statements) are needed. Discharge to home was discussed. Per Hannah her sister states that she can not manage the patient at night. CM will continue to follow for discharge.
--- NOTE | 2023-03-10 12:15 | MHC.CLN ---
F/U DIET=REGULAR-APPROPRIATE. PO INTAKE MOST MEALS 100%, WITH RANGE OF 25-100%. NO SKIN ISSUES. AWAITING PLACEMENT. CONTINUE TO MONITOR PO INTAKE AND WEIGHTS. RD TO FOLLOW WEEKLY.
[2023-03-10] MEDS: QUEtiapine Fumarate 25 MG TABLET PO ×2 (14:09→19:36)
[2023-03-10 15:09] VITALS: BP 114/62; PULSE 99; RESP 16; TEMP 36.3; O2SAT 97
[2023-03-10] MEDS: Enoxaparin Sodium 40 MG/0.4 ML SYRINGE SUBCUT (17:33)
[2023-03-10 19:05] VITALS: BP 125/58; PULSE 97; RESP 16; TEMP 36.4; O2SAT 97
[2023-03-10] MEDS: Melatonin 3 MG TABLET 6 MG PO (22:09)
[2023-03-10] MEDS: Acetaminophen 325 MG TABLET 650 MG PO (22:09)
[2023-03-11 03:27] VITALS: BP 110/57; PULSE 90; RESP 14; TEMP 36; O2SAT 94
[2023-03-11 08:00] VITALS: BP 113/57; PULSE 91; RESP 18; TEMP 36; O2SAT 97
[2023-03-11] MEDS: Memantine HCl 5 MG TABLET PO (08:03)
--- NOTE | 2023-03-11 10:18 | P.PNIM_ITS ---
Subjective Subjective Date of Service: 03/11/23 Interval History: no clinical change Physical Exam 2 Vital Signs: Vital Signs: Last Vital Signs Temp 96.8 F 03/11/23 08:00 Pulse 91 03/11/23 08:00 Resp 18 03/11/23 08:00 BP 113/57 L 03/11/23 08:00 Pulse Ox 97 03/11/23 08:00 O2 Del Method Room Air 03/11/23 08:00 BMI result Body Mass Index 15.9 Const: Other: General: oriented to self Neck no JVD Resp:? CTA bilateral CVS: S1,S2,RRR GI: +BS, NT, no distention Skin: No rash Extremities no edema Neuro:? motor grossly intact Psych: appropriate affect Objective Data Active Medications Acetaminophen (Acetaminophen 325 Mg Tablet) 650 mg PO Q6H PRN PRN Reason: Pain, Mild (Pain Scale 1-3) Last Admin: 03/10/23 22:09 Dose: 650 mg Documented By: ULISES Docusate Sodium (Docusate Sodium 100 Mg Capsule) 100 mg PO DAILY PRN PRN Reason: Constipation Last Admin: 02/13/23 09:21 Dose: 100 mg Documented By: SPENCER Enoxaparin Sodium (Enoxaparin Sodium 40 Mg/0.4 Ml Syringe) 40 mg SUBCUT Q24H [facility] Last Admin: 03/10/23 17:33 Dose: 40 mg Documented By: ULISES Guaifenesin (Guaifenesin 100 Mg/5 Ml Liquid) 10 ml PO Q4H PRN PRN Reason: Cough Last Admin: 03/04/23 14:31 Dose: 10 ml Documented By: ZACK Lidocaine (Lidocaine 4 % Patch Adh..Patch) 1 patch TRANSDERMA DAILY [facility]; Protocol Last Admin: 03/11/23 08:03 Dose: Not Given Documented By: MISSY Non-Admin Reason: No Access Melatonin (Melatonin 3 Mg Tablet) 6 mg PO BEDTIME PRN PRN Reason: Insomnia Last Admin: 03/10/23 22:09 Dose: 6 mg Documented By: ULISES Memantine (Memantine Hcl 5 Mg Tablet) 5 mg PO DAILY [facility] Last Admin: 03/11/23 08:03 Dose: 5 mg Documented By: MISSY Ondansetron HCl (Ondansetron Hcl 4 Mg/2 Ml Vial) 4 mg IVPUSH Q8H PRN PRN Reason: Nausea and Vomiting Quetiapine Fumarate (Quetiapine Fumarate 25 Mg Tablet) 25 mg PO BID@1500,2100 JOHN Last Admin: 03/10/23 19:36 Dose: 25 mg Documented By: ULISES Labs 01/31/23 07:23 01/31/23 07:23 Assessment and Plan (1) Major neurocognitive disorder due to Alzheimer's disease, with behavioral disturbance: Status: Acute (2) Dementia with behavioral disturbance: Status: Acute Plan 82yo F with osteoporosis + dementia in observation unit 01/01-01/06/23 awaiting LTC placement but then developed sepsis due to presumed UTI(resolved).? no new issues, cooperative ? 1.Dementia/behavioral disturbance -well controlled with Seroquel. 2.Sepsis due to UTI, completed Abx and resolved. 3.Mod protein calorie malnutrition continue supplements 4. possible boderline bp: sec to low po hydration added ivf LR. continue daily ambulation - LMWH DNR/DNI patient requires continued inpatient hospitalization for the following reasons: safe placement. Time Spent With Patient Time: Total time managing care of this patient today ____ minutes. Quality Stroke Does the patient have a stroke diagnosis?: No VTE Prior VTE?: No VTE Risk Level:: Medical - moderate - high VTE Device Contraindication: Treatment Not Indicated VTE Drug Contraindication: N/A - Med Ordered
[2023-03-11] MEDS: QUEtiapine Fumarate 25 MG TABLET PO ×2 (14:18→20:33)
[2023-03-11 15:33] VITALS: BP 100/53; PULSE 114; RESP 14; TEMP 36.7; O2SAT 95
[2023-03-11] MEDS: Enoxaparin Sodium 40 MG/0.4 ML SYRINGE SUBCUT (17:21)
[2023-03-11 19:09] VITALS: BP 105/55; PULSE 108; RESP 18; TEMP 36.5; O2SAT 96
[2023-03-12 04:00] VITALS: BP 105/55; PULSE 91; RESP 18; TEMP 36.7; O2SAT 93
[2023-03-12 07:00] VITALS: BP 110/58; PULSE 68; RESP 16; TEMP 36.4; O2SAT 94
[2023-03-12] MEDS: Memantine HCl 5 MG TABLET PO (08:15)
--- NOTE | 2023-03-12 08:21 | HO.PM.IMPN ---
Subjective Subjective Date of Service: 03/12/23 Interval History: awake no distress, Physical Exam Vital Signs: Vital Signs: Last Vital Signs Temp 97.5 F 03/12/23 07:00 Pulse 68 03/12/23 07:00 Resp 16 03/12/23 07:00 BP 110/58 L 03/12/23 07:00 Pulse Ox 94 03/12/23 07:00 O2 Del Method Room Air 03/12/23 07:00 BMI result Body Mass Index 15.9 Const: Other: General: oriented to self Neck no JVD Resp:? CTA bilateral CVS: S1,S2,RRR GI: +BS, NT, no distention Skin: No rash Extremities no edema Neuro:? motor grossly intact Psych: appropriate affect Objective Data Active Medications Acetaminophen (Acetaminophen 325 Mg Tablet) 650 mg PO Q6H PRN PRN Reason: Pain, Mild (Pain Scale 1-3) Last Admin: 03/10/23 22:09 Dose: 650 mg Documented By: ULISES Docusate Sodium (Docusate Sodium 100 Mg Capsule) 100 mg PO DAILY PRN PRN Reason: Constipation Last Admin: 02/13/23 09:21 Dose: 100 mg Documented By: SPENCER Enoxaparin Sodium (Enoxaparin Sodium 40 Mg/0.4 Ml Syringe) 40 mg SUBCUT Q24H [facility] Last Admin: 03/11/23 17:21 Dose: 40 mg Documented By: MISSY Guaifenesin (Guaifenesin 100 Mg/5 Ml Liquid) 10 ml PO Q4H PRN PRN Reason: Cough Last Admin: 03/04/23 14:31 Dose: 10 ml Documented By: ZACK Lidocaine (Lidocaine 4 % Patch Adh..Patch) 1 patch TRANSDERMA DAILY [facility]; Protocol Last Admin: 03/12/23 07:46 Dose: Not Given Documented By: MISSY Non-Admin Reason: Patient Refused Melatonin (Melatonin 3 Mg Tablet) 6 mg PO BEDTIME PRN PRN Reason: Insomnia Last Admin: 03/10/23 22:09 Dose: 6 mg Documented By: ULISES Memantine (Memantine Hcl 5 Mg Tablet) 5 mg PO DAILY [facility] Last Admin: 03/12/23 08:15 Dose: 5 mg Documented By: MISSY Ondansetron HCl (Ondansetron Hcl 4 Mg/2 Ml Vial) 4 mg IVPUSH Q8H PRN PRN Reason: Nausea and Vomiting Quetiapine Fumarate (Quetiapine Fumarate 25 Mg Tablet) 25 mg PO BID@1500,2100 JOHN Last Admin: 03/11/23 20:33 Dose: 25 mg Documented By: MARIA ESTHER Labs 01/31/23 07:23 01/31/23 07:23 Assessment and Plan (1) Major neurocognitive disorder due to Alzheimer's disease, with behavioral disturbance: Status: Acute (2) Dementia with behavioral disturbance: Status: Acute Plan 82yo F with osteoporosis + dementia in observation unit 01/01-01/06/23 awaiting LTC placement but then developed sepsis due to presumed UTI(resolved).? no new issues, cooperative ? 1.Dementia/behavioral disturbance -well controlled with Seroquel. 2.Sepsis due to UTI, completed Abx and resolved. 3.Mod protein calorie malnutrition continue supplements 4. possible boderline bp: sec to low po hydration added ivf LR. continue daily ambulations - LMWH DNR/DNI patient requires continued inpatient hospitalization for the following reasons: safe placement, case managment working on it Time Spent With Patient Time: Total time managing care of this patient today ____ minutes. Quality Stroke Does the patient have a stroke diagnosis?: No VTE Prior VTE?: No VTE Risk Level:: Medical - moderate - high VTE Device Contraindication: Treatment Not Indicated VTE Drug Contraindication: N/A - Med Ordered
--- NOTE | 2023-03-12 13:40 | MHC.CM.PN ---
per rounds pt remains ready for d pending [facility]
[2023-03-12] MEDS: QUEtiapine Fumarate 25 MG TABLET PO ×2 (15:23→19:45)
[2023-03-12 15:37] VITALS: BP 110/53; PULSE 96; RESP 18; TEMP 36.8; O2SAT 95
[2023-03-12] MEDS: Enoxaparin Sodium 40 MG/0.4 ML SYRINGE SUBCUT (16:59)
--- NOTE | 2023-03-12 18:23 | PC.NURSE ---
Pt sitting in chair and began to produce a large amount of phlegm. Able to spit up into emesis bag. Stated nausea initially and the feeling that something is sitting right here while pointing to her stomach. Assisted BTB where this feeling subsided. Will continue to monitor
[2023-03-12 19:56] VITALS: BP 121/58; PULSE 99; RESP 18; TEMP 36.7; O2SAT 96
[2023-03-13 02:57] VITALS: BP 132/72; PULSE 97; RESP 18; TEMP 36.3; O2SAT 95
[2023-03-13 08:00] VITALS: BP 112/56; PULSE 94; RESP 20; TEMP 36.4; O2SAT 98
--- NOTE | 2023-03-13 08:55 | P.PNIM_ITS ---
Subjective Subjective Date of Service: 03/13/23 Interval History: awake no distress, Physical Exam 2 Vital Signs: Vital Signs: Last Vital Signs Temp 97.4 F 03/13/23 02:57 Pulse 97 03/13/23 02:57 Resp 18 03/13/23 02:57 BP 132/72 03/13/23 02:57 Pulse Ox 95 03/13/23 02:57 O2 Del Method Room Air 03/13/23 02:57 BMI result Body Mass Index 15.9 Const: Other: General: oriented to self Neck no JVD Resp:? CTA bilateral CVS: S1,S2,RRR GI: +BS, NT, no distention Skin: No rash Extremities no edema Neuro:? motor grossly intact Psych: appropriate affect Objective Data Active Medications Acetaminophen (Acetaminophen 325 Mg Tablet) 650 mg PO Q6H PRN PRN Reason: Pain, Mild (Pain Scale 1-3) Last Admin: 03/10/23 22:09 Dose: 650 mg Documented By: LUISES Docusate Sodium (Docusate Sodium 100 Mg Capsule) 100 mg PO DAILY PRN PRN Reason: Constipation Last Admin: 02/13/23 09:21 Dose: 100 mg Documented By: SPENCER Enoxaparin Sodium (Enoxaparin Sodium 40 Mg/0.4 Ml Syringe) 40 mg SUBCUT Q24H [facility] Last Admin: 03/12/23 16:59 Dose: 40 mg Documented By: NINFA Guaifenesin (Guaifenesin 100 Mg/5 Ml Liquid) 10 ml PO Q4H PRN PRN Reason: Cough Last Admin: 03/04/23 14:31 Dose: 10 ml Documented By: ZACK Lidocaine (Lidocaine 4 % Patch Adh..Patch) 1 patch TRANSDERMA DAILY [facility]; Protocol Last Admin: 03/12/23 07:46 Dose: Not Given Documented By: MISSY Non-Admin Reason: Patient Refused Melatonin (Melatonin 3 Mg Tablet) 6 mg PO BEDTIME PRN PRN Reason: Insomnia Last Admin: 03/10/23 22:09 Dose: 6 mg Documented By: ULISES Memantine (Memantine Hcl 5 Mg Tablet) 5 mg PO DAILY [facility] Last Admin: 03/12/23 08:15 Dose: 5 mg Documented By: MISSY Ondansetron HCl (Ondansetron Hcl 4 Mg/2 Ml Vial) 4 mg IVPUSH Q8H PRN PRN Reason: Nausea and Vomiting Quetiapine Fumarate (Quetiapine Fumarate 25 Mg Tablet) 25 mg PO BID@1500,2100 JOHN Last Admin: 03/12/23 19:45 Dose: 25 mg Documented By: MOSES Labs 01/31/23 07:23 01/31/23 07:23 Assessment and Plan (1) Major neurocognitive disorder due to Alzheimer's disease, with behavioral disturbance: Status: Acute (2) Dementia with behavioral disturbance: Status: Acute Plan 82yo F with osteoporosis + dementia in observation unit 01/01-01/06/23 awaiting LTC placement but then developed sepsis due to presumed UTI(resolved).? no new issues, cooperative ? 1.Dementia/behavioral disturbance -well controlled with Seroquel. 2.Sepsis due to UTI, completed Abx and resolved. 3.Mod protein calorie malnutrition continue supplements 4. possible boderline bp: sec to low po hydration added ivf LR. continue daily ambulations - LMWH DNR/DNI patient requires continued inpatient hospitalization for the following reasons: safe placement, case managment working on it Time Spent With Patient Time: Total time managing care of this patient today ____ minutes. Quality Stroke Does the patient have a stroke diagnosis?: No VTE Prior VTE?: No VTE Risk Level:: Medical - moderate - high VTE Device Contraindication: Treatment Not Indicated VTE Drug Contraindication: N/A - Med Ordered
[2023-03-13] MEDS: Memantine HCl 5 MG TABLET PO (09:24)
[2023-03-13] MEDS: guaiFENesin 100 MG/5 ML LIQUID 10 ML PO (09:44)
[2023-03-13] MEDS: QUEtiapine Fumarate 25 MG TABLET PO ×2 (14:01→19:20)
[2023-03-13 14:55] VITALS: BP 113/68; PULSE 92; RESP 18; TEMP 36.4; O2SAT 98
[2023-03-13 19:31] VITALS: BP 102/55; PULSE 102; RESP 18; TEMP 36.1; O2SAT 98
[2023-03-14 00:13] VITALS: BP 120/62; PULSE 70; RESP 17; TEMP 36.8; O2SAT 97
--- NOTE | 2023-03-14 08:29 | P.PNIM_ITS ---
Subjective Subjective Date of Service: 03/14/23 Interval History: She's doing well this morning, no agitation Physical Exam 2 Vital Signs: Vital Signs: Last Vital Signs Temp 98.2 F 03/14/23 00:13 Pulse 70 03/14/23 00:13 Resp 17 03/14/23 00:13 BP 120/62 03/14/23 00:13 Pulse Ox 97 03/14/23 00:13 O2 Del Method Room Air 03/14/23 00:13 BMI result Body Mass Index 15.9 Const: Other: General: oriented to self Neck no JVD Resp:? CTA bilateral CVS: S1,S2,RRR GI: +BS, NT, no distention Skin: No rash Extremities no edema Neuro:? motor grossly intact Psych: appropriate affect Objective Data Active Medications Acetaminophen (Acetaminophen 325 Mg Tablet) 650 mg PO Q6H PRN PRN Reason: Pain, Mild (Pain Scale 1-3) Last Admin: 03/10/23 22:09 Dose: 650 mg Documented By: ULISES Docusate Sodium (Docusate Sodium 100 Mg Capsule) 100 mg PO DAILY PRN PRN Reason: Constipation Last Admin: 02/13/23 09:21 Dose: 100 mg Documented By: SPENCER Enoxaparin Sodium (Enoxaparin Sodium 40 Mg/0.4 Ml Syringe) 40 mg SUBCUT Q24H [facility] Last Admin: 03/13/23 17:35 Dose: Not Given Documented By: ROGER Non-Admin Reason: Patient Refused Guaifenesin (Guaifenesin 100 Mg/5 Ml Liquid) 10 ml PO Q4H PRN PRN Reason: Cough Last Admin: 03/13/23 09:44 Dose: 10 ml Documented By: ROGER Lidocaine (Lidocaine 4 % Patch Adh..Patch) 1 patch TRANSDERMA DAILY [facility]; Protocol Last Admin: 03/13/23 09:25 Dose: Not Given Documented By: ROGER Non-Admin Reason: Patient Refused Melatonin (Melatonin 3 Mg Tablet) 6 mg PO BEDTIME PRN PRN Reason: Insomnia Last Admin: 03/10/23 22:09 Dose: 6 mg Documented By: ULISES Memantine (Memantine Hcl 5 Mg Tablet) 5 mg PO DAILY [facility] Last Admin: 03/13/23 09:24 Dose: 5 mg Documented By: ROGER Ondansetron HCl (Ondansetron Hcl 4 Mg/2 Ml Vial) 4 mg IVPUSH Q8H PRN PRN Reason: Nausea and Vomiting Quetiapine Fumarate (Quetiapine Fumarate 25 Mg Tablet) 25 mg PO BID@1500,2100 JOHN Last Admin: 03/13/23 19:20 Dose: 25 mg Documented By: MOSES Labs 01/31/23 07:23 01/31/23 07:23 Assessment and Plan (1) Major neurocognitive disorder due to Alzheimer's disease, with behavioral disturbance: Status: Acute (2) Dementia with behavioral disturbance: Status: Acute Plan 82yo F with osteoporosis + dementia in observation unit 01/01-01/06/23 awaiting LTC placement but then developed sepsis due to presumed UTI(resolved).? no new issues, cooperative ? 1.Dementia/behavioral disturbance -well controlled with Seroquel. 2.Sepsis due to UTI, completed Abx and resolved. 3.Mod protein calorie malnutrition continue supplements 4. possible boderline bp: sec to low po hydration added ivf LR. continue daily ambulations with staff - LMWH DNR/DNI patient requires continued inpatient hospitalization for the following reasons: safe placement, case managment working on it Time Spent With Patient Time: Total time managing care of this patient today ____ minutes. Quality Stroke Does the patient have a stroke diagnosis?: No VTE Prior VTE?: No VTE Risk Level:: Medical - moderate - high VTE Device Contraindication: Treatment Not Indicated VTE Drug Contraindication: N/A - Med Ordered
[2023-03-14] MEDS: Lidocaine 4 % Patch ADH..PATCH 1 PATCH TRANSDERMA (09:41)
[2023-03-14] MEDS: Memantine HCl 5 MG TABLET PO (09:42)
[2023-03-14 11:29] VITALS: BP 105/67; PULSE 100; RESP 18; TEMP 36.3; O2SAT 95
[2023-03-14] MEDS: QUEtiapine Fumarate 25 MG TABLET PO ×2 (14:01→19:27)
[2023-03-14 15:36] VITALS: BP 105/55; PULSE 99; RESP 16; TEMP 36.3; O2SAT 99
[2023-03-14 19:39] VITALS: BP 114/56; PULSE 107; RESP 17; TEMP 36.3; O2SAT 96
[2023-03-15 03:02] VITALS: BP 110/55; PULSE 91; RESP 14; TEMP 36; O2SAT 95
[2023-03-15 08:00] VITALS: BP 120/58; PULSE 96; RESP 18; TEMP 36.5; O2SAT 96
[2023-03-15] MEDS: Memantine HCl 5 MG TABLET PO (09:40)
--- NOTE | 2023-03-15 10:43 | HO.PM.IMPN ---
Subjective Subjective Date of Service: 03/15/23 Interval History: She's doing well this morning, no agitation Physical Exam Vital Signs: Vital Signs: Last Vital Signs Temp 97.7 F 03/15/23 08:00 Pulse 96 03/15/23 08:00 Resp 18 03/15/23 08:00 BP 120/58 L 03/15/23 08:00 Pulse Ox 96 03/15/23 08:00 O2 Del Method Room Air 03/15/23 08:00 BMI result Body Mass Index 15.9 Const: Other: General: oriented to self Neck no JVD Resp:? CTA bilateral CVS: S1,S2,RRR GI: +BS, NT, no distention Skin: No rash Extremities no edema Neuro:? motor grossly intact Psych: appropriate affect Objective Data Active Medications Acetaminophen (Acetaminophen 325 Mg Tablet) 650 mg PO Q6H PRN PRN Reason: Pain, Mild (Pain Scale 1-3) Last Admin: 03/10/23 22:09 Dose: 650 mg Documented By: ULISES Docusate Sodium (Docusate Sodium 100 Mg Capsule) 100 mg PO DAILY PRN PRN Reason: Constipation Last Admin: 02/13/23 09:21 Dose: 100 mg Documented By: SPENCER Enoxaparin Sodium (Enoxaparin Sodium 40 Mg/0.4 Ml Syringe) 40 mg SUBCUT Q24H [facility] Last Admin: 03/14/23 16:50 Dose: Not Given Documented By: ROGER Non-Admin Reason: Patient Refused Guaifenesin (Guaifenesin 100 Mg/5 Ml Liquid) 10 ml PO Q4H PRN PRN Reason: Cough Last Admin: 03/13/23 09:44 Dose: 10 ml Documented By: ROGER Lidocaine (Lidocaine 4 % Patch Adh..Patch) 1 patch TRANSDERMA DAILY [facility]; Protocol Last Admin: 03/15/23 09:40 Dose: Not Given Documented By: MARIAN Non-Admin Reason: Patient Refused Melatonin (Melatonin 3 Mg Tablet) 6 mg PO BEDTIME PRN PRN Reason: Insomnia Last Admin: 03/10/23 22:09 Dose: 6 mg Documented By: ULISES Memantine (Memantine Hcl 5 Mg Tablet) 5 mg PO DAILY [facility] Last Admin: 03/15/23 09:40 Dose: 5 mg Documented By: MARIAN Ondansetron HCl (Ondansetron Hcl 4 Mg/2 Ml Vial) 4 mg IVPUSH Q8H PRN PRN Reason: Nausea and Vomiting Quetiapine Fumarate (Quetiapine Fumarate 25 Mg Tablet) 25 mg PO BID@1500,2100 JOHN Last Admin: 03/14/23 19:27 Dose: 25 mg Documented By: ASAD Labs 01/31/23 07:23 01/31/23 07:23 Assessment and Plan (1) Major neurocognitive disorder due to Alzheimer's disease, with behavioral disturbance: Status: Acute (2) Dementia with behavioral disturbance: Status: Acute Plan 82yo F with osteoporosis + dementia was in observation unit 01/01-01/06/23 awaiting LTC placement but then developed sepsis due to presumed UTI(resolved) no new issues, cooperative ? 1.Dementia/behavioral disturbance -well controlled with Seroquel. 2.Sepsis due to UTI, completed Abx and resolved. 3.Mod protein calorie malnutrition continue supplements 4. possible boderline bp: sec to low po hydration added ivf LR. continue daily ambulations with staff - LMWH DNR/DNI patient requires continued inpatient hospitalization for the following reasons: safe placement, case managment working on it Time Spent With Patient Time: Total time managing care of this patient today ____ minutes. Quality Stroke Does the patient have a stroke diagnosis?: No VTE Prior VTE?: No VTE Risk Level:: Medical - moderate - high VTE Device Contraindication: Treatment Not Indicated VTE Drug Contraindication: N/A - Med Ordered
[2023-03-15] MEDS: QUEtiapine Fumarate 25 MG TABLET PO ×2 (14:10→20:42)
[2023-03-15 15:10] VITALS: BP 121/61; PULSE 100; RESP 18; TEMP 36.1; O2SAT 98
[2023-03-15 18:58] VITALS: BP 114/56; PULSE 107; RESP 18; TEMP 36.9; O2SAT 95
[2023-03-16 04:00] VITALS: RESP 18
[2023-03-16 07:16] VITALS: BP 126/68; PULSE 60; RESP 16; TEMP 37; O2SAT 97
--- NOTE | 2023-03-16 08:16 | HO.PM.IMPN ---
Subjective Subjective Date of Service: 03/16/23 Interval History: No acute issues overnight, resting comfortably in bed, offers no complaints. Review of Systems Unable to obtain detailed review of system due to mental status Physical Exam Vital Signs: Vital Signs: Last Vital Signs Temp 98.6 F 03/16/23 07:16 Pulse 60 03/16/23 07:16 Resp 16 03/16/23 07:16 BP 126/68 03/16/23 07:16 Pulse Ox 97 03/16/23 07:16 O2 Del Method Room Air 03/16/23 07:16 BMI result Body Mass Index 15.9 Const: Other: General: oriented to self Neck no JVD Resp:? CTA bilateral CVS: S1,S2,RRR GI: +BS, NT, no distention Skin: No rash Extremities no edema Neuro:? motor grossly intact Psych: appropriate affect Objective Data Active Medications Acetaminophen (Acetaminophen 325 Mg Tablet) 650 mg PO Q6H PRN PRN Reason: Pain, Mild (Pain Scale 1-3) Last Admin: 03/10/23 22:09 Dose: 650 mg Documented By: ULISES Docusate Sodium (Docusate Sodium 100 Mg Capsule) 100 mg PO DAILY PRN PRN Reason: Constipation Last Admin: 02/13/23 09:21 Dose: 100 mg Documented By: SPENCER Enoxaparin Sodium (Enoxaparin Sodium 40 Mg/0.4 Ml Syringe) 40 mg SUBCUT Q24H [facility] Last Admin: 03/15/23 16:52 Dose: Not Given Documented By: MARIAN Non-Admin Reason: pt ambulates frequently and refused Guaifenesin (Guaifenesin 100 Mg/5 Ml Liquid) 10 ml PO Q4H PRN PRN Reason: Cough Last Admin: 03/13/23 09:44 Dose: 10 ml Documented By: ROGER Lidocaine (Lidocaine 4 % Patch Adh..Patch) 1 patch TRANSDERMA DAILY [facility]; Protocol Last Admin: 03/15/23 09:40 Dose: Not Given Documented By: MARIAN Non-Admin Reason: Patient Refused Melatonin (Melatonin 3 Mg Tablet) 6 mg PO BEDTIME PRN PRN Reason: Insomnia Last Admin: 03/10/23 22:09 Dose: 6 mg Documented By: ULISES Memantine (Memantine Hcl 5 Mg Tablet) 5 mg PO DAILY [facility] Last Admin: 03/15/23 09:40 Dose: 5 mg Documented By: MARIAN Ondansetron HCl (Ondansetron Hcl 4 Mg/2 Ml Vial) 4 mg IVPUSH Q8H PRN PRN Reason: Nausea and Vomiting Quetiapine Fumarate (Quetiapine Fumarate 25 Mg Tablet) 25 mg PO BID@1500,2100 [facility] Last Admin: 03/15/23 20:42 Dose: 25 mg Documented By: ROSELYN Labs 01/31/23 07:23 01/31/23 07:23 Assessment and Plan (1) Major neurocognitive disorder due to Alzheimer's disease, with behavioral disturbance: Status: Acute (2) Dementia with behavioral disturbance: Status: Acute Plan 82yo F with osteoporosis + dementia was in observation unit 01/01-01/06/23 awaiting LTC placement but then developed sepsis due to presumed UTI(resolved) no new issues, ambulating in hallways, tolerating diet. ? 1.Dementia/behavioral disturbance -well controlled with Seroquel. 2.Sepsis due to UTI, completed Abx and resolved. 3.Mod protein calorie malnutrition continue supplements 4. boderline bp: status post IV fluid blood pressure improved. continue daily ambulations with staff LMWH DNR/DNI patient requires continued inpatient hospitalization for the following reasons: safe placement, case managment working on it Time Spent With Patient Time: Total time managing care of this patient today ____ minutes. Quality Stroke Does the patient have a stroke diagnosis?: No VTE Prior VTE?: No VTE Risk Level:: Medical - moderate - high VTE Device Contraindication: Treatment Not Indicated VTE Drug Contraindication: N/A - Med Ordered
[2023-03-16] MEDS: Memantine HCl 5 MG TABLET PO (08:22)
[2023-03-16] MEDS: QUEtiapine Fumarate 25 MG TABLET PO ×2 (14:02→20:52)
[2023-03-16 15:03] VITALS: BP 109/57; PULSE 100; RESP 16; TEMP 36.2; O2SAT 98
[2023-03-16] MEDS: Enoxaparin Sodium 40 MG/0.4 ML SYRINGE SUBCUT (17:56)
[2023-03-16 19:11] VITALS: BP 120/62; PULSE 110; RESP 16; TEMP 36.2; O2SAT 96
[2023-03-17 04:00] VITALS: BP 101/53; PULSE 110; RESP 16; TEMP 36.1; O2SAT 94
[2023-03-17 07:45] VITALS: BP 119/57; PULSE 88; RESP 18; TEMP 36; O2SAT 95
[2023-03-17] MEDS: Memantine HCl 5 MG TABLET PO (09:05)
--- NOTE | 2023-03-17 09:43 | MHC.CM.PN ---
Referral updated and sent to facilities. Local SNFs contacted via phone to alert them to the update. A call was received from [employer]. She stated that [facility] is now requirinf the patients estranged husbands financial documents.
--- NOTE | 2023-03-17 10:17 | MHC.CM.PN ---
Call to Hannah to f/u on sending 2 years bank statements to financial counselors. Phone went straight to - this web content writer left . Awaiting return phone call.
--- NOTE | 2023-03-17 10:48 | P.PNIM_ITS ---
Subjective Subjective Date of Service: 03/17/23 Interval History: No acute events overnight, patient offers no symptoms, no fevers, no chills, no nausea, no vomiting, no abdominal pain or diarrhea, vital stable. Review of Systems Unable to obtain due to mental status Physical Exam 2 Vital Signs: Vital Signs: Last Vital Signs Temp 96.8 F 03/17/23 07:45 Pulse 88 03/17/23 07:45 Resp 18 03/17/23 07:45 BP 119/57 L 03/17/23 07:45 Pulse Ox 95 03/17/23 07:45 O2 Del Method Room Air 03/17/23 07:45 BMI result Body Mass Index 15.9 Const: Other: General: oriented to self Neck no JVD Resp:? CTA bilateral CVS: S1,S2,RRR GI: +BS, NT, no distention Skin: No rash Extremities no edema Neuro:? motor grossly intact Psych: appropriate affect Objective Data Active Medications Acetaminophen (Acetaminophen 325 Mg Tablet) 650 mg PO Q6H PRN PRN Reason: Pain, Mild (Pain Scale 1-3) Last Admin: 03/10/23 22:09 Dose: 650 mg Documented By: ULISES Docusate Sodium (Docusate Sodium 100 Mg Capsule) 100 mg PO DAILY PRN PRN Reason: Constipation Last Admin: 02/13/23 09:21 Dose: 100 mg Documented By: SPENCER Enoxaparin Sodium (Enoxaparin Sodium 40 Mg/0.4 Ml Syringe) 40 mg SUBCUT Q24H [facility] Last Admin: 03/16/23 17:56 Dose: 40 mg Documented By: NIRU Guaifenesin (Guaifenesin 100 Mg/5 Ml Liquid) 10 ml PO Q4H PRN PRN Reason: Cough Last Admin: 03/13/23 09:44 Dose: 10 ml Documented By: ROGER Lidocaine (Lidocaine 4 % Patch Adh..Patch) 1 patch TRANSDERMA DAILY [facility]; Protocol Last Admin: 03/17/23 09:00 Dose: Not Given Documented By: DAVID Non-Admin Reason: Patient Refused Melatonin (Melatonin 3 Mg Tablet) 6 mg PO BEDTIME PRN PRN Reason: Insomnia Last Admin: 03/10/23 22:09 Dose: 6 mg Documented By: ULISES Memantine (Memantine Hcl 5 Mg Tablet) 5 mg PO DAILY [facility] Last Admin: 03/17/23 09:05 Dose: 5 mg Documented By: DAVID Ondansetron HCl (Ondansetron Hcl 4 Mg/2 Ml Vial) 4 mg IVPUSH Q8H PRN PRN Reason: Nausea and Vomiting Quetiapine Fumarate (Quetiapine Fumarate 25 Mg Tablet) 25 mg PO BID@1500,2100 [facility] Last Admin: 03/16/23 20:52 Dose: 25 mg Documented By: BIJUT Labs 01/31/23 07:23 01/31/23 07:23 Assessment and Plan (1) Major neurocognitive disorder due to Alzheimer's disease, with behavioral disturbance: Status: Acute (2) Dementia with behavioral disturbance: Status: Acute Plan 82yo F with osteoporosis + dementia was in observation unit 01/01-01/06/23 awaiting LTC placement but then developed sepsis due to presumed UTI(resolved) no new issues, ambulating in hallways, tolerating diet. ? 1.Dementia/behavioral disturbance -well controlled with Seroquel. 2.Sepsis due to UTI, completed Abx and resolved. 3.Mod protein calorie malnutrition continue supplements 4. boderline bp: status post IV fluid blood pressure improved. continue daily ambulations with staff LMWH DNR/DNI patient requires continued inpatient hospitalization for the following reasons: safe placement, case managment working on it Time Spent With Patient Time: Total time managing care of this patient today ____ minutes. Quality Stroke Does the patient have a stroke diagnosis?: No VTE Prior VTE?: No VTE Risk Level:: Medical - moderate - high VTE Device Contraindication: Treatment Not Indicated VTE Drug Contraindication: N/A - Med Ordered
--- NOTE | 2023-03-17 11:15 | MHC.CLN ---
F/U DIET=REGULAR-APPROPRIATE. PO INTAKE MOST MEALS 100%. NO SKIN ISSUES. AWAITING PLACEMENT. RD TO FOLLOW WEEKLY.
[2023-03-17] MEDS: QUEtiapine Fumarate 25 MG TABLET PO ×2 (14:44→18:56)
[2023-03-17 16:00] VITALS: PULSE 109; RESP 18; TEMP 36.2; O2SAT 94
[2023-03-17] MEDS: LORazepam 0.5 MG TABLET PO (16:04)
[2023-03-17] MEDS: Enoxaparin Sodium 40 MG/0.4 ML SYRINGE SUBCUT (16:49)
[2023-03-17 17:00] VITALS: BP 118/68
[2023-03-17 19:35] VITALS: BP 101/58; PULSE 100; RESP 20; TEMP 36.1; O2SAT 95
[2023-03-18 03:12] VITALS: BP 98/53; PULSE 97; RESP 16; TEMP 36.2; O2SAT 95
[2023-03-18 07:40] VITALS: BP 106/57; PULSE 93; RESP 16; TEMP 36.2; O2SAT 93
[2023-03-18] MEDS: Acetaminophen 325 MG TABLET 650 MG PO (08:25)
[2023-03-18] MEDS: Lidocaine 4 % Patch ADH..PATCH 1 PATCH TRANSDERMA (08:25)
[2023-03-18] MEDS: Memantine HCl 5 MG TABLET PO (08:25)
--- NOTE | 2023-03-18 13:09 | HO.PM.IMPN ---
Subjective Subjective Date of Service: 03/18/23 Interval History: No acute events overnight, patient offers no acute complaints. Review of Systems All other system reviewed and negative. Physical Exam Vital Signs: Vital Signs: Last Vital Signs Temp 97.2 F 03/18/23 07:40 Pulse 93 03/18/23 07:40 Resp 16 03/18/23 07:40 BP 106/57 L 03/18/23 07:40 Pulse Ox 93 03/18/23 07:40 O2 Del Method Room Air 03/18/23 07:40 BMI result Body Mass Index 15.9 Const: Other: General: oriented to self Neck no JVD Resp:? CTA bilateral CVS: S1,S2,RRR GI: +BS, NT, no distention Skin: No rash Extremities no edema Neuro:? motor grossly intact Psych: appropriate affect Objective Data Active Medications Acetaminophen (Acetaminophen 325 Mg Tablet) 650 mg PO Q6H PRN PRN Reason: Pain, Mild (Pain Scale 1-3) Last Admin: 03/18/23 08:25 Dose: 650 mg Documented By: ZACK Docusate Sodium (Docusate Sodium 100 Mg Capsule) 100 mg PO DAILY PRN PRN Reason: Constipation Last Admin: 02/13/23 09:21 Dose: 100 mg Documented By: SPENCER Enoxaparin Sodium (Enoxaparin Sodium 40 Mg/0.4 Ml Syringe) 40 mg SUBCUT Q24H [facility] Last Admin: 03/17/23 16:49 Dose: 40 mg Documented By: RAFI Guaifenesin (Guaifenesin 100 Mg/5 Ml Liquid) 10 ml PO Q4H PRN PRN Reason: Cough Last Admin: 03/13/23 09:44 Dose: 10 ml Documented By: ROGER Lidocaine (Lidocaine 4 % Patch Adh..Patch) 1 patch TRANSDERMA DAILY [facility]; Protocol Last Admin: 03/18/23 08:25 Dose: 1 patch Documented By: ZACK Melatonin (Melatonin 3 Mg Tablet) 6 mg PO BEDTIME PRN PRN Reason: Insomnia Last Admin: 03/10/23 22:09 Dose: 6 mg Documented By: ULISES Memantine (Memantine Hcl 5 Mg Tablet) 5 mg PO DAILY [facility] Last Admin: 03/18/23 08:25 Dose: 5 mg Documented By: ZACK Ondansetron HCl (Ondansetron Hcl 4 Mg/2 Ml Vial) 4 mg IVPUSH Q8H PRN PRN Reason: Nausea and Vomiting Quetiapine Fumarate (Quetiapine Fumarate 25 Mg Tablet) 25 mg PO BID@1500,2100 [facility] Last Admin: 03/17/23 18:56 Dose: 25 mg Documented By: DAHLIA Labs 01/31/23 07:23 01/31/23 07:23 Assessment and Plan (1) Major neurocognitive disorder due to Alzheimer's disease, with behavioral disturbance: Status: Acute (2) Dementia with behavioral disturbance: Status: Acute Plan 82yo F with osteoporosis + dementia was in observation unit 01/01-01/06/23 awaiting LTC placement but then developed sepsis due to presumed UTI(resolved) no new issues, ambulating in hallways, tolerating diet. ? 1.Dementia/behavioral disturbance well controlled with Seroquel. 2.Sepsis due to UTI, completed Abx and resolved. 3.Mod protein calorie malnutrition continue supplements 4. boderline bp: Chronic and stable continue daily ambulations with staff LMWH DNR/DNI patient requires continued inpatient hospitalization for the following reasons: safe placement, case managment working on it Time Spent With Patient Time: Total time managing care of this patient today ____ minutes. Quality Stroke Does the patient have a stroke diagnosis?: No VTE Prior VTE?: No VTE Risk Level:: Medical - moderate - high VTE Device Contraindication: Treatment Not Indicated VTE Drug Contraindication: N/A - Med Ordered
[2023-03-18] MEDS: QUEtiapine Fumarate 25 MG TABLET PO ×2 (15:01→20:36)
[2023-03-18 15:31] VITALS: BP 109/59; PULSE 97; RESP 18; TEMP 36.2; O2SAT 97
[2023-03-18 20:00] VITALS: BP 104/63; PULSE 80; RESP 16; TEMP 36.8; O2SAT 94
[2023-03-19 00:17] VITALS: BP 106/52; PULSE 98; RESP 18; TEMP 36.1; O2SAT 95
[2023-03-19 07:48] VITALS: BP 115/58; PULSE 88; RESP 16; TEMP 36.7; O2SAT 98
[2023-03-19] MEDS: Memantine HCl 5 MG TABLET PO (08:37)
[2023-03-19] MEDS: Lidocaine 4 % Patch ADH..PATCH 1 PATCH TRANSDERMA (08:37)
--- NOTE | 2023-03-19 12:32 | HO.PM.IMPN ---
Subjective Subjective Date of Service: 03/19/23 Interval History: Noted to be more anxious in late afternoon required Ativan x 1, no acute issues in last 24 hours, tolerating diet ambulating in hallways. Review of Systems All other system reviewed and negative Physical Exam Vital Signs: Vital Signs: Last Vital Signs Temp 98.1 F 03/19/23 07:48 Pulse 88 03/19/23 07:48 Resp 16 03/19/23 07:48 BP 115/58 L 03/19/23 07:48 Pulse Ox 98 03/19/23 07:48 O2 Del Method Room Air 03/19/23 07:48 BMI result Body Mass Index 15.9 Const: Other: General: oriented to self Neck no JVD Resp:? CTA bilateral CVS: S1,S2,RRR GI: +BS, NT, no distention Skin: No rash Extremities no edema Neuro:? motor grossly intact Psych: appropriate affect Objective Data Active Medications Acetaminophen (Acetaminophen 325 Mg Tablet) 650 mg PO Q6H PRN PRN Reason: Pain, Mild (Pain Scale 1-3) Last Admin: 03/18/23 08:25 Dose: 650 mg Documented By: ZACK Docusate Sodium (Docusate Sodium 100 Mg Capsule) 100 mg PO DAILY PRN PRN Reason: Constipation Last Admin: 02/13/23 09:21 Dose: 100 mg Documented By: SPENCER Enoxaparin Sodium (Enoxaparin Sodium 40 Mg/0.4 Ml Syringe) 40 mg SUBCUT Q24H [facility] Last Admin: 03/18/23 18:50 Dose: Not Given Documented By: ROGER Non-Admin Reason: Patient Refused Guaifenesin (Guaifenesin 100 Mg/5 Ml Liquid) 10 ml PO Q4H PRN PRN Reason: Cough Last Admin: 03/13/23 09:44 Dose: 10 ml Documented By: ROGER Lidocaine (Lidocaine 4 % Patch Adh..Patch) 1 patch TRANSDERMA DAILY [facility]; Protocol Last Admin: 03/19/23 08:37 Dose: 1 patch Documented By: ZACK Melatonin (Melatonin 3 Mg Tablet) 6 mg PO BEDTIME PRN PRN Reason: Insomnia Last Admin: 03/10/23 22:09 Dose: 6 mg Documented By: ULISES Memantine (Memantine Hcl 5 Mg Tablet) 5 mg PO DAILY [facility] Last Admin: 03/19/23 08:37 Dose: 5 mg Documented By: ZACK Ondansetron HCl (Ondansetron Hcl 4 Mg/2 Ml Vial) 4 mg IVPUSH Q8H PRN PRN Reason: Nausea and Vomiting Quetiapine Fumarate (Quetiapine Fumarate 25 Mg Tablet) 25 mg PO BID@1500,2100 [facility] Last Admin: 03/18/23 20:36 Dose: 25 mg Documented By: MARIA ESTHER Monroe 01/31/23 07:23 01/31/23 07:23 Assessment and Plan (1) Major neurocognitive disorder due to Alzheimer's disease, with behavioral disturbance: Status: Acute (2) Dementia with behavioral disturbance: Status: Acute Plan 82yo F with osteoporosis + dementia was in observation unit 01/01-01/06/23 awaiting LTC placement but then developed sepsis due to presumed UTI(resolved) no new issues, ambulating in hallways, tolerating diet. ? 1.Dementia/behavioral disturbance well controlled with Seroquel. 2.Sepsis due to UTI, completed Abx and resolved. 3.Mod protein calorie malnutrition continue supplements 4. boderline bp: Chronic and stable continue daily ambulations with staff LMWH DNR/DNI patient requires continued inpatient hospitalization for the following reasons: safe placement, case managment working on it Time Spent With Patient Time: Total time managing care of this patient today ____ minutes. Quality Stroke Does the patient have a stroke diagnosis?: No VTE Prior VTE?: No VTE Risk Level:: Medical - moderate - high VTE Device Contraindication: Treatment Not Indicated VTE Drug Contraindication: N/A - Med Ordered
--- NOTE | 2023-03-19 14:31 | MHC.CM.PN ---
pt ready for dc pending financial resolution re [employer] loretta
[2023-03-19] MEDS: QUEtiapine Fumarate 25 MG TABLET PO ×2 (14:42→19:46)
[2023-03-19 19:36] VITALS: BP 112/86; PULSE 110; RESP 14; TEMP 36.8; O2SAT 98
[2023-03-20 03:21] VITALS: BP 134/67; PULSE 104; RESP 16; TEMP 36.8; O2SAT 95
[2023-03-20 07:03] VITALS: BP 116/67; PULSE 96; RESP 18; TEMP 36; O2SAT 96
[2023-03-20] MEDS: Lidocaine 4 % Patch ADH..PATCH 1 PATCH TRANSDERMA (08:01)
[2023-03-20] MEDS: Memantine HCl 5 MG TABLET PO (08:01)
--- NOTE | 2023-03-20 10:27 | HO.PM.IMPN ---
Subjective Subjective Date of Service: 03/20/23 Interval History: dementia Review of Systems seems comforatble eating breakfast Physical Exam Vital Signs: Vital Signs: Last Vital Signs Temp 96.8 F 03/20/23 07:03 Pulse 96 03/20/23 07:03 Resp 18 03/20/23 07:03 BP 116/67 03/20/23 07:03 Pulse Ox 96 03/20/23 07:03 O2 Del Method Room Air 03/20/23 07:03 BMI result Body Mass Index 15.9 General: oriented to self Neck no JVD Resp:? CTA bilateral CVS: S1,S2,RRR GI: +BS, NT, no distention Skin: No rash Extremities no edema Neuro:? motor grossly intact Psych: appropriate affect Objective Data Active Medications Acetaminophen (Acetaminophen 325 Mg Tablet) 650 mg PO Q6H PRN PRN Reason: Pain, Mild (Pain Scale 1-3) Last Admin: 03/18/23 08:25 Dose: 650 mg Documented By: ZACK Docusate Sodium (Docusate Sodium 100 Mg Capsule) 100 mg PO DAILY PRN PRN Reason: Constipation Last Admin: 02/13/23 09:21 Dose: 100 mg Documented By: SPENCER Enoxaparin Sodium (Enoxaparin Sodium 40 Mg/0.4 Ml Syringe) 40 mg SUBCUT Q24H [facility] Last Admin: 03/19/23 16:21 Dose: Not Given Documented By: ZACK Non-Admin Reason: Patient Refused Guaifenesin (Guaifenesin 100 Mg/5 Ml Liquid) 10 ml PO Q4H PRN PRN Reason: Cough Last Admin: 03/13/23 09:44 Dose: 10 ml Documented By: ROGER Lidocaine (Lidocaine 4 % Patch Adh..Patch) 1 patch TRANSDERMA DAILY [facility]; Protocol Last Admin: 03/20/23 08:01 Dose: 1 patch Documented By: DAVID Melatonin (Melatonin 3 Mg Tablet) 6 mg PO BEDTIME PRN PRN Reason: Insomnia Last Admin: 03/10/23 22:09 Dose: 6 mg Documented By: ULISES Memantine (Memantine Hcl 5 Mg Tablet) 5 mg PO DAILY [facility] Last Admin: 03/20/23 08:01 Dose: 5 mg Documented By: DAVID Ondansetron HCl (Ondansetron Hcl 4 Mg/2 Ml Vial) 4 mg IVPUSH Q8H PRN PRN Reason: Nausea and Vomiting Quetiapine Fumarate (Quetiapine Fumarate 25 Mg Tablet) 25 mg PO BID@1500,2100 [facility] Last Admin: 03/19/23 19:46 Dose: 25 mg Documented By: CHIKIS Labs 01/31/23 07:23 01/31/23 07:23 Assessment and Plan (1) Major neurocognitive disorder due to Alzheimer's disease, with behavioral disturbance: Status: Acute Plan 82yo F with osteoporosis + dementia was in observation unit 01/01-01/06/23 awaiting LTC placement but then developed sepsis due to presumed UTI(resolved) no new issues, ambulating in hallways, tolerating diet. ? 1.Dementia/behavioral disturbance well controlled with Seroquel. 2.Sepsis due to UTI, completed Abx and resolved. 3.Mod protein calorie malnutrition continue supplements 4. boderline bp: Chronic and stable continue daily ambulations with staff LMWH DNR/DNI patient requires continued inpatient hospitalization for the following reasons: safe placement, case managment working on it Time Spent With Patient Time: Total time managing care of this patient today ____ minutes. Quality Stroke Does the patient have a stroke diagnosis?: No VTE Prior VTE?: No VTE Risk Level:: Medical - moderate - high VTE Device Contraindication: Treatment Not Indicated VTE Drug Contraindication: N/A - Med Ordered
[2023-03-20] MEDS: QUEtiapine Fumarate 25 MG TABLET PO ×2 (14:27→19:52)
[2023-03-20 15:11] VITALS: BP 115/64; PULSE 108; RESP 18; TEMP 36.1; O2SAT 97
[2023-03-20 19:16] VITALS: BP 118/59; PULSE 111; RESP 14; TEMP 36.3; O2SAT 97
[2023-03-21 04:00] VITALS: BP 125/89; PULSE 110; RESP 16; TEMP 36.7; O2SAT 95
[2023-03-21 08:00] VITALS: BP 132/70; PULSE 104; RESP 18; TEMP 36.7; O2SAT 98
[2023-03-21] MEDS: Memantine HCl 5 MG TABLET PO (08:39)
--- NOTE | 2023-03-21 10:08 | HO.PM.IMPN ---
Subjective Subjective Date of Service: 03/21/23 Interval History: dementia Review of Systems seems awake ,little anxious Physical Exam Vital Signs: Vital Signs: Last Vital Signs Temp 98.0 F 03/21/23 08:00 Pulse 104 H 03/21/23 08:00 Resp 18 03/21/23 08:00 BP 132/70 03/21/23 08:00 Pulse Ox 98 03/21/23 08:00 O2 Del Method Room Air 03/21/23 08:00 BMI result Body Mass Index 15.9 General: oriented to self Neck no JVD Resp:? CTA bilateral CVS: S1,S2,RRR GI: +BS, NT, no distention Skin: No rash Extremities no edema Neuro:? motor grossly intact Psych: appropriate affect Objective Data Active Medications Acetaminophen (Acetaminophen 325 Mg Tablet) 650 mg PO Q6H PRN PRN Reason: Pain, Mild (Pain Scale 1-3) Last Admin: 03/18/23 08:25 Dose: 650 mg Documented By: ZACK Docusate Sodium (Docusate Sodium 100 Mg Capsule) 100 mg PO DAILY PRN PRN Reason: Constipation Last Admin: 02/13/23 09:21 Dose: 100 mg Documented By: SPENCER Enoxaparin Sodium (Enoxaparin Sodium 40 Mg/0.4 Ml Syringe) 40 mg SUBCUT Q24H [facility] Last Admin: 03/20/23 16:46 Dose: Not Given Documented By: DAVID Non-Admin Reason: Patient Refused Guaifenesin (Guaifenesin 100 Mg/5 Ml Liquid) 10 ml PO Q4H PRN PRN Reason: Cough Last Admin: 03/13/23 09:44 Dose: 10 ml Documented By: ROGER Lidocaine (Lidocaine 4 % Patch Adh..Patch) 1 patch TRANSDERMA DAILY [facility]; Protocol Last Admin: 03/21/23 08:39 Dose: Not Given Documented By: DAVID Non-Admin Reason: Patient Refused Melatonin (Melatonin 3 Mg Tablet) 6 mg PO BEDTIME PRN PRN Reason: Insomnia Last Admin: 03/10/23 22:09 Dose: 6 mg Documented By: ULISES Memantine (Memantine Hcl 5 Mg Tablet) 5 mg PO DAILY [facility] Last Admin: 03/21/23 08:39 Dose: 5 mg Documented By: DAVID Ondansetron HCl (Ondansetron Hcl 4 Mg/2 Ml Vial) 4 mg IVPUSH Q8H PRN PRN Reason: Nausea and Vomiting Quetiapine Fumarate (Quetiapine Fumarate 25 Mg Tablet) 25 mg PO BID@1500,2100 [facility] Last Admin: 03/20/23 19:52 Dose: 25 mg Documented By: CHIKIS Labs 01/31/23 07:23 01/31/23 07:23 Assessment and Plan (1) Major neurocognitive disorder due to Alzheimer's disease, with behavioral disturbance: Status: Acute Plan 82yo F with osteoporosis + dementia was in observation unit 01/01-01/06/23 awaiting LTC placement but then developed sepsis due to presumed UTI(resolved) no new issues, ambulating in hallways, tolerating diet. ? 1.Dementia/behavioral disturbance well controlled with Seroquel. 2.Sepsis due to UTI, completed Abx and resolved. 3.Mod protein calorie malnutrition continue supplements 4. boderline bp: Chronic and stable continue daily ambulations with staff LMWH DNR/DNI patient requires continued inpatient hospitalization for the following reasons: safe placement, case managment working on it Time Spent With Patient Time: Total time managing care of this patient today ____ minutes. Quality Stroke Does the patient have a stroke diagnosis?: No VTE Prior VTE?: No VTE Risk Level:: Medical - moderate - high VTE Device Contraindication: Treatment Not Indicated VTE Drug Contraindication: N/A - Med Ordered
[2023-03-21] MEDS: QUEtiapine Fumarate 25 MG TABLET PO ×2 (14:02→19:46)
[2023-03-21 15:22] VITALS: BP 138/55; PULSE 105; RESP 16; TEMP 36.3; O2SAT 97
[2023-03-21 19:25] VITALS: BP 121/59; PULSE 70; RESP 17; TEMP 36.3; O2SAT 97
[2023-03-22 07:42] VITALS: BP 117/64; PULSE 92; RESP 16; TEMP 36.8; O2SAT 96
--- NOTE | 2023-03-22 11:52 | HO.PM.IMPN ---
Subjective Subjective Date of Service: 03/22/23 Interval History: dementia Review of Systems seems awake ,little anxious etaing breakfast Physical Exam Vital Signs: Vital Signs: Last Vital Signs Temp 98.2 F 03/22/23 07:42 Pulse 92 03/22/23 07:42 Resp 16 03/22/23 07:42 BP 117/64 03/22/23 07:42 Pulse Ox 96 03/22/23 07:42 O2 Del Method Room Air 03/22/23 07:42 BMI result Body Mass Index 15.9 General: oriented to self Neck no JVD Resp:? CTA bilateral CVS: S1,S2,RRR GI: +BS, NT, no distention Skin: No rash Extremities no edema Neuro:? motor grossly intact Psych: appropriate affect Objective Data Active Medications Acetaminophen (Acetaminophen 325 Mg Tablet) 650 mg PO Q6H PRN PRN Reason: Pain, Mild (Pain Scale 1-3) Last Admin: 03/18/23 08:25 Dose: 650 mg Documented By: ZACK Docusate Sodium (Docusate Sodium 100 Mg Capsule) 100 mg PO DAILY PRN PRN Reason: Constipation Last Admin: 02/13/23 09:21 Dose: 100 mg Documented By: SPENCER Enoxaparin Sodium (Enoxaparin Sodium 40 Mg/0.4 Ml Syringe) 40 mg SUBCUT Q24H [facility] Last Admin: 03/21/23 16:06 Dose: Not Given Documented By: DAVID Non-Admin Reason: Patient Refused Guaifenesin (Guaifenesin 100 Mg/5 Ml Liquid) 10 ml PO Q4H PRN PRN Reason: Cough Last Admin: 03/13/23 09:44 Dose: 10 ml Documented By: ROGER Lidocaine (Lidocaine 4 % Patch Adh..Patch) 1 patch TRANSDERMA DAILY [facility]; Protocol Last Admin: 03/22/23 07:26 Dose: Not Given Documented By: DAVID Non-Admin Reason: Patient Refused Melatonin (Melatonin 3 Mg Tablet) 6 mg PO BEDTIME PRN PRN Reason: Insomnia Last Admin: 03/10/23 22:09 Dose: 6 mg Documented By: ULISES Memantine (Memantine Hcl 5 Mg Tablet) 5 mg PO DAILY [facility] Last Admin: 03/22/23 07:30 Dose: 5 mg Documented By: HO.PRESTOS Ondansetron HCl (Ondansetron Hcl 4 Mg/2 Ml Vial) 4 mg IVPUSH Q8H PRN PRN Reason: Nausea and Vomiting Quetiapine Fumarate (Quetiapine Fumarate 25 Mg Tablet) 25 mg PO BID@1500,2100 [facility] Last Admin: 03/21/23 19:46 Dose: 25 mg Documented By: CHIKIS Labs 01/31/23 07:23 01/31/23 07:23 Assessment and Plan (1) Major neurocognitive disorder due to Alzheimer's disease, with behavioral disturbance: Status: Acute Plan 82yo F with osteoporosis + dementia was in observation unit 01/01-01/06/23 awaiting LTC placement but then developed sepsis due to presumed UTI(resolved) no new issues, ambulating in hallways, tolerating diet. ? 1.Dementia/behavioral disturbance well controlled with Seroquel. 2.Sepsis due to UTI, completed Abx and resolved. 3.Mod protein calorie malnutrition continue supplements 4. boderline bp: Chronic and stable continue daily ambulations with staff LMWH DNR/DNI patient requires continued inpatient hospitalization for the following reasons: safe placement, case managment working on it Time Spent With Patient Time: Total time managing care of this patient today ____ minutes. Quality Stroke Does the patient have a stroke diagnosis?: No VTE Prior VTE?: No VTE Risk Level:: Medical - moderate - high VTE Device Contraindication: Treatment Not Indicated VTE Drug Contraindication: N/A - Med Ordered
[2023-03-22] MEDS: QUEtiapine Fumarate 25 MG TABLET PO ×2 (14:25→19:16)
[2023-03-22] MEDS: Acetaminophen 325 MG TABLET 650 MG PO (15:19)
[2023-03-22 16:00] VITALS: BP 114/64; PULSE 106; RESP 18; TEMP 36.1; O2SAT 99
--- NOTE | 2023-03-22 17:31 | PC.NURSE ---
Pt ambulating in halls and room steadily with devices and staff. Pt refusing meds at times.
[2023-03-22 19:50] VITALS: BP 113/63; PULSE 117; RESP 18; TEMP 36; O2SAT 97
[2023-03-23 04:00] VITALS: BP 102/58; PULSE 83; RESP 18; TEMP 36.2; O2SAT 95
[2023-03-23 07:31] VITALS: BP 116/59; PULSE 109; RESP 18; TEMP 36.1; O2SAT 97
--- NOTE | 2023-03-23 10:16 | HO.PM.IMPN ---
Subjective Subjective Date of Service: 03/23/23 Interval History: Offers no symptoms resting comfortably tolerating diet, no nausea, no vomiting, no behavioral issues no events overnight. Review of Systems Unable to obtain due to mental status Physical Exam Vital Signs: Vital Signs: Last Vital Signs Temp 96.9 F 03/23/23 07:31 Pulse 109 H 03/23/23 07:31 Resp 18 03/23/23 07:31 BP 116/59 L 03/23/23 07:31 Pulse Ox 97 03/23/23 07:31 O2 Del Method Room Air 03/23/23 07:31 BMI result Body Mass Index 15.9 Const: Other: General: oriented to self Neck no JVD Resp:? CTA bilateral CVS: S1,S2,RRR GI: +BS, NT, no distention Skin: No rash Extremities no edema Neuro:? motor grossly intact Psych: appropriate affect Objective Data Active Medications Acetaminophen (Acetaminophen 325 Mg Tablet) 650 mg PO Q6H PRN PRN Reason: Pain, Mild (Pain Scale 1-3) Last Admin: 03/22/23 15:19 Dose: 650 mg Documented By: NADEGE Docusate Sodium (Docusate Sodium 100 Mg Capsule) 100 mg PO DAILY PRN PRN Reason: Constipation Last Admin: 02/13/23 09:21 Dose: 100 mg Documented By: SPENCER Enoxaparin Sodium (Enoxaparin Sodium 40 Mg/0.4 Ml Syringe) 40 mg SUBCUT Q24H JOHN Last Admin: 03/22/23 15:20 Dose: Not Given Documented By: NADEGE Non-Admin Reason: Patient Refused Guaifenesin (Guaifenesin 100 Mg/5 Ml Liquid) 10 ml PO Q4H PRN PRN Reason: Cough Last Admin: 03/13/23 09:44 Dose: 10 ml Documented By: ROGER Lidocaine (Lidocaine 4 % Patch Adh..Patch) 1 patch TRANSDERMA DAILY [facility]; Protocol Last Admin: 03/23/23 08:09 Dose: 1 patch Documented By: RAFI Melatonin (Melatonin 3 Mg Tablet) 6 mg PO BEDTIME PRN PRN Reason: Insomnia Last Admin: 03/10/23 22:09 Dose: 6 mg Documented By: ULISES Memantine (Memantine Hcl 5 Mg Tablet) 5 mg PO DAILY [facility] Last Admin: 03/23/23 08:09 Dose: 5 mg Documented By: RAFI Ondansetron HCl (Ondansetron Hcl 4 Mg/2 Ml Vial) 4 mg IVPUSH Q8H PRN PRN Reason: Nausea and Vomiting Quetiapine Fumarate (Quetiapine Fumarate 25 Mg Tablet) 25 mg PO BID@1500,2100 [facility] Last Admin: 03/22/23 19:16 Dose: 25 mg Documented By: ROSELYN Labs 01/31/23 07:23 01/31/23 07:23 Assessment and Plan (1) Major neurocognitive disorder due to Alzheimer's disease, with behavioral disturbance: Status: Acute Plan 82yo F with osteoporosis + dementia was in observation unit 01/01-01/06/23 awaiting LTC placement but then developed sepsis due to presumed UTI(resolved) no new issues, ambulating in hallways, tolerating diet. ? 1.Dementia/behavioral disturbance well controlled with Seroquel. 2.Sepsis due to UTI, completed Abx and resolved. 3.Mod protein calorie malnutrition continue supplements 4. boderline bp: Chronic and stable continue daily ambulations with staff LMWH DNR/DNI patient requires continued inpatient hospitalization for the following reasons: safe placement, case managment working on it Time Spent With Patient Time: Total time managing care of this patient today ____ minutes. Quality Stroke Does the patient have a stroke diagnosis?: No VTE Prior VTE?: No VTE Risk Level:: Medical - moderate - high VTE Device Contraindication: Treatment Not Indicated VTE Drug Contraindication: N/A - Med Ordered
[2023-03-23] MEDS: QUEtiapine Fumarate 25 MG TABLET PO ×2 (17:02→20:05)
[2023-03-24 04:00] VITALS: BP 126/60; PULSE 104; RESP 18; TEMP 36.3; O2SAT 97
[2023-03-24 06:55] VITALS: BP 110/58; PULSE 99; RESP 16; TEMP 36.6; O2SAT 98
--- NOTE | 2023-03-24 11:14 | HO.PM.IMPN ---
Subjective Subjective Date of Service: 03/24/23 Interval History: complaining of right-sided lower back pain times couple days not relief with Lidoderm patch, complaining of urinary burning, no history of fall, no trauma, tolerating diet no nausea no vomiting no abdominal pain or diarrhea, denies fever, no chills no other acute issues. Review of Systems all other system reviewed and negative Physical Exam Vital Signs: Vital Signs: Last Vital Signs Temp 98 F 03/24/23 06:55 Pulse 99 03/24/23 06:55 Resp 16 03/24/23 06:55 BP 110/58 L 03/24/23 06:55 Pulse Ox 98 03/24/23 06:55 O2 Del Method Room Air 03/24/23 06:55 BMI result Body Mass Index 15.9 Const: Other: General: oriented to self Neck no JVD Resp:? CTA bilateral CVS: S1,S2,RRR GI: +BS, NT, no distention Skin: No rash Extremities no edema back mild tenderness to palpation right lumbar paravertebral muscles, no CVA tenderness Neuro:? motor grossly intact Psych: appropriate affect Objective Data Active Medications Acetaminophen (Acetaminophen 325 Mg Tablet) 650 mg PO Q6H PRN PRN Reason: Pain, Mild (Pain Scale 1-3) Last Admin: 03/22/23 15:19 Dose: 650 mg Documented By: NADEGE Celecoxib (Celecoxib 200 Mg Capsule) 200 mg PO DAILY [facility] Stop: 03/28/23 09:01 Last Admin: 03/24/23 11:12 Dose: 200 mg Documented By: RAFI Docusate Sodium (Docusate Sodium 100 Mg Capsule) 100 mg PO DAILY PRN PRN Reason: Constipation Last Admin: 02/13/23 09:21 Dose: 100 mg Documented By: SPENCER Enoxaparin Sodium (Enoxaparin Sodium 40 Mg/0.4 Ml Syringe) 40 mg SUBCUT Q24H [facility] Last Admin: 03/23/23 18:01 Dose: 40 mg Documented By: RAFI Guaifenesin (Guaifenesin 100 Mg/5 Ml Liquid) 10 ml PO Q4H PRN PRN Reason: Cough Last Admin: 03/13/23 09:44 Dose: 10 ml Documented By: ROGER Lidocaine (Lidocaine 4 % Patch Adh..Patch) 1 patch TRANSDERMA DAILY [facility]; Protocol Last Admin: 03/24/23 09:28 Dose: 1 patch Documented By: RAFI Melatonin (Melatonin 3 Mg Tablet) 6 mg PO BEDTIME PRN PRN Reason: Insomnia Last Admin: 03/10/23 22:09 Dose: 6 mg Documented By: ULISES Memantine (Memantine Hcl 5 Mg Tablet) 5 mg PO DAILY [facility] Last Admin: 03/24/23 09:28 Dose: 5 mg Documented By: RAFI Ondansetron HCl (Ondansetron Hcl 4 Mg/2 Ml Vial) 4 mg IVPUSH Q8H PRN PRN Reason: Nausea and Vomiting Quetiapine Fumarate (Quetiapine Fumarate 25 Mg Tablet) 25 mg PO BID@1500,2100 [facility] Last Admin: 03/23/23 20:05 Dose: 25 mg Documented By: MARIA ESTHER Trolamine Salicylate (Trolamine Salicylate 10 % Cream 85 Gm Tube) 1 appl TOPICAL TID PRN; Protocol PRN Reason: back pain Labs 01/31/23 07:23 01/31/23 07:23 Labs: Laboratory Results - last 24 hr 03/24/23 09:37 Urine Color Yellow Urine Appearance Clear Urine pH 5.5 Ur Specific [place] 1.020 Urine Protein Negative Urine Glucose (UA) Negative Urine Ketones Negative Urine Blood Negative Urine Nitrite Negative Ur Leukocyte Esterase Negative Assessment and Plan (1) Major neurocognitive disorder due to Alzheimer's disease, with behavioral disturbance: Status: Acute Plan 82yo F with osteoporosis + dementia was in observation unit 01/01-01/06/23 awaiting LTC placement but then developed sepsis due to presumed UTI(resolved) no new issues, ambulating in hallways, tolerating diet. ? 1.Dementia/behavioral disturbance well controlled with Seroquel. 2.Sepsis due to UTI, completed Abx and resolved. 3.Mod protein calorie malnutrition continue supplements 4. boderline bp: Chronic and stable 5. right-sided lower back pain, will check urinalysis, place on Celebrex 200 mg daily for 5 days and use Aspercreme as needed follow clinical course. continue daily ambulations with staff LMWH DNR/DNI patient requires continued inpatient hospitalization for the following reasons: safe placement, case managment working on it Time Spent With Patient Time: Total time managing care of this patient today ____ minutes. Quality Stroke Does the patient have a stroke diagnosis?: No VTE Prior VTE?: No VTE Risk Level:: Medical - moderate - high VTE Device Contraindication: Treatment Not Indicated VTE Drug Contraindication: N/A - Med Ordered
--- NOTE | 2023-03-24 13:13 | MHC.CM.PN ---
EMR REVIEWED . AWAITING FINANCIAL RESOLUTION ( JESSE/DOCUMENTS) FOR LTC PLACEMENT. CM WILL CONTINUE TO FOLLOW FOR ANY CHANGE IN DC PLAN/NEEDS
[2023-03-24] MEDS: QUEtiapine Fumarate 25 MG TABLET PO ×2 (14:47→19:17)
[2023-03-24 15:22] VITALS: BP 106/54; PULSE 95; RESP 18; TEMP 36.4; O2SAT 98
[2023-03-24 19:12] VITALS: BP 112/58; PULSE 120; RESP 18; TEMP 36.9; O2SAT 96
[2023-03-24] MEDS: Melatonin 3 MG TABLET 6 MG PO (19:17)
[2023-03-25 03:08] VITALS: BP 93/52; PULSE 87; RESP 18; TEMP 36.5; O2SAT 97
[2023-03-25 07:32] VITALS: BP 108/58; PULSE 87; RESP 16; TEMP 36; O2SAT 95
[2023-03-25] MEDS: Memantine HCl 5 MG TABLET PO (08:28)
[2023-03-25] MEDS: Celecoxib 200 MG CAPSULE PO (08:28)
[2023-03-25] MEDS: Lidocaine 4 % Patch ADH..PATCH 1 PATCH TRANSDERMA (08:28)
--- NOTE | 2023-03-25 10:43 | HO.PM.IMPN ---
Subjective Subjective Date of Service: 03/25/23 Interval History: Back pain is better, UA was negative Review of Systems all other system reviewed and negative Physical Exam Vital Signs: Vital Signs: Last Vital Signs Temp 96.8 F 03/25/23 07:32 Pulse 87 03/25/23 07:32 Resp 16 03/25/23 07:32 BP 108/58 L 03/25/23 07:32 Pulse Ox 95 03/25/23 07:32 O2 Del Method Room Air 03/25/23 07:32 BMI result Body Mass Index 15.9 Objective Data Active Medications Acetaminophen (Acetaminophen 325 Mg Tablet) 650 mg PO Q6H PRN PRN Reason: Pain, Mild (Pain Scale 1-3) Last Admin: 03/22/23 15:19 Dose: 650 mg Documented By: NADEGE Celecoxib (Celecoxib 200 Mg Capsule) 200 mg PO DAILY [facility] Stop: 03/28/23 09:01 Last Admin: 03/25/23 08:28 Dose: 200 mg Documented By: SPEEDY Docusate Sodium (Docusate Sodium 100 Mg Capsule) 100 mg PO DAILY PRN PRN Reason: Constipation Last Admin: 02/13/23 09:21 Dose: 100 mg Documented By: SPENCER Enoxaparin Sodium (Enoxaparin Sodium 40 Mg/0.4 Ml Syringe) 40 mg SUBCUT Q24H [facility] Last Admin: 03/24/23 16:11 Dose: 40 mg Documented By: RAFI Guaifenesin (Guaifenesin 100 Mg/5 Ml Liquid) 10 ml PO Q4H PRN PRN Reason: Cough Last Admin: 03/13/23 09:44 Dose: 10 ml Documented By: ROGER Lidocaine (Lidocaine 4 % Patch Adh..Patch) 1 patch TRANSDERMA DAILY [facility]; Protocol Last Admin: 03/25/23 08:28 Dose: 1 patch Documented By: SPEEDY Melatonin (Melatonin 3 Mg Tablet) 6 mg PO BEDTIME PRN PRN Reason: Insomnia Last Admin: 03/24/23 19:17 Dose: 6 mg Documented By: MARIA ESTHER Memantine (Memantine Hcl 5 Mg Tablet) 5 mg PO DAILY [facility] Last Admin: 03/25/23 08:28 Dose: 5 mg Documented By: SPEEDY Ondansetron HCl (Ondansetron Hcl 4 Mg/2 Ml Vial) 4 mg IVPUSH Q8H PRN PRN Reason: Nausea and Vomiting Quetiapine Fumarate (Quetiapine Fumarate 25 Mg Tablet) 25 mg PO BID@1500,2100 [facility] Last Admin: 03/24/23 19:17 Dose: 25 mg Documented By: MARIA ESTHER Trolamine Salicylate (Trolamine Salicylate 10 % Cream 85 Gm Tube) 1 appl TOPICAL TID PRN; Protocol PRN Reason: back pain Labs 01/31/23 07:23 01/31/23 07:23 Assessment and Plan (1) Major neurocognitive disorder due to Alzheimer's disease, with behavioral disturbance: Status: Acute Plan 82yo F with osteoporosis + dementia was in observation unit 01/01-01/06/23 awaiting LTC placement but then developed sepsis due to presumed UTI(resolved) no new issues, ambulating in hallways, tolerating diet. ? 1.Dementia/behavioral disturbance well controlled with Seroquel. 2.Sepsis due to UTI, completed Abx and resolved. recent UA negative 3.Mod protein calorie malnutrition continue supplements 4. boderline bp: Chronic and stable 5. right-sided lower back pain, will check urinalysis, place on Celebrex 200 mg daily for 5 days and use Aspercreme as needed follow clinical course. continue daily ambulations with staff LMWH DNR/DNI patient requires continued inpatient hospitalization for the following reasons: safe placement, case managment working on it Time Spent With Patient Time: Total time managing care of this patient today ____ minutes. Quality Stroke Does the patient have a stroke diagnosis?: No VTE Prior VTE?: No VTE Risk Level:: Medical - moderate - high VTE Device Contraindication: Treatment Not Indicated VTE Drug Contraindication: N/A - Med Ordered
--- NOTE | 2023-03-25 12:57 | MHC.CM.PN ---
PER [facility] [facility], PLAN IS TO AWAIT COMPLETION OF [facility] APPLICATION DOCUMENTATION AND PLAN FROM THERE
[2023-03-25 15:52] VITALS: BP 98/60; PULSE 106; RESP 18; TEMP 36.4; O2SAT 96
[2023-03-25] MEDS: Enoxaparin Sodium 40 MG/0.4 ML SYRINGE SUBCUT (16:24)
[2023-03-25] MEDS: QUEtiapine Fumarate 25 MG TABLET PO ×2 (16:24→20:37)
[2023-03-25 19:37] VITALS: BP 116/62; PULSE 100; RESP 18; TEMP 36.1; O2SAT 98
[2023-03-25] MEDS: Melatonin 3 MG TABLET 6 MG PO (22:23)
[2023-03-26 03:55] VITALS: BP 96/55; PULSE 89; RESP 18; TEMP 36.6; O2SAT 96
[2023-03-26 06:56] VITALS: BP 111/58; PULSE 72; RESP 18; TEMP 35.5; O2SAT 95
[2023-03-26] MEDS: Celecoxib 200 MG CAPSULE PO (09:15)
[2023-03-26] MEDS: Memantine HCl 5 MG TABLET PO (09:15)
--- NOTE | 2023-03-26 10:28 | P.PNIM_ITS ---
Subjective Subjective Date of Service: 03/26/23 Interval History: personally evaluated with no new issues Physical Exam 2 Vital Signs: Vital Signs: Last Vital Signs Temp 96 F L 03/26/23 06:56 Pulse 72 03/26/23 06:56 Resp 18 03/26/23 06:56 BP 111/58 L 03/26/23 06:56 Pulse Ox 95 03/26/23 06:56 O2 Del Method Room Air 03/26/23 06:56 BMI result Body Mass Index 15.9 Const: Other: General: Oreinted to self no acute distress Resp: CTA bilateral CVS: S1,S2,RRR GI: +BS, NT, no distention Skin: No rash Neuro: motor grossly intact Psych: appropriate affect Objective Data Active Medications Acetaminophen (Acetaminophen 325 Mg Tablet) 650 mg PO Q6H PRN PRN Reason: Pain, Mild (Pain Scale 1-3) Last Admin: 03/22/23 15:19 Dose: 650 mg Documented By: NADEGE Celecoxib (Celecoxib 200 Mg Capsule) 200 mg PO DAILY [facility] Stop: 03/28/23 09:01 Last Admin: 03/26/23 09:15 Dose: 200 mg Documented By: DIANNE Docusate Sodium (Docusate Sodium 100 Mg Capsule) 100 mg PO DAILY PRN PRN Reason: Constipation Last Admin: 02/13/23 09:21 Dose: 100 mg Documented By: SPENCER Enoxaparin Sodium (Enoxaparin Sodium 40 Mg/0.4 Ml Syringe) 40 mg SUBCUT Q24H [facility] Last Admin: 03/25/23 16:24 Dose: 40 mg Documented By: SPEEDY Guaifenesin (Guaifenesin 100 Mg/5 Ml Liquid) 10 ml PO Q4H PRN PRN Reason: Cough Last Admin: 03/13/23 09:44 Dose: 10 ml Documented By: ROGER Lidocaine (Lidocaine 4 % Patch Adh..Patch) 1 patch TRANSDERMA DAILY [facility]; Protocol Last Admin: 03/26/23 09:15 Dose: 1 patch Documented By: DIANNE Melatonin (Melatonin 3 Mg Tablet) 6 mg PO BEDTIME PRN PRN Reason: Insomnia Last Admin: 03/25/23 22:23 Dose: 6 mg Documented By: MARIA ESTHER Memantine (Memantine Hcl 5 Mg Tablet) 5 mg PO DAILY [facility] Last Admin: 03/26/23 09:15 Dose: 5 mg Documented By: DIANNE Ondansetron HCl (Ondansetron Hcl 4 Mg/2 Ml Vial) 4 mg IVPUSH Q8H PRN PRN Reason: Nausea and Vomiting Quetiapine Fumarate (Quetiapine Fumarate 25 Mg Tablet) 25 mg PO BID@1500,2100 [facility] Last Admin: 03/25/23 20:37 Dose: 25 mg Documented By: MARIA ESTHER Trolamine Salicylate (Trolamine Salicylate 10 % Cream 85 Gm Tube) 1 appl TOPICAL TID PRN; Protocol PRN Reason: back pain Labs 01/31/23 07:23 01/31/23 07:23 Assessment and Plan (1) Major neurocognitive disorder due to Alzheimer's disease, with behavioral disturbance: Status: Acute Plan 82yo F with osteoporosis + dementia was in observation unit 01/01-01/06/23 awaiting LTC placement but then developed sepsis due to presumed UTI(resolved) no new issues, ambulating in hallways, tolerating diet. ? 1.Dementia/behavioral disturbance well controlled with Seroquel. 2.Sepsis due to UTI, completed Abx and resolved. recent UA negative 3.Mod protein calorie malnutrition continue supplements 4. boderline bp: Chronic and stable 5. right-sided lower back pain, will check urinalysis, place on Celebrex 200 mg daily for 5 days and use Aspercreme as needed follow clinical course. continue daily ambulations with staff LMWH DNR/DNI patient requires continued inpatient hospitalization for the following reasons: safe placement, case managment working on it Time Spent With Patient Time: Total time managing care of this patient today ____ minutes. Quality Stroke Does the patient have a stroke diagnosis?: No VTE Prior VTE?: No VTE Risk Level:: Medical - moderate - high VTE Device Contraindication: Treatment Not Indicated VTE Drug Contraindication: N/A - Med Ordered
[2023-03-26] MEDS: QUEtiapine Fumarate 25 MG TABLET PO ×2 (15:08→19:43)
[2023-03-26 15:33] VITALS: BP 100/58; PULSE 115; RESP 18; TEMP 36.7; O2SAT 97
[2023-03-26 19:20] VITALS: BP 110/60; PULSE 103; RESP 16; TEMP 36.6; O2SAT 99
--- NOTE | 2023-03-27 09:31 | P.PNIM_ITS ---
Subjective Subjective Date of Service: 03/27/23 Interval History: Awake, resting in bed, has no complaint Physical Exam 2 Vital Signs: Vital Signs: Last Vital Signs Temp 97.8 F 03/26/23 19:20 Pulse 103 H 03/26/23 19:20 Resp 16 03/26/23 19:20 BP 110/60 03/26/23 19:20 Pulse Ox 99 03/26/23 19:20 O2 Del Method Room Air 03/26/23 19:20 BMI result Body Mass Index 15.9 Const: Other: General: Oreinted to self no acute distress Resp: CTA bilateral CVS: S1,S2,RRR GI: +BS, NT, no distention Skin: No rash Neuro: motor grossly intact Psych: appropriate affect Objective Data Active Medications Acetaminophen (Acetaminophen 325 Mg Tablet) 650 mg PO Q6H PRN PRN Reason: Pain, Mild (Pain Scale 1-3) Last Admin: 03/22/23 15:19 Dose: 650 mg Documented By: NADEGE Celecoxib (Celecoxib 200 Mg Capsule) 200 mg PO DAILY [facility] Stop: 03/28/23 09:01 Last Admin: 03/26/23 09:15 Dose: 200 mg Documented By: DIANNE Docusate Sodium (Docusate Sodium 100 Mg Capsule) 100 mg PO DAILY PRN PRN Reason: Constipation Last Admin: 02/13/23 09:21 Dose: 100 mg Documented By: SPENCER Enoxaparin Sodium (Enoxaparin Sodium 40 Mg/0.4 Ml Syringe) 40 mg SUBCUT Q24H [facility] Last Admin: 03/26/23 17:25 Dose: Not Given Documented By: DIANNE Non-Admin Reason: Patient Refused Guaifenesin (Guaifenesin 100 Mg/5 Ml Liquid) 10 ml PO Q4H PRN PRN Reason: Cough Last Admin: 03/13/23 09:44 Dose: 10 ml Documented By: ROGER Lidocaine (Lidocaine 4 % Patch Adh..Patch) 1 patch TRANSDERMA DAILY [facility]; Protocol Last Admin: 03/26/23 12:16 Dose: Not Given Documented By: DIANNE Non-Admin Reason: Patient Refused Melatonin (Melatonin 3 Mg Tablet) 6 mg PO BEDTIME PRN PRN Reason: Insomnia Last Admin: 03/25/23 22:23 Dose: 6 mg Documented By: MARIA ESTHER Memantine (Memantine Hcl 5 Mg Tablet) 5 mg PO DAILY [facility] Last Admin: 03/26/23 09:15 Dose: 5 mg Documented By: DIANNE Ondansetron HCl (Ondansetron Hcl 4 Mg/2 Ml Vial) 4 mg IVPUSH Q8H PRN PRN Reason: Nausea and Vomiting Quetiapine Fumarate (Quetiapine Fumarate 25 Mg Tablet) 25 mg PO BID@1500,2100 [facility] Last Admin: 03/26/23 19:43 Dose: 25 mg Documented By: MOSES Trolamine Salicylate (Trolamine Salicylate 10 % Cream 85 Gm Tube) 1 appl TOPICAL TID PRN; Protocol PRN Reason: back pain Labs 01/31/23 07:23 01/31/23 07:23 Assessment and Plan (1) Major neurocognitive disorder due to Alzheimer's disease, with behavioral disturbance: Status: Acute Plan 82yo F with osteoporosis + dementia was in observation unit 01/01-01/06/23 awaiting LTC placement but then developed sepsis due to presumed UTI(resolved) no new issues, vital stable ? 1.Dementia/behavioral disturbance well controlled with Seroquel. 2.Sepsis due to UTI, completed Abx and resolved. recent UA negative 3.Mod protein calorie malnutrition continue supplements 4. boderline bp: Chronic and stable 5. right-sided lower back pain, will check urinalysis, place on Celebrex 200 mg daily for 5 days and use Aspercreme as needed follow clinical course. continue daily ambulations with staff LMWH DNR/DNI patient requires continued inpatient hospitalization for the following reasons: safe placement, case managment working on it Time Spent With Patient Time: Total time managing care of this patient today ____ minutes. Quality Stroke Does the patient have a stroke diagnosis?: No VTE Prior VTE?: No VTE Risk Level:: Medical - moderate - high VTE Device Contraindication: Treatment Not Indicated VTE Drug Contraindication: N/A - Med Ordered
--- NOTE | 2023-03-27 09:34 | PC.NURSE ---
refusing to get oob this Am, refusing breakfast.
[2023-03-27] MEDS: Memantine HCl 5 MG TABLET PO (09:55)
[2023-03-27] MEDS: Celecoxib 200 MG CAPSULE PO (09:56)
[2023-03-27] MEDS: Lidocaine 4 % Patch ADH..PATCH 1 PATCH TRANSDERMA (09:56)
--- NOTE | 2023-03-27 10:03 | PC.NURSE ---
Pt up after sleeping in, c/o bilateral leg pain and her gait is off per baseline, MD notified, no swelling noted, +PP bilateral.
--- NOTE | 2023-03-27 13:19 | PC.NURSE ---
Expressed relief with sched. pain medications.
[2023-03-27 16:00] VITALS: BP 101/55; PULSE 96; RESP 18; TEMP 36.7; O2SAT 99
[2023-03-27] MEDS: QUEtiapine Fumarate 25 MG TABLET PO ×2 (16:06→19:57)
[2023-03-28 04:00] VITALS: BP 114/55; PULSE 83; RESP 16; TEMP 36.1; O2SAT 95
[2023-03-28] MEDS: Acetaminophen 325 MG TABLET 650 MG PO (05:43)
[2023-03-28 08:00] VITALS: BP 99/55; PULSE 86; RESP 16; TEMP 36.3; O2SAT 97
[2023-03-28] MEDS: Lidocaine 4 % Patch ADH..PATCH 1 PATCH TRANSDERMA (08:51)
[2023-03-28] MEDS: Celecoxib 200 MG CAPSULE PO (08:51)
[2023-03-28] MEDS: Memantine HCl 5 MG TABLET PO (08:51)
[2023-03-28 09:26] LABS: Hematocrit 38.7 % (37.0-47.0); Hemoglobin 12.2 g/dl (12.0-16.0); Mean Corpuscular HGB Conc 31.5 g/dl (31.0-35.0); Mean Corpuscular Volume 91.9 fL (80.0-98.0); Mean Platelet Volume 9.4 fL (9.4-12.3); Platelet Count 420 X10*3/uL (160-400); Red Blood Count 4.21 X10*6/uL (4.20-5.50); Red Cell Distribution Width 14.5 % (11.0-16.0); White Blood Count 6.3 X10*3/uL (4.8-10.8)
--- NOTE | 2023-03-28 10:13 | P.PNIM_ITS ---
Subjective Subjective Date of Service: 03/28/23 Interval History: Awake, resting in bed, has no complaint Physical Exam 2 Vital Signs: Vital Signs: Last Vital Signs Temp 97.3 F 03/28/23 08:00 Pulse 86 03/28/23 08:00 Resp 16 03/28/23 08:00 BP 99/55 L 03/28/23 08:00 Pulse Ox 97 03/28/23 08:00 O2 Del Method Room Air 03/28/23 08:00 BMI result Body Mass Index 15.9 Const: Other: General: Oreinted to self no acute distress Resp: CTA bilateral CVS: S1,S2,RRR GI: +BS, NT, no distention Skin: No rash Neuro: motor grossly intact Psych: appropriate affect Objective Data Active Medications Acetaminophen (Acetaminophen 325 Mg Tablet) 650 mg PO Q6H PRN PRN Reason: Pain, Mild (Pain Scale 1-3) Last Admin: 03/28/23 05:43 Dose: 650 mg Documented By: MEJIA Docusate Sodium (Docusate Sodium 100 Mg Capsule) 100 mg PO DAILY PRN PRN Reason: Constipation Last Admin: 02/13/23 09:21 Dose: 100 mg Documented By: SPENCER Enoxaparin Sodium (Enoxaparin Sodium 40 Mg/0.4 Ml Syringe) 40 mg SUBCUT Q24H [facility] Last Admin: 03/27/23 16:06 Dose: Not Given Documented By: DENNYS Non-Admin Reason: Patient Refused Guaifenesin (Guaifenesin 100 Mg/5 Ml Liquid) 10 ml PO Q4H PRN PRN Reason: Cough Last Admin: 03/13/23 09:44 Dose: 10 ml Documented By: ROGER Lidocaine (Lidocaine 4 % Patch Adh..Patch) 1 patch TRANSDERMA DAILY [facility]; Protocol Last Admin: 03/28/23 08:51 Dose: 1 patch Documented By: DENNYS Melatonin (Melatonin 3 Mg Tablet) 6 mg PO BEDTIME PRN PRN Reason: Insomnia Last Admin: 03/25/23 22:23 Dose: 6 mg Documented By: MARIA ESTHER Memantine (Memantine Hcl 5 Mg Tablet) 5 mg PO DAILY [facility] Last Admin: 03/28/23 08:51 Dose: 5 mg Documented By: DENNYS Ondansetron HCl (Ondansetron Hcl 4 Mg/2 Ml Vial) 4 mg IVPUSH Q8H PRN PRN Reason: Nausea and Vomiting Quetiapine Fumarate (Quetiapine Fumarate 25 Mg Tablet) 25 mg PO BID@1500,2100 [facility] Last Admin: 03/27/23 19:57 Dose: 25 mg Documented By: MOSES Trolamine Salicylate (Trolamine Salicylate 10 % Cream 85 Gm Tube) 1 appl TOPICAL TID PRN; Protocol PRN Reason: back pain Labs 03/28/23 09:15 01/31/23 07:23 Labs: Laboratory Results - last 24 hr 03/28/23 09:15 MCV 91.9 MCH 29.0 MCHC 31.5 RDW 14.5 Plt Count 420 H D MPV 9.4 Absolute Nucleated RBC 0.000 Nucleated RBC % (auto) 0.0 Hold Yellow Top See Note Assessment and Plan (1) Major neurocognitive disorder due to Alzheimer's disease, with behavioral disturbance: Status: Acute Plan 82yo F with osteoporosis + dementia was in observation unit 01/01-01/06/23 awaiting LTC placement but then developed sepsis due to presumed UTI(resolved) no new issues, vital stable ? 1.Dementia/behavioral disturbance well controlled with Seroquel. 2.Sepsis due to UTI, completed Abx and resolved. recent UA negative 3.Mod protein calorie malnutrition continue supplements 4. boderline bp: Chronic and stable 5. right-sided lower back pain, will check urinalysis, place on Celebrex 200 mg daily for 5 days and use Aspercreme as needed follow clinical course. continue daily ambulations with staff CBC/BMP 03/28 LMWH DNR/DNI patient requires continued inpatient hospitalization for the following reasons: safe placement, case managment working on it Time Spent With Patient Time: Total time managing care of this patient today ____ minutes. Quality Stroke Does the patient have a stroke diagnosis?: No VTE Prior VTE?: No VTE Risk Level:: Medical - moderate - high VTE Device Contraindication: Treatment Not Indicated VTE Drug Contraindication: N/A - Med Ordered
[2023-03-28 11:10] LABS: Anion Gap 14 (12-20); Blood Urea Nitrogen 32 mg/dL (9-16); Calcium 8.9 mg/dL (8.4-10.2); Carbon Dioxide 20 mmol/L (22-29); Chloride 111 mmol/L (96-108); Estimated Glomerular Filt Rate > 60; Glucose Random 192 mg/dL (60-115); Sodium 141 mmol/L (135-145)
[2023-03-28] MEDS: QUEtiapine Fumarate 25 MG TABLET PO ×2 (14:46→19:22)
[2023-03-28 16:00] VITALS: BP 98/71; PULSE 95; RESP 18; TEMP 36.6; O2SAT 96
[2023-03-28 19:23] VITALS: BP 118/57; RESP 14; TEMP 36.6; O2SAT 96
[2023-03-29 03:01] VITALS: BP 100/54; PULSE 95; RESP 14; TEMP 36; O2SAT 97
[2023-03-29 07:21] VITALS: BP 114/55; PULSE 86; RESP 18; TEMP 36.5; O2SAT 97
[2023-03-29] MEDS: Memantine HCl 5 MG TABLET PO (08:40)
--- NOTE | 2023-03-29 09:40 | HO.PM.IMPN ---
Subjective Subjective Date of Service: 03/29/23 Interval History: A bit more agitated this morning Physical Exam Vital Signs: Vital Signs: Last Vital Signs Temp 97.7 F 03/29/23 07:21 Pulse 86 03/29/23 07:21 Resp 18 03/29/23 07:21 BP 114/55 L 03/29/23 07:21 Pulse Ox 97 03/29/23 07:21 O2 Del Method Room Air 03/29/23 07:21 BMI result Body Mass Index 15.9 Const: Other: General: Oreinted to self no acute distress Resp: CTA bilateral CVS: S1,S2,RRR GI: +BS, NT, no distention Skin: No rash Neuro: motor grossly intact Psych: appropriate affect Objective Data Active Medications Acetaminophen (Acetaminophen 325 Mg Tablet) 650 mg PO Q6H PRN PRN Reason: Pain, Mild (Pain Scale 1-3) Last Admin: 03/28/23 05:43 Dose: 650 mg Documented By: MEJIA Docusate Sodium (Docusate Sodium 100 Mg Capsule) 100 mg PO DAILY PRN PRN Reason: Constipation Last Admin: 02/13/23 09:21 Dose: 100 mg Documented By: SPENCER Enoxaparin Sodium (Enoxaparin Sodium 40 Mg/0.4 Ml Syringe) 40 mg SUBCUT Q24H [facility] Last Admin: 03/28/23 15:27 Dose: Not Given Documented By: DENNYS Non-Admin Reason: Patient Refused Guaifenesin (Guaifenesin 100 Mg/5 Ml Liquid) 10 ml PO Q4H PRN PRN Reason: Cough Last Admin: 03/13/23 09:44 Dose: 10 ml Documented By: ROGER Lidocaine (Lidocaine 4 % Patch Adh..Patch) 1 patch TRANSDERMA DAILY [facility]; Protocol Last Admin: 03/29/23 08:40 Dose: Not Given Documented By: ZACK Non-Admin Reason: Patient Refused Melatonin (Melatonin 3 Mg Tablet) 6 mg PO BEDTIME PRN PRN Reason: Insomnia Last Admin: 03/25/23 22:23 Dose: 6 mg Documented By: MARIA ESTHER Memantine (Memantine Hcl 5 Mg Tablet) 5 mg PO DAILY [facility] Last Admin: 03/29/23 08:40 Dose: 5 mg Documented By: ZACK Ondansetron HCl (Ondansetron Hcl 4 Mg/2 Ml Vial) 4 mg IVPUSH Q8H PRN PRN Reason: Nausea and Vomiting Quetiapine Fumarate (Quetiapine Fumarate 25 Mg Tablet) 25 mg PO BID@1500,2100 [facility] Last Admin: 03/28/23 19:22 Dose: 25 mg Documented By: ROSELYN Trolamine Salicylate (Trolamine Salicylate 10 % Cream 85 Gm Tube) 1 appl TOPICAL TID PRN; Protocol PRN Reason: back pain Labs 03/28/23 09:15 03/28/23 09:15 Labs: Laboratory Results - last 24 hr 03/28/23 09:15 Anion Gap 14 Estim Creat Clear Calc 37.0 Estimated GFR > 60 Random Glucose 192 H Calcium 8.9 Assessment and Plan (1) Major neurocognitive disorder due to Alzheimer's disease, with behavioral disturbance: Status: Acute Plan 82yo F with osteoporosis + dementia was in observation unit 01/01-01/06/23 awaiting LTC placement but then developed sepsis due to presumed UTI(resolved) no new issues, vital stable ? 1.Dementia/behavioral disturbance well controlled with Seroquel. additional 12.5 mg of Seroquel PRN in the morning 2.Sepsis due to UTI, completed Abx and resolved. recent UA negative 3.Mod protein calorie malnutrition continue supplements 4. boderline bp: Chronic and stable 5. right-sided lower back pain, will check urinalysis, place on Celebrex 200 mg daily for 5 days and use Aspercreme as needed follow clinical course. continue daily ambulations with staff CBC/BMP 03/28--unremarkable LMWH DNR/DNI patient requires continued inpatient hospitalization for the following reasons: safe placement, case managment working on it Time Spent With Patient Time: Total time managing care of this patient today ____ minutes. Quality Stroke Does the patient have a stroke diagnosis?: No VTE Prior VTE?: No VTE Risk Level:: Medical - moderate - high VTE Device Contraindication: Treatment Not Indicated VTE Drug Contraindication: N/A - Med Ordered
[2023-03-29] MEDS: QUEtiapine Fumarate 25 MG TABLET 12.5 MG PO (10:20)
[2023-03-29] MEDS: guaiFENesin 100 MG/5 ML LIQUID 10 ML PO (10:22)
[2023-03-29] MEDS: QUEtiapine Fumarate 25 MG TABLET PO ×2 (14:08→20:30)
--- NOTE | 2023-03-29 15:11 | PM.PSYCN ---
History of Present Illness Date of Service: 03/29/2023 Chief Complaint: Eugene's Guardianship Reason for Consult: combative behavior Requesting physician: Derrell Narayan Discussed with referring provider: Yes Sources of Information: patient interviewed, chart reviewed and crisis/core team assessment reviewed HPI Narrative: Interim Hx: Psych consulted today as pt presented as more combative this morning, throwing walker, and pushing staff. She did receive additional dose of seroquel 12.5mg po earlier today and at time when this commercial lines underwriter went to see her, pt was in her bed, resting comfortable. Pt has been awaiting for placement. Review of Systems Review of Systems all other system reviewed and negative Yes all other systems are reviewed and are negative and Unobtainable due to mental status Constitutional: Denies chills and Denies fever(s) Denies dizziness Cardiovascular: Denies chest pain Gastrointestinal: Denies abdominal pain Denies dizziness Diagnostics Vital Signs (24Hr): Vital Signs - 24 hr 03/28/23 16:00 03/28/23 19:23 03/29/23 03:01 Temperature 97.8 F 97.8 F 96.8 F Pulse Rate 95 95 Respiratory Rate 18 14 14 Blood Pressure 98/71 118/57 L 100/54 L Pulse Oximetry 96 96 97 Oxygen Delivery Method Room Air Room Air Room Air 03/29/23 07:21 Temperature 97.7 F Pulse Rate 86 Respiratory Rate 18 Blood Pressure 114/55 L Pulse Oximetry 97 Oxygen Delivery Method Room Air BMI result Body Mass Index 15.9 Labs 03/28/23 09:15 03/28/23 09:15 Labs: Laboratory Results - last 48 hr 03/28/23 09:15 WBC 6.3 RBC 4.21 Hgb 12.2 Hct 38.7 MCV 91.9 MCH 29.0 MCHC 31.5 RDW 14.5 Plt Count 420 H D MPV 9.4 Absolute Nucleated RBC 0.000 Nucleated RBC % (auto) 0.0 Sodium 141 Potassium 4.0 Chloride 111 H Carbon Dioxide 20 L Anion Gap 14 BUN 32 H Creatinine 0.85 Estim Creat Clear Calc 37.0 Estimated GFR > 60 Random Glucose 192 H Calcium 8.9 Hold Yellow Top See Note Imaging Radiology Impressions: ITS Impressions Cervical Spine CT 01/04/23 00:30 IMPRESSION: HEAD: No acute intracranial findings. CERVICAL SPINE: No acute findings identified. Moderate to severe degenerative changes. Head CT 01/04/23 00:30 IMPRESSION: HEAD: No acute intracranial findings. CERVICAL SPINE: No acute findings identified. Moderate to severe degenerative changes. Chest X-Ray 01/06/23 11:14 IMPRESSION: No acute cardiopulmonary process. Knee X-Ray 01/06/23 11:14 IMPRESSION: 1. Moderate tricompartmental degenerative joint changes most consistent with osteoarthritis. 2. Small to moderate joint effusion and mild surrounding soft tissue swelling without acute underlying osseous abnormality. Mental Status Exam Mental Status Exam Narrative: Appearance: pt somnolent, in bed resting in NAD TC: pt sleeping Affect: somnolent SI: unable to assess, but no indication HI: unable to assess, but not indication VH/AH: none Delusions: none noted or reported. some confabulation Insight/judgment: impaired x 2. Memory/cog: alert, not oriented to place, situation, year or month. Medications Medications Current Medications Acetaminophen (Acetaminophen 325 Mg Tablet) 650 mg PO Q6H PRN PRN Reason: Pain, Mild (Pain Scale 1-3) Last Admin: 03/28/23 05:43 Dose: 650 mg Docusate Sodium (Docusate Sodium 100 Mg Capsule) 100 mg PO DAILY PRN PRN Reason: Constipation Last Admin: 02/13/23 09:21 Dose: 100 mg Enoxaparin Sodium (Enoxaparin Sodium 40 Mg/0.4 Ml Syringe) 40 mg SUBCUT Q24H [facility] Last Admin: 03/28/23 15:27 Dose: Not Given Guaifenesin (Guaifenesin 100 Mg/5 Ml Liquid) 10 ml PO Q4H PRN PRN Reason: Cough Last Admin: 03/29/23 10:22 Dose: 10 ml Lidocaine (Lidocaine 4 % Patch Adh..Patch) 1 patch TRANSDERMA DAILY [facility]; Protocol Last Admin: 03/29/23 08:40 Dose: Not Given Melatonin (Melatonin 3 Mg Tablet) 6 mg PO BEDTIME PRN PRN Reason: Insomnia Last Admin: 03/25/23 22:23 Dose: 6 mg Memantine (Memantine Hcl 5 Mg Tablet) 5 mg PO DAILY [facility] Last Admin: 03/29/23 08:40 Dose: 5 mg Ondansetron HCl (Ondansetron Hcl 4 Mg/2 Ml Vial) 4 mg IVPUSH Q8H PRN PRN Reason: Nausea and Vomiting Quetiapine Fumarate (Quetiapine Fumarate 25 Mg Tablet) 25 mg PO BID@1500,2100 [facility] Last Admin: 03/29/23 14:08 Dose: 25 mg Trolamine Salicylate (Trolamine Salicylate 10 % Cream 85 Gm Tube) 1 appl TOPICAL TID PRN; Protocol PRN Reason: back pain Allergies Allergies Allergy/AdvReac Type Severity Reaction Status Date / Time No Known Allergies Allergy Verified 01/01/23 21:32 Assessment & Plan Assessment & Plan (1) Major neurocognitive disorder due to Alzheimer's disease, with behavioral disturbance: Status: Acute Code(s): G30.9 - Alzheimer's disease, unspecified; F02.818 - Dementia in other diseases classified elsewhere, unspecified severity, with other behavioral disturbance Plan 82yo F with osteoporosis + dementia was in observation unit 01/01-01/06/23 awaiting LTC placement but then developed sepsis due to presumed UTI(resolved) 03/29 will add seroquel 25mg po Q6H prn agitation, monitor oversedation. change scheduled seroquel to 25mg po at 2pm and at 9pm. In the event of severe agitation, and if in need of IM medication can given in event of emergency Olanzapine IM 2.5mg even thought this medication is not on her Eugene's (can't give as scheduled med, but only in emergency situation). Total time managing care of this patient today ____ minutes.
--- NOTE | 2023-03-29 15:29 | MHC.CM.PN ---
Spoke with Emely Financial grey percher. She stated that the patients HCP/DTR Hannah has provided the outstanding bank statements for the [facility] [facility] application. Hannah has not obtained any of the spouse's documents that Emely requested 2 weeks ago. DP LTC via BLS once [facility] application accepted.
[2023-03-29 15:36] VITALS: BP 125/58; PULSE 100; RESP 18; TEMP 36.2; O2SAT 97
[2023-03-29] MEDS: Acetaminophen 325 MG TABLET 650 MG PO (16:49)
[2023-03-30 07:18] VITALS: BP 100/51; PULSE 93; RESP 20; TEMP 36.2; O2SAT 95
--- NOTE | 2023-03-30 09:27 | P.PNIM_ITS ---
Subjective Subjective Date of Service: 03/30/23 Interval History: Periods of agitation yesterday but seems better today. Physical Exam 2 Vital Signs: Vital Signs: Last Vital Signs Temp 97.1 F 03/30/23 07:18 Pulse 93 03/30/23 07:18 Resp 20 03/30/23 07:18 BP 100/51 L 03/30/23 07:18 Pulse Ox 95 03/30/23 07:18 O2 Del Method Room Air 03/30/23 07:18 BMI result Body Mass Index 15.9 Const: Other: General: Oreinted to self no acute distress Resp: CTA bilateral CVS: S1,S2,RRR GI: +BS, NT, no distention Skin: No rash Neuro: motor grossly intact Psych: appropriate affect Objective Data Active Medications Acetaminophen (Acetaminophen 325 Mg Tablet) 650 mg PO Q6H PRN PRN Reason: Pain, Mild (Pain Scale 1-3) Last Admin: 03/29/23 16:49 Dose: 650 mg Documented By: ZACK Docusate Sodium (Docusate Sodium 100 Mg Capsule) 100 mg PO DAILY PRN PRN Reason: Constipation Last Admin: 02/13/23 09:21 Dose: 100 mg Documented By: SPENCER Enoxaparin Sodium (Enoxaparin Sodium 40 Mg/0.4 Ml Syringe) 40 mg SUBCUT Q24H [facility] Last Admin: 03/29/23 16:08 Dose: Not Given Documented By: ZACK Non-Admin Reason: Patient Refused Guaifenesin (Guaifenesin 100 Mg/5 Ml Liquid) 10 ml PO Q4H PRN PRN Reason: Cough Last Admin: 03/29/23 10:22 Dose: 10 ml Documented By: ZACK Lidocaine (Lidocaine 4 % Patch Adh..Patch) 1 patch TRANSDERMA DAILY [facility]; Protocol Last Admin: 03/29/23 08:40 Dose: Not Given Documented By: ZACK Non-Admin Reason: Patient Refused Melatonin (Melatonin 3 Mg Tablet) 6 mg PO BEDTIME PRN PRN Reason: Insomnia Last Admin: 03/25/23 22:23 Dose: 6 mg Documented By: MARIA ESTHER Memantine (Memantine Hcl 5 Mg Tablet) 5 mg PO DAILY [facility] Last Admin: 03/29/23 08:40 Dose: 5 mg Documented By: ZACK Ondansetron HCl (Ondansetron Hcl 4 Mg/2 Ml Vial) 4 mg IVPUSH Q8H PRN PRN Reason: Nausea and Vomiting Quetiapine Fumarate (Quetiapine Fumarate 25 Mg Tablet) 25 mg PO BID@1500,2100 [facility] Last Admin: 03/29/23 20:30 Dose: 25 mg Documented By: ROSELYN Trolamine Salicylate (Trolamine Salicylate 10 % Cream 85 Gm Tube) 1 appl TOPICAL TID PRN; Protocol PRN Reason: back pain Labs 03/28/23 09:15 03/28/23 09:15 Assessment and Plan (1) Major neurocognitive disorder due to Alzheimer's disease, with behavioral disturbance: Status: Acute Plan 82yo F with osteoporosis + dementia was in observation unit 01/01-01/06/23 awaiting LTC placement but then developed sepsis due to presumed UTI(resolved) no new issues, vital stable ? 1.Dementia/behavioral disturbance, with escalation of behaviors -03/29 Psych made additional med adjustement with added PRN seroquel, seems better today 2.Sepsis due to UTI, completed Abx and resolved. recent UA negative 3.Mod protein calorie malnutrition continue supplements 4. boderline bp: Chronic and stable 5. right-sided lower back pain, will check urinalysis, place on Celebrex 200 mg daily for 5 days and use Aspercreme as needed follow clinical course. continue daily ambulations with staff CBC/BMP 03/28--unremarkable LMWH DNR/DNI patient requires continued inpatient hospitalization for the following reasons: safe placement, case managment working on it Time Spent With Patient Time: Total time managing care of this patient today ____ minutes. Quality Stroke Does the patient have a stroke diagnosis?: No VTE Prior VTE?: No VTE Risk Level:: Medical - moderate - high VTE Device Contraindication: Treatment Not Indicated VTE Drug Contraindication: N/A - Med Ordered
[2023-03-30] MEDS: Memantine HCl 5 MG TABLET PO (09:43)
[2023-03-30] MEDS: QUEtiapine Fumarate 25 MG TABLET PO ×2 (15:32→19:26)
[2023-03-30] MEDS: Enoxaparin Sodium 40 MG/0.4 ML SYRINGE SUBCUT (15:33)
[2023-03-30 15:50] VITALS: BP 93/45; PULSE 99; RESP 17; TEMP 36.8; O2SAT 94
[2023-03-30 20:00] VITALS: TEMP 36.1
[2023-03-31 00:33] VITALS: BP 110/53; PULSE 106; RESP 20; TEMP 36.6; O2SAT 93
[2023-03-31 07:56] VITALS: BP 104/57; PULSE 93; RESP 18; TEMP 36.8; O2SAT 93
[2023-03-31] MEDS: Memantine HCl 5 MG TABLET PO (08:47)
--- NOTE | 2023-03-31 09:08 | HO.PM.IMPN ---
Subjective Subjective Date of Service: 03/31/23 Interval History: Calm overnight, no agitation Physical Exam Vital Signs: Vital Signs: Last Vital Signs Temp 98.2 F 03/31/23 07:56 Pulse 93 03/31/23 07:56 Resp 18 03/31/23 07:56 BP 104/57 L 03/31/23 07:56 Pulse Ox 93 03/31/23 07:56 O2 Del Method Room Air 03/31/23 07:56 BMI result Body Mass Index 15.9 Const: Other: General: Oreinted to self no acute distress Resp: CTA bilateral CVS: S1,S2,RRR GI: +BS, NT, no distention Skin: No rash Neuro: motor grossly intact Psych: appropriate affect Objective Data Active Medications Acetaminophen (Acetaminophen 325 Mg Tablet) 650 mg PO Q6H PRN PRN Reason: Pain, Mild (Pain Scale 1-3) Last Admin: 03/29/23 16:49 Dose: 650 mg Documented By: ZACK Docusate Sodium (Docusate Sodium 100 Mg Capsule) 100 mg PO DAILY PRN PRN Reason: Constipation Last Admin: 02/13/23 09:21 Dose: 100 mg Documented By: SPENCER Enoxaparin Sodium (Enoxaparin Sodium 40 Mg/0.4 Ml Syringe) 40 mg SUBCUT Q24H [facility] OF [facility] Last Admin: 03/30/23 15:33 Dose: 40 mg Documented By: DELLA Guaifenesin (Guaifenesin 100 Mg/5 Ml Liquid) 10 ml PO Q4H PRN PRN Reason: Cough Last Admin: 03/29/23 10:22 Dose: 10 ml Documented By: ZACK Lidocaine (Lidocaine 4 % Patch Adh..Patch) 1 patch TRANSDERMA DAILY [facility]; Protocol Last Admin: 03/31/23 08:47 Dose: Not Given Documented By: MARYAN Non-Admin Reason: Patient Refused Melatonin (Melatonin 3 Mg Tablet) 6 mg PO BEDTIME PRN PRN Reason: Insomnia Last Admin: 03/25/23 22:23 Dose: 6 mg Documented By: MARIA ESTHER Memantine (Memantine Hcl 5 Mg Tablet) 5 mg PO DAILY [facility] Last Admin: 03/31/23 08:47 Dose: 5 mg Documented By: MARYAN Ondansetron HCl (Ondansetron Hcl 4 Mg/2 Ml Vial) 4 mg IVPUSH Q8H PRN PRN Reason: Nausea and Vomiting Quetiapine Fumarate (Quetiapine Fumarate 25 Mg Tablet) 25 mg PO BID@1500,2100 [facility] Last Admin: 03/30/23 19:26 Dose: 25 mg Documented By: DANA Trolamine Salicylate (Trolamine Salicylate 10 % Cream 85 Gm Tube) 1 appl TOPICAL TID PRN; Protocol PRN Reason: back pain Labs 03/28/23 09:15 03/28/23 09:15 Assessment and Plan (1) Major neurocognitive disorder due to Alzheimer's disease, with behavioral disturbance: Status: Acute Plan 82yo F with osteoporosis + dementia was in observation unit 01/01-01/06/23 awaiting LTC placement but then developed sepsis due to presumed UTI(resolved) no new issues, vital stable ? 1.Dementia/behavioral disturbance, with escalation of behaviors -03/29 Psych made additional med adjustement with added PRN seroquel, seems better today 2.Sepsis due to UTI, completed Abx and resolved. recent UA negative 3.Mod protein calorie malnutrition continue supplements 4. boderline bp: Chronic and stable 5. right-sided lower back pain, will check urinalysis, place on Celebrex 200 mg daily for 5 days and use Aspercreme as needed follow clinical course. continue daily ambulations with staff CBC/BMP 03/28--unremarkable LMWH DNR/DNI patient requires continued inpatient hospitalization for the following reasons: safe placement, case managment working on it Time Spent With Patient Time: Total time managing care of this patient today ____ minutes. Quality Stroke Does the patient have a stroke diagnosis?: No VTE Prior VTE?: No VTE Risk Level:: Medical - moderate - high VTE Device Contraindication: Treatment Not Indicated VTE Drug Contraindication: N/A - Med Ordered
[2023-03-31] MEDS: QUEtiapine Fumarate 25 MG TABLET PO ×2 (14:39→21:00)
--- NOTE | 2023-03-31 15:43 | MHC.CM.PN ---
DP LTC via BLS. [facility] submitted per Emely, financial photoengraving helper. A referral has been sent to the [place] [facility]. There is a locked Memory impaired unit in the facility. DP LTC via BLS.
[2023-03-31 16:00] VITALS: BP 146/68; PULSE 62; RESP 20; TEMP 36.2; O2SAT 95
[2023-03-31 20:00] VITALS: BP 100/60; PULSE 110; RESP 16; TEMP 36.5; O2SAT 95
[2023-04-01 04:00] VITALS: BP 110/80; PULSE 100; RESP 18; TEMP 36.6; O2SAT 95
[2023-04-01 07:43] VITALS: BP 98/53; PULSE 88; RESP 20; TEMP 36.4; O2SAT 95
--- NOTE | 2023-04-01 08:32 | P.PNIM_ITS ---
Subjective Subjective Date of Service: 04/01/23 Interval History: Doing well, no new issues Physical Exam 2 Vital Signs: Vital Signs: Last Vital Signs Temp 97.6 F 04/01/23 07:43 Pulse 88 04/01/23 07:43 Resp 20 04/01/23 07:43 BP 98/53 L 04/01/23 07:43 Pulse Ox 95 04/01/23 07:43 O2 Del Method Room Air 04/01/23 07:43 O2 Flow Rate 2 03/31/23 16:00 BMI result Body Mass Index 15.9 Const: Other: General: Oreinted to self no acute distress Resp: CTA bilateral CVS: S1,S2,RRR GI: +BS, NT, no distention Skin: No rash Neuro: motor grossly intact Psych: appropriate affect Objective Data Active Medications Acetaminophen (Acetaminophen 325 Mg Tablet) 650 mg PO Q6H PRN PRN Reason: Pain, Mild (Pain Scale 1-3) Last Admin: 03/29/23 16:49 Dose: 650 mg Documented By: ZACK Docusate Sodium (Docusate Sodium 100 Mg Capsule) 100 mg PO DAILY PRN PRN Reason: Constipation Last Admin: 02/13/23 09:21 Dose: 100 mg Documented By: SPENCER Enoxaparin Sodium (Enoxaparin Sodium 40 Mg/0.4 Ml Syringe) 40 mg SUBCUT Q24H [facility] Last Admin: 03/31/23 16:20 Dose: Not Given Documented By: MARYAN Non-Admin Reason: Patient Refused Guaifenesin (Guaifenesin 100 Mg/5 Ml Liquid) 10 ml PO Q4H PRN PRN Reason: Cough Last Admin: 03/29/23 10:22 Dose: 10 ml Documented By: ZACK Lidocaine (Lidocaine 4 % Patch Adh..Patch) 1 patch TRANSDERMA DAILY [facility]; Protocol Last Admin: 03/31/23 08:47 Dose: Not Given Documented By: MARYAN Non-Admin Reason: Patient Refused Melatonin (Melatonin 3 Mg Tablet) 6 mg PO BEDTIME PRN PRN Reason: Insomnia Last Admin: 03/25/23 22:23 Dose: 6 mg Documented By: MARIA ESTHER Memantine (Memantine Hcl 5 Mg Tablet) 5 mg PO DAILY [facility] Last Admin: 03/31/23 08:47 Dose: 5 mg Documented By: HO.COTEMA Ondansetron HCl (Ondansetron Hcl 4 Mg/2 Ml Vial) 4 mg IVPUSH Q8H PRN PRN Reason: Nausea and Vomiting Quetiapine Fumarate (Quetiapine Fumarate 25 Mg Tablet) 25 mg PO BID@1500,2100 [facility] Last Admin: 03/31/23 21:00 Dose: 25 mg Documented By: DANA Trolamine Salicylate (Trolamine Salicylate 10 % Cream 85 Gm Tube) 1 appl TOPICAL TID PRN; Protocol PRN Reason: back pain Labs 03/28/23 09:15 03/28/23 09:15 Assessment and Plan (1) Dementia with behavioral disturbance: Status: Acute Plan 82yo F with osteoporosis + dementia was in observation unit 01/01-01/06/23 awaiting LTC placement but then developed sepsis due to presumed UTI(resolved) no new issues, vital stable ? 1.Dementia/behavioral disturbance, with escalation of behaviors -03/29 Psych made additional med adjustement with added PRN seroquel, seems better today 2.Sepsis due to UTI, completed Abx and resolved. recent UA negative 3.Mod protein calorie malnutrition continue supplements 4. boderline bp: Chronic and stable 5. right-sided lower back pain, will check urinalysis, place on Celebrex 200 mg daily for 5 days and use Aspercreme as needed follow clinical course. continue daily ambulations with staff CBC/BMP 03/28--unremarkable LMWH DNR/DNI patient requires continued inpatient hospitalization for the following reasons: safe placement, case managment working on it Time Spent With Patient Time: Total time managing care of this patient today ____ minutes. Quality Stroke Does the patient have a stroke diagnosis?: No VTE Prior VTE?: No VTE Risk Level:: Medical - moderate - high VTE Device Contraindication: Treatment Not Indicated VTE Drug Contraindication: N/A - Med Ordered
[2023-04-01] MEDS: Memantine HCl 5 MG TABLET PO (08:49)
[2023-04-01] MEDS: QUEtiapine Fumarate 25 MG TABLET PO ×2 (14:21→20:17)
[2023-04-01 15:24] VITALS: BP 94/54; PULSE 100; RESP 20; TEMP 36.6; O2SAT 95
[2023-04-02 03:30] VITALS: BP 105/52; PULSE 94; RESP 16; TEMP 36.1; O2SAT 93
[2023-04-02 08:00] VITALS: BP 103/66; PULSE 98; RESP 20; TEMP 36.6; O2SAT 95
[2023-04-02] MEDS: Memantine HCl 5 MG TABLET PO (08:26)
[2023-04-02] MEDS: Lidocaine 4 % Patch ADH..PATCH 1 PATCH TRANSDERMA (08:27)
--- NOTE | 2023-04-02 09:42 | HO.PM.IMPN ---
Subjective Subjective Date of Service: 04/02/23 Interval History: Doing well, no new issues Physical Exam Vital Signs: Vital Signs: Last Vital Signs Temp 98 F 04/02/23 08:00 Pulse 98 04/02/23 08:00 Resp 20 04/02/23 08:00 BP 103/66 04/02/23 08:00 Pulse Ox 95 04/02/23 08:00 O2 Del Method Room Air 04/02/23 08:00 O2 Flow Rate 2 03/31/23 16:00 BMI result Body Mass Index 15.9 Const: Other: General: Oreinted to self no acute distress Resp: CTA bilateral CVS: S1,S2,RRR GI: +BS, NT, no distention Skin: No rash Neuro: motor grossly intact Psych: appropriate affect Objective Data Active Medications Acetaminophen (Acetaminophen 325 Mg Tablet) 650 mg PO Q6H PRN PRN Reason: Pain, Mild (Pain Scale 1-3) Last Admin: 03/29/23 16:49 Dose: 650 mg Documented By: ZACK Docusate Sodium (Docusate Sodium 100 Mg Capsule) 100 mg PO DAILY PRN PRN Reason: Constipation Last Admin: 02/13/23 09:21 Dose: 100 mg Documented By: SPENCER Enoxaparin Sodium (Enoxaparin Sodium 40 Mg/0.4 Ml Syringe) 40 mg SUBCUT Q24H [facility] Last Admin: 04/01/23 17:49 Dose: Not Given Documented By: ROGER Non-Admin Reason: Patient Refused Guaifenesin (Guaifenesin 100 Mg/5 Ml Liquid) 10 ml PO Q4H PRN PRN Reason: Cough Last Admin: 03/29/23 10:22 Dose: 10 ml Documented By: ZACK Lidocaine (Lidocaine 4 % Patch Adh..Patch) 1 patch TRANSDERMA DAILY [facility]; Protocol Last Admin: 04/02/23 08:27 Dose: 1 patch Documented By: ROGER Melatonin (Melatonin 3 Mg Tablet) 6 mg PO BEDTIME PRN PRN Reason: Insomnia Last Admin: 03/25/23 22:23 Dose: 6 mg Documented By: MARIA ESTHER Memantine (Memantine Hcl 5 Mg Tablet) 5 mg PO DAILY [facility] Last Admin: 04/02/23 08:26 Dose: 5 mg Documented By: ROGER Ondansetron HCl (Ondansetron Hcl 4 Mg/2 Ml Vial) 4 mg IVPUSH Q8H PRN PRN Reason: Nausea and Vomiting Quetiapine Fumarate (Quetiapine Fumarate 25 Mg Tablet) 25 mg PO BID@1500,2100 [facility] Last Admin: 04/01/23 20:17 Dose: 25 mg Documented By: LYNETTE Trolamine Salicylate (Trolamine Salicylate 10 % Cream 85 Gm Tube) 1 appl TOPICAL TID PRN; Protocol PRN Reason: back pain Labs 03/28/23 09:15 03/28/23 09:15 Assessment and Plan (1) Dementia with behavioral disturbance: Status: Acute Plan 82yo F with osteoporosis + dementia was in observation unit 01/01-01/06/23 awaiting LTC placement but then developed sepsis due to presumed UTI(resolved) no new issues, vital stable ? 1.Dementia/behavioral disturbance, has been controlled with recent med adjustment by Psych -03/29 Psych made additional med adjustement with added PRN seroquel, seems better today 2.Sepsis due to UTI, completed Abx and resolved. recent UA negative 3.Mod protein calorie malnutrition continue supplements 4. boderline bp: Chronic and stable 5. right-sided lower back pain, will check urinalysis, place on Celebrex 200 mg daily for 5 days and use Aspercreme as needed follow clinical course. continue daily ambulations with staff CBC/BMP 03/28--unremarkable LMWH DNR/DNI patient requires continued inpatient hospitalization for the following reasons: safe placement, case managment working on it Time Spent With Patient Time: Total time managing care of this patient today ____ minutes. Quality Stroke Does the patient have a stroke diagnosis?: No VTE Prior VTE?: No VTE Risk Level:: Medical - moderate - high VTE Device Contraindication: Treatment Not Indicated VTE Drug Contraindication: N/A - Med Ordered
[2023-04-02] MEDS: QUEtiapine Fumarate 25 MG TABLET PO ×2 (15:12→19:40)
--- NOTE | 2023-04-02 15:17 | MHC.CM.PN ---
A call was placed to [facility]. A was left requesting a LTC/Female bed. T/W spoke with Jessy last week. Clinical information has been sent. A request for a return call was made.
[2023-04-02 16:11] VITALS: BP 109/51; PULSE 100; RESP 20; TEMP 36.6; O2SAT 95
[2023-04-02 19:14] VITALS: BP 111/59; PULSE 110; RESP 14; TEMP 36.6; O2SAT 94
[2023-04-03 03:41] VITALS: BP 107/51; PULSE 100; RESP 14; TEMP 36.5; O2SAT 94
[2023-04-03 06:51] VITALS: BP 110/58; PULSE 98; RESP 16; TEMP 36.6; O2SAT 95
[2023-04-03] MEDS: Lidocaine 4 % Patch ADH..PATCH 1 PATCH TRANSDERMA (08:23)
[2023-04-03] MEDS: Memantine HCl 5 MG TABLET PO (08:23)
[2023-04-03] MEDS: Acetaminophen 325 MG TABLET 650 MG PO (08:26)
--- NOTE | 2023-04-03 08:29 | HO.PM.IMPN ---
Subjective Subjective Date of Service: 04/03/23 Interval History: Doing well, no new issues Physical Exam Vital Signs: Vital Signs: Last Vital Signs Temp 98 F 04/03/23 06:51 Pulse 98 04/03/23 06:51 Resp 16 04/03/23 06:51 BP 110/58 L 04/03/23 06:51 Pulse Ox 95 04/03/23 06:51 O2 Del Method Room Air 04/03/23 06:51 O2 Flow Rate 2 03/31/23 16:00 BMI result Body Mass Index 15.9 General: Oreinted to self no acute distress Resp: CTA bilateral CVS: S1,S2,RRR GI: +BS, NT, no distention Skin: No rash Neuro: motor grossly intact Psych: appropriate affect Const: Other: General: Oreinted to self no acute distress Resp: CTA bilateral CVS: S1,S2,RRR GI: +BS, NT, no distention Skin: No rash Neuro: motor grossly intact Psych: appropriate affect Objective Data Active Medications Acetaminophen (Acetaminophen 325 Mg Tablet) 650 mg PO Q6H PRN PRN Reason: Pain, Mild (Pain Scale 1-3) Last Admin: 04/03/23 08:26 Dose: 650 mg Documented By: MISSY Docusate Sodium (Docusate Sodium 100 Mg Capsule) 100 mg PO DAILY PRN PRN Reason: Constipation Last Admin: 02/13/23 09:21 Dose: 100 mg Documented By: SPENCER Enoxaparin Sodium (Enoxaparin Sodium 40 Mg/0.4 Ml Syringe) 40 mg SUBCUT Q24H [facility] Last Admin: 04/02/23 17:05 Dose: Not Given Documented By: ROGER Non-Admin Reason: Patient Refused Guaifenesin (Guaifenesin 100 Mg/5 Ml Liquid) 10 ml PO Q4H PRN PRN Reason: Cough Last Admin: 03/29/23 10:22 Dose: 10 ml Documented By: ZACK Lidocaine (Lidocaine 4 % Patch Adh..Patch) 1 patch TRANSDERMA DAILY [facility]; Protocol Last Admin: 04/03/23 08:23 Dose: 1 patch Documented By: MISSY Melatonin (Melatonin 3 Mg Tablet) 6 mg PO BEDTIME PRN PRN Reason: Insomnia Last Admin: 03/25/23 22:23 Dose: 6 mg Documented By: MARIA ESTHER Memantine (Memantine Hcl 5 Mg Tablet) 5 mg PO DAILY [facility] Last Admin: 04/03/23 08:23 Dose: 5 mg Documented By: MISSY Ondansetron HCl (Ondansetron Hcl 4 Mg/2 Ml Vial) 4 mg IVPUSH Q8H PRN PRN Reason: Nausea and Vomiting Quetiapine Fumarate (Quetiapine Fumarate 25 Mg Tablet) 25 mg PO BID@1500,2100 [facility] Last Admin: 04/02/23 19:40 Dose: 25 mg Documented By: ROSELYN Trolamine Salicylate (Trolamine Salicylate 10 % Cream 85 Gm Tube) 1 appl TOPICAL TID PRN; Protocol PRN Reason: back pain Labs 03/28/23 09:15 03/28/23 09:15 Assessment and Plan (1) Dementia with behavioral disturbance: Status: Acute Plan 82yo F with osteoporosis + dementia was in observation unit 01/01-01/06/23 awaiting LTC placement but then developed sepsis due to presumed UTI(resolved) no new issues, vital stable ? 1.Dementia/behavioral disturbance, has been controlled with recent med adjustment by Psych -03/29 Psych made additional med adjustement with added PRN seroquel, seems better today 2.Sepsis due to UTI, completed Abx and resolved. recent UA negative 3.Mod protein calorie malnutrition continue supplements 4. boderline bp: Chronic and stable 5. right-sided lower back pain, will check urinalysis, place on Celebrex 200 mg daily for 5 days and use Aspercreme as needed follow clinical course. continue daily ambulations with staff CBC/BMP 03/28--unremarkable LMWH DNR/DNI patient requires continued inpatient hospitalization for the following reasons: safe placement, case managment working on it Time Spent With Patient Time: Total time managing care of this patient today ____ minutes. Quality Stroke Does the patient have a stroke diagnosis?: No VTE Prior VTE?: No VTE Risk Level:: Medical - moderate - high VTE Device Contraindication: Treatment Not Indicated VTE Drug Contraindication: N/A - Med Ordered
--- NOTE | 2023-04-03 12:18 | PC.NURSE ---
Pts son Jerome at bedside visiting .
[2023-04-03 15:19] VITALS: BP 110/55; PULSE 104; RESP 17; TEMP 36.3; O2SAT 97
[2023-04-03] MEDS: QUEtiapine Fumarate 25 MG TABLET PO ×2 (15:19→19:19)
[2023-04-03 19:02] VITALS: BP 103/57; PULSE 116; RESP 17; TEMP 36.7; O2SAT 94
[2023-04-04 03:06] VITALS: BP 112/60; PULSE 89; RESP 16; TEMP 36.6; O2SAT 97
--- NOTE | 2023-04-04 08:55 | HO.PM.IMPN ---
Subjective Subjective Date of Service: 04/04/23 Interval History: Doing well, no new issues. Was awake in bed, without no question or concerns Physical Exam Vital Signs: Vital Signs: Last Vital Signs Temp 97.9 F 04/04/23 03:06 Pulse 89 04/04/23 03:06 Resp 16 04/04/23 03:06 BP 112/60 04/04/23 03:06 Pulse Ox 97 04/04/23 03:06 O2 Del Method Room Air 04/04/23 03:06 O2 Flow Rate 2 03/31/23 16:00 BMI result Body Mass Index 15.9 Const: Other: General: Oreinted to self no acute distress Resp: CTA bilateral CVS: S1,S2,RRR GI: +BS, NT, no distention Skin: No rash Neuro: motor grossly intact Psych: appropriate affect Objective Data Active Medications Acetaminophen (Acetaminophen 325 Mg Tablet) 650 mg PO Q6H PRN PRN Reason: Pain, Mild (Pain Scale 1-3) Last Admin: 04/03/23 08:26 Dose: 650 mg Documented By: MISSY Docusate Sodium (Docusate Sodium 100 Mg Capsule) 100 mg PO DAILY PRN PRN Reason: Constipation Last Admin: 02/13/23 09:21 Dose: 100 mg Documented By: SPENCER Enoxaparin Sodium (Enoxaparin Sodium 40 Mg/0.4 Ml Syringe) 40 mg SUBCUT Q24H [facility] Last Admin: 04/03/23 17:41 Dose: Not Given Documented By: MISSY Non-Admin Reason: Patient Refused Guaifenesin (Guaifenesin 100 Mg/5 Ml Liquid) 10 ml PO Q4H PRN PRN Reason: Cough Last Admin: 03/29/23 10:22 Dose: 10 ml Documented By: ZACK Lidocaine (Lidocaine 4 % Patch Adh..Patch) 1 patch TRANSDERMA DAILY [facility]; Protocol Last Admin: 04/03/23 08:23 Dose: 1 patch Documented By: MISSY Melatonin (Melatonin 3 Mg Tablet) 6 mg PO BEDTIME PRN PRN Reason: Insomnia Last Admin: 03/25/23 22:23 Dose: 6 mg Documented By: MARIA ESTHER Memantine (Memantine Hcl 5 Mg Tablet) 5 mg PO DAILY [facility] Last Admin: 04/03/23 08:23 Dose: 5 mg Documented By: MISSY Ondansetron HCl (Ondansetron Hcl 4 Mg/2 Ml Vial) 4 mg IVPUSH Q8H PRN PRN Reason: Nausea and Vomiting Quetiapine Fumarate (Quetiapine Fumarate 25 Mg Tablet) 25 mg PO BID@1500,2100 [facility] Last Admin: 04/03/23 19:19 Dose: 25 mg Documented By: NEGAR Trolamine Salicylate (Trolamine Salicylate 10 % Cream 85 Gm Tube) 1 appl TOPICAL TID PRN; Protocol PRN Reason: back pain Labs 03/28/23 09:15 03/28/23 09:15 Assessment and Plan (1) Dementia: Status: Acute Plan 82yo F with osteoporosis + dementia was in observation unit 01/01-01/06/23 awaiting LTC placement but then developed sepsis due to presumed UTI(resolved) no new issues, vital stable, continue present care ? 1.Dementia/behavioral disturbance, has been controlled with recent med adjustment by Psych -03/29 Psych made additional med adjustement with added PRN seroquel, seems better today 2.Sepsis due to UTI, completed Abx and resolved. recent UA negative 3.Mod protein calorie malnutrition continue supplements 4. boderline bp: Chronic and stable 5. right-sided lower back pain, will check urinalysis, place on Celebrex 200 mg daily for 5 days and use Aspercreme as needed follow clinical course. continue daily ambulations with staff CBC/BMP 03/28--unremarkable LMWH DNR/DNI patient requires continued inpatient hospitalization for the following reasons: safe placement, case managment working on it Time Spent With Patient Time: Total time managing care of this patient today ____ minutes. Quality Stroke Does the patient have a stroke diagnosis?: No VTE Prior VTE?: No VTE Risk Level:: Medical - moderate - high VTE Device Contraindication: Treatment Not Indicated VTE Drug Contraindication: N/A - Med Ordered
[2023-04-04 10:27] VITALS: BP 113/54; PULSE 102; RESP 18; TEMP 36.6; O2SAT 95
[2023-04-04] MEDS: Memantine HCl 5 MG TABLET PO (10:41)
[2023-04-04] MEDS: QUEtiapine Fumarate 25 MG TABLET PO ×2 (14:14→20:25)
[2023-04-04] MEDS: LORazepam 0.5 MG TABLET PO (15:39)
[2023-04-04 16:00] VITALS: BP 102/58; PULSE 102; RESP 18; TEMP 36.9; O2SAT 95
[2023-04-04 19:37] VITALS: BP 119/55; PULSE 90; RESP 18; TEMP 36.4; O2SAT 98
[2023-04-05 04:00] VITALS: BP 120/62; PULSE 70; RESP 18; TEMP 36.6; O2SAT 97
[2023-04-05] MEDS: Acetaminophen 325 MG TABLET 650 MG PO ×2 (06:31→16:52)
[2023-04-05] MEDS: Lidocaine 4 % Patch ADH..PATCH 1 PATCH TRANSDERMA (07:27)
[2023-04-05] MEDS: Memantine HCl 5 MG TABLET PO (07:27)
[2023-04-05 07:35] VITALS: BP 123/57; PULSE 89; RESP 12; TEMP 36.3; O2SAT 97
--- NOTE | 2023-04-05 11:33 | HO.PM.IMPN ---
Subjective Subjective Date of Service: 04/05/23 Interval History: Doing well, no new issues, no issues this morning, had periods agitation yesterday Physical Exam Vital Signs: Vital Signs: Last Vital Signs Temp 97.4 F 04/05/23 07:35 Pulse 89 04/05/23 07:35 Resp 12 04/05/23 07:35 BP 123/57 L 04/05/23 07:35 Pulse Ox 97 04/05/23 07:35 O2 Del Method Room Air 04/05/23 07:35 O2 Flow Rate 2 03/31/23 16:00 BMI result Body Mass Index 15.9 Const: Other: General: Oreinted to self no acute distress Resp: CTA bilateral CVS: S1,S2,RRR GI: +BS, NT, no distention Skin: No rash Neuro: motor grossly intact Psych: appropriate affect Objective Data Active Medications Acetaminophen (Acetaminophen 325 Mg Tablet) 650 mg PO Q6H PRN PRN Reason: Pain, Mild (Pain Scale 1-3) Last Admin: 04/05/23 06:31 Dose: 650 mg Documented By: BROMariluz Docusate Sodium (Docusate Sodium 100 Mg Capsule) 100 mg PO DAILY PRN PRN Reason: Constipation Last Admin: 02/13/23 09:21 Dose: 100 mg Documented By: SPENCER Enoxaparin Sodium (Enoxaparin Sodium 40 Mg/0.4 Ml Syringe) 40 mg SUBCUT Q24H [facility] Last Admin: 04/04/23 15:39 Dose: Not Given Documented By: DAVID Non-Admin Reason: Patient Refused Guaifenesin (Guaifenesin 100 Mg/5 Ml Liquid) 10 ml PO Q4H PRN PRN Reason: Cough Last Admin: 03/29/23 10:22 Dose: 10 ml Documented By: ZACK Lidocaine (Lidocaine 4 % Patch Adh..Patch) 1 patch TRANSDERMA DAILY [facility]; Protocol Last Admin: 04/05/23 07:27 Dose: 1 patch Documented By: MISSY Melatonin (Melatonin 3 Mg Tablet) 6 mg PO BEDTIME PRN PRN Reason: Insomnia Last Admin: 03/25/23 22:23 Dose: 6 mg Documented By: MARIA ESTHER Memantine (Memantine Hcl 5 Mg Tablet) 5 mg PO DAILY [facility] Last Admin: 04/05/23 07:27 Dose: 5 mg Documented By: MISSY Ondansetron HCl (Ondansetron Hcl 4 Mg/2 Ml Vial) 4 mg IVPUSH Q8H PRN PRN Reason: Nausea and Vomiting Quetiapine Fumarate (Quetiapine Fumarate 25 Mg Tablet) 25 mg PO BID@1500,2100 [facility] Last Admin: 04/04/23 20:25 Dose: 25 mg Documented By: MARIA ESTHER Trolamine Salicylate (Trolamine Salicylate 10 % Cream 85 Gm Tube) 1 appl TOPICAL TID PRN; Protocol PRN Reason: back pain Labs 03/28/23 09:15 03/28/23 09:15 Assessment and Plan (1) Dementia: Status: Acute Plan 82yo F with osteoporosis + dementia was in observation unit 01/01-01/06/23 awaiting LTC placement but then developed sepsis due to presumed UTI(resolved) no new issues, vital stable, continue present care ? 1.Dementia/behavioral disturbance, has been controlled with recent med adjustment by Psych -03/29 Psych made additional med adjustement with added PRN seroquel, seems better today 2.Sepsis due to UTI, completed Abx and resolved. Recent UA negative 3.Mod protein calorie malnutrition continue supplements 4. boderline bp: Chronic and stable 5. right-sided lower back pain, will check urinalysis, place on Celebrex 200 mg daily for 5 days and use Aspercreme as needed follow clinical course. continue daily ambulations with staff CBC/BMP 03/28--unremarkable LMWH DNR/DNI patient requires continued inpatient hospitalization for the following reasons: safe placement, case managment working on it Time Spent With Patient Time: Total time managing care of this patient today ____ minutes. Quality Stroke Does the patient have a stroke diagnosis?: No VTE Prior VTE?: No VTE Risk Level:: Medical - moderate - high VTE Device Contraindication: Treatment Not Indicated VTE Drug Contraindication: N/A - Med Ordered
--- NOTE | 2023-04-05 11:43 | MHC.CM.PN ---
Addendum entered by Marleen Guzman 04/05/23 15:54: [place] [facility] [place] notified via that documents are uploaded in [facility]. The message included an invitation to come in to screen the patient. Original Note: A call was placed to ANDREW. The hospitality coordinator, Brie Leavitt was contacted. She is interested in the patient. The referral has been updated. A hand fax was also sent for convenience. An invitation to come in to meet the patient was extended. CM will continue to follow for placement. DP LTC via BLS.
[2023-04-05] MEDS: QUEtiapine Fumarate 25 MG TABLET PO ×2 (14:29→20:47)
[2023-04-05 15:49] VITALS: BP 136/84; PULSE 88; RESP 18; TEMP 36.6; O2SAT 98
[2023-04-05] MEDS: Enoxaparin Sodium 40 MG/0.4 ML SYRINGE SUBCUT (16:16)
[2023-04-05 20:00] VITALS: BP 104/50; PULSE 108; RESP 16; TEMP 36.8; O2SAT 94
[2023-04-06 00:39] VITALS: BP 129/71; PULSE 102; RESP 18; TEMP 36.5; O2SAT 98
[2023-04-06 07:47] VITALS: BP 124/64; PULSE 87; RESP 16; TEMP 37; O2SAT 94
[2023-04-06] MEDS: Memantine HCl 5 MG TABLET PO (09:41)
[2023-04-06] MEDS: Lidocaine 4 % Patch ADH..PATCH 1 PATCH TRANSDERMA (09:42)
--- NOTE | 2023-04-06 10:59 | P.PNIM_ITS ---
Subjective Subjective Date of Service: 04/06/23 Interval History: No agitation reported the last 24 hours Physical Exam 2 Vital Signs: Vital Signs: Last Vital Signs Temp 98.6 F 04/06/23 07:47 Pulse 87 04/06/23 07:47 Resp 16 04/06/23 07:47 BP 124/64 04/06/23 07:47 Pulse Ox 94 04/06/23 07:47 O2 Del Method Room Air 04/06/23 07:47 O2 Flow Rate 2 03/31/23 16:00 BMI result Body Mass Index 15.9 Const: Other: General: Oreinted to self no acute distress Resp: CTA bilateral CVS: S1,S2,RRR GI: +BS, NT, no distention Skin: No rash Neuro: motor grossly intact Psych: appropriate affect Objective Data Active Medications Acetaminophen (Acetaminophen 325 Mg Tablet) 650 mg PO Q6H PRN PRN Reason: Pain, Mild (Pain Scale 1-3) Last Admin: 04/05/23 16:52 Dose: 650 mg Documented By: MISSY Docusate Sodium (Docusate Sodium 100 Mg Capsule) 100 mg PO DAILY PRN PRN Reason: Constipation Last Admin: 02/13/23 09:21 Dose: 100 mg Documented By: SPENCER Enoxaparin Sodium (Enoxaparin Sodium 40 Mg/0.4 Ml Syringe) 40 mg SUBCUT Q24H [facility] Last Admin: 04/05/23 16:16 Dose: 40 mg Documented By: MISSY Guaifenesin (Guaifenesin 100 Mg/5 Ml Liquid) 10 ml PO Q4H PRN PRN Reason: Cough Last Admin: 03/29/23 10:22 Dose: 10 ml Documented By: ZACK Lidocaine (Lidocaine 4 % Patch Adh..Patch) 1 patch TRANSDERMA DAILY [facility]; Protocol Last Admin: 04/06/23 09:42 Dose: 1 patch Documented By: TYLER Melatonin (Melatonin 3 Mg Tablet) 6 mg PO BEDTIME PRN PRN Reason: Insomnia Last Admin: 03/25/23 22:23 Dose: 6 mg Documented By: MARIA ESTHER Memantine (Memantine Hcl 5 Mg Tablet) 5 mg PO DAILY [facility] Last Admin: 04/06/23 09:41 Dose: 5 mg Documented By: TYLER Ondansetron HCl (Ondansetron Hcl 4 Mg/2 Ml Vial) 4 mg IVPUSH Q8H PRN PRN Reason: Nausea and Vomiting Quetiapine Fumarate (Quetiapine Fumarate 25 Mg Tablet) 25 mg PO BID@1500,2100 [facility] Last Admin: 04/05/23 20:47 Dose: 25 mg Documented By: MARIA ESTHER Trolamine Salicylate (Trolamine Salicylate 10 % Cream 85 Gm Tube) 1 appl TOPICAL TID PRN; Protocol PRN Reason: back pain Labs 03/28/23 09:15 03/28/23 09:15 Assessment and Plan (1) Dementia: Status: Acute Plan 82yo F with osteoporosis + dementia was in observation unit 01/01-01/06/23 awaiting LTC placement but then developed sepsis due to presumed UTI(resolved) no new issues, vital stable, continue present care ? 1.Dementia/behavioral disturbance, has been controlled with recent med adjustment by Psych -03/29 Psych made additional med adjustement with added PRN seroquel 12.5 around 2 pm, seems better today 2.Sepsis due to UTI, completed Abx and resolved. Recent UA negative 3.Mod protein calorie malnutrition continue supplements 4. boderline bp: Chronic and stable 5. right-sided lower back pain, will check urinalysis, place on Celebrex 200 mg daily for 5 days and use Aspercreme as needed follow clinical course. continue daily ambulations with staff CBC/BMP 03/28--unremarkable LMWH DNR/DNI patient requires continued inpatient hospitalization for the following reasons: safe placement, case managment working on it Time Spent With Patient Time: Total time managing care of this patient today ____ minutes. Quality Stroke Does the patient have a stroke diagnosis?: No VTE Prior VTE?: No VTE Risk Level:: Medical - moderate - high VTE Device Contraindication: Treatment Not Indicated VTE Drug Contraindication: N/A - Med Ordered
--- NOTE | 2023-04-06 12:38 | MHC.CM.PN ---
A CALL WAS PLACED TO [employer] FOR AN UPDATE ON PROGRESS OF DOCUMENTS BEING COLLECTED BY DAUGHTER. MESSAGE LEFT FOR A RETURN CALL.
[2023-04-06] MEDS: QUEtiapine Fumarate 25 MG TABLET PO ×2 (14:32→20:19)
[2023-04-06 15:54] VITALS: BP 135/72; PULSE 105; RESP 16; TEMP 36.6; O2SAT 98
[2023-04-06] MEDS: Enoxaparin Sodium 40 MG/0.4 ML SYRINGE SUBCUT (17:35)
[2023-04-06 19:29] VITALS: BP 117/67; PULSE 112; RESP 16; TEMP 37; O2SAT 99
[2023-04-06] MEDS: Melatonin 3 MG TABLET 6 MG PO (20:19)
[2023-04-07 03:26] VITALS: BP 115/59; PULSE 91; RESP 16; TEMP 36; O2SAT 95
[2023-04-07 08:00] VITALS: BP 133/71; PULSE 86; RESP 16; TEMP 36; O2SAT 94
--- NOTE | 2023-04-07 08:43 | P.PNIM_ITS ---
Subjective Subjective Date of Service: 04/07/23 Interval History: no agitation this morning Physical Exam 2 Vital Signs: Vital Signs: Last Vital Signs Temp 96.8 F 04/07/23 08:00 Pulse 86 04/07/23 08:00 Resp 16 04/07/23 08:00 BP 133/71 04/07/23 08:00 Pulse Ox 94 04/07/23 08:00 O2 Del Method Room Air 04/07/23 08:00 O2 Flow Rate 98 04/06/23 15:54 BMI result Body Mass Index 15.9 Const: Other: General: Oreinted to self no acute distress Resp: CTA bilateral CVS: S1,S2,RRR GI: +BS, NT, no distention Skin: No rash Neuro: motor grossly intact Psych: appropriate affect Objective Data Active Medications Enoxaparin Sodium (Enoxaparin Sodium 40 Mg/0.4 Ml Syringe) 40 mg SUBCUT Q24H [facility] Last Admin: 04/06/23 17:35 Dose: 40 mg Documented By: TYLER Guaifenesin (Guaifenesin 100 Mg/5 Ml Liquid) 10 ml PO Q4H PRN PRN Reason: Cough Last Admin: 03/29/23 10:22 Dose: 10 ml Documented By: ZACK Lidocaine (Lidocaine 4 % Patch Adh..Patch) 1 patch TRANSDERMA DAILY [facility]; Protocol Last Admin: 04/06/23 09:42 Dose: 1 patch Documented By: TYLER Melatonin (Melatonin 3 Mg Tablet) 6 mg PO BEDTIME PRN PRN Reason: Insomnia Last Admin: 04/06/23 20:19 Dose: 6 mg Documented By: SAKSHI Memantine (Memantine Hcl 5 Mg Tablet) 5 mg PO DAILY [facility] Last Admin: 04/06/23 09:41 Dose: 5 mg Documented By: TYLER Quetiapine Fumarate (Quetiapine Fumarate 25 Mg Tablet) 25 mg PO BID@1500,2100 [facility] Last Admin: 04/06/23 20:19 Dose: 25 mg Documented By: SAKSHI Quetiapine Fumarate (Quetiapine Fumarate 25 Mg Tablet) 12.5 mg PO DAILY PRN PRN Reason: anxiety/restlessness Trolamine Salicylate (Trolamine Salicylate 10 % Cream 85 Gm Tube) 1 appl TOPICAL TID PRN; Protocol PRN Reason: back pain Labs 03/28/23 09:15 03/28/23 09:15 Assessment and Plan (1) Dementia: Status: Acute Plan 82yo F with osteoporosis + dementia was in observation unit 01/01-01/06/23 awaiting LTC placement but then developed sepsis due to presumed UTI(resolved) no new issues, vital stable, continue present care ? 1.Dementia/behavioral disturbance, has been controlled with recent med adjustment by Psych -03/29 Psych made additional med adjustement with added PRN seroquel 12.5 around 2 pm, seems better today 2.Sepsis due to UTI, completed Abx and resolved. Recent UA negative 3.Mod protein calorie malnutrition continue supplements 4. boderline bp: Chronic and stable 5. right-sided lower back pain, will check urinalysis, place on Celebrex 200 mg daily for 5 days and use Aspercreme as needed follow clinical course. continue daily ambulations with staff CBC/BMP 03/28--unremarkable LMWH DNR/DNI patient requires continued inpatient hospitalization for the following reasons: safe placement, case managment working on it Time Spent With Patient Time: Total time managing care of this patient today ____ minutes. Quality Stroke Does the patient have a stroke diagnosis?: No VTE Prior VTE?: No VTE Risk Level:: Medical - moderate - high VTE Device Contraindication: Treatment Not Indicated VTE Drug Contraindication: N/A - Med Ordered
[2023-04-07] MEDS: Memantine HCl 5 MG TABLET PO (09:43)
[2023-04-07] MEDS: Lidocaine 4 % Patch ADH..PATCH 1 PATCH TRANSDERMA (09:43)
--- NOTE | 2023-04-07 11:35 | MHC.CM.PN ---
An update has been received from Financial chlorinator, Emely. She stated that she has planned to touch base with Capri Oneill from [facility] today. The plan is to review the documents received. Capri will let Emely know if anything is outstanding. Emely will follow up with HCP/DTR Hannah. Raul bonilla Estill has contacted. Nasreen Lyndsay states that she does not have a bed on the locked unit. She will follow up after reaching out to centers in [facility].
[2023-04-07] MEDS: QUEtiapine Fumarate 25 MG TABLET PO ×2 (13:52→19:25)
[2023-04-07 15:07] VITALS: BP 122/66; PULSE 108; RESP 16; TEMP 36.4; O2SAT 96
[2023-04-07] MEDS: Enoxaparin Sodium 40 MG/0.4 ML SYRINGE SUBCUT (18:02)
[2023-04-07 19:13] VITALS: BP 122/59; PULSE 119; RESP 18; TEMP 36.7; O2SAT 94
[2023-04-07] MEDS: Melatonin 3 MG TABLET 6 MG PO (19:25)
[2023-04-08 04:00] VITALS: BP 121/66; PULSE 101; RESP 16; TEMP 36.3; O2SAT 94
[2023-04-08 08:00] VITALS: BP 105/53; PULSE 96; RESP 18; TEMP 36.2; O2SAT 99
--- NOTE | 2023-04-08 08:48 | HO.PM.IMPN ---
Subjective Subjective Date of Service: 04/08/23 Interval History: No new issues Physical Exam Vital Signs: Vital Signs: Last Vital Signs Temp 97.3 F 04/08/23 04:00 Pulse 101 H 04/08/23 04:00 Resp 16 04/08/23 04:00 BP 121/66 04/08/23 04:00 Pulse Ox 94 04/08/23 04:00 O2 Del Method Room Air 04/08/23 04:00 O2 Flow Rate 98 04/06/23 15:54 BMI result Body Mass Index 15.9 Const: Other: General: Oreinted to self no acute distress Resp: CTA bilateral CVS: S1,S2,RRR GI: +BS, NT, no distention Skin: No rash Neuro: motor grossly intact Psych: appropriate affect Objective Data Active Medications Enoxaparin Sodium (Enoxaparin Sodium 40 Mg/0.4 Ml Syringe) 40 mg SUBCUT Q24H REPLACED [facility] Last Admin: 04/07/23 18:02 Dose: 40 mg Documented By: TYLER Guaifenesin (Guaifenesin 100 Mg/5 Ml Liquid) 10 ml PO Q4H PRN PRN Reason: Cough Last Admin: 03/29/23 10:22 Dose: 10 ml Documented By: ZACK Lidocaine (Lidocaine 4 % Patch Adh..Patch) 1 patch TRANSDERMA DAILY [facility]; Protocol Last Admin: 04/07/23 09:43 Dose: 1 patch Documented By: TYLER Melatonin (Melatonin 3 Mg Tablet) 6 mg PO BEDTIME PRN PRN Reason: Insomnia Last Admin: 04/07/23 19:25 Dose: 6 mg Documented By: SAKSHI Memantine (Memantine Hcl 5 Mg Tablet) 5 mg PO DAILY [facility]PLACED [facility] Last Admin: 04/07/23 09:43 Dose: 5 mg Documented By: TYLER Quetiapine Fumarate (Quetiapine Fumarate 25 Mg Tablet) 25 mg PO BID@1500,2100 REPLACED [facility] Last Admin: 04/07/23 19:25 Dose: 25 mg Documented By: SAKSHI Quetiapine Fumarate (Quetiapine Fumarate 25 Mg Tablet) 12.5 mg PO DAILY PRN PRN Reason: anxiety/restlessness Trolamine Salicylate (Trolamine Salicylate 10 % Cream 85 Gm Tube) 1 appl TOPICAL TID PRN; Protocol PRN Reason: back pain Labs 03/28/23 09:15 03/28/23 09:15 Assessment and Plan (1) Dementia: Status: Acute Plan 82yo F with osteoporosis + dementia was in observation unit 01/01-01/06/23 awaiting LTC placement but then developed sepsis due to presumed UTI(resolved) continue present care no change at this time 1.Dementia/behavioral disturbance, has been controlled with recent med adjustment by Psych -03/29 Psych made additional med adjustement -PRN seroquel at 2 pm 2.Sepsis due to UTI, completed Abx and resolved. Recent UA negative 3.Mod protein calorie malnutrition continue supplements 4. boderline bp: Chronic and stable 5. right-sided lower back pain, will check urinalysis, place on Celebrex 200 mg daily for 5 days and use Aspercreme as needed follow clinical course. continue daily ambulations with staff CBC/BMP 03/28--unremarkable LMWH DNR/DNI patient requires continued inpatient hospitalization for the following reasons: safe placement, case managment working on it Time Spent With Patient Time: Total time managing care of this patient today ____ minutes. Quality Stroke Does the patient have a stroke diagnosis?: No VTE Prior VTE?: No VTE Risk Level:: Medical - moderate - high VTE Device Contraindication: Treatment Not Indicated VTE Drug Contraindication: N/A - Med Ordered
[2023-04-08] MEDS: Lidocaine 4 % Patch ADH..PATCH 1 PATCH TRANSDERMA (09:50)
[2023-04-08] MEDS: Memantine HCl 5 MG TABLET PO (09:50)
[2023-04-08] MEDS: QUEtiapine Fumarate 25 MG TABLET PO ×2 (13:53→19:13)
[2023-04-08 15:31] VITALS: BP 129/59; PULSE 99; RESP 18; TEMP 36.8; O2SAT 99
[2023-04-08] MEDS: Enoxaparin Sodium 40 MG/0.4 ML SYRINGE SUBCUT (15:57)
--- NOTE | 2023-04-08 15:57 | MHC.CM.PN ---
Attempted to call dtr / guardian to discuss [employer] options for DC plan, received multiple busy signals. Ines from financial office informed me that she has left a message for dtr re: [employer] loretta, and additional info needed. Ines also reported that [employer] also sent a letter with the info needed to process the application to the dtr.
[2023-04-08 17:14] LABS: Hematocrit 39.3 % (37.0-47.0); Hemoglobin 12.6 g/dl (12.0-16.0); Mean Corpuscular HGB Conc 32.1 g/dl (31.0-35.0); Mean Corpuscular Hemoglobin 28.8 pg (27.0-33.0); Mean Corpuscular Volume 89.9 fL (80.0-98.0); Mean Platelet Volume 9.5 fL (9.4-12.3); Platelet Count 368 X10*3/uL (160-400); Red Blood Count 4.37 X10*6/uL (4.20-5.50); Red Cell Distribution Width 14.4 % (11.0-16.0); White Blood Count 6.3 X10*3/uL (4.8-10.8)
[2023-04-08] MEDS: Melatonin 3 MG TABLET 6 MG PO (19:12)
[2023-04-09] MEDS: Lidocaine 4 % Patch ADH..PATCH 1 PATCH TRANSDERMA (07:47)
[2023-04-09 08:00] VITALS: BP 125/57; PULSE 97; RESP 16; TEMP 36; O2SAT 96
[2023-04-09] MEDS: Memantine HCl 5 MG TABLET PO (08:03)
--- NOTE | 2023-04-09 09:17 | MHC.CM.PN ---
Followed up with Brie Leavitt, [facility]. She stated that she has not been able to review the patient in [facility]. She requested that the clinical information hand faxed last week, be emailed to her @ [email or web address]. The clinical information was emailed this am. She anticipates having a bed for the patient. She will review the info prior to meeting with the patient. CM will continue to follow for placement.
--- NOTE | 2023-04-09 09:43 | HO.PM.IMPN ---
Subjective Subjective Date of Service: 04/09/23 Interval History: No new issues Physical Exam Vital Signs: Vital Signs: Last Vital Signs Temp 96.8 F 04/09/23 08:00 Pulse 97 04/09/23 08:00 Resp 16 04/09/23 08:00 BP 125/57 L 04/09/23 08:00 Pulse Ox 96 04/09/23 08:00 O2 Del Method Room Air 04/09/23 08:00 O2 Flow Rate 98 04/06/23 15:54 BMI result Body Mass Index 15.9 Const: Other: General: Oreinted to self no acute distress Resp: CTA bilateral CVS: S1,S2,RRR GI: +BS, NT, no distention Skin: No rash Neuro: motor grossly intact Psych: appropriate affect Objective Data Active Medications Acetaminophen (Acetaminophen 325 Mg Tablet) 650 mg PO Q6H PRN PRN Reason: Pain, Mild (Pain Scale 1-3) Enoxaparin Sodium (Enoxaparin Sodium 40 Mg/0.4 Ml Syringe) 40 mg SUBCUT Q24H [facility] Last Admin: 04/08/23 15:57 Dose: 40 mg Documented By: TYLER Guaifenesin (Guaifenesin 100 Mg/5 Ml Liquid) 10 ml PO Q4H PRN PRN Reason: Cough Last Admin: 03/29/23 10:22 Dose: 10 ml Documented By: ZACK Lidocaine (Lidocaine 4 % Patch Adh..Patch) 1 patch TRANSDERMA DAILY [facility]; Protocol Last Admin: 04/09/23 07:47 Dose: 1 patch Documented By: MISSY Melatonin (Melatonin 3 Mg Tablet) 6 mg PO BEDTIME PRN PRN Reason: Insomnia Last Admin: 04/08/23 19:12 Dose: 6 mg Documented By: SAKSHI Memantine (Memantine Hcl 5 Mg Tablet) 5 mg PO DAILY [facility] Last Admin: 04/09/23 08:03 Dose: 5 mg Documented By: MISSY Quetiapine Fumarate (Quetiapine Fumarate 25 Mg Tablet) 25 mg PO BID@1500,2100 [facility] Last Admin: 04/08/23 19:13 Dose: 25 mg Documented By: SAKSHI Quetiapine Fumarate (Quetiapine Fumarate 25 Mg Tablet) 12.5 mg PO DAILY PRN PRN Reason: anxiety/restlessness Trolamine Salicylate (Trolamine Salicylate 10 % Cream 85 Gm Tube) 1 appl TOPICAL TID PRN; Protocol PRN Reason: back pain Labs 04/08/23 17:07 03/28/23 09:15 Labs: Laboratory Results - last 24 hr 04/08/23 17:07 MCV 89.9 MCH 28.8 MCHC 32.1 RDW 14.4 Plt Count 368 MPV 9.5 Absolute Nucleated RBC 0.000 Nucleated RBC % (auto) 0.0 Assessment and Plan (1) UTI (urinary tract infection): Status: Acute (2) Dementia with behavioral disturbance: Status: Acute Plan 82yo F with osteoporosis + dementia was in observation unit 01/01-01/06/23 awaiting LTC placement but then developed sepsis due to presumed UTI(resolved) continue present care no change at this time 1.Dementia/behavioral disturbance, has been controlled with recent med adjustment by Psych -03/29 Psych made additional med adjustement -PRN seroquel at 2 pm 2.Sepsis due to UTI, completed Abx and resolved. Recent UA negative 3.Mod protein calorie malnutrition continue supplements 4. boderline bp: Chronic and stable 5. right-sided lower back pain, will check urinalysis, place on Celebrex 200 mg daily for 5 days and use Aspercreme as needed follow clinical course. continue daily ambulations with staff CBC/BMP 03/28--unremarkable LMWH DNR/DNI patient requires continued inpatient hospitalization for the following reasons: safe placement, case managment working on it Time Spent With Patient Time: Total time managing care of this patient today ____ minutes. Quality Stroke Does the patient have a stroke diagnosis?: No VTE Prior VTE?: No VTE Risk Level:: Medical - moderate - high VTE Device Contraindication: Treatment Not Indicated VTE Drug Contraindication: N/A - Med Ordered
[2023-04-09] MEDS: QUEtiapine Fumarate 25 MG TABLET PO ×2 (14:46→20:07)
[2023-04-09] MEDS: Enoxaparin Sodium 40 MG/0.4 ML SYRINGE SUBCUT (16:12)
[2023-04-10 07:56] VITALS: BP 105/53; PULSE 87; RESP 18; TEMP 36.3; O2SAT 92
[2023-04-10] MEDS: Memantine HCl 5 MG TABLET PO (08:22)
[2023-04-10] MEDS: Lidocaine 4 % Patch ADH..PATCH 1 PATCH TRANSDERMA (08:24)
--- NOTE | 2023-04-10 08:35 | HO.PM.IMPN ---
Subjective Subjective Date of Service: 04/10/23 Interval History: calm and cooperative this morning, Physical Exam Vital Signs: Vital Signs: Last Vital Signs Temp 97.4 F 04/10/23 07:56 Pulse 87 04/10/23 07:56 Resp 18 04/10/23 07:56 BP 105/53 L 04/10/23 07:56 Pulse Ox 92 04/10/23 07:56 O2 Del Method Room Air 04/10/23 07:56 O2 Flow Rate 98 04/06/23 15:54 BMI result Body Mass Index 15.9 Const: Other: General: Oreinted to self no acute distress Resp: CTA bilateral CVS: S1,S2,RRR GI: +BS, NT, no distention Skin: No rash Neuro: motor grossly intact Psych: appropriate affect Objective Data Active Medications Acetaminophen (Acetaminophen 325 Mg Tablet) 650 mg PO Q6H PRN PRN Reason: Pain, Mild (Pain Scale 1-3) Enoxaparin Sodium (Enoxaparin Sodium 40 Mg/0.4 Ml Syringe) 40 mg SUBCUT Q24H [facility] Last Admin: 04/09/23 16:12 Dose: 40 mg Documented By: MISSY Guaifenesin (Guaifenesin 100 Mg/5 Ml Liquid) 10 ml PO Q4H PRN PRN Reason: Cough Last Admin: 03/29/23 10:22 Dose: 10 ml Documented By: ZACK Lidocaine (Lidocaine 4 % Patch Adh..Patch) 1 patch TRANSDERMA DAILY [facility]; Protocol Last Admin: 04/10/23 08:24 Dose: 1 patch Documented By: RAFI Melatonin (Melatonin 3 Mg Tablet) 6 mg PO BEDTIME PRN PRN Reason: Insomnia Last Admin: 04/08/23 19:12 Dose: 6 mg Documented By: SAKSHI Memantine (Memantine Hcl 5 Mg Tablet) 5 mg PO DAILY [facility] Last Admin: 04/10/23 08:22 Dose: 5 mg Documented By: RAFI Quetiapine Fumarate (Quetiapine Fumarate 25 Mg Tablet) 25 mg PO BID@1500,2100 [facility] Last Admin: 04/09/23 20:07 Dose: 25 mg Documented By: LYNETTE Quetiapine Fumarate (Quetiapine Fumarate 25 Mg Tablet) 12.5 mg PO DAILY PRN PRN Reason: anxiety/restlessness Trolamine Salicylate (Trolamine Salicylate 10 % Cream 85 Gm Tube) 1 appl TOPICAL TID PRN; Protocol PRN Reason: back pain Labs 04/08/23 17:07 03/28/23 09:15 Assessment and Plan (1) UTI (urinary tract infection): Status: Acute (2) Dementia with behavioral disturbance: Status: Acute Plan 82yo F with osteoporosis + dementia was in observation unit 01/01-01/06/23 awaiting LTC placement but then developed sepsis due to presumed UTI(resolved) continue present care no change at this time 1.Dementia/behavioral disturbance, has been controlled with recent med adjustment by Psych -03/29 Psych made additional med adjustement -PRN seroquel at 2 pm 2.Sepsis due to UTI, completed Abx and resolved. Recent UA negative 3.Mod protein calorie malnutrition continue supplements 4. boderline bp: Chronic and stable 5. right-sided lower back pain, will check urinalysis, place on Celebrex 200 mg daily for 5 days and use Aspercreme as needed follow clinical course. continue daily ambulations with staff CBC/BMP 03/28--unremarkable LMWH DNR/DNI patient requires continued inpatient hospitalization for the following reasons: safe placement, case managment working on it Time Spent With Patient Time: Total time managing care of this patient today ____ minutes. Quality Stroke Does the patient have a stroke diagnosis?: No VTE Prior VTE?: No VTE Risk Level:: Medical - moderate - high VTE Device Contraindication: Treatment Not Indicated VTE Drug Contraindication: N/A - Med Ordered
[2023-04-10] MEDS: QUEtiapine Fumarate 25 MG TABLET PO ×2 (14:47→19:36)
[2023-04-10 15:40] VITALS: BP 121/65; PULSE 95; RESP 18; TEMP 36.2; O2SAT 97
[2023-04-10] MEDS: Enoxaparin Sodium 40 MG/0.4 ML SYRINGE SUBCUT (16:59)
[2023-04-10 20:05] VITALS: BP 121/58; PULSE 110; RESP 18; TEMP 36; O2SAT 96
[2023-04-11 07:53] VITALS: BP 118/59; PULSE 87; RESP 18; TEMP 36; O2SAT 96
[2023-04-11] MEDS: Lidocaine 4 % Patch ADH..PATCH 1 PATCH TRANSDERMA (07:57)
--- NOTE | 2023-04-11 07:57 | P.PNIM_ITS ---
Subjective Subjective Date of Service: 04/11/23 Interval History: calm and cooperative this morning, No new issues Physical Exam 2 Vital Signs: Vital Signs: Last Vital Signs Temp 96.8 F 04/11/23 07:53 Pulse 87 04/11/23 07:53 Resp 18 04/11/23 07:53 BP 118/59 L 04/11/23 07:53 Pulse Ox 96 04/11/23 07:53 O2 Del Method Room Air 04/11/23 07:53 O2 Flow Rate 98 04/06/23 15:54 BMI result Body Mass Index 15.9 Const: Other: General: Oreinted to self no acute distress Resp: CTA bilateral CVS: S1,S2,RRR GI: +BS, NT, no distention Skin: No rash Neuro: motor grossly intact Psych: appropriate affect Objective Data Active Medications Acetaminophen (Acetaminophen 325 Mg Tablet) 650 mg PO Q6H PRN PRN Reason: Pain, Mild (Pain Scale 1-3) Enoxaparin Sodium (Enoxaparin Sodium 40 Mg/0.4 Ml Syringe) 40 mg SUBCUT Q24H [facility] Last Admin: 04/10/23 16:59 Dose: 40 mg Documented By: RAFI Guaifenesin (Guaifenesin 100 Mg/5 Ml Liquid) 10 ml PO Q4H PRN PRN Reason: Cough Last Admin: 03/29/23 10:22 Dose: 10 ml Documented By: ZACK Lidocaine (Lidocaine 4 % Patch Adh..Patch) 1 patch TRANSDERMA DAILY [facility]; Protocol Last Admin: 04/10/23 08:24 Dose: 1 patch Documented By: RAFI Melatonin (Melatonin 3 Mg Tablet) 6 mg PO BEDTIME PRN PRN Reason: Insomnia Last Admin: 04/08/23 19:12 Dose: 6 mg Documented By: SAKSHI Memantine (Memantine Hcl 5 Mg Tablet) 5 mg PO DAILY [facility] Last Admin: 04/10/23 08:22 Dose: 5 mg Documented By: RAFI Quetiapine Fumarate (Quetiapine Fumarate 25 Mg Tablet) 25 mg PO BID@1500,2100 [facility] Last Admin: 04/10/23 19:36 Dose: 25 mg Documented By: DENNYS Quetiapine Fumarate (Quetiapine Fumarate 25 Mg Tablet) 12.5 mg PO DAILY PRN PRN Reason: anxiety/restlessness Trolamine Salicylate (Trolamine Salicylate 10 % Cream 85 Gm Tube) 1 appl TOPICAL TID PRN; Protocol PRN Reason: back pain Labs 04/08/23 17:07 03/28/23 09:15 Assessment and Plan (1) UTI (urinary tract infection): Status: Acute (2) Dementia with behavioral disturbance: Status: Acute Plan 82yo F with osteoporosis + dementia was in observation unit 01/01-01/06/23 awaiting LTC placement but then developed sepsis due to presumed UTI(resolved) vital stable, continue present care 1.Dementia/behavioral disturbance, has been controlled with recent med adjustment by Psych -03/29 Psych made additional med adjustement -PRN seroquel at 2 pm 2.Sepsis due to UTI, completed Abx and resolved. Recent UA negative 3.Mod protein calorie malnutrition continue supplements 4. boderline bp: Chronic and stable 5. right-sided lower back pain, will check urinalysis, place on Celebrex 200 mg daily for 5 days and use Aspercreme as needed follow clinical course. continue daily ambulations with staff CBC/BMP 03/28--unremarkable LMWH DNR/DNI patient requires continued inpatient hospitalization for the following reasons: safe placement, case managment working on it Time Spent With Patient Time: Total time managing care of this patient today ____ minutes. Quality Stroke Does the patient have a stroke diagnosis?: No VTE Prior VTE?: No VTE Risk Level:: Medical - moderate - high VTE Device Contraindication: Treatment Not Indicated VTE Drug Contraindication: N/A - Med Ordered
[2023-04-11] MEDS: Memantine HCl 5 MG TABLET PO (07:58)
[2023-04-11] MEDS: QUEtiapine Fumarate 25 MG TABLET PO ×2 (14:19→20:05)
[2023-04-12 05:28] VITALS: BP 127/63; PULSE 99; RESP 16; TEMP 36.6; O2SAT 96
[2023-04-12 07:21] VITALS: BP 116/55; PULSE 98; RESP 16; TEMP 36.1; O2SAT 94
--- NOTE | 2023-04-12 07:53 | P.PNIM_ITS ---
Subjective Subjective Date of Service: 04/12/23 Interval History: calm and cooperative this morning, No new issues Physical Exam 2 Vital Signs: Vital Signs: Last Vital Signs Temp 96.9 F 04/12/23 07:21 Pulse 98 04/12/23 07:21 Resp 16 04/12/23 07:21 BP 116/55 L 04/12/23 07:21 Pulse Ox 94 04/12/23 07:21 O2 Del Method Room Air 04/12/23 07:21 O2 Flow Rate 98 04/06/23 15:54 BMI result Body Mass Index 15.9 Const: Other: General: Oreinted to self no acute distress Resp: CTA bilateral CVS: S1,S2,RRR GI: +BS, NT, no distention Skin: No rash Neuro: motor grossly intact Psych: appropriate affect Objective Data Active Medications Acetaminophen (Acetaminophen 325 Mg Tablet) 650 mg PO Q6H PRN PRN Reason: Pain, Mild (Pain Scale 1-3) Guaifenesin (Guaifenesin 100 Mg/5 Ml Liquid) 10 ml PO Q4H PRN PRN Reason: Cough Last Admin: 03/29/23 10:22 Dose: 10 ml Documented By: ZACK Lidocaine (Lidocaine 4 % Patch Adh..Patch) 1 patch TRANSDERMA DAILY [facility]; Protocol Last Admin: 04/11/23 07:57 Dose: 1 patch Documented By: RAFI Melatonin (Melatonin 3 Mg Tablet) 6 mg PO BEDTIME PRN PRN Reason: Insomnia Last Admin: 04/08/23 19:12 Dose: 6 mg Documented By: SAKSHI Memantine (Memantine Hcl 5 Mg Tablet) 5 mg PO DAILY [facility] Last Admin: 04/11/23 07:58 Dose: 5 mg Documented By: RAFI Quetiapine Fumarate (Quetiapine Fumarate 25 Mg Tablet) 25 mg PO BID@1500,2100 [facility] Last Admin: 04/11/23 20:05 Dose: 25 mg Documented By: PONCE Quetiapine Fumarate (Quetiapine Fumarate 25 Mg Tablet) 12.5 mg PO DAILY PRN PRN Reason: anxiety/restlessness Trolamine Salicylate (Trolamine Salicylate 10 % Cream 85 Gm Tube) 1 appl TOPICAL TID PRN; Protocol PRN Reason: back pain Labs 04/08/23 17:07 10/15/23 09:15 Assessment and Plan (1) UTI (urinary tract infection): Status: Acute (2) Dementia with behavioral disturbance: Status: Acute Plan 82yo F with osteoporosis + dementia was in observation unit 01/01-01/06/23 awaiting LTC placement but then developed sepsis due to presumed UTI(resolved) vital stable, continue present care 1.Dementia/behavioral disturbance, has been controlled with recent med adjustment by Psych -03/29 Psych made additional med adjustement -PRN seroquel at 2 pm 2.Sepsis due to UTI, completed Abx and resolved. Recent UA negative 3.Mod protein calorie malnutrition continue supplements 4. boderline bp: Chronic and stable 5. right-sided lower back pain, will check urinalysis, place on Celebrex 200 mg daily for 5 days and use Aspercreme as needed follow clinical course. continue daily ambulations with staff CBC/BMP 03/28--unremarkable LMWH DNR/DNI patient requires continued inpatient hospitalization for the following reasons: safe placement, case managment working on it Time Spent With Patient Time: Total time managing care of this patient today ____ minutes. Quality Stroke Does the patient have a stroke diagnosis?: No VTE Prior VTE?: No VTE Risk Level:: Medical - moderate - high VTE Device Contraindication: Treatment Not Indicated VTE Drug Contraindication: N/A - Med Ordered
[2023-04-12] MEDS: Memantine HCl 5 MG TABLET PO (13:32)
[2023-04-12] MEDS: QUEtiapine Fumarate 25 MG TABLET PO ×2 (13:32→20:00)
[2023-04-12 20:07] VITALS: BP 113/61; PULSE 112; RESP 17; TEMP 36.2; O2SAT 94
[2023-04-13 08:00] VITALS: BP 111/70; PULSE 102; RESP 16; TEMP 36.2; O2SAT 96
[2023-04-13] MEDS: Memantine HCl 5 MG TABLET PO (10:15)
--- NOTE | 2023-04-13 11:23 | HO.PM.IMPN ---
Subjective Subjective Date of Service: 04/13/23 Interval History: Resting comfortably offers no acute complaints, tolerating breakfast no nausea, no vomiting, no issues overnight. Review of Systems Unable to obtain due to dementia Physical Exam Vital Signs: Vital Signs: Last Vital Signs Temp 97.2 F 04/13/23 08:00 Pulse 102 H 04/13/23 08:00 Resp 16 04/13/23 08:00 BP 111/70 04/13/23 08:00 Pulse Ox 96 04/13/23 08:00 O2 Del Method Room Air 04/13/23 08:00 O2 Flow Rate 98 04/06/23 15:54 BMI result Body Mass Index 15.9 Const: Other: General: oriented to self Neck no JVD Resp:? CTA bilateral CVS: S1,S2,RRR GI: +BS, NT, no distention Skin: No rash Extremities no edema back mild tenderness to palpation right lumbar paravertebral muscles, no CVA tenderness Neuro:? motor grossly intact Psych: appropriate affect Objective Data Active Medications Acetaminophen (Acetaminophen 325 Mg Tablet) 650 mg PO Q6H PRN PRN Reason: Pain, Mild (Pain Scale 1-3) Guaifenesin (Guaifenesin 100 Mg/5 Ml Liquid) 10 ml PO Q4H PRN PRN Reason: Cough Last Admin: 03/29/23 10:22 Dose: 10 ml Documented By: ZACK Melatonin (Melatonin 3 Mg Tablet) 6 mg PO BEDTIME PRN PRN Reason: Insomnia Last Admin: 04/08/23 19:12 Dose: 6 mg Documented By: SAKSHI Memantine (Memantine Hcl 5 Mg Tablet) 5 mg PO DAILY [facility] Last Admin: 04/13/23 10:15 Dose: 5 mg Documented By: PATRICIA Quetiapine Fumarate (Quetiapine Fumarate 25 Mg Tablet) 25 mg PO BID@1500,2100 [facility] Last Admin: 04/12/23 20:00 Dose: 25 mg Documented By: NATALIA Quetiapine Fumarate (Quetiapine Fumarate 25 Mg Tablet) 12.5 mg PO DAILY PRN PRN Reason: anxiety/restlessness Trolamine Salicylate (Trolamine Salicylate 10 % Cream 85 Gm Tube) 1 appl TOPICAL TID PRN; Protocol PRN Reason: back pain Labs 04/08/23 17:07 03/28/23 09:15 Assessment and Plan (1) UTI (urinary tract infection): Status: Acute (2) Dementia with behavioral disturbance: Status: Acute Plan 82yo F with osteoporosis + dementia was in observation unit 01/01-01/06/23 awaiting LTC placement but then developed sepsis due to presumed UTI(resolved) No acute issues last 24 hours will continue current treatment plan.. 1.Dementia/behavioral disturbance, has been controlled with recent med adjustment by Psych -03/29 Psych made additional med adjustement -PRN seroquel at 2 pm 2.Sepsis due to UTI, completed Abx and resolved. Recent UA negative 3.Mod protein calorie malnutrition continue supplements 4. boderline bp: Chronic and stable continue daily ambulations with staff CBC/BMP 03/28--unremarkable LMWH DNR/DNI patient requires continued inpatient hospitalization for the following reasons: safe placement, case managment working on it Time Spent With Patient Time: Total time managing care of this patient today ____ minutes. Quality Stroke Does the patient have a stroke diagnosis?: No VTE Prior VTE?: No VTE Risk Level:: Medical - moderate - high VTE Device Contraindication: Treatment Not Indicated VTE Drug Contraindication: N/A - Med Ordered
[2023-04-13] MEDS: QUEtiapine Fumarate 25 MG TABLET PO ×2 (15:20→20:01)
[2023-04-13 15:32] VITALS: BP 124/59; PULSE 101; RESP 18; TEMP 36.8; O2SAT 96
[2023-04-13 19:14] VITALS: BP 110/52; PULSE 120; RESP 18; TEMP 36.2; O2SAT 96
[2023-04-14 07:56] VITALS: BP 127/74; PULSE 90; RESP 16; TEMP 36.3; O2SAT 96
[2023-04-14] MEDS: Memantine HCl 5 MG TABLET PO (10:13)
--- NOTE | 2023-04-14 13:45 | P.PNIM_ITS ---
Subjective Subjective Date of Service: 04/14/23 Interval History: Resting comfortably no acute events overnight, tolerated breakfast.. Review of Systems All other system reviewed and negative. Physical Exam 2 Vital Signs: Vital Signs: Last Vital Signs Temp 97.4 F 04/14/23 07:56 Pulse 90 04/14/23 07:56 Resp 16 04/14/23 07:56 BP 127/74 04/14/23 07:56 Pulse Ox 96 04/14/23 07:56 O2 Del Method Room Air 04/14/23 07:56 O2 Flow Rate 98 04/06/23 15:54 BMI result Body Mass Index 15.9 Const: Other: Gen: Awake alert, in no acute distress HEENT: sclera anicteric, moist mucus membranes Neck: supple Lungs: lungs clear Heart: regular rate and rhythm, no murmurs Abd: soft, non-tender, non-distended Ext: no edema Skin: warm/well-perfused Neuro: alert, no focal weakness Psych: impaired insight Objective Data Active Medications Acetaminophen (Acetaminophen 325 Mg Tablet) 650 mg PO Q6H PRN PRN Reason: Pain, Mild (Pain Scale 1-3) Guaifenesin (Guaifenesin 100 Mg/5 Ml Liquid) 10 ml PO Q4H PRN PRN Reason: Cough Last Admin: 03/29/23 10:22 Dose: 10 ml Documented By: ZACK Melatonin (Melatonin 3 Mg Tablet) 6 mg PO BEDTIME PRN PRN Reason: Insomnia Last Admin: 04/08/23 19:12 Dose: 6 mg Documented By: SAKSHI Memantine (Memantine Hcl 5 Mg Tablet) 5 mg PO DAILY [facility] Last Admin: 04/14/23 10:13 Dose: 5 mg Documented By: TYLER Quetiapine Fumarate (Quetiapine Fumarate 25 Mg Tablet) 25 mg PO BID@1500,2100 [facility] Last Admin: 04/13/23 20:01 Dose: 25 mg Documented By: JAME Quetiapine Fumarate (Quetiapine Fumarate 25 Mg Tablet) 12.5 mg PO DAILY PRN PRN Reason: anxiety/restlessness Trolamine Salicylate (Trolamine Salicylate 10 % Cream 85 Gm Tube) 1 appl TOPICAL TID PRN; Protocol PRN Reason: back pain Labs 04/08/23 17:07 03/28/23 09:15 Assessment and Plan (1) UTI (urinary tract infection): Status: Acute (2) Dementia with behavioral disturbance: Status: Acute Plan 82yo F with osteoporosis + dementia was in observation unit 01/01-01/06/23 awaiting LTC placement but then developed sepsis due to presumed UTI(resolved) No acute issues last 24 hours will continue current treatment plan.. 1.Dementia/behavioral disturbance, has been controlled with recent med adjustment by Psych -03/29 Psych made additional med adjustement -PRN seroquel at 2 pm 2.Sepsis due to UTI, completed Abx and resolved. Recent UA negative 3.Mod protein calorie malnutrition continue supplements 4. boderline bp: Chronic and stable continue daily ambulations with staff CBC/BMP 03/28--unremarkable LMWH DNR/DNI patient requires continued inpatient hospitalization for the following reasons: safe placement, case managment working on it Quality Stroke Does the patient have a stroke diagnosis?: No VTE Prior VTE?: No VTE Risk Level:: Medical - moderate - high VTE Device Contraindication: Treatment Not Indicated VTE Drug Contraindication: N/A - Med Ordered
[2023-04-14] MEDS: QUEtiapine Fumarate 25 MG TABLET PO ×2 (14:39→20:21)
--- NOTE | 2023-04-14 15:02 | MHC.CM.PN ---
Placed call to Hannah @ [phone] @12:45PM left , awaiting return phone call. Placed call to Hannah @ [phone] @3:02PM left , awaiting return phone call.
[2023-04-14 15:34] VITALS: BP 104/62; PULSE 100; RESP 16; TEMP 36.7; O2SAT 99
--- NOTE | 2023-04-14 16:06 | MHC.CM.PN ---
Spoke with Abiola, Admissions DBV. ABIOLA was informed that the patient is in need of a LTC bed. The case was reviewed with ABIOLA. She expressed interest in the case. T/W requested that she come in to assess the patient. She stated that she will come in to meet the patient later this week or next. CM will continue to follow for placement.
[2023-04-15 07:15] VITALS: BP 112/57; PULSE 86; RESP 18; TEMP 36; O2SAT 95
--- NOTE | 2023-04-15 08:00 | HO.PM.IMPN ---
Subjective Subjective Date of Service: 04/15/23 Interval History: Resting comfortably, no acute events overnight, vital stable, tolerating diet. Review of Systems Unable to obtain review of system due to mental status. Physical Exam Vital Signs: Vital Signs: Last Vital Signs Temp 96.8 F 04/15/23 07:15 Pulse 86 04/15/23 07:15 Resp 18 04/15/23 07:15 BP 112/57 L 04/15/23 07:15 Pulse Ox 95 04/15/23 07:15 O2 Del Method Room Air 04/15/23 07:15 O2 Flow Rate 98 04/06/23 15:54 BMI result Body Mass Index 15.9 Const: Other: Gen: Awake alert, in no acute distress HEENT: sclera anicteric, moist mucus membranes Neck: supple Lungs: lungs clear Heart: regular rate and rhythm, no murmurs Abd: soft, non-tender, non-distended Ext: no edema Skin: warm/well-perfused Neuro: alert, no focal weakness Psych: impaired insight Objective Data Active Medications Acetaminophen (Acetaminophen 325 Mg Tablet) 650 mg PO Q6H PRN PRN Reason: Pain, Mild (Pain Scale 1-3) Guaifenesin (Guaifenesin 100 Mg/5 Ml Liquid) 10 ml PO Q4H PRN PRN Reason: Cough Last Admin: 03/29/23 10:22 Dose: 10 ml Documented By: ZACK Melatonin (Melatonin 3 Mg Tablet) 6 mg PO BEDTIME PRN PRN Reason: Insomnia Last Admin: 04/08/23 19:12 Dose: 6 mg Documented By: SAKSHI Memantine (Memantine Hcl 5 Mg Tablet) 5 mg PO DAILY [facility] Last Admin: 04/14/23 10:13 Dose: 5 mg Documented By: TYLER Quetiapine Fumarate (Quetiapine Fumarate 25 Mg Tablet) 25 mg PO BID@1500,2100 [facility] Last Admin: 04/14/23 20:21 Dose: 25 mg Documented By: MARIA ESTHER Quetiapine Fumarate (Quetiapine Fumarate 25 Mg Tablet) 12.5 mg PO DAILY PRN PRN Reason: anxiety/restlessness Trolamine Salicylate (Trolamine Salicylate 10 % Cream 85 Gm Tube) 1 appl TOPICAL TID PRN; Protocol PRN Reason: back pain Labs 04/08/23 17:07 03/28/23 09:15 Assessment and Plan (1) UTI (urinary tract infection): Status: Acute (2) Dementia with behavioral disturbance: Status: Acute Plan 82yo F with osteoporosis + dementia was in observation unit 01/01-01/06/23 awaiting LTC placement but then developed sepsis due to presumed UTI(resolved) No acute issues last 24 hours will continue current treatment plan, no reports of aggressive behavior. 1.Dementia/behavioral disturbance, has been controlled with recent med adjustment by Psych -03/29 Psych made additional med adjustement -PRN seroquel at 2 pm 2.Sepsis due to UTI, completed Abx and resolved. Recent UA negative 3.Mod protein calorie malnutrition continue supplements 4. boderline bp: Chronic and stable continue daily ambulations with staff CBC/BMP 03/28--unremarkable LMWH DNR/DNI patient requires continued inpatient hospitalization for the following reasons: safe placement, case managment working on it Quality Stroke Does the patient have a stroke diagnosis?: No VTE Prior VTE?: No VTE Risk Level:: Medical - moderate - high VTE Device Contraindication: Treatment Not Indicated VTE Drug Contraindication: N/A - Med Ordered
--- NOTE | 2023-04-15 08:15 | MHC.CM.PN ---
This designer writer spoke with daughter Hannah via phone. Reports she has been traveling for 2 weeks and will return home in the next 1-2 days. Also reports that patient's yesterday. Notice of non-coverage delivered to daughter. Will send via certified mail. Review with daughter additional documents required by [facility]- she reports she doesn't know what else they want her to provide. Communicated that next steps will be to have a family meeting with CHAIR and CNO.
--- NOTE | 2023-04-15 09:46 | PC.NURSE ---
Pt sleeping, will attempt to give AM meds when she awakens.
[2023-04-15] MEDS: Acetaminophen 325 MG TABLET 650 MG PO (10:17)
[2023-04-15] MEDS: Memantine HCl 5 MG TABLET PO (10:17)
[2023-04-15] MEDS: QUEtiapine Fumarate 25 MG TABLET PO ×2 (14:13→19:42)
[2023-04-15 16:12] VITALS: BP 105/59; PULSE 118; RESP 18; TEMP 36.2; O2SAT 96
[2023-04-15] MEDS: Melatonin 3 MG TABLET 6 MG PO (19:42)
[2023-04-16 08:00] VITALS: BP 111/57; PULSE 93; RESP 18; TEMP 36.6; O2SAT 95
[2023-04-16] MEDS: Memantine HCl 5 MG TABLET PO (08:07)
[2023-04-16] MEDS: Acetaminophen 325 MG TABLET 650 MG PO ×2 (08:07→20:53)
[2023-04-16] MEDS: QUEtiapine Fumarate 25 MG TABLET PO ×2 (14:14→20:53)
[2023-04-16 15:30] VITALS: BP 113/59; PULSE 112; RESP 18; TEMP 36.4; O2SAT 95
--- NOTE | 2023-04-16 17:00 | HO.PM.IMPN ---
Subjective Subjective Date of Service: 04/16/23 Interval History: seen and examined this morning follow up for placement no overnight events observed sitting up in bed eating breakfast, awake, alert. no complaints Review of Systems Review of Systems: Yes all other systems are reviewed and are negative Constitutional Constitutional: Denies fever(s) Cardiovascular Cardiovascular: Denies chest pain and Denies dyspnea Respiratory Respiratory: Denies dyspnea Gastrointestinal Gastrointestinal: Denies abdominal pain Physical Exam Vital Signs: Vital Signs: Last Vital Signs Temp 97.5 F 04/16/23 15:30 Pulse 112 H 04/16/23 15:30 Resp 18 04/16/23 15:30 BP 113/59 L 04/16/23 15:30 Pulse Ox 95 04/16/23 15:30 O2 Del Method Room Air 04/16/23 15:30 O2 Flow Rate 98 04/06/23 15:54 BMI result Body Mass Index 15.9 Const: General: cooperative, comfortable, no acute distress, alert and awake Nutritional Appearance: thin Resp: Effort & Inspection: normal respiratory effort, able to speak in complete sentences, no respiratory distress and no use of accessory muscles Cardio: Rate: regular rate GI: Inspection: No distended Palpation (GI): Soft to palpation and nontender Neuro: Other: grossly nonfocal General: moves all extremities Objective Data Active Medications Acetaminophen (Acetaminophen 325 Mg Tablet) 650 mg PO Q6H PRN PRN Reason: Pain, Mild (Pain Scale 1-3) Last Admin: 04/16/23 08:07 Dose: 650 mg Documented By: IBAN Guaifenesin (Guaifenesin 100 Mg/5 Ml Liquid) 10 ml PO Q4H PRN PRN Reason: Cough Last Admin: 03/29/23 10:22 Dose: 10 ml Documented By: ZACK Melatonin (Melatonin 3 Mg Tablet) 6 mg PO BEDTIME PRN PRN Reason: Insomnia Last Admin: 04/15/23 19:42 Dose: 6 mg Documented By: SAKSHI Memantine (Memantine Hcl 5 Mg Tablet) 5 mg PO DAILY [facility] Last Admin: 04/16/23 08:07 Dose: 5 mg Documented By: IBAN Quetiapine Fumarate (Quetiapine Fumarate 25 Mg Tablet) 25 mg PO BID@1500,2100 [facility] Last Admin: 04/16/23 14:14 Dose: 25 mg Documented By: ZACK Quetiapine Fumarate (Quetiapine Fumarate 25 Mg Tablet) 12.5 mg PO DAILY PRN PRN Reason: anxiety/restlessness Trolamine Salicylate (Trolamine Salicylate 10 % Cream 85 Gm Tube) 1 appl TOPICAL TID PRN; Protocol PRN Reason: back pain Labs 04/08/23 17:07 03/28/23 09:15 Assessment and Plan (1) Major neurocognitive disorder due to Alzheimer's disease, with behavioral disturbance: Status: Acute Plan 82yo F with osteoporosis + dementia was in observation unit 01/01-01/06/23 awaiting LTC placement but then developed sepsis due to presumed UTI(resolved) No acute issues last 24 hours will continue current treatment plan, no reports of aggressive behavior. Dementia/behavioral disturbance, has been controlled with recent med adjustment by Psych -03/29 Psych made additional med adjustment -PRN seroquel at 2 pm Sepsis due to UTI, completed Abx and resolved. Recent UA negative Mod protein calorie malnutrition continue supplements boderline bp: Chronic and stable continue daily ambulations with staff CBC/BMP 03/28--unremarkable DNR/DNI attending - Dr. dominguez patient requires continued inpatient hospitalization for the following reasons: safe placement, case management working on it Quality Stroke Does the patient have a stroke diagnosis?: No VTE Prior VTE?: No VTE Risk Level:: Medical - moderate - high VTE Device Contraindication: Treatment Not Indicated VTE Drug Contraindication: N/A - Med Ordered
[2023-04-16] MEDS: Melatonin 3 MG TABLET 6 MG PO (20:53)
[2023-04-17 07:57] VITALS: BP 118/60; PULSE 94; RESP 18; TEMP 36; O2SAT 95
[2023-04-17] MEDS: Acetaminophen 325 MG TABLET 650 MG PO (08:07)
[2023-04-17] MEDS: Memantine HCl 5 MG TABLET PO (08:07)
[2023-04-17] MEDS: QUEtiapine Fumarate 25 MG TABLET PO ×2 (13:00→20:39)
[2023-04-17 15:37] VITALS: BP 101/54; PULSE 87; RESP 16; TEMP 36; O2SAT 95
--- NOTE | 2023-04-17 15:56 | HO.PM.IMPN ---
Subjective Subjective Date of Service: 04/17/23 Interval History: seen and examined this morning follow up for placement no overnight events no complaints this morning, no specific complaints, feels good Review of Systems Review of Systems: Yes all other systems are reviewed and are negative Cardiovascular Cardiovascular: Denies chest pain Gastrointestinal Gastrointestinal: Denies abdominal pain Physical Exam Vital Signs: Vital Signs: Last Vital Signs Temp 96.8 F 04/17/23 15:37 Pulse 87 04/17/23 15:37 Resp 16 04/17/23 15:37 BP 101/54 L 04/17/23 15:37 Pulse Ox 95 04/17/23 15:37 O2 Del Method Room Air 04/17/23 15:37 O2 Flow Rate 98 04/06/23 15:54 BMI result Body Mass Index 15.9 Const: Other: plesantly confused General: cooperative, comfortable, no acute distress, alert and awake Nutritional Appearance: thin Resp: Effort & Inspection: normal respiratory effort, able to speak in complete sentences, no respiratory distress and no use of accessory muscles Cardio: Rate: regular rate Heart sounds: S1 normal heart sound present and S2 normal heart sound present GI: Inspection: No distended Palpation (GI): Soft to palpation and nontender Neuro: Other: grossly nonfocal General: moves all extremities and CN's II-XI intact bilaterally Extrem: Other: left knee swelling improved, no erythema, non-tender Objective Data Active Medications Acetaminophen (Acetaminophen 325 Mg Tablet) 650 mg PO Q6H PRN PRN Reason: Pain, Mild (Pain Scale 1-3) Last Admin: 04/17/23 08:07 Dose: 650 mg Documented By: MISSY Guaifenesin (Guaifenesin 100 Mg/5 Ml Liquid) 10 ml PO Q4H PRN PRN Reason: Cough Last Admin: 03/29/23 10:22 Dose: 10 ml Documented By: ZACK Melatonin (Melatonin 3 Mg Tablet) 6 mg PO BEDTIME PRN PRN Reason: Insomnia Last Admin: 04/16/23 20:53 Dose: 6 mg Documented By: SALLY Memantine (Memantine Hcl 5 Mg Tablet) 5 mg PO DAILY [facility] Last Admin: 04/17/23 08:07 Dose: 5 mg Documented By: MISSY Quetiapine Fumarate (Quetiapine Fumarate 25 Mg Tablet) 25 mg PO BID@1500,2100 [facility] Last Admin: 04/17/23 13:00 Dose: 25 mg Documented By: PATRICIA Quetiapine Fumarate (Quetiapine Fumarate 25 Mg Tablet) 12.5 mg PO DAILY PRN PRN Reason: anxiety/restlessness Trolamine Salicylate (Trolamine Salicylate 10 % Cream 85 Gm Tube) 1 appl TOPICAL TID PRN; Protocol PRN Reason: back pain Labs 04/08/23 17:07 03/28/23 09:15 Assessment and Plan (1) Dementia with behavioral disturbance: Status: Acute Plan 82yo F with osteoporosis + dementia was in observation unit 01/01-01/06/23 awaiting LTC placement but then developed sepsis due to presumed UTI(resolved) No acute issues last 24 hours will continue current treatment plan, no reports of aggressive behavior. Dementia/behavioral disturbance, has been controlled with recent med adjustment by Psych -03/29 Psych made additional med adjustment -PRN seroquel at 2 pm Sepsis due to UTI, completed Abx and resolved. Recent UA negative Mod protein calorie malnutrition continue supplements boderline bp: Chronic and stable continue daily ambulations with staff CBC/BMP 03/28--unremarkable DNR/DNI attending - Dr. Summers patient requires continued inpatient hospitalization for the following reasons: safe placement, case management working on it Quality Stroke Does the patient have a stroke diagnosis?: No VTE Prior VTE?: No VTE Risk Level:: Medical - moderate - high VTE Device Contraindication: Treatment Not Indicated VTE Drug Contraindication: N/A - Med Ordered
[2023-04-17] MEDS: Melatonin 3 MG TABLET 6 MG PO (20:39)
[2023-04-18 07:33] VITALS: BP 106/57; PULSE 72; RESP 16; TEMP 36.3; O2SAT 97
[2023-04-18] MEDS: Memantine HCl 5 MG TABLET PO (07:59)
[2023-04-18] MEDS: Acetaminophen 325 MG TABLET 650 MG PO (08:02)
--- NOTE | 2023-04-18 12:10 | P.PNIM_ITS ---
Subjective Subjective Date of Service: 04/18/23 Interval History: seen and examined this morning follow up for placement no overnight events feeling well this morning Review of Systems Review of Systems: Yes all other systems are reviewed and are negative Constitutional Constitutional: Denies chills and Denies fever(s) Cardiovascular Cardiovascular: Denies chest pain Gastrointestinal Gastrointestinal: Denies abdominal pain Physical Exam 2 Vital Signs: Vital Signs: Last Vital Signs Temp 97.3 F 04/18/23 07:33 Pulse 72 04/18/23 07:33 Resp 16 04/18/23 07:33 BP 106/57 L 04/18/23 07:33 Pulse Ox 97 04/18/23 07:33 O2 Del Method Room Air 04/18/23 07:33 O2 Flow Rate 98 04/06/23 15:54 BMI result Body Mass Index 15.9 Const: Other: plesantly confused General: cooperative, comfortable, no acute distress, alert and awake N utritional Appearance: thin Resp: Effort & Inspection: normal respiratory effort, able to speak in complete sentences, no respiratory distress and no use of accessory muscles Cardio: Rate: regular rate Heart sounds: S1 normal heart sound present and S2 normal heart sound present GI: Inspection: No distended Palpation (GI): Soft to palpation and nontender Neuro: Other: grossly nonfocal General: moves all extremities and CN's II-XI intact bilaterally Extrem: Other: left knee swelling improved, no erythema, non-tender Objective Data Active Medications Acetaminophen (Acetaminophen 325 Mg Tablet) 650 mg PO Q6H PRN PRN Reason: Pain, Mild (Pain Scale 1-3) Last Admin: 04/18/23 08:02 Dose: 650 mg Documented By: MISSY Guaifenesin (Guaifenesin 100 Mg/5 Ml Liquid) 10 ml PO Q4H PRN PRN Reason: Cough Last Admin: 03/29/23 10:22 Dose: 10 ml Documented By: ZACK Melatonin (Melatonin 3 Mg Tablet) 6 mg PO BEDTIME PRN PRN Reason: Insomnia Last Admin: 04/17/23 20:39 Dose: 6 mg Documented By: CHIKIS Memantine (Memantine Hcl 5 Mg Tablet) 5 mg PO DAILY [facility] Last Admin: 04/18/23 07:59 Dose: 5 mg Documented By: MISSY Quetiapine Fumarate (Quetiapine Fumarate 25 Mg Tablet) 25 mg PO BID@1500,2100 [facility] Last Admin: 04/17/23 20:39 Dose: 25 mg Documented By: CHIKIS Quetiapine Fumarate (Quetiapine Fumarate 25 Mg Tablet) 12.5 mg PO DAILY PRN PRN Reason: anxiety/restlessness Trolamine Salicylate (Trolamine Salicylate 10 % Cream 85 Gm Tube) 1 appl TOPICAL TID PRN; Protocol PRN Reason: back pain Labs 04/08/23 17:07 03/28/23 09:15 Assessment and Plan (1) Dementia with behavioral disturbance: Status: Acute Plan 82yo F with osteoporosis + dementia was in observation unit 01/01-01/06/23 awaiting LTC placement but then developed sepsis due to presumed UTI(resolved) No acute issues last 24 hours will continue current treatment plan, no reports of aggressive behavior. Dementia/behavioral disturbance, has been controlled with recent med adjustment by Psych -03/29 Psych made additional med adjustment -PRN seroquel at 2 pm Sepsis due to UTI, completed Abx and resolved. Recent UA negative Mod protein calorie malnutrition continue supplements boderline bp: Chronic and stable continue daily ambulations with staff CBC/BMP 03/28--unremarkable DNR/DNI attending - Dr. Summers patient requires continued inpatient hospitalization for the following reasons: safe placement, case management working on it Quality Stroke Does the patient have a stroke diagnosis?: No VTE Prior VTE?: No VTE Risk Level:: Medical - moderate - high VTE Device Contraindication: Treatment Not Indicated VTE Drug Contraindication: N/A - Med Ordered
[2023-04-18] MEDS: QUEtiapine Fumarate 25 MG TABLET PO ×2 (15:17→19:51)
[2023-04-18 15:52] VITALS: BP 116/59; PULSE 94; RESP 20; TEMP 36.1; O2SAT 97
[2023-04-19 08:00] VITALS: BP 132/64; PULSE 102; RESP 16; TEMP 36.6; O2SAT 96
[2023-04-19] MEDS: Memantine HCl 5 MG TABLET PO (08:51)
--- NOTE | 2023-04-19 13:12 | P.PNIM_ITS ---
Subjective Subjective Date of Service: 04/19/23 Interval History: Sitting comfortably eating breakfast no nausea ,no vomiting, no abdominal pain, no acute events overnight. Review of Systems Unable to obtain review of system due to mental status, although patient offers no acute complaints. Physical Exam 2 Vital Signs: Vital Signs: Last Vital Signs Temp 97.8 F 04/19/23 08:00 Pulse 102 H 04/19/23 08:00 Resp 16 04/19/23 08:00 BP 132/64 04/19/23 08:00 Pulse Ox 96 04/19/23 08:00 O2 Del Method Room Air 04/19/23 08:00 O2 Flow Rate 98 04/06/23 15:54 BMI result Body Mass Index 15.9 Const: Other: Gen: Awake alert, in no acute distr ess HEENT: sclera anicteric, moist m ucus membranes Nec k: supple Lungs: l ungs clear Heart: regular rate and r hythm, no murmurs Abd: soft, non-ten tim, non-distended Ext: no edema Ski n: warm/well-perfu sed Neuro: alert, no focal weakness Psych: impaired in sight Objective Data Active Medications Acetaminophen (Acetaminophen 325 Mg Tablet) 650 mg PO Q6H PRN PRN Reason: Pain, Mild (Pain Scale 1-3) Last Admin: 04/18/23 08:02 Dose: 650 mg Documented By: MISSY Guaifenesin (Guaifenesin 100 Mg/5 Ml Liquid) 10 ml PO Q4H PRN PRN Reason: Cough Last Admin: 03/29/23 10:22 Dose: 10 ml Documented By: ZACK Melatonin (Melatonin 3 Mg Tablet) 6 mg PO BEDTIME PRN PRN Reason: Insomnia Last Admin: 04/17/23 20:39 Dose: 6 mg Documented By: CHIKIS Memantine (Memantine Hcl 5 Mg Tablet) 5 mg PO DAILY [facility] Last Admin: 04/19/23 08:51 Dose: 5 mg Documented By: NINFA Quetiapine Fumarate (Quetiapine Fumarate 25 Mg Tablet) 25 mg PO BID@1500,2100 [facility] Last Admin: 04/18/23 19:51 Dose: 25 mg Documented By: LYNETTE Quetiapine Fumarate (Quetiapine Fumarate 25 Mg Tablet) 12.5 mg PO DAILY PRN PRN Reason: anxiety/restlessness Trolamine Salicylate (Trolamine Salicylate 10 % Cream 85 Gm Tube) 1 appl TOPICAL TID PRN; Protocol PRN Reason: back pain Labs 04/08/23 17:07 03/28/23 09:15 Assessment and Plan (1) Dementia with behavioral disturbance: Status: Acute Plan 82yo F with osteoporosis + dementia was in observation unit 01/01-01/06/23 awaiting LTC placement but then developed sepsis due to presumed UTI(resolved) No acute issues last 24 hours will continue current treatment plan, no reports of aggressive behavior. Dementia/behavioral disturbance, has been controlled with recent med adjustment by Psych -03/29 Psych made additional med adjustment -PRN seroquel at 2 pm Sepsis due to UTI, completed Abx and resolved. Recent UA negative Mod protein calorie malnutrition continue supplements boderline bp: Chronic and stable continue daily ambulations with staff CBC/BMP 03/28--unremarkable DNR/DNI patient requires continued inpatient hospitalization for the following reasons: safe placement, case management working on it Quality Stroke Does the patient have a stroke diagnosis?: No VTE Prior VTE?: No VTE Risk Level:: Medical - moderate - high VTE Device Contraindication: Treatment Not Indicated VTE Drug Contraindication: N/A - Med Ordered
[2023-04-19] MEDS: QUEtiapine Fumarate 25 MG TABLET PO ×2 (15:23→20:27)
[2023-04-19 15:38] VITALS: BP 101/58; PULSE 88; RESP 20; TEMP 36.4; O2SAT 98
[2023-04-20] MEDS: Acetaminophen 325 MG TABLET 650 MG PO ×2 (07:22→15:20)
[2023-04-20] MEDS: Memantine HCl 5 MG TABLET PO (07:22)
[2023-04-20 08:00] VITALS: BP 98/50; PULSE 101; RESP 18; TEMP 36.1; O2SAT 97
[2023-04-20] MEDS: Celecoxib 100 MG CAPSULE PO (08:49)
--- NOTE | 2023-04-20 10:51 | HO.PM.IMPN ---
Subjective Subjective Date of Service: 04/20/23 Interval History: Complained of lower back discomfort this morning, offers no other acute complaints, no nausea, no vomiting, no diarrhea. Review of Systems Unable to obtain due to dementia. Physical Exam Vital Signs: Vital Signs: Last Vital Signs Temp 96.9 F 04/20/23 08:00 Pulse 101 H 04/20/23 08:00 Resp 18 04/20/23 08:00 BP 98/50 L 04/20/23 08:00 Pulse Ox 97 04/20/23 08:00 O2 Del Method Room Air 04/20/23 08:00 O2 Flow Rate 98 04/06/23 15:54 BMI result Body Mass Index 15.9 General: oriented to self Neck no JVD Resp:? CTA bilateral CVS: S1,S2,RRR GI: +BS, NT, no distention Skin: No rash Extremities no edema Neuro:? motor grossly intact Psych: appropriate affect Objective Data Active Medications Acetaminophen (Acetaminophen 325 Mg Tablet) 650 mg PO Q6H PRN PRN Reason: Pain, Mild (Pain Scale 1-3) Last Admin: 04/20/23 07:22 Dose: 650 mg Documented By: NIRU Guaifenesin (Guaifenesin 100 Mg/5 Ml Liquid) 10 ml PO Q4H PRN PRN Reason: Cough Last Admin: 03/29/23 10:22 Dose: 10 ml Documented By: ZACK Melatonin (Melatonin 3 Mg Tablet) 6 mg PO BEDTIME PRN PRN Reason: Insomnia Last Admin: 04/17/23 20:39 Dose: 6 mg Documented By: CHIKIS Memantine (Memantine Hcl 5 Mg Tablet) 5 mg PO DAILY [facility] Last Admin: 04/20/23 07:22 Dose: 5 mg Documented By: NIRU Quetiapine Fumarate (Quetiapine Fumarate 25 Mg Tablet) 25 mg PO BID@1500,2100 [facility] Last Admin: 04/19/23 20:27 Dose: 25 mg Documented By: LYNETTE Quetiapine Fumarate (Quetiapine Fumarate 25 Mg Tablet) 12.5 mg PO DAILY PRN PRN Reason: anxiety/restlessness Trolamine Salicylate (Trolamine Salicylate 10 % Cream 85 Gm Tube) 1 appl TOPICAL TID PRN; Protocol PRN Reason: back pain Labs 04/08/23 17:07 03/28/23 09:15 Assessment and Plan (1) Dementia with behavioral disturbance: Status: Acute Plan 82yo F with osteoporosis + dementia was in observation unit 01/01-01/06/23 awaiting LTC placement but then developed sepsis due to presumed UTI(resolved) Lower back discomfort Seems musculoskeletal will give celebrex x1,hot pack prn and if not better will use ultram. Dementia/behavioral disturbance, has been controlled with recent med adjustment by Psych -03/29 Psych made additional med adjustment, PRN seroquel at 2 pm Sepsis due to UTI, completed Abx and resolved. Recent UA negative Mod protein calorie malnutrition continue supplements boderline bp: Chronic and stable continue daily ambulations with staff CBC/BMP 03/28--unremarkable DNR/DNI patient requires continued inpatient hospitalization for the following reasons: safe placement, case management working on it Quality Stroke Does the patient have a stroke diagnosis?: No VTE Prior VTE?: No VTE Risk Level:: Medical - moderate - high VTE Device Contraindication: Treatment Not Indicated VTE Drug Contraindication: N/A - Med Ordered
[2023-04-20] MEDS: QUEtiapine Fumarate 25 MG TABLET PO ×2 (14:41→20:01)
[2023-04-20 15:16] VITALS: BP 115/56; PULSE 88; RESP 20; TEMP 36.4; O2SAT 97
[2023-04-20] MEDS: Trolamine Salicylate 10 % Cream 85 GM TUBE 1 APPL TOPICAL (17:33)
[2023-04-21 04:13] VITALS: BP 121/60; PULSE 88; RESP 18; TEMP 36.8; O2SAT 95
[2023-04-21 07:23] VITALS: BP 119/58; PULSE 88; RESP 18; TEMP 36.5; O2SAT 98
[2023-04-21] MEDS: Acetaminophen 325 MG TABLET 650 MG PO (08:52)
[2023-04-21] MEDS: Memantine HCl 5 MG TABLET PO (08:52)
--- NOTE | 2023-04-21 10:15 | P.PNIM_ITS ---
Subjective Subjective Date of Service: 04/21/23 Interval History: Patient is resting comfortably no acute issues overnight, no complain of back pain, tolerating diet, no nausea ,no vomiting, stable oxygenation and vitals, no fevers, no chills. Review of Systems Unable to obtain due to mental status. Physical Exam 2 Vital Signs: Vital Signs: Last Vital Signs Temp 97.7 F 04/21/23 07:23 Pulse 88 04/21/23 07:23 Resp 18 04/21/23 07:23 BP 119/58 L 04/21/23 07:23 Pulse Ox 98 04/21/23 07:23 O2 Del Method Room Air 04/21/23 07:23 O2 Flow Rate 98 04/06/23 15:54 BMI result Body Mass Index 15.9 Const: Other: General: oriented to self Neck no JVD Resp:? CTA bilateral CVS: S1,S2,RRR GI: +BS, NT, no distention Skin: No rash Extremities no edema Neuro:? motor grossly intact Psych: appropriate affect Objective Data Active Medications Acetaminophen (Acetaminophen 325 Mg Tablet) 650 mg PO Q6H PRN PRN Reason: Pain, Mild (Pain Scale 1-3) Last Admin: 04/21/23 08:52 Dose: 650 mg Documented By: DENNYS Guaifenesin (Guaifenesin 100 Mg/5 Ml Liquid) 10 ml PO Q4H PRN PRN Reason: Cough Last Admin: 03/29/23 10:22 Dose: 10 ml Documented By: ZACK Melatonin (Melatonin 3 Mg Tablet) 6 mg PO BEDTIME PRN PRN Reason: Insomnia Last Admin: 04/17/23 20:39 Dose: 6 mg Documented By: CHIKIS Memantine (Memantine Hcl 5 Mg Tablet) 5 mg PO DAILY [facility] Last Admin: 04/21/23 08:52 Dose: 5 mg Documented By: DENNYS Quetiapine Fumarate (Quetiapine Fumarate 25 Mg Tablet) 25 mg PO BID@1500,2100 [facility] Last Admin: 04/20/23 20:01 Dose: 25 mg Documented By: SALLY Quetiapine Fumarate (Quetiapine Fumarate 25 Mg Tablet) 12.5 mg PO DAILY PRN PRN Reason: anxiety/restlessness Trolamine Salicylate (Trolamine Salicylate 10 % Cream 85 Gm Tube) 1 appl TOPICAL TID PRN; Protocol PRN Reason: back pain Last Admin: 04/20/23 17:33 Dose: 1 appl Documented By: NIRU Labs 04/08/23 17:07 03/28/23 09:15 Assessment and Plan (1) Dementia with behavioral disturbance: Status: Acute Plan 82yo F with osteoporosis + dementia was in observation unit 01/01-01/06/23 awaiting LTC placement but then developed sepsis due to presumed UTI(resolved) Lower back discomfort Seems improved no complaints today was likely musculoskeletal treated with 1 dose of Celebrex. Dementia/behavioral disturbance, has been controlled with recent med adjustment by Psych Continue Seroquel 25 mg b.i.d. on 03/29 Psych added, PRN seroquel at 2 pm Sepsis due to UTI, completed Abx and resolved. Recent UA negative Mod protein calorie malnutrition continue supplements boderline bp: Chronic and stable continue daily ambulations with staff CBC/BMP 03/28--unremarkable DNR/DNI patient requires continued inpatient hospitalization for the following reasons: safe placement, case management working on it Quality Stroke Does the patient have a stroke diagnosis?: No VTE Prior VTE?: No VTE Risk Level:: Medical - moderate - high VTE Device Contraindication: Treatment Not Indicated VTE Drug Contraindication: N/A - Med Ordered
--- NOTE | 2023-04-21 12:28 | MHC.CM.PN ---
IMM was served last week. Plan is [facility] [employer] to send a letter to the guardian/Hannah. Per CM leadership @ [facility] meeting 04/20/23, the letter had not yet been sent. CM will continue follow for discharge.
[2023-04-21] MEDS: QUEtiapine Fumarate 25 MG TABLET PO ×3 (15:13→23:34)
[2023-04-21 15:38] VITALS: BP 104/59; PULSE 95; RESP 18; TEMP 36.6; O2SAT 96
[2023-04-21 19:48] VITALS: BP 107/56; PULSE 102; RESP 18; TEMP 36.5; O2SAT 98
[2023-04-21] MEDS: Melatonin 3 MG TABLET 6 MG PO (23:34)
[2023-04-22 08:00] VITALS: BP 98/55; PULSE 84; RESP 18; TEMP 36.1; O2SAT 98
[2023-04-22] MEDS: Memantine HCl 5 MG TABLET PO (11:57)
[2023-04-22] MEDS: QUEtiapine Fumarate 25 MG TABLET PO ×2 (14:30→19:21)
--- NOTE | 2023-04-22 15:26 | HO.PM.IMPN ---
Subjective Subjective Date of Service: 04/22/23 Interval History: Noted to be somnolent this morning, later workup at noon, with no acute issues tolerated diet no nausea, no vomiting, no abdominal pain, no complain of back pain. Review of Systems Unable to obtain due to mental status. Physical Exam Vital Signs: Vital Signs: Last Vital Signs Temp 97.0 F 04/22/23 08:00 Pulse 84 04/22/23 08:00 Resp 18 04/22/23 08:00 BP 98/55 L 04/22/23 08:00 Pulse Ox 98 04/22/23 08:00 O2 Del Method Room Air 04/22/23 08:00 O2 Flow Rate 98 04/06/23 15:54 BMI result Body Mass Index 15.9 Const: Other: General: oriented to self Neck no JVD Resp:? CTA bilateral CVS: S1,S2,RRR GI: +BS, NT, no distention Skin: No rash Back no pain Extremities no edema Neuro:? motor grossly intact Psych: appropriate affect Objective Data Active Medications Acetaminophen (Acetaminophen 325 Mg Tablet) 650 mg PO Q6H PRN PRN Reason: Pain, Mild (Pain Scale 1-3) Last Admin: 04/21/23 08:52 Dose: 650 mg Documented By: DENNYS Guaifenesin (Guaifenesin 100 Mg/5 Ml Liquid) 10 ml PO Q4H PRN PRN Reason: Cough Last Admin: 03/29/23 10:22 Dose: 10 ml Documented By: ZACK Melatonin (Melatonin 3 Mg Tablet) 6 mg PO BEDTIME PRN PRN Reason: Insomnia Last Admin: 04/21/23 23:34 Dose: 6 mg Documented By: SAFIA Memantine (Memantine Hcl 5 Mg Tablet) 5 mg PO DAILY [facility] Last Admin: 04/22/23 11:57 Dose: 5 mg Documented By: MISSY Quetiapine Fumarate (Quetiapine Fumarate 25 Mg Tablet) 25 mg PO BID@1500,2100 [facility] Last Admin: 04/21/23 23:34 Dose: 25 mg Documented By: SAFIA Quetiapine Fumarate (Quetiapine Fumarate 25 Mg Tablet) 12.5 mg PO DAILY PRN PRN Reason: anxiety/restlessness Trolamine Salicylate (Trolamine Salicylate 10 % Cream 85 Gm Tube) 1 appl TOPICAL TID PRN; Protocol PRN Reason: back pain Last Admin: 04/20/23 17:33 Dose: 1 appl Documented By: NIRU Labs 04/08/23 17:07 03/28/23 09:15 Assessment and Plan (1) Dementia with behavioral disturbance: Status: Acute Plan 82yo F with osteoporosis + dementia was in observation unit 01/01-01/06/23 awaiting LTC placement but then developed sepsis due to presumed UTI(resolved) Lower back discomfort resolved no recurrent symptoms Dementia/behavioral disturbance, has been controlled with recent med adjustment by Psych Continue Seroquel 25 mg b.i.d. on 03/29 Psych added, PRN seroquel at 2 pm Sepsis due to UTI, completed Abx and resolved. Recent UA negative Mod protein calorie malnutrition continue supplements boderline bp: Chronic and stable continue daily ambulations with staff CBC/BMP 03/28--unremarkable DNR/DNI patient requires continued inpatient hospitalization for the following reasons: safe placement, case management working on it Quality Stroke Does the patient have a stroke diagnosis?: No VTE Prior VTE?: No VTE Risk Level:: Medical - moderate - high VTE Device Contraindication: Treatment Not Indicated VTE Drug Contraindication: N/A - Med Ordered
[2023-04-22 15:34] VITALS: BP 97/52; PULSE 99; RESP 17; TEMP 36.3; O2SAT 92
[2023-04-22] MEDS: Melatonin 3 MG TABLET 6 MG PO (19:21)
[2023-04-23 07:33] VITALS: BP 111/57; PULSE 91; RESP 18; TEMP 36.1; O2SAT 94
[2023-04-23] MEDS: Memantine HCl 5 MG TABLET PO (08:09)
--- NOTE | 2023-04-23 12:36 | HO.PM.IMPN ---
Subjective Subjective Date of Service: 04/23/23 Interval History: Complaining of lower back pain this morning, otherwise offers no acute issues, tolerating diet, no nausea, no vomiting, no abdominal pain, stable vitals Review of Systems Unable to obtain due to mental status Physical Exam Vital Signs: Vital Signs: Last Vital Signs Temp 96.9 F 04/23/23 07:33 Pulse 91 04/23/23 07:33 Resp 18 04/23/23 07:33 BP 111/57 L 04/23/23 07:33 Pulse Ox 94 04/23/23 07:33 O2 Del Method Room Air 04/23/23 07:33 O2 Flow Rate 98 04/06/23 15:54 BMI result Body Mass Index 15.9 Const: Other: General: oriented to self Neck no JVD Resp:? CTA bilateral CVS: S1,S2,RRR GI: +BS, NT, no distention Skin: No rash Back no pain Extremities no edema Neuro:? motor grossly intact Psych: appropriate affect Objective Data Active Medications Acetaminophen (Acetaminophen 325 Mg Tablet) 650 mg PO Q6H PRN PRN Reason: Pain, Mild (Pain Scale 1-3) Last Admin: 04/21/23 08:52 Dose: 650 mg Documented By: DENNYS Guaifenesin (Guaifenesin 100 Mg/5 Ml Liquid) 10 ml PO Q4H PRN PRN Reason: Cough Last Admin: 03/29/23 10:22 Dose: 10 ml Documented By: ZACK Melatonin (Melatonin 3 Mg Tablet) 6 mg PO BEDTIME PRN PRN Reason: Insomnia Last Admin: 04/22/23 19:21 Dose: 6 mg Documented By: ULISES Memantine (Memantine Hcl 5 Mg Tablet) 5 mg PO DAILY [facility] Last Admin: 04/23/23 08:09 Dose: 5 mg Documented By: MISSY Quetiapine Fumarate (Quetiapine Fumarate 25 Mg Tablet) 25 mg PO BID@1500,2100 [facility] Last Admin: 04/22/23 19:21 Dose: 25 mg Documented By: ULISES Quetiapine Fumarate (Quetiapine Fumarate 25 Mg Tablet) 12.5 mg PO DAILY PRN PRN Reason: anxiety/restlessness Trolamine Salicylate (Trolamine Salicylate 10 % Cream 85 Gm Tube) 1 appl TOPICAL TID PRN; Protocol PRN Reason: back pain Last Admin: 04/20/23 17:33 Dose: 1 appl Documented By: NIRU Labs 04/08/23 17:07 03/28/23 09:15 Assessment and Plan (1) Dementia with behavioral disturbance: Status: Acute Plan 82yo F with osteoporosis + dementia was in observation unit 01/01-01/06/23 awaiting LTC placement but then developed sepsis due to presumed UTI(resolved) Lower back discomfort Had back pain this morning, give Tylenol follow clinical course. Dementia/behavioral disturbance, has been controlled with recent med adjustment by Psych Continue Seroquel 25 mg b.i.d. on 03/29 Psych added, PRN seroquel at 2 pm Sepsis due to UTI, completed Abx and resolved. Recent UA negative Mod protein calorie malnutrition continue supplements boderline bp: Chronic and stable continue daily ambulations with staff CBC/BMP 03/28--unremarkable DNR/DNI patient requires continued inpatient hospitalization for the following reasons: safe placement, case management working on it Quality Stroke Does the patient have a stroke diagnosis?: No VTE Prior VTE?: No VTE Risk Level:: Medical - moderate - high VTE Device Contraindication: Treatment Not Indicated VTE Drug Contraindication: N/A - Med Ordered
[2023-04-23] MEDS: QUEtiapine Fumarate 25 MG TABLET PO ×2 (15:03→20:49)
--- NOTE | 2023-04-23 15:11 | MHC.CM.PN ---
PT CONTINUES TO AWAIT LTC PLACEMENT PT STILL HAS NO PAYER AND HER DAUGHTER HAS NOT YET PROVIDED ALL NECESSARY DOCUMENTS CM CONTINUING TO FOLLOW AND REFERRALS ARE OUT
[2023-04-23 15:33] VITALS: BP 123/66; PULSE 103; RESP 18; TEMP 36.6; O2SAT 96
[2023-04-24] MEDS: Memantine HCl 5 MG TABLET PO (07:16)
[2023-04-24 07:24] VITALS: BP 116/70; PULSE 91; RESP 18; TEMP 36.6; O2SAT 98
--- NOTE | 2023-04-24 12:56 | P.PNIM_ITS ---
Subjective Subjective Date of Service: 04/24/23 Interval History: Denies back pain this morning sitting comfortably, offers no other acute complaints tolerating diet with no nausea no vomiting no abdominal pain has been tolerating 75-100% of diet, having normal bowel movements. Review of Systems Unable to obtain detailed review of system due to mental status Physical Exam 2 Vital Signs: Vital Signs: Last Vital Signs Temp 97.9 F 04/24/23 07:24 Pulse 91 04/24/23 07:24 Resp 18 04/24/23 07:24 BP 116/70 04/24/23 07:24 Pulse Ox 98 04/24/23 07:24 O2 Del Method Room Air 04/24/23 07:24 O2 Flow Rate 98 04/06/23 15:54 BMI result Body Mass Index 15.9 Const: Other: General: oriented to self Neck no JVD Resp:? CTA bilateral CVS: S1,S2,RRR GI: +BS, NT, no distention Skin: No rash Back no pain Extremities no edema Neuro:? motor grossly intact Psych: appropriate affect Objective Data Active Medications Acetaminophen (Acetaminophen 325 Mg Tablet) 650 mg PO Q6H PRN PRN Reason: Pain, Mild (Pain Scale 1-3) Last Admin: 04/21/23 08:52 Dose: 650 mg Documented By: DENNYS Guaifenesin (Guaifenesin 100 Mg/5 Ml Liquid) 10 ml PO Q4H PRN PRN Reason: Cough Last Admin: 03/29/23 10:22 Dose: 10 ml Documented By: ZACK Melatonin (Melatonin 3 Mg Tablet) 6 mg PO BEDTIME PRN PRN Reason: Insomnia Last Admin: 04/22/23 19:21 Dose: 6 mg Documented By: ULISES Memantine (Memantine Hcl 5 Mg Tablet) 5 mg PO DAILY [facility] Last Admin: 04/24/23 07:16 Dose: 5 mg Documented By: DENNYS Quetiapine Fumarate (Quetiapine Fumarate 25 Mg Tablet) 25 mg PO BID@1500,2100 [facility] Last Admin: 04/23/23 20:49 Dose: 25 mg Documented By: LYNETTE Quetiapine Fumarate (Quetiapine Fumarate 25 Mg Tablet) 12.5 mg PO DAILY PRN PRN Reason: anxiety/restlessness Trolamine Salicylate (Trolamine Salicylate 10 % Cream 85 Gm Tube) 1 appl TOPICAL TID PRN; Protocol PRN Reason: back pain Last Admin: 04/20/23 17:33 Dose: 1 appl Documented By: NIRU Labs 04/08/23 17:07 03/28/23 09:15 Assessment and Plan (1) Dementia with behavioral disturbance: Status: Acute Plan 82yo F with osteoporosis + dementia was in observation unit 01/01-01/06/23 awaiting LTC placement but then developed sepsis due to presumed UTI(resolved) Lower back discomfort Resolved no recurrent symptoms of pain, use Tylenol as needed likely musculoskeletal. Dementia/behavioral disturbance, has been controlled with recent med adjustment by Psych Continue Seroquel 25 mg b.i.d. on 03/29 Psych added, PRN seroquel at 2 pm Sepsis due to UTI, completed Abx and resolved. Recent UA negative Mod protein calorie malnutrition continue supplements boderline bp: Chronic and stable continue daily ambulations with staff CBC/BMP 03/28--unremarkable DNR/DNI patient requires continued inpatient hospitalization for the following reasons: safe placement, case management working on it Quality Stroke Does the patient have a stroke diagnosis?: No VTE Prior VTE?: No VTE Risk Level:: Medical - moderate - high VTE Device Contraindication: Treatment Not Indicated VTE Drug Contraindication: N/A - Med Ordered
[2023-04-24] MEDS: QUEtiapine Fumarate 25 MG TABLET PO ×2 (14:27→20:29)
[2023-04-24] MEDS: Melatonin 3 MG TABLET 6 MG PO (22:55)
[2023-04-25 08:00] VITALS: BP 103/51; PULSE 91; RESP 18; TEMP 36; O2SAT 98
[2023-04-25] MEDS: Memantine HCl 5 MG TABLET PO (09:09)
--- NOTE | 2023-04-25 09:28 | HO.PM.IMPN ---
Subjective Subjective Date of Service: 04/25/23 Interval History: Sitting comfortably no complaints of pain, tolerating diet, with no nausea, no vomiting, or abdominal discomfort, no acute issues overnight. Review of Systems Unable to obtain review of system due to mental status Physical Exam Vital Signs: Vital Signs: Last Vital Signs Temp 96.8 F 04/25/23 08:00 Pulse 91 04/25/23 08:00 Resp 18 04/25/23 08:00 BP 103/51 L 04/25/23 08:00 Pulse Ox 98 04/25/23 08:00 O2 Del Method Room Air 04/25/23 08:00 O2 Flow Rate 98 04/06/23 15:54 BMI result Body Mass Index 15.9 Const: Other: General: oriented to self Neck no JVD Resp:? CTA bilateral CVS: S1,S2,RRR GI: +BS, NT, no distention Skin: No rash Back no pain Extremities no edema Neuro:? motor grossly intact Psych: appropriate affect Objective Data Active Medications Acetaminophen (Acetaminophen 325 Mg Tablet) 650 mg PO Q6H PRN PRN Reason: Pain, Mild (Pain Scale 1-3) Last Admin: 04/21/23 08:52 Dose: 650 mg Documented By: DENNYS Guaifenesin (Guaifenesin 100 Mg/5 Ml Liquid) 10 ml PO Q4H PRN PRN Reason: Cough Last Admin: 03/29/23 10:22 Dose: 10 ml Documented By: ZACK Melatonin (Melatonin 3 Mg Tablet) 6 mg PO BEDTIME PRN PRN Reason: Insomnia Last Admin: 04/24/23 22:55 Dose: 6 mg Documented By: DANA Memantine (Memantine Hcl 5 Mg Tablet) 5 mg PO DAILY [facility] Last Admin: 04/25/23 09:09 Dose: 5 mg Documented By: DENNYS Quetiapine Fumarate (Quetiapine Fumarate 25 Mg Tablet) 25 mg PO BID@1500,2100 [facility] Last Admin: 04/24/23 20:29 Dose: 25 mg Documented By: DANA Quetiapine Fumarate (Quetiapine Fumarate 25 Mg Tablet) 12.5 mg PO DAILY PRN PRN Reason: anxiety/restlessness Trolamine Salicylate (Trolamine Salicylate 10 % Cream 85 Gm Tube) 1 appl TOPICAL TID PRN; Protocol PRN Reason: back pain Last Admin: 04/20/23 17:33 Dose: 1 appl Documented By: NRIU Labs 04/08/23 17:07 03/28/23 09:15 Assessment and Plan (1) Dementia with behavioral disturbance: Status: Acute Plan 82yo F with osteoporosis + dementia was in observation unit 01/01-01/06/23 awaiting LTC placement but then developed sepsis due to presumed UTI(resolved) Lower back discomfort Resolved no recurrent symptoms of pain, use Tylenol as needed likely was musculoskeletal pain. Dementia/behavioral disturbance, has been controlled with recent med adjustment by Psych Continue Seroquel 25 mg b.i.d. on 03/29 Psych added, PRN seroquel at 2 pm Sepsis due to UTI, completed Abx and resolved. Recent UA negative Mod protein calorie malnutrition continue supplements boderline bp: Chronic and stable continue daily ambulations with staff CBC/BMP 03/28--unremarkable DNR/DNI patient requires continued inpatient hospitalization for the following reasons: safe placement, case management working on it Quality Stroke Does the patient have a stroke diagnosis?: No VTE Prior VTE?: No VTE Risk Level:: Medical - moderate - high VTE Device Contraindication: Treatment Not Indicated VTE Drug Contraindication: N/A - Med Ordered
[2023-04-25] MEDS: QUEtiapine Fumarate 25 MG TABLET PO ×2 (15:35→20:00)
[2023-04-25 15:58] VITALS: BP 120/65; PULSE 91; RESP 18; TEMP 36.1; O2SAT 93
[2023-04-25] MEDS: Melatonin 3 MG TABLET 6 MG PO (20:00)
--- NOTE | 2023-04-26 07:07 | P.PNIM_ITS ---
Subjective Subjective Date of Service: 04/26/23 Interval History: No acute issues overnight sitting comfortably , denies pain tolerating diet, no complaints. Review of Systems All other system reviewed and negative patient has underlying dementia says no to all questions. Physical Exam 2 Vital Signs: Vital Signs: Last Vital Signs Temp 97 F 04/25/23 15:58 Pulse 91 04/25/23 15:58 Resp 18 04/25/23 15:58 BP 120/65 04/25/23 15:58 Pulse Ox 93 04/25/23 15:58 O2 Del Method Room Air 04/25/23 15:58 O2 Flow Rate 98 04/06/23 15:54 BMI result Body Mass Index 15.9 Const: Other: General: oriented to self Neck no JVD Resp:? CTA bilateral CVS: S1,S2,RRR GI: +BS, NT, no distention Skin: No rash Back no pain Extremities no edema Neuro:? motor grossly intact Psych: appropriate affect Objective Data Active Medications Acetaminophen (Acetaminophen 325 Mg Tablet) 650 mg PO Q6H PRN PRN Reason: Pain, Mild (Pain Scale 1-3) Last Admin: 04/21/23 08:52 Dose: 650 mg Documented By: DENNYS Guaifenesin (Guaifenesin 100 Mg/5 Ml Liquid) 10 ml PO Q4H PRN PRN Reason: Cough Last Admin: 03/29/23 10:22 Dose: 10 ml Documented By: ZACK Memantine (Memantine Hcl 5 Mg Tablet) 5 mg PO DAILY [facility] Last Admin: 04/25/23 09:09 Dose: 5 mg Documented By: DENNYS Quetiapine Fumarate (Quetiapine Fumarate 25 Mg Tablet) 25 mg PO BID@1500,2100 [facility] Last Admin: 04/25/23 20:00 Dose: 25 mg Documented By: SAKSHI Quetiapine Fumarate (Quetiapine Fumarate 25 Mg Tablet) 12.5 mg PO DAILY PRN PRN Reason: anxiety/restlessness Trolamine Salicylate (Trolamine Salicylate 10 % Cream 85 Gm Tube) 1 appl TOPICAL TID PRN; Protocol PRN Reason: back pain Last Admin: 04/20/23 17:33 Dose: 1 appl Documented By: NIRU Labs 04/08/23 17:07 03/28/23 09:15 Assessment and Plan (1) Dementia with behavioral disturbance: Status: Acute Plan 82yo F with osteoporosis + dementia was in observation unit 01/01-01/06/23 awaiting LTC placement but then developed sepsis due to presumed UTI(resolved) Lower back discomfort Resolved no recurrent symptoms of pain, use Tylenol as needed likely was musculoskeletal pain. Dementia/behavioral disturbance, has been controlled with recent med adjustment by Psych Continue Seroquel 25 mg b.i.d. on 03/29 Psych added, PRN seroquel at 2 pm Sepsis due to UTI, completed Abx and resolved. Recent UA negative Mod protein calorie malnutrition continue supplements boderline bp: Chronic and stable continue daily ambulations with staff CBC/BMP 03/28--unremarkable DNR/DNI patient requires continued inpatient hospitalization for the following reasons: safe placement, case management working on it Quality Stroke Does the patient have a stroke diagnosis?: No VTE Prior VTE?: No VTE Risk Level:: Medical - moderate - high VTE Device Contraindication: Treatment Not Indicated VTE Drug Contraindication: N/A - Med Ordered
[2023-04-26 08:00] VITALS: BP 104/55; PULSE 97; RESP 16; TEMP 36.7; O2SAT 97
[2023-04-26] MEDS: Memantine HCl 5 MG TABLET PO (08:44)
--- NOTE | 2023-04-26 13:27 | MHC.CM.PN ---
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 DAUGHTER STATES SHE IS IN THE CAR AND WILL PROVIDE THAT WHEN SHE RETURNS HOME. DEWEY STATES THEY SHOULD HAVE AN ASSISTED LIVING WITH [facility]ITU[facility] IN THE NEXT 2 WEEKS. CM EXPLAINED THE SENSE OF URGENCY TO GET THESE THINGS SITUATED. CM WILL CONTINUE TO FOLLOW FOR ANY CHANGES IN PLAN.
[2023-04-26 15:03] VITALS: BP 118/59; PULSE 115; RESP 16; TEMP 36.3; O2SAT 95
[2023-04-26] MEDS: QUEtiapine Fumarate 25 MG TABLET PO ×2 (15:51→20:57)
[2023-04-26] MEDS: Acetaminophen 325 MG TABLET 650 MG PO (20:58)
[2023-04-27 07:23] VITALS: BP 128/61; PULSE 94; RESP 16; TEMP 36.2; O2SAT 94
[2023-04-27] MEDS: Memantine HCl 5 MG TABLET PO (09:12)
[2023-04-27] MEDS: QUEtiapine Fumarate 25 MG TABLET PO ×2 (14:29→19:12)
--- NOTE | 2023-04-27 14:34 | HO.PM.IMPN ---
Subjective Subjective Date of Service: 04/27/23 Interval History: no complaints Review of Systems Review of Systems: Yes all other systems are reviewed and are negative Physical Exam Vital Signs: Vital Signs: Last Vital Signs Temp 97.1 F 04/27/23 07:23 Pulse 94 04/27/23 07:23 Resp 16 04/27/23 07:23 BP 128/61 04/27/23 07:23 Pulse Ox 94 04/27/23 07:23 O2 Del Method Room Air 04/27/23 07:23 O2 Flow Rate 98 04/06/23 15:54 BMI result Body Mass Index 15.9 Gen: in no acute distress HEENT: sclera anicteric, moist mucus membranes Neck: supple Lungs: clear to auscultation bilaterally Heart: regular rate and rhythm, no murmurs Abd: soft, non-tender, non-distended Ext: no edema Skin: warm/well-perfused Neuro: alert and oriented to self, no motor deficit Psych: impaired insight Objective Data Active Medications Acetaminophen (Acetaminophen 325 Mg Tablet) 650 mg PO Q6H PRN PRN Reason: Pain, Mild (Pain Scale 1-3) Last Admin: 04/26/23 20:58 Dose: 650 mg Documented By: RICKY Guaifenesin (Guaifenesin 100 Mg/5 Ml Liquid) 10 ml PO Q4H PRN PRN Reason: Cough Last Admin: 03/29/23 10:22 Dose: 10 ml Documented By: ZACK Memantine (Memantine Hcl 5 Mg Tablet) 5 mg PO DAILY [facility] Last Admin: 04/27/23 09:12 Dose: 5 mg Documented By: TYLER Quetiapine Fumarate (Quetiapine Fumarate 25 Mg Tablet) 25 mg PO BID@1500,2100 [facility] Last Admin: 04/27/23 14:29 Dose: 25 mg Documented By: TYLER Quetiapine Fumarate (Quetiapine Fumarate 25 Mg Tablet) 12.5 mg PO DAILY PRN PRN Reason: anxiety/restlessness Trolamine Salicylate (Trolamine Salicylate 10 % Cream 85 Gm Tube) 1 appl TOPICAL TID PRN; Protocol PRN Reason: back pain Last Admin: 04/20/23 17:33 Dose: 1 appl Documented By: NIRU Labs 04/08/23 17:07 10/15/23 09:15 Assessment and Plan (1) Dementia with behavioral disturbance: Status: Acute Plan [id number] 82yo F with osteoporosis + dementia was in observation unit 01/01-01/06/23 awaiting LTC placement but then developed sepsis due to presumed UTI (resolved) lower back discomfort - resolved, APAP prn MSK pain dementia/behavioral disturbance - has been controlled with med adjustment by Psych - continue Seroquel 25 mg bid; on 03/29 Psych added PRN Seroquel at 2pm - contine memantine sepsis due to UTI - completed Abx and resolved mod pr-saba malnutrition - continue supplements soft/borderline BP - chronic, stable VTE ppx - LMWH dispo - TBD In my clinical judgment, the patient requires continued inpatient hospitalization for the following reasons: placement Total time managing care of this patient today: 25 minutes. Quality Stroke Does the patient have a stroke diagnosis?: No VTE Prior VTE?: No VTE Risk Level:: Medical - moderate - high VTE Device Contraindication: Treatment Not Indicated VTE Drug Contraindication: N/A - Med Ordered
[2023-04-27 14:53] VITALS: BP 107/57; PULSE 112; RESP 17; TEMP 36.2; O2SAT 97
[2023-04-27 19:26] VITALS: BP 125/60; PULSE 99; RESP 17; TEMP 36.3; O2SAT 97
[2023-04-28 08:00] VITALS: BP 115/77; PULSE 109; RESP 20; TEMP 36.3; O2SAT 98
[2023-04-28] MEDS: Memantine HCl 5 MG TABLET PO (09:19)
--- NOTE | 2023-04-28 10:41 | P.PNIM_ITS ---
Subjective Subjective Date of Service: 04/28/23 Interval History: no new issues Review of Systems Review of Systems: Yes all other systems are reviewed and are negative Physical Exam 2 Vital Signs: Vital Signs: Last Vital Signs Temp 97.4 F 04/28/23 08:00 Pulse 109 H 04/28/23 08:00 Resp 20 04/28/23 08:00 BP 115/77 04/28/23 08:00 Pulse Ox 98 04/28/23 08:00 O2 Del Method Room Air 04/28/23 08:00 O2 Flow Rate 98 04/06/23 15:54 BMI result Body Mass Index 15.9 Gen: in no acute distress Lungs: normal respiratory effort Neuro: alert and oriented to self, no motor deficit Psych: impaired insight Objective Data Active Medications Acetaminophen (Acetaminophen 325 Mg Tablet) 650 mg PO Q6H PRN PRN Reason: Pain, Mild (Pain Scale 1-3) Last Admin: 04/26/23 20:58 Dose: 650 mg Documented By: RICKY Guaifenesin (Guaifenesin 100 Mg/5 Ml Liquid) 10 ml PO Q4H PRN PRN Reason: Cough Last Admin: 03/29/23 10:22 Dose: 10 ml Documented By: ZACK Memantine (Memantine Hcl 5 Mg Tablet) 5 mg PO DAILY [facility] Last Admin: 04/28/23 09:19 Dose: 5 mg Documented By: TYLER Quetiapine Fumarate (Quetiapine Fumarate 25 Mg Tablet) 25 mg PO BID@1500,2100 [facility] Last Admin: 04/27/23 19:12 Dose: 25 mg Documented By: ROSELYN Quetiapine Fumarate (Quetiapine Fumarate 25 Mg Tablet) 12.5 mg PO DAILY PRN PRN Reason: anxiety/restlessness Trolamine Salicylate (Trolamine Salicylate 10 % Cream 85 Gm Tube) 1 appl TOPICAL TID PRN; Protocol PRN Reason: back pain Last Admin: 04/20/23 17:33 Dose: 1 appl Documented By: NIRU Labs 04/08/23 17:07 03/28/23 09:15 Assessment and Plan (1) Dementia with behavioral disturbance: Status: Acute Plan d113 82yo F with osteoporosis + dementia was in observation unit 01/01-01/06/23 awaiting LTC placement but then developed sepsis due to presumed UTI (resolved) lower back discomfort - resolved, APAP prn MSK pain dementia/behavioral disturbance - has been controlled with med adjustment by Psych - continue Seroquel 25 mg bid; on 03/29 Psych added PRN Seroquel at 2pm - contine memantine sepsis due to UTI - completed Abx and resolved mod pr-saba malnutrition - continue supplements soft/borderline BP - chronic, stable VTE ppx - LMWH dispo - TBD In my clinical judgment, the patient requires continued inpatient hospitalization for the following reasons: placement Total time managing care of this patient today: 25 minutes. Quality Stroke Does the patient have a stroke diagnosis?: No VTE Prior VTE?: No VTE Risk Level:: Medical - moderate - high VTE Device Contraindication: Treatment Not Indicated VTE Drug Contraindication: N/A - Med Ordered
[2023-04-28] MEDS: QUEtiapine Fumarate 25 MG TABLET PO (14:02)
[2023-04-28] MEDS: Acetaminophen 325 MG TABLET 650 MG PO (14:58)
[2023-04-28 15:04] VITALS: BP 101/58; PULSE 104; RESP 18; TEMP 35.9; O2SAT 98
[2023-04-29 07:28] VITALS: BP 100/58; PULSE 86; RESP 16; TEMP 36; O2SAT 93
[2023-04-29] MEDS: Memantine HCl 5 MG TABLET PO (08:11)
--- NOTE | 2023-04-29 10:31 | HO.PM.IMPN ---
Subjective Subjective Date of Service: 04/29/23 Interval History: no new complaints eating well Review of Systems Review of Systems: Yes all other systems are reviewed and are negative Physical Exam Vital Signs: Vital Signs: Last Vital Signs Temp 96.8 F 04/29/23 07:28 Pulse 86 04/29/23 07:28 Resp 16 04/29/23 07:28 BP 100/58 L 04/29/23 07:28 Pulse Ox 93 04/29/23 07:28 O2 Del Method Room Air 04/29/23 07:28 O2 Flow Rate 98 04/06/23 15:54 BMI result Body Mass Index 15.9 Gen: in no acute distress Lungs: normal respiratory effort Neuro: alert and oriented to self, no motor deficit Psych: impaired insight Objective Data Active Medications Acetaminophen (Acetaminophen 325 Mg Tablet) 650 mg PO Q6H PRN PRN Reason: Pain, Mild (Pain Scale 1-3) Last Admin: 04/28/23 14:58 Dose: 650 mg Documented By: TYLER Guaifenesin (Guaifenesin 100 Mg/5 Ml Liquid) 10 ml PO Q4H PRN PRN Reason: Cough Last Admin: 03/29/23 10:22 Dose: 10 ml Documented By: ZACK Memantine (Memantine Hcl 5 Mg Tablet) 5 mg PO DAILY [facility] Last Admin: 04/29/23 08:11 Dose: 5 mg Documented By: DENNYS Quetiapine Fumarate (Quetiapine Fumarate 25 Mg Tablet) 25 mg PO BID@1500,2100 [facility] Last Admin: 04/28/23 23:19 Dose: Not Given Documented By: SAKSHI Non-Admin Reason: Patient Asleep Quetiapine Fumarate (Quetiapine Fumarate 25 Mg Tablet) 12.5 mg PO DAILY PRN PRN Reason: anxiety/restlessness Trolamine Salicylate (Trolamine Salicylate 10 % Cream 85 Gm Tube) 1 appl TOPICAL TID PRN; Protocol PRN Reason: back pain Last Admin: 04/20/23 17:33 Dose: 1 appl Documented By: NIRU Labs 04/08/23 17:07 03/28/23 09:15 Assessment and Plan (1) Dementia with behavioral disturbance: Status: Acute Plan d114 82yo F with osteoporosis + dementia was in observation unit 01/01-01/06/23 awaiting LTC placement but then developed sepsis due to presumed UTI (resolved) lower back discomfort - resolved, APAP prn MSK pain dementia/behavioral disturbance - has been controlled with med adjustment by Psych - continue Seroquel 25 mg bid; on 03/29 Psych added PRN Seroquel at 2pm - contine memantine sepsis due to UTI - completed ABX and resolved mod pr-saba malnutrition - continue supplements soft/borderline BP - chronic, stable VTE ppx - LMWH dispo - TBD In my clinical judgment, the patient requires continued inpatient hospitalization for the following reasons: placement Total time managing care of this patient today: 25 minutes. Quality Stroke Does the patient have a stroke diagnosis?: No VTE Prior VTE?: No VTE Risk Level:: Medical - moderate - high VTE Device Contraindication: Treatment Not Indicated VTE Drug Contraindication: N/A - Med Ordered
--- NOTE | 2023-04-29 10:49 | PC.NURSE ---
Refusing Alarms for fall risks.
[2023-04-29] MEDS: QUEtiapine Fumarate 25 MG TABLET PO ×2 (14:15→19:01)
--- NOTE | 2023-04-29 15:43 | MHC.CM.PN ---
HCP/RUPAL/DEWEY DELIVERED AN APPLICATION TO FOR [facility]. POSSIBLE DISCHARGE NEXT WEEK.
[2023-04-29] MEDS: Acetaminophen 325 MG TABLET 650 MG PO (18:59)
[2023-04-30] MEDS: Memantine HCl 5 MG TABLET PO (07:16)
[2023-04-30] MEDS: Acetaminophen 325 MG TABLET 650 MG PO (07:16)
[2023-04-30 07:56] VITALS: BP 109/57; PULSE 86; RESP 17; TEMP 36.4; O2SAT 93
--- NOTE | 2023-04-30 09:35 | HO.PM.IMPN ---
Subjective Subjective Date of Service: 04/30/23 Interval History: no complaints Review of Systems Review of Systems: Yes all other systems are reviewed and are negative Physical Exam Vital Signs: Vital Signs: Last Vital Signs Temp 97.5 F 04/30/23 07:56 Pulse 86 04/30/23 07:56 Resp 17 04/30/23 07:56 BP 109/57 L 04/30/23 07:56 Pulse Ox 93 04/30/23 07:56 O2 Del Method Room Air 04/30/23 07:56 O2 Flow Rate 98 04/06/23 15:54 BMI result Body Mass Index 15.9 Gen: in no acute distress HEENT: sclera anicteric, moist mucus membranes Neck: supple Lungs: clear to auscultation bilaterally Heart: regular rate and rhythm, no murmurs Abd: soft, non-tender, non-distended Ext: no edema Skin: warm/well-perfused Neuro: alert and oriented to self, no motor deficit Psych: impaired insight Objective Data Active Medications Acetaminophen (Acetaminophen 325 Mg Tablet) 650 mg PO Q6H PRN PRN Reason: Pain, Mild (Pain Scale 1-3) Last Admin: 04/30/23 07:16 Dose: 650 mg Documented By: DENNYS Guaifenesin (Guaifenesin 100 Mg/5 Ml Liquid) 10 ml PO Q4H PRN PRN Reason: Cough Last Admin: 03/29/23 10:22 Dose: 10 ml Documented By: ZACK Memantine (Memantine Hcl 5 Mg Tablet) 5 mg PO DAILY [facility] Last Admin: 04/30/23 07:16 Dose: 5 mg Documented By: DENNYS Quetiapine Fumarate (Quetiapine Fumarate 25 Mg Tablet) 25 mg PO BID@1500,2100 [facility] Last Admin: 04/29/23 19:01 Dose: 25 mg Documented By: SAKSHI Quetiapine Fumarate (Quetiapine Fumarate 25 Mg Tablet) 12.5 mg PO DAILY PRN PRN Reason: anxiety/restlessness Trolamine Salicylate (Trolamine Salicylate 10 % Cream 85 Gm Tube) 1 appl TOPICAL TID PRN; Protocol PRN Reason: back pain Last Admin: 04/20/23 17:33 Dose: 1 appl Documented By: NIRU Labs 04/08/23 17:07 03/28/23 09:15 Assessment and Plan (1) Dementia with behavioral disturbance: Status: Acute Plan d115 82yo F with osteoporosis + dementia was in observation unit 01/01-01/06/23 awaiting LTC placement but then developed sepsis due to presumed UTI (resolved) lower back discomfort - resolved, APAP prn MSK pain dementia/behavioral disturbance - has been controlled with med adjustment by Psych - continue Seroquel 25 mg bid; on 03/29 Psych added PRN Seroquel at 2pm - contine memantine sepsis due to UTI - completed ABX and resolved mod pr-saba malnutrition - continue supplements soft/borderline BP - chronic, stable VTE ppx - LMWH dispo - TBD In my clinical judgment, the patient requires continued inpatient hospitalization for the following reasons: placement Total time managing care of this patient today: 25 minutes. Quality Stroke Does the patient have a stroke diagnosis?: No VTE Prior VTE?: No VTE Risk Level:: Medical - moderate - high VTE Device Contraindication: Treatment Not Indicated VTE Drug Contraindication: N/A - Med Ordered
--- NOTE | 2023-04-30 12:01 | PC.NURSE ---
Pt is A&Ox1, c/o back pain this AM, medicated per EMAR, expresses relief. Pleasantly confused, able to make needs known. Lungs are clear, no c/o chest pain, no c/o n/v. Ambulates with a walker to the bathroom. Occ with urinary urge incont. Skin intact. Call cespedes accessible when in room. Enjoys reading and coloring.
--- NOTE | 2023-04-30 13:31 | MHC.CLN ---
F/U SUPPLEMENT ADDED PER MD. CHANGED TO ENSURE MAX BID DUE TO SUPPLY ISSUES. SUPPLEMENT PROVIDES 300 KCALS, 60 G PROTEIN.
--- NOTE | 2023-04-30 13:37 | MHC.CM.PN ---
PTS DAUGHTER BROUGHT IN PAPERWORK FROM [facility] YESTERDAY TO BE COMPLETED BY MD PAPERWORK WAS COMPLETED ACCORDINGLY MAXX FROM [facility] CAME IN TO ASSESS PT TODAY AND OBTAIN PAPERWORK HE STATED HE FELT THE PT WOULD DO WELL AT THE [facility] AND THEY WILL BE PREPARED TO TAKE HER ON Wednesday05/04/23
[2023-04-30] MEDS: QUEtiapine Fumarate 25 MG TABLET PO ×2 (14:55→20:32)
[2023-04-30 15:09] VITALS: BP 102/58; PULSE 97; RESP 18; TEMP 36.6; O2SAT 96
[2023-05-01 07:15] VITALS: BP 118/60; PULSE 92; RESP 16; TEMP 36.9; O2SAT 94
[2023-05-01] MEDS: Acetaminophen 325 MG TABLET 650 MG PO (09:31)
[2023-05-01] MEDS: Memantine HCl 5 MG TABLET PO (09:32)
--- NOTE | 2023-05-01 09:44 | P.PNIM_ITS ---
Subjective Subjective Date of Service: 05/01/23 Interval History: no new complaints Review of Systems Review of Systems: Yes all other systems are reviewed and are negative Physical Exam 2 Vital Signs: Vital Signs: Last Vital Signs Temp 98.5 F 05/01/23 07:15 Pulse 92 05/01/23 07:15 Resp 16 05/01/23 07:15 BP 118/60 05/01/23 07:15 Pulse Ox 94 05/01/23 07:15 O2 Del Method Room Air 05/01/23 07:15 O2 Flow Rate 98 04/06/23 15:54 BMI result Body Mass Index 15.9 Gen: in no acute distress HEENT: sclera anicteric, moist mucus membranes Neck: supple Lungs: clear to auscultation bilaterally Heart: regular rate and rhythm, no murmurs Abd: soft, non-tender, non-distended Ext: no edema Skin: warm/well-perfused Neuro: alert and oriented to self, no motor deficit Psych: impaired insight Objective Data Active Medications Acetaminophen (Acetaminophen 325 Mg Tablet) 650 mg PO Q6H PRN PRN Reason: Pain, Mild (Pain Scale 1-3) Last Admin: 05/01/23 09:31 Dose: 650 mg Documented By: MISSY Guaifenesin (Guaifenesin 100 Mg/5 Ml Liquid) 10 ml PO Q4H PRN PRN Reason: Cough Last Admin: 03/29/23 10:22 Dose: 10 ml Documented By: ZACK Memantine (Memantine Hcl 5 Mg Tablet) 5 mg PO DAILY [facility] Last Admin: 05/01/23 09:32 Dose: 5 mg Documented By: MISSY Quetiapine Fumarate (Quetiapine Fumarate 25 Mg Tablet) 25 mg PO BID@1500,2100 [facility] Last Admin: 04/30/23 20:32 Dose: 25 mg Documented By: NEGAR Quetiapine Fumarate (Quetiapine Fumarate 25 Mg Tablet) 12.5 mg PO DAILY PRN PRN Reason: anxiety/restlessness Trolamine Salicylate (Trolamine Salicylate 10 % Cream 85 Gm Tube) 1 appl TOPICAL TID PRN; Protocol PRN Reason: back pain Last Admin: 04/20/23 17:33 Dose: 1 appl Documented By: NIRU Labs 04/08/23 17:07 03/28/23 09:15 Assessment and Plan (1) Dementia with behavioral disturbance: Status: Acute Plan d116 82yo F with osteoporosis + dementia was in observation unit 01/01-01/06/23 awaiting LTC placement but then developed sepsis due to presumed UTI (resolved) lower back discomfort - resolved, APAP prn MSK pain dementia/behavioral disturbance - has been controlled with med adjustment by Psych - continue Seroquel 25 mg bid; on 03/29 Psych added PRN Seroquel at 2pm - contine memantine sepsis due to UTI - completed ABX and resolved mod pr-saba malnutrition - continue supplements soft/borderline BP - chronic, stable VTE ppx - LMWH dispo - accepted by [facility], tentatively for 05/04 In my clinical judgment, the patient requires continued inpatient hospitalization for the following reasons: placement Total time managing care of this patient today: 25 minutes. Quality Stroke Does the patient have a stroke diagnosis?: No VTE Prior VTE?: No VTE Risk Level:: Medical - moderate - high VTE Device Contraindication: Treatment Not Indicated VTE Drug Contraindication: N/A - Med Ordered
[2023-05-01] MEDS: QUEtiapine Fumarate 25 MG TABLET PO ×2 (14:20→19:38)
[2023-05-01 19:20] VITALS: BP 114/57; PULSE 113; RESP 16; TEMP 36.1; O2SAT 95
[2023-05-02 07:05] VITALS: BP 131/62; PULSE 102; RESP 12; TEMP 36.4; O2SAT 96
[2023-05-02] MEDS: Memantine HCl 5 MG TABLET PO (09:23)
--- NOTE | 2023-05-02 10:13 | HO.PM.IMPN ---
Subjective Subjective Date of Service: 05/02/23 Interval History: no new complaints Review of Systems Review of Systems: Yes all other systems are reviewed and are negative Physical Exam Vital Signs: Vital Signs: Last Vital Signs Temp 97.6 F 05/02/23 07:05 Pulse 102 H 05/02/23 07:05 Resp 12 05/02/23 07:05 BP 131/62 05/02/23 07:05 Pulse Ox 96 05/02/23 07:05 O2 Del Method Room Air 05/02/23 07:05 O2 Flow Rate 98 04/06/23 15:54 BMI result Body Mass Index 15.9 Gen: in no acute distress Lungs: normal respiratory effort Neuro: alert and oriented to self, no motor deficit Psych: impaired insight Objective Data Active Medications Acetaminophen (Acetaminophen 325 Mg Tablet) 650 mg PO Q6H PRN PRN Reason: Pain, Mild (Pain Scale 1-3) Last Admin: 05/01/23 09:31 Dose: 650 mg Documented By: MISSY Guaifenesin (Guaifenesin 100 Mg/5 Ml Liquid) 10 ml PO Q4H PRN PRN Reason: Cough Last Admin: 03/29/23 10:22 Dose: 10 ml Documented By: ZACK Memantine (Memantine Hcl 5 Mg Tablet) 5 mg PO DAILY [facility] Last Admin: 05/02/23 09:23 Dose: 5 mg Documented By: MISSY Quetiapine Fumarate (Quetiapine Fumarate 25 Mg Tablet) 25 mg PO BID@1500,2100 [facility] Last Admin: 05/01/23 19:38 Dose: 25 mg Documented By: NEGAR Quetiapine Fumarate (Quetiapine Fumarate 25 Mg Tablet) 12.5 mg PO DAILY PRN PRN Reason: anxiety/restlessness Trolamine Salicylate (Trolamine Salicylate 10 % Cream 85 Gm Tube) 1 appl TOPICAL TID PRN; Protocol PRN Reason: back pain Last Admin: 04/20/23 17:33 Dose: 1 appl Documented By: NIRU Labs 04/08/23 17:07 03/28/23 09:15 Assessment and Plan (1) Dementia with behavioral disturbance: Status: Acute Plan d117 82yo F with osteoporosis + dementia was in observation unit 01/01-01/06/23 awaiting LTC placement but then developed sepsis due to presumed UTI (resolved) lower back discomfort - resolved, APAP prn MSK pain dementia/behavioral disturbance - has been controlled with med adjustment by Psych - continue Seroquel 25 mg bid; on 03/29 Psych added PRN Seroquel at 2pm - contine memantine sepsis due to UTI - completed ABX and resolved mod pr-saba malnutrition - continue supplements soft/borderline BP - chronic, stable VTE ppx - LMWH dispo - accepted by [facility], tentatively for 05/04 In my clinical judgment, the patient requires continued inpatient hospitalization for the following reasons: placement Total time managing care of this patient today: 25 minutes. Quality Stroke Does the patient have a stroke diagnosis?: No VTE Prior VTE?: No VTE Risk Level:: Medical - moderate - high VTE Device Contraindication: Treatment Not Indicated VTE Drug Contraindication: N/A - Med Ordered
[2023-05-02] MEDS: QUEtiapine Fumarate 25 MG TABLET PO ×2 (14:11→19:32)
[2023-05-02] MEDS: Acetaminophen 325 MG TABLET 650 MG PO (16:32)
[2023-05-03 08:00] VITALS: BP 106/56; PULSE 95; RESP 18; TEMP 36.1; O2SAT 98
[2023-05-03] MEDS: Memantine HCl 5 MG TABLET PO (08:51)
--- NOTE | 2023-05-03 10:36 | HO.PM.IMPN ---
Subjective Subjective Date of Service: 05/03/23 Interval History: no new complaints Review of Systems Review of Systems: Yes all other systems are reviewed and are negative Physical Exam Vital Signs: Vital Signs: Last Vital Signs Temp 96.9 F 05/03/23 08:00 Pulse 95 05/03/23 08:00 Resp 18 05/03/23 08:00 BP 106/56 L 05/03/23 08:00 Pulse Ox 98 05/03/23 08:00 O2 Del Method Room Air 05/03/23 08:00 O2 Flow Rate 98 04/06/23 15:54 BMI result Body Mass Index 15.9 Gen: in no acute distress, thin Lungs: normal respiratory effort Neuro: alert and oriented to self, no motor deficit Psych: impaired insight Objective Data Active Medications Acetaminophen (Acetaminophen 325 Mg Tablet) 650 mg PO Q6H PRN PRN Reason: Pain, Mild (Pain Scale 1-3) Last Admin: 05/02/23 16:32 Dose: 650 mg Documented By: MISSY Guaifenesin (Guaifenesin 100 Mg/5 Ml Liquid) 10 ml PO Q4H PRN PRN Reason: Cough Last Admin: 03/29/23 10:22 Dose: 10 ml Documented By: ZACK Memantine (Memantine Hcl 5 Mg Tablet) 5 mg PO DAILY [facility] Last Admin: 05/03/23 08:51 Dose: 5 mg Documented By: MARYAN Quetiapine Fumarate (Quetiapine Fumarate 25 Mg Tablet) 25 mg PO BID@1500,2100 [facility] Last Admin: 05/02/23 19:32 Dose: 25 mg Documented By: LYNETTE Comments: pt going to bed now Quetiapine Fumarate (Quetiapine Fumarate 25 Mg Tablet) 12.5 mg PO DAILY PRN PRN Reason: anxiety/restlessness Trolamine Salicylate (Trolamine Salicylate 10 % Cream 85 Gm Tube) 1 appl TOPICAL TID PRN; Protocol PRN Reason: back pain Last Admin: 04/20/23 17:33 Dose: 1 appl Documented By: NIRU Labs 04/08/23 17:07 03/28/23 09:15 Assessment and Plan (1) Dementia with behavioral disturbance: Status: Acute Plan d118 82yo F with osteoporosis + dementia was in observation unit 01/01-01/06/23 awaiting LTC placement but then developed sepsis due to presumed UTI (resolved) lower back discomfort - resolved, APAP prn MSK pain dementia/behavioral disturbance - has been controlled with med adjustment by Psych - continue Seroquel 25 mg bid; on 03/29 Psych added PRN Seroquel at 2pm - contine memantine sepsis due to UTI - completed ABX and resolved mod pr-saba malnutrition - continue supplements soft/borderline BP - chronic, stable VTE ppx - LMWH dispo - accepted by [facility], tentatively for 05/04 In my clinical judgment, the patient requires continued inpatient hospitalization for the following reasons: placement Total time managing care of this patient today: 25 minutes. Quality Stroke Does the patient have a stroke diagnosis?: No VTE Prior VTE?: No VTE Risk Level:: Medical - moderate - high VTE Device Contraindication: Treatment Not Indicated VTE Drug Contraindication: N/A - Med Ordered
[2023-05-03] MEDS: QUEtiapine Fumarate 25 MG TABLET PO ×2 (15:10→19:37)
--- NOTE | 2023-05-03 16:03 | MHC.CM.PN ---
IMM sent via Registered Mail (see CM note 04/15/23) Patient is discharged to [facility] assisted Living. Her daughter Hannah was contacted via phone @ 4pm today. This typewriter mechanic reminded Hannah of discharge tomorrow. She will transport Malinda to [facility], after 9am
[2023-05-04 06:56] VITALS: BP 110/58; PULSE 70; RESP 17; TEMP 36.1; O2SAT 97
[2023-05-04] MEDS: Memantine HCl 5 MG TABLET PO (08:50)
--- NOTE | 2023-05-04 08:52 | PM.DS ---
DS: Providers Provider Date of Service: 05/04/23 Date of admission: 01/06/23 17:07 Primary care physician: Dori Schmitt MD Consults: 01/06/23 16:03 Consult to Orthopedics Routine Consulting Provider: [facility] Reason for consultation: Swollen left knee w/joint effusion 01/15/23 14:59 Consult to Psychiatry Routine Consulting Provider: Psych Covering Reason for consultation: antipsychotic Med management and clinical affidavit 01/16/23 07:16 Consult to Psychiatry Routine Consulting Provider: Psych Covering Reason for consultation: requested by YOANDY; Justino order for quetiapine?' DS: Diagnosis Discharge Diagnosis (1) Dementia with behavioral disturbance: Status: Acute DS: Summary Hospital Course Hospital Course: from admission H+P by hospitalist VERONICA Alonso, 01/06/23: Pt is a 82-year-old female with a PMH significant for?osteoporosis and profound dementia not on home meds who presented to the ED 5 days prior on 01/01/2023 with worsening dementia.? Patient was brought in by family after wandering out of her house multiple times and eventually ending up in her neighbor's home.? According to guardian, patient's wandering has worsened recently to the point where the family no longer feels like they can manage her at home.? Patient apparently had been living with her in [place] up until September of this year when her began having health issues of his own and could no longer take care of the patient.? Guardian notes that for the past few weeks patient has been less ambulatory than prior, has been complaining of left knee pain after morning walks around the block.? All workup, including CBC, CMP, and UA were negative. Pt has been in the observation unit since then awaiting placement at a long-term care facility.? This morning patient was noted be lethargic, tachycardic up to 109, and labs were significant for a leukocytosis of 14.2.? Chest x-ray negative for acute cardiopulmonary process.? UA still pending since urine has not yet been able to be obtained via straight catheterization despite 3 attempts by 3 different clinicians. Pt was treated with ceftriaxone and IVF. Pt will be admitted to the hospital for sepsis possibly secondary to UTI. 82yo F with osteoporosis + dementia who was in observation unit 01/01-01/06/23 awaiting LTC placement, but then developed sepsis due to presumed UTI and thus was admitted to the medical-surgical floor. Hospital course by problem: sepsis due to presumed UTI, resolved - tachycardic with leukocytosis; urine not obtained; completed ceftriaxone course and sepsis resolved L knee effusion - due DJD/OA; aspirated by Ortho and given steroid injection with resolution of pain; may use APAP prn pain dementia + behavioral disturbance - started on low-dose quetiapine at moderate protein-calorie malnutrition - started on supplements She was discharged to [facility] for [facility] with possible transition to LTC. Time Attestation Discharge coordination time: Greater than 30 minutes Quality: Safe Use of Opioids Does Pt have an Active Cancer Diagnosis on the Problem List?: No Quality: Stroke Does the patient have a stroke diagnosis?: No Physical Exam Vital Signs: Vital Signs: Last Vital Signs Temp 97 F 05/04/23 06:56 Pulse 70 05/04/23 06:56 Resp 17 05/04/23 06:56 BP 110/58 L 05/04/23 06:56 Pulse Ox 97 05/04/23 06:56 O2 Del Method Room Air 05/04/23 06:56 O2 Flow Rate 98 04/06/23 15:54 BMI result Body Mass Index 15.9 Gen: in no acute distress, thin Lungs: normal respiratory effort Neuro: alert and oriented to self, no motor deficit Psych: impaired insight Discharge Plan Discharge Anticipated Discharge Date/Time: 05/04/23 08:51 Patient Disposition: Xfer Other Discharge Diagnosis: sepsis due to presumed UTI, resolved L knee effusion due to osteoarthritis dementia + behavioral disturbance moderate protein/calorie malnutrition Referrals: [facility] [Other] - 1 Week Dori Schmitt MD [Primary Care Provider] - 1 Week Physician,Unknown J [Physician] - 1 Week Discharge Medications: New lidocaine [Lidocaine Pain Relief] 4 % Adhesive Patch,Medicated 1 patch transdermal DAILY Qty: 1 0RF Protocol: Apply to: Apply to: lower back acetaminophen 325 mg Tablet 650 mg PO Q6H PRN (Reason: Pain, Mild (Pain Scale 1-3)) Qty: 1 0RF docusate sodium 100 mg Capsule 100 mg PO DAILY PRN (Reason: Constipation) Qty: 1 0RF quetiapine 25 mg Tablet 25 mg PO BID@1500,2100 Qty: 30 0RF melatonin 3 mg Tablet 6 mg PO BEDTIME PRN (Reason: Insomnia) Qty: 30 0RF memantine 5 mg Tablet 5 mg PO DAILY Qty: 30 0RF Discharge Orders: Discharge Order (Routine); Ordered 05/04/23 Ordered By: Fermin Crowell Diet: Advance to usual diet Activity on Discharge: As tolerated Stand Alone Forms: Patient Portal Discharge page Care Plan Goals: management of cognitive impairment Health Concerns: Advanced dementia Plan of Treatment: sepsis due to presumed UTI - resolved L knee effusion due to osteoarthritis - resolved; use acetaminophen as needed dementia + behavioral disturbance - quetiapine; frequent reorientation; maintenance of normal sleep-wake cycles moderate protein/calorie malnutrition - Ensure 1 can bid discharge to [facility] for STR -> LTC? Please follow up with your primary care doctor within 1 week. Return to the hospital if you experience recurrent or worsening symptom Assessment: As above
--- NOTE | 2023-05-04 09:36 | MHC.CM.PN ---
Met with Hannah (guardian and daughter); reviewed D/C details and IMM document/rights w/her. Hannah signed and acknowledged IMM; original handed to her and yellow copy placed in paper chart.
== END 2023-05-04 09:34 | disposition other institution (70) | DRG 872 ==
LOC: HO.ED 01-06 12:44 → HO.EDOVER 01-06 17:11 → HO.S3 01-06 17:20
PROVIDERS: Family Medicine; Internal Medicine; Physician Assistant Medical; Registered Nurse Emergency; Admitting Provider Student in an Organized Health Care Education/Training Program; Emergency Provider Internal Medicine; PCP Internal Medicine; Visit Provider Internal Medicine
DX: A41.9 Sepsis, unspecified organism (principal); F02.818 Dementia in other diseases classified elsewhere, unspecified severity, with other behavioral disturbance; E44.0 Moderate protein-calorie malnutrition; Z68.1 Body mass index [BMI] 19.9 or less, adult; N39.0 Urinary tract infection, site not specified; R03.0 Elevated blood-pressure reading, without diagnosis of hypertension; M54.9 Dorsalgia, unspecified; M81.0 Age-related osteoporosis without current pathological fracture; Z66 Do not resuscitate; M17.12 Unilateral primary osteoarthritis, left knee; G30.9 Alzheimer's disease, unspecified; Z75.1 Person awaiting admission to adequate facility elsewhere; Z79.899 Other long term (current) drug therapy
CPT/HCPCS: 36415; 70450; 71046; 72125; 73562; 80048; 80053; 81003; 82947; 83605; 85025; 85027; 86140; 87040; 97110; 97116; 97161; 99285; J0696; J1040; J1650

== ENCOUNTER → 2023-01-06 17:07 | Outpatient (BNV) | payer MEDICARE, OTHER, SELFPAY | PROVIDERS: Admitting Provider Student in an Organized Health Care Education/Training Program; Emergency Provider Internal Medicine; Visit Provider Physician Assistant | DX: M25.462 Effusion, left knee (principal); M17.12 Unilateral primary osteoarthritis, left knee | CPT/HCPCS: 20610; 99232 ==

== ENCOUNTER → 2023-01-06 17:07 | Outpatient (BNV) | payer MEDICARE, OTHER, SELFPAY | PROVIDERS: Admitting Provider Student in an Organized Health Care Education/Training Program; Emergency Provider Internal Medicine; PCP Internal Medicine; Visit Provider Clinical Nurse Specialist Psychiatric/Mental Health, Adult | DX: G30.9 Alzheimer's disease, unspecified (principal); F02.818 Dementia in other diseases classified elsewhere, unspecified severity, with other behavioral disturbance | CPT/HCPCS: 99222; 99231; 99232 ==

== ENCOUNTER → 2023-01-06 17:07 | Outpatient (BNV) | payer MEDICARE, OTHER, SELFPAY | PROVIDERS: Admitting Provider Student in an Organized Health Care Education/Training Program; Emergency Provider Internal Medicine; Visit Provider Student in an Organized Health Care Education/Training Program | DX: F03.918 Unspecified dementia, unspecified severity, with other behavioral disturbance (principal) | CPT/HCPCS: 99223; 99231; 99232; 99233; 99239 ==

== ENCOUNTER 2023-05-17 20:39 | Emergency (ER) | payer MEDICARE, SELFPAY ==
--- NOTE | ~2023-05-17 | XR_ITS ---
EXAMINATION: PORTABLE CHEST 1 VIEW CLINICAL INFORMATION: weakness. COMPARISON: 01/06/2023. TECHNIQUE: Portable frontal view of the chest was obtained. FINDINGS: Lungs are mildly hypoexpanded. Increased markings at the left base partially obscuring the left hemidiaphragm. Early left basilar infiltrate cannot be excluded from this appearance. There is blunting the left costophrenic angle as well. No effusion or pneumothorax. Cardiac and mediastinal silhouettes within normal limits for size. XR/XR chest 1V IMPRESSION: Although hypoexpanded, there are increased markings at the left base partially obscuring the left hemidiaphragm. Early left basilar infiltrate cannot be excluded.
--- NOTE | ~2023-05-17 | CT_ITS ---
EXAMINATION: CT ABDOMEN AND PELVIS WITH CONTRAST CLINICAL INFORMATION: Lower abdominal pain COMPARISON: None available. TECHNIQUE: Multidetector volumetric images were obtained from the superior aspect of the liver through the pubic symphysis following administration 85 mL of Omnipaque 350 intravenous contrast. Sagittal and coronal reformatted images were obtained on the technologist's workstation. Oral contrast: No This CT examination was performed using dose optimization techniques as appropriate, variously including the following: *Automated exposure control *Adjustment of mA and/or kV according to patient size (this includes techniques or standardized protocols for targeted exams where dose is matched to indication/reason for exam; i.e. extremities or head) *Use of iterative reconstruction technique DLP: 430 mGy-cm FINDINGS: LUNG BASES: Bibasilar scarring is present LIVER, GALLBLADDER, AND BILIARY TREE: The liver is normal in size, shape, and attenuation. Multiple benign cysts are seen scattered throughout the liver the largest measuring 3 cm in size. No worrisome solid focal hepatic lesion or biliary ductal dilatation is present. Some calcified granulomas are noted centrally. The gallbladder appears to be present and is unremarkable with no evidence of radiopaque gallstones, gallbladder wall thickening, or obvious pericholecystic inflammatory changes. PANCREAS: Unremarkable. SPLEEN: Unremarkable. A small 0.8 cm hypodensity is noted in the spleen. ADRENAL GLANDS: Some thickening of the left adrenal gland. The right adrenal gland is unremarkable KIDNEYS AND URETERS: The kidneys are normal in size, shape, and attenuation. There is a hyperattenuating 2.4 cm left upper pole parapelvic mass measuring 63 Hounsfield units. Ultrasound is recommended to confirm that this is a cyst rather than a solid enhancing mass. There is another complex mass seen at the lower pole the left kidney measuring 2.0 x 1.6 x 1.7 cm which demonstrates cystic areas, solid areas, septations and calcifications. There are other tiny subcentimeter presumed cyst is present. No hydronephrosis, hydroureter, or nephrolithiasis seen. No perinephric stranding. BLADDER: The liver demonstrates symmetric wall thickening. GASTROINTESTINAL TRACT: Moderate-sized hiatal hernia is present. Extensive diverticular changes are present in the colon without evidence of diverticulitis. The small and large bowel are otherwise unremarkable. The appendix is unremarkable. ABDOMINAL WALL: No significant hernia is appreciated. LYMPH NODES: Normal. VASCULAR: Unremarkable. PELVIC VISCERA: Unremarkable. OSSEOUS STRUCTURES: Severe degenerative changes are present throughout the visualized spine. No bony destructive lesions are seen. There is a biconvex thoracolumbar scoliosis present CT/CT abdomen pelvis w IV con IMPRESSION: 1. A cause for the patient's lower abdominal pain has not been found. 2. There are 2 complex left renal masses. Ultrasound is recommended to confirm that the left parapelvic mass is a cyst. The other mass is most certainly not a cyst and pre and postcontrast renal CT scan is recommended to ascertain if there is enhancement which would point towards a cystic renal neoplasm. Alternatively, this could be a very complex cyst with no areas of soft tissue enhancement.. 3. Other incidental findings as described above including hepatic cysts, small splenic hypodensity, thickening of the left adrenal gland, colonic diverticulosis without diverticulitis and degenerative changes in the spine with scoliosis. Fleischner guidelines were followed.
[2023-05-17 20:47] VITALS: BP 139/83; PULSE 109; O2SAT 98; BMI 23.9
--- NOTE | 2023-05-17 21:07 | ED_ITS ---
HPI - Altered Mental Status General Chief Complaint: Altered Mental Status Stated Complaint: AMS HX OF UROSEPSIS Time Seen by Provider: 05/17/23 20:59 Source: patient, family, EMS and old records reviewed Mode of arrival: EMS Limitations: altered mental status History of Present Illness HPI narrative: 82 yo female with PMH of dementia, osteoporosis, arthritis, UTI reportedly found altered by stafff wasn't responding to painful stimuli - EMS found her barely responsive but spontaneous respirations then en route became more alert and talking was given fluids. She tells me she isn't sure what happened but knows her lower abdomen hurts. She tells me she thinks her abdomen is bloated. MD complaint: decreased responsiveness Onset (ago): unknown Timing confirmed by: caregiver Severity: moderate Context: other (UTI) Associated symptoms: other (abdominal pain) Treatments prior to arrival: IV fluid Related Data Previous Rx's Medication Instructions Recorded acetaminophen 325 mg tablet 650 mg (2 x 325 mg) PO Q6H PRN 01/15/23 Pain, Mild (Pain Scale 1-3) #1 tab docusate sodium 100 mg capsule 100 mg PO DAILY PRN Constipation 01/15/23 #1 cap lidocaine 4 % topical patch 1 patch transdermal DAILY #1 ea 01/15/23 (Lidocaine Pain Relief) melatonin 3 mg tablet 6 mg (2 x 3 mg) PO BEDTIME PRN 02/15/23 Insomnia #30 tabs memantine 5 mg tablet 5 mg PO DAILY #30 tabs 02/15/23 quetiapine 25 mg tablet 25 mg PO BID@1500,2100 #30 tabs 02/15/23 Allergies Allergy/AdvReac Type Severity Reaction Status Date / Time No Known Allergies Allergy Verified 05/17/23 20:53 Review of Systems 2 Review of Systems: ROS unable to be obtained due to cognitive impairment [facility] Past Medical History Source: old records reviewed Medical History Dementia with behavioral disturbance Sepsis Social History Social History Household Members: Children Housing: House Do you presently have visiting nurse or other home services: No Unable to assess alcohol history related to: Unknown 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 Oriented to self and place. No acute distress. Eyes: Pupils equal, round and reactive to light. ENT: Pharynx normal. Atraumatic. Neck: Normal inspection. Neck supple. CVS: Normal heart rate and rhythm. Pulses normal. Respiratory: No respiratory distress. Breath sounds normal. Abdomen: Soft but distended and mild lower ttp no rebound Skin: Skin warm and dry. Normal skin color. Normal skin turgor. Extremities: No lower extremity edema. Neuro: Oriented X 2. No motor deficit. No sensory deficit. Course Course Course Narrative: per guardian DNR/DNI Reevaluation(s) Reevaluation #1: discussion with guardian would feel okay with her going back after repeat troponin - aware of CT findings but would not want extensive work up to look for cancer other work up after repeat troponin Medications Administered Discontinued Medications Generic Name Dose Route Start Last Admin Trade Name Freq PRN Reason Stop Dose Admin Iohexol 100 ml 05/17/23 23:45 05/17/23 23:45 Iohexol 350 Mg/Ml 100 Ml Infus..Btl IV 05/17/23 23:46 85 ml ONCE ONE Administration Medical Decision Making Medical Decision Making [facility] Narrative: 82 yo female with PMH of dementia, osteoporosis, arthritis, UTI here back to baseline but was found unresponsive - she c/o abdominal pain no signs of head trauma. She denies headache. At this time will need EKG, basic labs, UA, CT scan of abdomen for obstruction vs UTI vs diverticulitis. She cannot provide much of a history. Differential Diagnosis Differential Diagnoses: The differential diagnosis associated with the presentation includes obstruction vs UTI vs diverticulitis vs syncope Admission/Observation Consideration of admission/observation: Escalation of care including admission/observation considered not toxic at baseline, repeat testing negative stable for DC Lab Data [facility] Lab Attestation statement: I reviewed the patient's lab results. 05/17/23 21:40 05/17/23 21:40 Labs: Lab Results 05/17/23 05/17/23 05/18/23 Range/Units 21:40 23:14 00:58 WBC 8.6 (4.8-10.8) X10*3/uL RBC 4.06 L (4.20-5.50) X10*6/uL Hgb 11.6 L (12.0-16.0) g/dl Hct 36.1 L (37.0-47.0) % MCV 88.9 (80.0-98.0) fL MCH 28.6 (27.0-33.0) pg MCHC 32.1 (31.0-35.0) g/dl RDW 14.3 (11.0-16.0) % Plt Count 345 (160-400) X10*3/uL MPV 9.5 (9.4-12.3) fL Immature Gran % (Auto) 0.3 (0.0-0.4) % Neut % (Auto) 61.9 (45-73) % Lymph % (Auto) 21.9 (20-40) % Gibson % (Auto) 11.8 H (2-11) % Eos % (Auto) 3.6 (0-4) % Baso % (Auto) 0.5 (0-2) % Lymph # (Auto) 1.9 (1.2-4.9) X10*3/uL Gibson # (Auto) 1.0 (0.1-1.2) X10*3/uL Eos # (Auto) 0.3 (0.0-0.4) X10*3/uL Baso # (Auto) 0.0 (0.0-0.2) X10*3/uL Abs Immat Gran (auto) 0.03 (0.00-0.03) X10*3/uL Absolute Neuts (auto) 5.3 (2.0-8.3) x10*3/uL Absolute Nucleated RBC 0.000 (0.0-0.012) X10*3/uL Nucleated RBC % (auto) 0.0 (0.0-0.2) /100WBC PT 11.3 (11.1-13.3) SEC INR 0.9 (0.9-1.1) Sodium 143 (135-145) mmol/L Potassium 4.4 (3.3-5.1) mmol/L Chloride 113 H (96-108) mmol/L Carbon Dioxide 23 (22-29) mmol/L Anion Gap 11 L (12-20) BUN 25 H (9-16) mg/dL Creatinine 0.80 (0.5-1.4) mg/dL Estim Creat Clear Calc 42.3 Estimated GFR > 60 Random Glucose 93 (60-115) mg/dL Calcium 9.3 (8.4-10.2) mg/dL Magnesium 2.2 (1.6-2.6) mg/dL Total Bilirubin 0.2 (0.0-1.0) mg/dL Direct Bilirubin < 0.2 (0.0-0.5) mg/dL AST 10 (5-31) U/L ALT 9 (0-31) U/L Alkaline Phosphatase 83 (39-117) U/L Troponin I High Sens 6.7 7.3 (<3.5-17.0) ng/L Total Protein 6.4 L (6.5-8.0) g/dL Albumin 3.7 (3.5-5.0) g/dL Lipase 13 (8-78) U/L Urine Color Yellow Urine Appearance Clear Urine pH 6.0 (5.0-9.0) Ur Specific [place] 1.025 (1.005-1.025) Urine Protein Negative (Neg-Trace) mg/dL Urine Glucose (UA) Negative (Negative) mg/dL Urine Ketones Negative (Negative) mg/dL Urine Blood Trace (Negative) Urine Nitrite Negative (Negative) Ur Leukocyte Esterase Negative (Negative) Urine RBC 3-5 H (0-2) /HPF Urine WBC 0-5 (0-5) /HPF Ur Squamous Epith Cells 3-5 (0-2) /HPF Urine Bacteria None Seen (None Seen) Hyaline Casts 0-2 (0-2) /LPF Independent Interpretation I performed an independent interpretation of an: EKG, Plain X-Ray (doubt pneumonia) and CT Scan (no acute cause no pneumonia noted) Interpretation: Rate: 97 Rhythm: NSR [place]: normal Normal P waves. Normal JUAN. Normal QRS complex. ST T wave : inverted t waves III, V1-V3, no CHRIS qTC: normal prior studies: no priors The study has been interpreted contemporaneously by me. . Radiology Impression Discussion of test interpretation with radiology: I have reviewed the radiologist's reading. Independent Historian Clinical information obtained from an independent historian. History obtained from or confirmed by: Other External Record Review External record reviewed: Inpatient record Discharge Plan Discharge Clinical Impression: Syncope and collapse Dementia Qualifiers: Dementia type: unspecified type Dementia severity: unspecified severity D ementia behavioral or psychological symptom: without behavioral, psychotic, or mood disturbance or anxiety Qualified Code(s): F03.90 - Unspecified dementia, unspecified severity, without behavioral disturbance, psychotic disturbance, mood disturbance, and anxiety Patient Disposition: Home, Self-Care Instructions: Syncope (ED) Additional Instructions: CT scan of abdomen, EKG and two heart tests, no acute cause of symptoms, no UTI return for worsening symptoms, DNR/DNI signed with guardian. please return for worsening symptoms or concerns. 1. A cause for the patient's lower abdominal pain has not been found. 2. There are 2 complex left renal masses. Ultrasound is recommended to confirm that the left parapelvic mass is a cyst. The other mass is most certainly not a cyst and pre and postcontrast renal CT scan is recommended to ascertain if there is enhancement which would point towards a cystic renal neoplasm. Alternatively, this could be a very complex cyst with no areas of soft tissue enhancement.. 3. Other incidental findings as described above including hepatic cysts, small splenic hypodensity, thickening of the left adrenal gland, colonic diverticulosis without diverticulitis and degenerative changes in the spine with scoliosis. Prescriptions: No Action lidocaine [Lidocaine Pain Relief] 4 % Adhesive Patch,Medicated 1 patch transdermal DAILY Qty: 1 0RF Protocol: Apply to: Apply to: lower back acetaminophen 325 mg Tablet 650 mg PO Q6H PRN (Reason: Pain, Mild (Pain Scale 1-3)) Qty: 1 0RF docusate sodium 100 mg Capsule 100 mg PO DAILY PRN (Reason: Constipation) Qty: 1 0RF quetiapine 25 mg Tablet 25 mg PO BID@1500,2100 Qty: 30 0RF melatonin 3 mg Tablet 6 mg PO BEDTIME PRN (Reason: Insomnia) Qty: 30 0RF memantine 5 mg Tablet 5 mg PO DAILY Qty: 30 0RF
--- NOTE | 2023-05-17 21:24 | ECG_ITS ---
Test Reason : AMS Blood Pressure : / mmHG Vent. Rate : 097 BPM Atrial Rate : 097 BPM P-R Int : 144 ms QRS Dur : 074 ms QT Int : 358 ms P-R-T Axes : 063 028 018 degrees QTc Int : 454 ms Normal sinus rhythm Nonspecific ST and T wave abnormality Abnormal ECG No previous ECGs available Referred By: Jaja Baer Electronically Signed By:PAMELA VELAZQUEZ
[2023-05-17 21:46] LABS: MANUAL DIFF FLAG NO
[2023-05-17 21:48] LABS: Basophils Percent Auto 0.5 % (0-2); Eosinophils Absolute Auto 0.3 X10*3/uL (0.0-0.4); Eosinophils Percent Auto 3.6 % (0-4); Hematocrit 36.1 % (37.0-47.0); Hemoglobin 11.6 g/dl (12.0-16.0); Imm Gran Abs Auto 0.03 X10*3/uL (0.00-0.03); Imm Gran Pct Auto 0.3 % (0.0-0.4); Lymphocytes Absolute Auto 1.9 X10*3/uL (1.2-4.9); Lymphocytes Percent Auto 21.9 % (20-40); Mean Corpuscular HGB Conc 32.1 g/dl (31.0-35.0); Mean Corpuscular Hemoglobin 28.6 pg (27.0-33.0); Mean Corpuscular Volume 88.9 fL (80.0-98.0); Mean Platelet Volume 9.5 fL (9.4-12.3); Monocytes Percent Auto 11.8 % (2-11); Neutrophils Absolute Auto 5.3 x10*3/uL (2.0-8.3); Neutrophils Percent Auto 61.9 % (45-73); Platelet Count 345 X10*3/uL (160-400); Red Blood Count 4.06 X10*6/uL (4.20-5.50); Red Cell Distribution Width 14.3 % (11.0-16.0); White Blood Count 8.6 X10*3/uL (4.8-10.8)
[2023-05-17 21:50] VITALS: BP 136/68; PULSE 100; RESP 18; O2SAT 95
[2023-05-17 21:55] LABS: INTERNATIONAL NORM RATIO 0.9 (0.9-1.1); Prothrombin Time 11.3 SEC (11.1-13.3)
[2023-05-17 22:04] LABS: Alanine Aminotransferase 9 U/L (0-31); Albumin Level 3.7 g/dL (3.5-5.0); Alkaline Phosphatase 83 U/L (39-117); Anion Gap 11 (12-20); Aspartate Amino Transferase 10 U/L (5-31); Bilirubin Direct < 0.2 mg/dL (0.0-0.5); Bilirubin Total 0.2 mg/dL (0.0-1.0); Blood Urea Nitrogen 25 mg/dL (9-16); Calcium 9.3 mg/dL (8.4-10.2); Carbon Dioxide 23 mmol/L (22-29); Chloride 113 mmol/L (96-108); Creatinine Clr Calc Pharmacy 42.3; Estimated Glomerular Filt Rate > 60; Glucose Random 93 mg/dL (60-115); Lipase 13 U/L (8-78); Magnesium 2.2 mg/dL (1.6-2.6); Potassium 4.4 mmol/L (3.3-5.1); Sodium 143 mmol/L (135-145); Total Protein 6.4 g/dL (6.5-8.0)
[2023-05-17 22:11] LABS: Troponin-I High Sensitivity 6.7 ng/L (<3.5-17.0)
[2023-05-17 23:28] LABS: Appearance Urine Clear; Color Urine Yellow; Glucose Urine UA Negative (Negative); Leukocyte Esterase Urine Negative (Negative); Nitrite Urine Negative (Negative); Specific Gravity - Urine 1.025 (1.005-1.025); UMIC TRIGGER UACC YES; Urine Blood Trace (Negative); Urine Ketones Negative (Negative); Urine Protein Negative (Neg-Trace)
[2023-05-17 23:32] LABS: Bacteria Urine None Seen (None Seen); Hyaline Casts Urine 0-2 /LPF (0-2); WBC Urine 0-5 /HPF (0-5)
[2023-05-17] MEDS: iohexoL 350 MG/ML 100 ML INFUS..BTL IV (23:45)
--- NOTE | 2023-05-18 00:15 | PC.NURSE ---
Pt presenting to ED for AMS and abd pain. Pt daughter at the bedside. Labs drawn, imaging sent. Pt is A&O but confused. Hx of dementia. Pt waiting for dispo at this time.
[2023-05-18 01:24] LABS: Troponin-I High Sensitivity 7.3 ng/L (<3.5-17.0)
[2023-05-18 01:28] VITALS: BP 123/71; PULSE 101; RESP 17; O2SAT 96
--- NOTE | 2023-05-18 03:13 | PC.NURSE ---
Attemptewd to call facility three times with no response. Pt is with EMS at this time
== END 2023-05-18 03:29 | disposition home or self-care (01) ==
PROVIDERS: Emergency Provider Emergency Medicine; PCP Internal Medicine
DX: R55 Syncope and collapse (principal); F03.90 Unspecified dementia, unspecified severity, without behavioral disturbance, psychotic disturbance, mood disturbance, and anxiety; R10.9 Unspecified abdominal pain; R94.31 Abnormal electrocardiogram [ECG] [EKG]; Z79.899 Other long term (current) drug therapy
CPT/HCPCS: 36415; 71045; 74177; 80048; 80076; 81001; 83690; 83735; 84484; 85025; 85610; 87040; 93005; 99284; 99285; Q9967

== ENCOUNTER → 2023-05-17 21:24 | Outpatient (BNV) | payer MEDICARE, OTHER, SELFPAY | PROVIDERS: Emergency Provider Emergency Medicine; PCP Internal Medicine; Visit Provider Internal Medicine | DX: R94.31 Abnormal electrocardiogram [ECG] [EKG] (principal); R41.82 Altered mental status, unspecified | CPT/HCPCS: 93010 ==